=== PATIENT | male | born 1940 | race Caucasian/White ===

== ENCOUNTER → 2018-06-01 14:47 | Outpatient (CLI) | payer MEDICARE, SELFPAY ==
--- NOTE | 2018-06-01 14:52 | MR_ITS ---
MR lumbar spine wo con, MR 3-d myelogram/MRCP HISTORY: X3WKS LT sided LB. Worsening low back pain. . ITS.REASON: DORSALGIA ORDERING PHYSICIAN: Columba Quiñones MD PATIENT AGE: 77 years Comparison: None TECHNIQUE: Standard multiplanar multiecho sequences are performed without contrast. 3-D MIP and myelographic images are also rendered and reviewed FINDINGS: There is normal alignment. There is multilevel lumbar spondylosis which will be described below. The spinal cord ends at the L1 level. L1-L2: Mild facet and ligamentum flavum hypertrophy with mild bilateral foraminal narrowing. Schmorl's nodes are present at the endplate. L2-L3: Degenerative disc disease with bulging disc along with facet and ligamentum flavum hypertrophy. There is moderate to severe bilateral lateral recess narrowing and moderate to severe bilateral foraminal narrowing from the facet hypertrophic change. There is narrowing of the canal. There is mild impingement upon the exiting L2 nerve root on the right L3-L4: Degenerative disc disease with bulging disc along with severe facet and ligamentum hypertrophy with severe canal stenosis and severe bilateral lateral recess narrowing with severe bilateral foraminal narrowing. There is mild impingement on the exiting L3 nerve roots on both sides L4-5: Degenerative disc disease with bulging disc along with moderate to severe facet and ligamentum flavum hypertrophy. There is severe left-sided foraminal narrowing from facet and ligamentum flavum hypertrophy and the bulging disc. There is impingement upon the exiting left L4 nerve root L5-S1: Facet and ligamentum flavum hypertrophy with bulging disc with moderate to severe bilateral foraminal narrowing and mild impingement upon the exiting L V nerve roots on both sides slightly greater on the left. No extruded herniated disc evident. Incidental note made of multiple parapelvic renal cysts IMPRESSION: Abnormal MRI of the lumbar spine with multilevel lumbar spondylosis with degenerative disc disease, bulging disc, facet and ligamentum flavum hypertrophy with lateral recess and foraminal narrowing at multiple levels. Please see above for detailed description at each level. Severe canal stenosis with severe bilateral lateral recess and foraminal narrowing noted at L3-L4 No disc herniation evident
== END ==
PROVIDERS: PCP Family Medicine; Visit Provider Emergency Medicine
DX: M54.9 Dorsalgia, unspecified (principal)
CPT/HCPCS: 72148; 76376

== ENCOUNTER → 2019-05-28 09:43 | Outpatient (CLI) | payer MEDICARE, SELFPAY ==
--- NOTE | 2019-05-28 09:49 | XR_ITS ---
PROCEDURE: XR KNEE LT 3V CLINICAL INDICATION: ACUTE LT KNEE PAIN Acute left knee pain with limited range of motion COMPARISON: No exams were available for comparison FINDINGS: No fracture or dislocation. No lytic or blastic change. There is normal mineralization. Minimal osteoarthritic change medial compartment and patellofemoral joint Other findings:None. IMPRESSION: Minimal osteoarthritis Dictated by: Richar Cazares MD 05/28/2019 10:12 Electronically signed by Richar Cazares MD in [place] 05/28/2019 10:12
== END ==
PROVIDERS: PCP Family Medicine; Visit Provider Family Medicine
DX: M25.562 Pain in left knee (principal)
CPT/HCPCS: 73562

== ENCOUNTER → 2019-07-06 10:53 | Outpatient (CLI) | payer MEDICARE, SELFPAY ==
--- NOTE | 2019-07-06 11:01 | XR_ITS ---
PROCEDURE: XR CHEST 2V CLINICAL HISTORY: RESPIRATORY CRACKLES RT LUNG BASE COMPARISON: CXR CHEST(2 VIEWS-NOT PORTABLE) from 03/03/[address] CHEST W/ CONTRAST from 03/24/2017 CXR CHEST(2 VIEWS-NOT PORTABLE) from 05/19/2017 FINDINGS: The cardiomediastinal silhouette and pulmonary vascularity are within normal limits. The lungs are clear without infiltrates, suspicious nodules, or pleural effusions. There is elevation of the right hemidiaphragm. No acute bony abnormalities. IMPRESSION: No acute cardiopulmonary pathology. Dictated by: Pritesh Dupree 07/06/2019 11:57 Electronically signed by Pritesh Dupree in [place] 07/06/2019 11:57
== END ==
PROVIDERS: PCP Family Medicine; Visit Provider Physician Assistant
DX: R09.89 Other specified symptoms and signs involving the circulatory and respiratory systems (principal)
CPT/HCPCS: 71046

== ENCOUNTER → 2020-04-01 10:27 | Outpatient (CLI) | payer MEDICARE, SELFPAY | PROVIDERS: PCP Family Medicine; Visit Provider Family Medicine | DX: Z03.818 Encounter for observation for suspected exposure to other biological agents ruled out (principal) | CPT/HCPCS: U0003 ==

== ENCOUNTER → 2021-02-10 10:56 | Outpatient (POV) | payer MEDICARE, SELFPAY | PROVIDERS: Visit Provider Dermatology | DX: Z00.00 Encounter for general adult medical examination without abnormal findings (principal) ==

== ENCOUNTER → 2021-02-24 14:14 | Outpatient (POV) | payer MEDICARE, SELFPAY | PROVIDERS: Visit Provider Dermatology | DX: Z00.00 Encounter for general adult medical examination without abnormal findings (principal) ==

== ENCOUNTER → 2021-03-03 08:10 | Outpatient (POV) | payer MEDICARE, SELFPAY | PROVIDERS: Visit Provider Dermatology | DX: Z00.00 Encounter for general adult medical examination without abnormal findings (principal) ==

== ENCOUNTER → 2021-03-09 11:48 | Outpatient (CLI) | payer MEDICARE, SELFPAY ==
--- NOTE | 2021-03-09 11:52 | XR_ITS ---
PROCEDURE: XR KNEE RT 3V CLINICAL INDICATION: ACUTE PAIN OF RT KNEE COMPARISON: CR XR KNEE LT 3V from 05/28/2019 FINDINGS: No fracture or dislocation. No lytic or blastic change. There is normal mineralization. There are moderate to severe osteoarthritic changes of the medial compartment and patellofemoral joint with mild osteoarthritis of the lateral compartment. Calcification projects over the inter spinous region and lateral to the lateral tibial spine on the AP view and appear to represent osteophytes of the proximal tibia. Cannot exclude the possibility a loose body in this region. There is increased soft tissue density in the suprapatellar region consistent with knee joint effusion. Vascular calcifications are also noted. Other findings:None. IMPRESSION: Osteoarthritis with proximal tibial osteophytes versus underlying loose bodies with knee joint effusion Dictated by: Richar Cazares MD 03/09/2021 15:24 Richar Cazares MD in [place] 03/09/2021 15:24
== END ==
PROVIDERS: PCP Family Medicine; Visit Provider Family Medicine
DX: M25.561 Pain in right knee (principal)
CPT/HCPCS: 73562

== ENCOUNTER 2021-03-13 15:29 | Outpatient (RCR) | payer MEDICARE, SELFPAY | END 2021-03-13 16:24 | disposition home or self-care (01) | LOC: PT 15:29 | PROVIDERS: Visit Provider Orthopaedic Surgery | DX: M17.11 Unilateral primary osteoarthritis, right knee (principal) | CPT/HCPCS: 97760 ==

== ENCOUNTER 2021-04-02 09:00 | Outpatient (RCR) | payer MEDICARE, SELFPAY ==
--- NOTE | 2021-03-19 17:28 | HMH.PTOPEV ---
PT Outpatient Evaluation Rehab PT Outpatient Evaluation Start: 03/19/21 15:28 Freq: Status: Active Protocol: Document 03/19/21 16:15 ZEUS (Rec: 03/19/21 17:26 CHEVYPIA [id number]) Electronically Signed By Rufus Avalos, PT 03/19/21 16:15 Outpatient Therapy Subjective History Subjective History This is the intial evaluation for Nico Cohen. Pt is an 80 y/o male referred for R knee pain/OA. Pt states two weeks ago he was walking in his yard when he heard a pop and felt pain in his R knee - Pt states x-ray saw an unidentified lose body in the joint space. Pt reports he has had OA in his R knee for years but hasnt felt much pain till this event. Pt states he did not use any AD before this episode but has now used a SP cane to get around his house. Pt's spouse reports she gave him a walker for the first few days so he wouldnt fall. Pt reports no falls since injury. Pt states he has not been on his feet much since that is the only time he feels the pain. - note done by Marta Lafleur, SPT Chief Complaint Pain,Gives out/Unstable Symptom Type Sharp Symptoms Relieved By Rest/Positioning Symptoms Aggravated By Standing,Physical Activity, Walking Prior Functional Limitations None Current Functional Limitations Housework,Standing,Recreation Activity,Walking,Stairs Symptom Description Activity Dependent Level of pain today (0-10) 0 Pain scale - at its best (0-10) 0 Pain scale - at its worst (0-10) 8 Hip/Knee Eval Gait Observation General Gait Pattern Observation Wide Based Gait,Shuffling Step Assistive Device Assistive Devices Straight Cane Palpation Tenderness right Knee Palpation Finding Tenderness Knee Palpation Overall Comment Medial under patella MMT Knee Extension Strength Grade 5 Normal Knee Flexion Strength Grade 5 Normal ROM left Knee Extension Active Range of Motion ( -5 degrees) Knee Flexion Active Range of Motion ( WFL degrees) right Knee Extension Active
== END 2021-04-02 09:05 | disposition home or self-care (01) ==
LOC: PT 09:00
PROVIDERS: PCP Family Medicine; Visit Provider Orthopaedic Surgery
DX: M17.11 Unilateral primary osteoarthritis, right knee (principal)
CPT/HCPCS: 97014; 97110; 97140; 97163; G0283

== ENCOUNTER → 2021-06-02 08:29 | Outpatient (CLI) | payer MEDICARE, SELFPAY ==
--- NOTE | 2021-06-02 08:34 | XR_ITS ---
PROCEDURE: XR HIP RT 2-3V W/PELVIS CLINICAL INDICATION: right hip pain COMPARISON: No exams were available for comparison FINDINGS: Mild osteoarthritic changes involve the right hip. No acute fracture or dislocation. AP view of the pelvis shows mild osteoarthritic change of the left hip. Well-circumscribed calcific densities are present along the lateral aspect of the both acetabuli and in the left greater trochanter region IMPRESSION: Mild osteoarthritic changes of the hips. Dictated by: Richar Cazares MD 06/02/2021 17:36 Richar Cazares MD in [place] 06/02/2021 17:36
== END ==
PROVIDERS: PCP Family Medicine; Visit Provider Orthopaedic Surgery
DX: M25.551 Pain in right hip (principal)
CPT/HCPCS: 73502

== ENCOUNTER → 2021-06-11 11:12 | Outpatient (CLI) | payer MEDICARE, SELFPAY ==
--- NOTE | 2021-06-11 11:21 | XR_ITS ---
PROCEDURE: XR CHEST 2V CLINICAL HISTORY: HX OF OPEN HEART SURGERY, PRE-OPERATIVE COMPARISON: CR CXR CHEST(2 VIEWS-NOT PORTABLE) from 03/03/[address] CHEST W/ CONTRAST from 03/24/2017 DX CXR CHEST(2 VIEWS-NOT PORTABLE) from 05/19/2017 CR XR CHEST 2V from 07/06/2019 FINDINGS: Prior CABG. Normal heart size. Elevated right hemidiaphragm with right basilar atelectasis and minimal blunting of the right CP angle suggesting small right effusion. The remaining lungs are clear.. Degenerative changes thoracic spine IMPRESSION: Elevated right hemidiaphragm with right basilar atelectasis with trace right effusion unchanged. Dictated by: Richar Cazares MD 06/11/2021 14:25 Richar Cazares MD in [place] 06/11/2021 14:25
[2021-06-11 11:30] LABS: Basophils % 0.5 % (0.1-2.0); Eosinophils # 0.4 K/mm3 (0.0-0.4); Eosinophils % 4.5 % (0.1-12.0); Hematocrit 37.9 % (42.0-52.0); Hemoglobin 12.2 g/dL (14.1-18.0); Lymphocytes # 1.3 K/mm3 (0.7-4.5); Mean Corpuscular HGB Conc 32.2 g/dL (31.8-35.4); Mean Corpuscular Volume 96.4 fl (80-94); Mean Platelet Volume 7.8 fl (7.4-10.4); Monocytes # 0.6 K/mm3 (0.1-1.0); Monocytes % 7.3 % (1.7-9.3); Neutrophils # 5.7 K/mm3 (1.8-7.8); Neutrophils % 71.6 % (37.0-80.0); Platelet Count 351 K/mm3 (142-424); Red Blood Count 3.93 M/mm3 (4.60-6.20); Red Cell Distribution Width 12.9 % (11.5-17.5); White Blood Count 7.9 K/mm3 (4.8-10.8)
--- NOTE | 2021-06-11 11:43 | ECG_ITS ---
APPROVED REPORT Exam: Resting ECG HR:64 bpm ECG Measurements Heart Rate 64 AXES OK 166 P 60 QRSd 88 QRS 40 QT 422 T 38 QTc 435 Conclusion Normal sinus rhythm Normal ECG Electronically signed by : Ángel Carrera MD 06/12/2021 09:55:12
[2021-06-11 12:36] LABS: Alanine Aminotransferase 17 U/L (12-78); Albumin Level 3.6 g/dl (3.5-5.0); Albumin/Globulin Ratio 1.2 (1.1-1.8); Alkaline Phosphatase 201 U/L (38-126); Anion Gap 9.8 mEq/L (5-15); Aspartate Amino Transferase 76 U/L (17-59); Bilirubin,Total 0.3 mg/dl (0.2-1.3); Blood Urea Nitrogen 21 mg/dl (9-20); Carbon Dioxide 35 mmol/L (22.0-30.0); Chloride 100 mmol/L (98-107); Estimated Glomerular Filt Rate 81 ml/min (>60); GFR (African American) 98 ML/MIN (>60); Glucose 109 mg/dl (74-100); Potassium 4.8 mmoL/L (3.5-5.1); Sodium 140 mmol/L (136-145); Total Protein,Serum 6.6 g/dl (6.3-8.2)
== END ==
PROVIDERS: Visit Provider Family Medicine
DX: Z01.818 Encounter for other preprocedural examination (principal)
CPT/HCPCS: 36415; 71046; 80053; 85025; 93005

== ENCOUNTER → 2021-07-06 10:26 | Outpatient (CLI) | payer MEDICARE, SELFPAY ==
--- NOTE | 2021-07-06 10:41 | FL_ITS ---
FINAL REPORT CLINICAL HISTORY: . trouble swallowing 2.14 fluoro time FINDINGS: MODIFIED BARIUM SWALLOW HISTORY: Dysphagia. FINDINGS: Fluoroscopy was provided for the speech pathologist to evaluate the swallowing mechanism. The patient was given several different consistencies of barium while the swallow was visualized fluoroscopically. The report of the speech pathologist should be consulted prior to making dietary decisions. A total of 12 cine runs were performed. IMPRESSION: Modified barium swallow under fluoroscopic guidance. Please see speech pathologist's report for further details and dietary recommendations. Fluoroscopy time was 2.14 minutes Reviewed, Interpreted and Dictated by Valentín Carr MD Transcribed by Marian Bennett PA-C Authenticated by Valentín Carr MD on 07/08/2021 11:33:20 AM [facility]
--- NOTE | 2021-07-06 12:32 | HMH.SLMBS2 ---
Speech & Language Evaluation Speech/Language Mod Barium Swallow Start: 07/06/21 11:39 Freq: once Status: Complete Protocol: Document 07/06/21 11:39 LULIAYANNA (Rec: 07/06/21 12:32 CWPARKEIN [id number]) General Information General Current Food Consistancy Regular,Thin Liquids Dentition Edentulous Oxygen Status Room Air Facial Symmetry Symmetrical Ability to Follow Directions Excellent Communication Ability No Impairment MBS Recommendations Diet Dietary Recommendations Regular,Thin Liquids Treatment/Strategies Strategy/Precaution Recommend Sitting Upright (90 deg),Small Bites and Sips,Alternate Liquids/Solids Mod Barium Swallow Impressions Summary and Impressions Oral Phase Impression Mild Impairment Oral Phase Summary Prolonged mastication of solids 2' lack of dentition. Pharyngeal Phase Impression Mild Impairment Pharyngeal Phase Summary Reduced epiglottic inversion noted with liquid trials, reduced pharyngeal wall stripping, and mild pyriform sinus residue with solids. Transient penetration x1 with liquid wash via straw. No other aspiration or penetration noted on any other trials. Speech/Language MBS Assessment/Goals/Plan Assessment Date of Evaluation: 07/06/21 Evaluation Type Initial Certification Assessment/Problems Dysphagia Does Patient Qualify for Service No Qualify/Failure Comment Based on the results of the modified barium swallow study, patient does not qualify for skilled speech therapy services at this time. Recommendations PHYSICIAN CERTIFICATION: The specified therapy services are required, authorized, and reviewed every 30 days. Diet Recommendations Normal Liquid Type Recommendations Normal/Thin SL Swallow Guidelines Alt bite w/sip thru meal, Standard Aspiration Prec.,Eat at slow rate Dysphagia Swallow Precautions/Strategies Sitting Upright (90 deg),Small Bites and Sips,Alternate Liquids/Solids Place Food on Either side of Mouth Plan Pt/Guardian verbally ack understanding Yes of dx/prognosis/goals Pt/Guardian verbally ack understanding Yes of/consent to tx prog G -code Required No Education Ins
== END ==
PROVIDERS: PCP Family Medicine; Visit Provider Family Medicine
DX: R13.12 Dysphagia, oropharyngeal phase (principal)
CPT/HCPCS: 70371; 92611

== ENCOUNTER → 2021-07-09 09:56 | Outpatient (CLI) | payer MEDICARE, SELFPAY ==
--- NOTE | 2021-07-09 10:05 | CT_ITS ---
FINAL REPORT CLINICAL HISTORY: LEFT FLANK PAIN FINDINGS: Technique: The patient was injected with intravenous contrast. Axial images through the abdomen and pelvis were performed. Oral contrast was given. This study was performed with techniques to keep radiation doses as low as reasonably achievable (ALARA). Individualized dose reduction techniques using automated exposure control or adjustment of mA and/or kV according to the patient's size were employed. Abdomen: There is localized consolidation in the medial right lung base. There are a few air bronchograms. There is apparent elevation of the right hemidiaphragm. On the sagittal images, this appears to be in fact representing a large diaphragmatic hernia. There is significant indentation on the liver by the diaphragm. Findings are well seen on images 43-49. The liver parenchyma is homogeneous. The gallbladder is present. The spleen is unremarkable. The adrenals are normal. The pancreas is unremarkable. There appear to be multiple bilateral parapelvic renal cysts. The aorta is normal in caliber. There is no free fluid or adenopathy. Pelvis: The appendix is unremarkable. There is questionable thickening of the posterior wall of the urinary bladder. The prostate is enlarged measuring 5.7 cm in diameter. There is no free fluid or adenopathy. There are advanced hypertrophic changes of degenerative disc disease. No delayed phase imaging were obtained. IMPRESSION: Presumed parapelvic cysts bilaterally. This could be better evaluated on delayed phase imaging to confirm. Apparent abnormal thickening of the posterior urinary bladder. Again, this could be better evaluated on delayed phase imaging. The possibility of localized cystitis or neoplasm is not excluded. Large right diaphragmatic hernia. Reviewed, Interpreted and Dictated by Valentín Carr MD Transcribed by Zeinab Patton Authenticated by Valentín Carr MD on 07/09/2021 01:27:[address] [facility]
[2021-07-09 10:40] LABS: Chloride 102 mmol/L (98-107); Potassium 4.7 mmoL/L (3.5-5.1); Sodium 140 mmol/L (136-145)
[2021-07-09 10:42] LABS: Blood Urea Nitrogen 20 mg/dl (9-20); Estimated Glomerular Filt Rate 72 ml/min (>60); GFR (African American) 87 ML/MIN (>60)
[2021-07-09 10:43] LABS: Alanine Aminotransferase 7 U/L (12-78); Albumin Level 4.1 g/dl (3.5-5.0); Albumin/Globulin Ratio 1.2 (1.1-1.8); Alkaline Phosphatase 92 U/L (38-126); Anion Gap 8.7 mEq/L (5-15); Aspartate Amino Transferase 32 U/L (17-59); Bilirubin,Total 0.6 mg/dl (0.2-1.3); Calcium 9.1 mg/dl (8.4-10.2); Carbon Dioxide 34 mmol/L (22.0-30.0); Globulin 3.3 g/dL (1.3-3.2); Glucose 103 mg/dl (74-100); Total Protein,Serum 7.4 g/dl (6.3-8.2)
== END ==
PROVIDERS: PCP Family Medicine; Visit Provider Family Medicine
DX: R10.9 Unspecified abdominal pain (principal)
CPT/HCPCS: 36415; 74177; 80053; Q9967

== ENCOUNTER → 2021-07-31 14:44 | Outpatient (CLI) | payer MEDICARE, SELFPAY ==
[2021-07-31 17:05] LABS: Prostate Specific Ag Screen 5.1 ng/ml (0.0-4.0)
== END ==
PROVIDERS: PCP Family Medicine; Visit Provider Urology
DX: Z12.5 Encounter for screening for malignant neoplasm of prostate (principal)
CPT/HCPCS: 36415; G0103

== ENCOUNTER → 2021-08-14 13:34 | Outpatient (CLI) | payer MEDICARE, SELFPAY | PROVIDERS: PCP Family Medicine; Visit Provider Urology | DX: N40.1 Benign prostatic hyperplasia with lower urinary tract symptoms (principal); Z01.812 Encounter for preprocedural laboratory examination; Z11.52 Encounter for screening for COVID-19 | CPT/HCPCS: C9803; U0003; U0005 ==

== ENCOUNTER 2021-08-17 10:14 | Day surgery (SDC) | payer MEDICARE, SELFPAY ==
[2021-08-13 13:50] VITALS: BMI 29.5
[2021-08-17 10:31] VITALS: BP 174/68; PULSE 61; RESP 18; TEMP 36.9; O2SAT 93
[2021-08-17 11:10] VITALS: BP 140/85; PULSE 63; RESP 18; TEMP 36.8; O2SAT 93
--- NOTE | 2021-08-17 11:58 | P.OP_ITS ---
Date of procedure: 08/17/21 Pre-op Diagnosis:: BPH with obstruction, urinary incontinence Post-op Diagnosis:: Prostate hyperplasia with incomplete bladder emptying and signs of chronic bladder outlet obstruction Procedure performed:: Cystoscopy Surgeon:: Carloz Samaniego MD Anesthesia: local Estimated blood loss (mL): 0 Clinical Note:: 81-year-old white male with recent left-sided pain and lower urinary tract symptoms. CT scan has shown an enlarged prostate with some posterior bladder wall thickening, a dilated distal left ureter and mild bilateral hydronephrosis. Postvoid residual is 229 cc. Since he was last seen in the office a couple of weeks ago his significant other states he has had worsening urinary incontinence of an urgency type. Operative findings:: Trilobar hyperplasia of the prostate with severe bladder trabeculation. Due to sediment in the bladder it was difficult to completely assess the bladder. The ureteral orifices were obscured. Operative note:: Patient taken to the cystoscopy suite after informed consent was obtained. On the stretcher he was prepped draped in the standard surgical fashion and 2% lidocaine placed into the urethra and clamped for 5 minutes. After 5 minutes the clamp removed and the flexible cystoscope introduced into the urethral meatus in the past to the prostatic urethra which showed trilobar hyperplasia. The bladder was entered but there is a lot of urine and sediment in the bladder and the cystoscope was removed and a 14 [place] red rubber catheter passed into the bladder and the bladder emptied. At the end of drainage there was some thicker sediment. The cystoscope then replaced into the urethral meatus and passed into the bladder. There are still a lot of murky sediment making it difficult to evaluate but there was noted to be severe trabeculation noted. I did not appreciate any mucosal abnormalities but again the exam was suboptimal. The ureteral orifices were obscured. The scope was retroflexed but it was difficult to appreciate the median lobe. The scope then removed. The 14 [place] red rubber catheter was passed again to empty the bladder. Patient tolerated procedure well. We discussed the findings in recovery room with he and his significant other. We discussed treatment options including UroLift versus TURP. A TURP would probably be a better option for this gentleman given a median lobe noted on his CT scan. He was treated for possible urinary tract infection today which may be causing the increased urinary incontinence. We will culture the urine and 7-day course of cefdinir was given. Condition: stable Disposition: same day Specimens:: Culture Complications:: None
== END 2021-08-17 11:16 | disposition home or self-care (01) ==
LOC: OUTP 10:16
PROVIDERS: PCP Family Medicine; Visit Provider Urology
DX: N40.1 Benign prostatic hyperplasia with lower urinary tract symptoms (principal); R33.8 Other retention of urine; I25.10 Atherosclerotic heart disease of native coronary artery without angina pectoris; M19.90 Unspecified osteoarthritis, unspecified site
CPT/HCPCS: 52000; 87086

== ENCOUNTER → 2021-10-03 08:44 | Outpatient (CLI) | payer MEDICARE, SELFPAY ==
[2021-10-03 08:52] LABS: MANUAL DIFFERENTIAL MANUAL DIFFERENTIAL (MANUAL DIFF)
[2021-10-03 09:04] LABS: Basophils # 0.1 K/mm3 (0-0.2); Basophils % 0.7 % (0.1-2.0); Eosinophils # 0.6 K/mm3 (0.0-0.4); Eosinophils % 8.3 % (0.1-12.0); Hematocrit 38.7 % (42.0-52.0); Hemoglobin 12.9 g/dL (14.1-18.0); Lymphocytes # 1.1 K/mm3 (0.7-4.5); Mean Corpuscular HGB Conc 33.4 g/dL (31.8-35.4); Mean Corpuscular Volume 92.6 fl (80-94); Mean Platelet Volume 8.5 fl (7.4-10.4); Monocytes # 0.4 K/mm3 (0.1-1.0); Monocytes % 5.9 % (1.7-9.3); Neutrophils # 4.8 K/mm3 (1.8-7.8); Neutrophils % 69.1 % (37.0-80.0); Platelet Count 220 K/mm3 (142-424); Red Blood Count 4.18 M/mm3 (4.60-6.20); Red Cell Distribution Width 14.3 % (11.5-17.5); White Blood Count 6.9 K/mm3 (4.8-10.8)
[2021-10-03 09:26] LABS: Chloride 106 mmol/L (98-107); Potassium 4.2 mmoL/L (3.5-5.1); Sodium 140 mmol/L (136-145)
[2021-10-03 09:29] LABS: Anion Gap 7.2 mEq/L (5-15); Blood Urea Nitrogen 27 mg/dl (9-20); Calcium 8.5 mg/dl (8.4-10.2); Carbon Dioxide 31 mmol/L (22.0-30.0); Estimated Glomerular Filt Rate 58 ml/min (>60); GFR (African American) 70 ML/MIN (>60); Glucose 99 mg/dl (74-100)
[2021-10-03 10:57] LABS: Eosinophils % 3 % (0-3); Lymphocytes % 14 % (10-50); Monocytes % 4 % (2-9); Neutrophils % 79 % (42-76); Platelet Estimate Normal; RBC Morphology Normal; Total Cells Counted 100
== END ==
PROVIDERS: Visit Provider Urology
DX: N40.1 Benign prostatic hyperplasia with lower urinary tract symptoms (principal); Z01.812 Encounter for preprocedural laboratory examination; Z11.52 Encounter for screening for COVID-19; Z79.899 Other long term (current) drug therapy
CPT/HCPCS: 36415; 80048; 85007; 85014; 85018; 85048; 85049; C9803; U0003; U0005

== ENCOUNTER 2021-10-05 12:04 | Observation (INO) | payer MEDICARE, SELFPAY ==
[2021-10-01 08:30] VITALS: BMI 28.8
[2021-10-05] VITALS (25 sets, daily range): BP systolic 107–210; BP diastolic 50–99; PULSE 53–91; RESP 15–20; TEMP 36.2–43; O2SAT 92–96; BMI 27.9
--- NOTE | 2021-10-05 09:59 | P.PN_ITS ---
[facility] Anesthesia Checklist - Patient Identification Patient Identification: Arm Band, Verbal (Name & ) - Structural Data Admitted From: Home Planned Operative Procedure/s: TURP Consent for Planned Operative Procedure(s) Verified: Yes Verified Documents: Surgical Consent - NPO Status Verified Time NPO: 00:00 - Chart Verification Results Verified: CBC, BMP - Additional verifications Anesthesia Reactions: No Hx Blood Transfusions: No Blood Transfusion Reaction: No - Airway Assessment C-Spine Mobility Assessed: Yes TMJ Mobility Assessed: Yes Dentition: Dentures-good fit - Neurological Assessment Level of Consciousness: Awake, Alert, Appropriate - Anesthesia Plan Anesthesia Risk discussed: Yes ASA Class: III Anesthesia Type: General [facility] History I have reviewed the patient's past medical history: Yes Medical History: Reports:: Coronary Artery Disease Denies:: Cancer, Diabetes Mellitus Type 1, Diabetes Mellitus Type 2, Internal Pacemaker, MRSA, Seizures *Have you ever received a pneumonia vaccine?: Yes *Have you received a flu vaccine this season?: Yes Other Medical History: Reports: Arthritis, Cataracts, Other. Denies: Blood Transfusion Reaction Anesthesia experience/problems:: none Laterality Cases: Bilateral: Cataract, Tonsillectomy Other Surgeries: Yes: No Previous Surgery, Open Heart Surgery. No: Pacemaker Amputation: No Fractures: No - *Social History Last grade of school completed: 7th or 8th Smoking Status: Former smoker #Yrs smoked (if former smoker): 15 Smoking End Date: 1976 Alcohol Intake: never Alcohol Intake Frequency:: a few times a month Substance Use Type: denies use *Occupational Status:: retired Housing: house Household Members: spouse *Travel in the last 8 weeks: None Family Hx:: Diabetes
--- NOTE | 2021-10-05 11:25 | P.PN_ITS ---
[facility] Anesthesia Record Part I Intake, IV Amount: 1,000 Estimated blood loss (mL): 10 Urine output (mL): 0 Blood Pressure: 157/70 SaO2: 93 Pulse Rate: 53 Respiratory Rate: 15 Temperature: 97.2 F Patient is:: Drowsy Stable to PACU at:: 11:23
--- NOTE | 2021-10-05 11:41 | HMH.OPNOTE ---
Date of procedure: 10/05/21 Pre-op Diagnosis:: BPH with obstruction Post-op Diagnosis:: BPH with obstruction Procedure performed:: Transurethral resection of prostate Surgeon:: Carloz Samaniego MD NETWORK COMMUNICATIONS ENGINEER:: Other (sam s) Anesthesia: LMA Estimated blood loss (mL): 5 Clinical Note:: 82-year-old white male with lower urinary tract symptoms and postvoid residual of 230 cc presents for transurethral section of prostate. Operative findings:: Patient with trilobar hyperplasia and chronic bladder outlet obstruction findings of severe trabeculation and cellule formation. Operative note:: Patient taken to the operating room after informed consent was obtained. Was placed on the operating room table in the supine position and general anesthesia administered. Sequential compression devices and IV antibiotics administered. He was then placed into the dorsal lithotomy position and prepped and draped in the standard surgical fashion. A 22 Nigerian cystoscope passed into the urethra and to the prostatic urethra which showed trilobar hyperplasia. The bladder was entered and examined in a systematic fashion. There was severe trabeculation and cellule formation along the face and posterior portion of the bladder. No mucosal abnormalities were noted. The ureteral orifices were obscured by the large median lobe. Scope then removed and the urethra was dilated with Amy dilators to 30 Nigerian. A 28 Nigerian resectoscope sheath with obturator was then passed into the urethra and into the bladder without difficulty. The obturator removed and the resectoscope sheath passed into the scope and resection began at the bladder neck resecting the bladder neck in a circumferential fashion. The floor the prostatic urethra was then resected back to the verumontanum. The right side of the prostate was then resected in a clockwise fashion back to the room. Left side the prostate was resected as well in a counterclockwise fashion back to the [facility] room. There was a significant amount of anterior tissue that was resected back to the [facility] room. The apical tissue was then resected as stage III of the procedure. All the prostatic chips were evacuated and hemostasis achieved. 22 Nigerian three-way catheter then passed into the bladder with use of a catheter guide. Urine was clear. Continuous bladder irrigation hooked up to the catheter is 30 cc placed into the balloon. Patient tolerated the procedure well no complications. Condition: stable Disposition: PACU Specimens:: Prostatic chips Complications:: None
[2021-10-05 11:48] LABS: Coronavirus 19, PCR Not Detected (NotDetected); Influenza A, PCR Not Detected (NotDetected); Influenza B, PCR Not Detected (NotDetected)
--- NOTE | 2021-10-05 11:50 | HMH.HP ---
*Admission Date: 10/05/21 *Chief complaint: BPH with obstruction *History of present illness: Patient is 81-year-old white male with long history of lower urinary tract symptoms. His postvoid residual was 230 cc. Cystoscopy has shown trilobar hyperplasia of the prostate with severe trabeculation and cellule formation of the bladder. He presents today for transurethral section of prostate. [facility] History Medical History: Reports:: Coronary Artery Disease Denies:: Cancer, Diabetes Mellitus Type 1, Diabetes Mellitus Type 2, Internal Pacemaker, MRSA, Seizures *Have you ever received a pneumonia vaccine?: Yes *Have you received a flu vaccine this season?: Yes Other Medical History: Reports: Arthritis, Cataracts, Other. Denies: Blood Transfusion Reaction Anesthesia experience/problems:: none Laterality Cases: Bilateral: Cataract, Tonsillectomy Other Surgeries: Yes: No Previous Surgery, Open Heart Surgery. No: Pacemaker Amputation: No Fractures: No - *Social History Last grade of school completed: 7th or 8th Smoking Status: Former smoker #Yrs smoked (if former smoker): 15 Smoking End Date: 1976 Alcohol Intake: never Alcohol Intake Frequency:: a few times a month Substance Use Type: denies use *Occupational Status:: retired Housing: house Household Members: spouse *Travel in the last 8 weeks: None Family Hx:: Diabetes Review of Systems - Review of Systems Review of systems:: pertinent systems reviewed and negative unless documented below Meds Home Medications Medication Instructions Recorded Confirmed Type atenolol 25 mg tablet 25 mg PO DAILY tab 03/12/21 10/05/21 History lovastatin 20 mg tablet 20 mg PO DAILY tab 03/12/21 10/05/21 History meloxicam 7.5 mg tablet 2 tab PO DAILY tab 03/12/21 10/05/21 History multivitamin 1 tab PO DAILY 03/12/21 10/05/21 History terazosin 5 mg capsule 5 mg PO DAILY cap 03/12/21 10/05/21 History isosorbide mononitrate 60 mg 60 mg PO DAILY tab 06/18/21 10/05/21 History tablet,extended release 24 hr aspirin 81 mg tablet,delayed 81 mg PO DAILY 07/31/21 10/05/21 History release glucosamine sulfate 500 mg tablet 500 mg PO BID 07/31/21 10/05/21 History Carbidopa/Levodopa [Rytary ER 2 tab PO BID 10/01/21 10/05/21 History 23.75 mg-95 mg Cap] Allergies Allergy/AdvReac Type Severity Reaction Status Date / Time No Known Allergies Allergy Verified 10/01/21 08:11 Exam Vital signs and Labs for Last 24 Hours: Temp Pulse Resp BP Pulse Ox 97.2 F L 58 L 16 185/93 H 96 10/05/21 11:26 10/05/21 11:33 10/05/21 11:33 10/05/21 11:33 10/05/21 11:33 I & O for Last 24 hours: Intake & Output 10/02/21 10/03/21 10/04/21 10/05/21 23:59 23:59 23:59 23:59 Intake Total 1000 / 1000 Balance 1000 / 1000 - Constitutional no acute distress - *Routine HEENT Exam Head: Present: normocephalic Eye: Present: EOMI, PERRL ENT: Present: mucous membranes moist - *Routine Neck Exam Present: supple. Absent: lymphadenopathy - *Routine Respiratory Exam Present: CTA bilaterally - *Routine Cardiovascular Exam Present: RRR - *Routine Abdominal Exam Present: soft, normoactive bowel sounds. Absent: tenderness - *Routine Rectal Exam Rectal:: deferred - *Routine Genitalia Exam Genitalia:: normal male - *Routine Extremities Exam Absent: cyanosis, clubbing, edema - *Routine Skin Exam Present: warm. Absent: rash - *Routine Neurological Exam Present: alert, oriented X3 Assessment and Plan (1) BPH loc w urin obs/LUTS Status: Acute Category: Medical Code(s): N40.1 - Benign prostatic hyperplasia with lower urinary tract symptoms Patient with history of lower urinary tract symptoms. Cystoscopy has shown enlarged prostate with changes in his bladder consistent with pushing against a very large prostate. We have discussed treatment options and he presents today for transurethral resection of prostate. We have discussed The procedure complications at [facility]
--- NOTE | 2021-10-05 13:11 | HMH.PHAINT ---
Home medication list has been verified using [employer] claim history and med-rec from visit with one of our providers.
--- NOTE | 2021-10-05 16:58 | PC.NURSE ---
PT IS RESTING IN BED WITH FAMILY AT BEDSIDE. NO COMPLAINTS OF DISCOMFORT. PT IS ON CBI. [address] WAY LÓPEZ DRAINING LIGHT PINK URINE. NO CLOTS NOTED. LUNG SOUNDS CLEAR. ABDOMEN SOFT/NON TENDER WITH HYPOACTIVE BOWEL SOUNDS. EATING AND DRINKING WELL. POST OP VSS. NO SWELLING NOTED TO BLE. WILL CONTINUE TO MONITOR.
[2021-10-06] VITALS: BP 167/78; PULSE 73; RESP 16; TEMP 36.5; O2SAT 92
--- NOTE | 2021-10-06 01:55 | PC.NURSE ---
3000 mL NS bag changed at this time and new one hung
[2021-10-06 04:00] VITALS: BP 186/77; PULSE 68; RESP 18; TEMP 36.5; O2SAT 92
--- NOTE | 2021-10-06 05:39 | PC.NURSE ---
pt has rested intermittently t/o shift, has remained on room air with O2 sats 92-93, has not complained of pain this shift, CBI currently running, 700 mL of urine out so far this shift
--- NOTE | 2021-10-06 07:20 | P.CONPHA_ITS ---
[facility] Pharmacy VTE Monitoring - Patient Demographics Admission date: 10/05/21 Report Date: 10/06/21 Time: 07:20 Allergies/Adverse Reactions: Patient Allergies No Known Allergies Allergy (Verified 10/01/21 08:11) Height: 1.75 m Weight: 85.842 kg Patient Problems: Current Active Problems BPH loc w urin obs/LUTS (Acute) - VTE Risk VTE Score: 1 - Prophylaxis VTE Prophylaxis Ordered?: Yes Types of VTE Prophylaxis: IPCS Thigh High Location of Applied Device: Bilateral Lower Extremeties
[2021-10-06 07:27] LABS: Basophils % 0.3 % (0.1-2.0); Eosinophils # 0.1 K/mm3 (0.0-0.4); Eosinophils % 0.9 % (0.1-12.0); Hematocrit 40.9 % (42.0-52.0); Hemoglobin 13.4 g/dL (14.1-18.0); Lymphocytes # 1.2 K/mm3 (0.7-4.5); Lymphocytes % 11.7 % (10-50); Mean Corpuscular HGB Conc 32.8 g/dL (31.8-35.4); Mean Corpuscular Hemoglobin 30.5 pg (27.0-31.2); Monocytes # 0.7 K/mm3 (0.1-1.0); Monocytes % 6.6 % (1.7-9.3); Neutrophils # 8.2 K/mm3 (1.8-7.8); Neutrophils % 80.5 % (37.0-80.0); Platelet Count 204 K/mm3 (142-424); Red Cell Distribution Width 14.4 % (11.5-17.5); White Blood Count 10.1 K/mm3 (4.8-10.8)
[2021-10-06 07:28] LABS: Chloride 106 mmol/L (98-107); Potassium 3.9 mmoL/L (3.5-5.1); Sodium 140 mmol/L (136-145)
[2021-10-06 07:31] LABS: Anion Gap 6.9 mEq/L (5-15); Blood Urea Nitrogen 20 mg/dl (9-20); Calcium 8.8 mg/dl (8.4-10.2); Carbon Dioxide 31 mmol/L (22.0-30.0); Creatinine Clearance Estimated 69 mL/min (50-200); Estimated Glomerular Filt Rate 72 ml/min (>60); GFR (African American) 87 ML/MIN (>60); Glucose 119 mg/dl (74-100)
[2021-10-06 08:00] VITALS: BP 196/73; PULSE 70; RESP 16; TEMP 36.7; O2SAT 96
[2021-10-06 10:15] VITALS: BP 168/86
--- NOTE | 2021-10-06 11:32 | P.PN_ITS ---
Internal Medicine - PN: Subj *Date: 10/06/21 *Time: 11:32 Interval history: Patient is postop day 1 from a TURP. His urine is clear on minimal CBI. He denies any problems overnight. He is tolerating a regular diet. He is afebrile and vital signs are stable Exam Vital signs and Labs for Last 24 Hours: Temp Pulse Resp BP Pulse Ox 98.1 F 70 16 168/86 H 96 10/06/21 08:00 10/06/21 08:00 10/06/21 08:00 10/06/21 10:15 10/06/21 08:00 Laboratory Results - last 24 hr 10/05/21 10:04: SARS-CoV-2 (PCR) Not detected, Influenza A Untype (PCR) Not detected, Influenza Type B (PCR) Not detected 10/06/21 06:50: WBC 10.1 D, RBC 4.40 L, Hgb 13.4 L, Hct 40.9 L, MCV 93.0, MCH 30.5, MCHC 32.8, RDW 14.4, Plt Count 204, MPV 8.0, Neut % (Auto) 80.5 H, Lymph % (Auto) 11.7, [place] % (Auto) 6.6, Eos % (Auto) 0.9, Baso % (Auto) 0.3, Neut # (Auto) 8.2 H, Lymph # (Auto) 1.2, [place] # (Auto) 0.7, Eos # (Auto) 0.1, Baso # (Auto) 0.0 10/06/21 06:50: Sodium 140, Potassium 3.9, Chloride 106, Carbon Dioxide 31 H, Anion Gap 6.9, BUN 20 D, Creatinine 1.00, Estimated Creat Clear 69, Estimated GFR 72, Est GFR ( Amer) 87 D, Glucose 119 H, Calcium 8.8 I & O for Last 24 hours: Intake & Output 10/03/21 10/04/21 10/05/21 10/06/21 23:59 23:59 23:59 23:59 Intake Total 2260 / 2260 1191 / 1191 Output Total 750 / 750 700 / 700 Balance 1510 / 1510 491 / 491 Weight 85.842 kg - Constitutional no acute distress - *Routine HEENT Exam Head: Present: normocephalic Eye: Present: EOMI, PERRL ENT: Present: mucous membranes moist - *Routine Neck Exam Present: supple. Absent: lymphadenopathy - *Routine Respiratory Exam Absent: accessory muscle use - *Routine Cardiovascular Exam Absent: JVD - *Routine Abdominal Exam Present: soft. Absent: tenderness - *Routine Extremities Exam Absent: cyanosis, clubbing, edema - *Routine Skin Exam Present: warm. Absent: rash - *Routine Neurological Exam Present: alert, oriented X3 Assessment and Plan (1) BPH loc w urin obs/LUTS Status: Acute Category: Medical Code(s): N40.1 - Benign prostatic hyperplasia with lower urinary tract symptoms Postop day 1 status post TURP. Patient doing well and we will plan to Hep-Lock his IV and plug his continuous bladder irrigation and allow him to walk around. I will stop by later this morning and check his urine off of CBI. If it remains clear we will allow him to go home with his Borrego catheter for a few days.
--- NOTE | 2021-10-06 11:40 | HMH.DCSUM ---
General - General Admission date:: 10/05/21 Discharge date: 10/06/21 HPI HPI: Patient is 81-year-old white male with long history of lower urinary tract symptoms. His postvoid residual was 230 cc. Cystoscopy has shown trilobar hyperplasia of the prostate with severe trabeculation and cellule formation of the bladder. He presents today for transurethral section of prostate. Hospital Course Hospital Course: Patient admitted to [facility] on October 05 and taken to the operating room for transurethral resection of prostate was performed without complication. Three-way catheter was placed and patient transported to the recovery room and to the floor postoperatively. On postop day 1 patient had no complaints. He was afebrile and vital signs were stable. His urine was slightly blood-tinged on minimal CBI. He was tolerating a diet. His catheter was plugged and he was allowed to ambulate in the halls. His urine remained slightly blood-tinged with ambulation and he was found ready for discharge. He will be discharged home with his Lemon catheter and return to the office in 3 days for a voiding trial. Objective Vital signs: Temp Pulse Resp BP Pulse Ox 98.1 F 70 16 168/86 H 96 10/06/21 08:00 10/06/21 08:00 10/06/21 08:00 10/06/21 10:15 10/06/21 08:00 no acute distress - *Routine HEENT Exam Head: Present: normocephalic Eye: Present: EOMI, PERRL ENT: Present: mucous membranes moist - *Routine Neck Exam Present: supple - *Routine Respiratory Exam Absent: accessory muscle use - *Routine Cardiovascular Exam Absent: JVD - *Routine Abdominal Exam Present: soft. Absent: tenderness - *Routine Extremities Exam Absent: cyanosis, clubbing, edema - *Routine Skin Exam Present: warm. Absent: rash - Detailed Eye Exam Eyelids: Bilateral normal inspection Results Labs on day of discharge: Labs from last 24 hours 10/06/21 10/06/21 10/05/21 06:50 06:50 10:04 WBC 10.1 D RBC 4.40 L Hgb 13.4 L Hct 40.9 L MCV 93.0 MCH 30.5 MCHC 32.8 RDW 14.4 Plt Count 204 MPV 8.0 Neut % (Auto) 80.5 H Lymph % (Auto) 11.7 [place] % (Auto) 6.6 Eos % (Auto) 0.9 Baso % (Auto) 0.3 Neut # (Auto) 8.2 H Lymph # (Auto) 1.2 [place] # (Auto) 0.7 Eos # (Auto) 0.1 Baso # (Auto) 0.0 Sodium 140 Potassium 3.9 Chloride 106 Carbon Dioxide 31 H Anion Gap 6.9 BUN 20 D Creatinine 1.00 Estimated Creat Clear 69 Estimated GFR 72 Est GFR ( Amer) 87 D Glucose 119 H Calcium 8.8 SARS-CoV-2 (PCR) Not detected Influenza A Untype (PCR) Not detected Influenza Type B (PCR) Not detected DS: Diagnosis - Discharge Diagnosis (1) BPH loc w urin obs/LUTS Status: Acute Discharge Plan - Patient Discharge Instructions ACTIVITY: Ambulate as tolerated DIET: regular diet Additional Instructions: Pt to push fluids at home. No strenuous activity. Home with lemon to leg bag. - Follow up Plan Follow up with: Carloz Samaniego MD [Staff Physician] - 10/09/21 10:00 am Disposition: Home, Self-Care Condition at discharge:: Stable Home Medications: Home Medications Medication Instructions Recorded Confirmed Type atenolol 25 mg tablet 25 mg PO DAILY tab 03/12/21 10/05/21 History lovastatin 20 mg tablet 20 mg PO DAILY tab 03/12/21 10/05/21 History meloxicam 7.5 mg tablet 2 tab PO DAILY tab 03/12/21 10/05/21 History multivitamin 1 tab PO DAILY 03/12/21 10/05/21 History terazosin 5 mg capsule 5 mg PO DAILY cap 03/12/21 10/05/21 History isosorbide mononitrate 60 mg 60 mg PO DAILY tab 06/18/21 10/05/21 History tablet,extended release 24 hr aspirin 81 mg tablet,delayed 81 mg PO DAILY 07/31/21 10/05/21 History release glucosamine sulfate 500 mg tablet 500 mg PO BID 07/31/21 10/05/21 History Carbidopa/Levodopa [Rytary ER 2 cap PO BID 10/01/21 10/05/21 History 23.75 mg-95 mg Cap] Prescr
--- NOTE | 2021-10-06 13:21 | HMH.ANESII ---
[facility] Anesthesia Record Part II Discharge Time: 12:43 Destination: Medical Surgical Department PACU nurse assessment reviewed?: Yes Patient Condition:: Good Anesthesia Complications:: None Swallowing reflex intact?: Yes Cyanosis?: No Blood Pressure: 184/79 Pulse Rate: 63 Temperature: 97.6 F Mental Status: Alert & Oriented Pain level:: 5 Nausea and/or vomitting:: None Intake, IV Amount: 0
[2021-10-06 13:22] VITALS: BP 184/79; PULSE 63; TEMP 36.4
== END 2021-10-06 12:40 | disposition home or self-care (01) ==
LOC: 2ND 12:05
PROVIDERS: Admitting Provider Urology; PCP Family Medicine; Visit Provider Urology
PROC: 0VT08ZZ Resection of Prostate, Via Natural or Artificial Opening Endoscopic (ICD-10-PCS; CPT 52601; principal; 2021-10-05 08:45)
DX: N40.1 Benign prostatic hyperplasia with lower urinary tract symptoms (principal); I25.10 Atherosclerotic heart disease of native coronary artery without angina pectoris; Z79.899 Other long term (current) drug therapy
CPT/HCPCS: 52601; G0378; 80048; 85025; 88305; 96374; C9803; J2405; U0003; U0005

== ENCOUNTER → 2021-12-10 11:46 | Outpatient (CLI) | payer MEDICARE, SELFPAY ==
--- NOTE | 2021-12-10 11:55 | ECG_ITS ---
APPROVED REPORT Exam: Resting ECG HR:54 bpm ECG Measurements Heart Rate 54 AXES AK 172 P 58 QRSd 85 QRS 47 QT 438 T 70 QTc 425 Conclusion SINUS BRADYCARDIA NONSPECIFIC T-WAVE ABNORMALITY BORDERLINE ECG UNCONFIRMED REPORT Electronically signed by : Ángel Carrera MD 12/10/2021 16:56:10
--- NOTE | 2021-12-10 12:03 | XR_ITS ---
FINAL REPORT CLINICAL HISTORY: PRE-OP, COUGH COMPARISON: 06/11/2021 FINDINGS: TWO-VIEW CHEST The heart size is normal. The patient is status post median sternotomy. There is an elevated right hemidiaphragm. There is mild right base atelectasis with a small right effusion. Findings are stable since previous. There is no pneumothorax. IMPRESSION: Right base atelectasis and small right effusion. Reviewed, Interpreted and Dictated by Mart Travis III, MD Transcribed by Zeinab Patton Authenticated and [facility]
== END ==
PROVIDERS: PCP Family Medicine; Visit Provider Family Medicine
DX: Z01.818 Encounter for other preprocedural examination (principal)
CPT/HCPCS: 71046; 93005

== ENCOUNTER → 2021-12-23 11:23 | Outpatient (CLI) | payer MEDICARE, SELFPAY ==
--- NOTE | 2021-12-23 11:27 | XR_ITS ---
FINAL REPORT CLINICAL HISTORY: knee pain x6-8 months FINDINGS: RIGHT HIP Two views of the right hip were obtained. There is no acute fracture or dislocation. There is mild hypertrophic change of the acetabular margin. Soft tissues are unremarkable. IMPRESSION: Hypertrophic change with no acute bony abnormality. Reviewed, Interpreted and Dictated by Valentín Carr MD Transcribed by Savanah Carrillo Authenticated and [facility]
--- NOTE | 2021-12-23 11:27 | XR_ITS ---
FINAL REPORT CLINICAL HISTORY: hip pain FINDINGS: SINGLE VIEW PELVIS A single view of the pelvis was obtained. There is no acute fracture or dislocation. There is some mild hypertrophic change at the acetabular margins. The hip joint spaces are preserved. There is minimal hypertrophic changes at the symphysis pubis. Soft tissues are unremarkable. IMPRESSION: Hypertrophic change with no acute bony abnormality. Reviewed, Interpreted and Dictated by Valentín Carr MD Transcribed by Savanah Carrillo Authenticated and [facility]
--- NOTE | 2021-12-23 11:27 | XR_ITS ---
FINAL REPORT CLINICAL HISTORY: knee pain x6-8 months FINDINGS: RIGHT KNEE Four views of the right knee were obtained. There is no acute fracture or dislocation. There is advanced medial compartment joint space narrowing. There is subchondral sclerosis. On the lateral view, there are osteophytes along the undersurface of the patella. Soft tissues are unremarkable. 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 Reviewed, Interpreted and Dictated by Valentín Carr MD Transcribed by Savanah Carrillo Authenticated and [facility]
[2021-12-23 12:21] LABS: Microscopic, Urine URINE MICROSCOPIC (MICROSCOPIC)
[2021-12-23 12:34] LABS: Appearance,Urine CLEAR (Clear); Bilirubin,Urine Negative (Negative); Blood, Urine TRACE-I (Negative); Color,Urine YELLOW (Yellow); Glucose,Urine (UA) Negative (Negative); Ketones,Urine Negative (Negative); Leukocyte Esterase,Urine 1+ (Negative); Nitrate,Urine Negative (Negative); Protein,Urine TRACE (Negative); Specific Gravity, Urine >= 1.030 (1.005-1.030); Urobilinogen,Urine 0.2 EU/dl (0.2)
[2021-12-23 12:38] LABS: Basophils # 0.2 K/mm3 (0-0.2); Basophils % 1.9 % (0.1-2.0); Eosinophils # 0.5 K/mm3 (0.0-0.4); Eosinophils % 5.5 % (0.1-12.0); Hematocrit 44.9 % (42.0-52.0); Hemoglobin 14.6 g/dL (14.1-18.0); Lymphocytes # 1.5 K/mm3 (0.7-4.5); Lymphocytes % 15.3 % (10-50); Mean Corpuscular HGB Conc 32.5 g/dL (31.8-35.4); Mean Corpuscular Hemoglobin 31.1 pg (27.0-31.2); Mean Corpuscular Volume 95.5 fl (80-94); Monocytes # 0.6 K/mm3 (0.1-1.0); Neutrophils % 71.3 % (37.0-80.0); Platelet Count 261 K/mm3 (142-424); Red Cell Distribution Width 14.2 % (11.5-17.5); White Blood Count 9.8 K/mm3 (4.8-10.8)
[2021-12-23 12:51] LABS: Bacteria,Urine Trace /lpf; Mucus,Urine Trace /lpf; Squamous Epithelial Cell,Urine Occasional #/hpf (0-5)
[2021-12-23 13:08] LABS: Chloride 102 mmol/L (98-107); Potassium 4.6 mmoL/L (3.5-5.1); Sodium 141 mmol/L (136-145)
[2021-12-23 13:11] LABS: Alanine Aminotransferase 6 U/L (12-78); Albumin Level 4.2 g/dl (3.5-5.0); Albumin/Globulin Ratio 1.5 (1.1-1.8); Alkaline Phosphatase 103 U/L (38-126); Anion Gap 11.6 mEq/L (5-15); Aspartate Amino Transferase 31 U/L (17-59); Bilirubin,Total 0.5 mg/dl (0.2-1.3); Blood Urea Nitrogen 31 mg/dl (9-20); Carbon Dioxide 32 mmol/L (22.0-30.0); Estimated Glomerular Filt Rate 72 ml/min (>60); GFR (African American) 87 ML/MIN (>60); Globulin 2.8 g/dL (1.3-3.2)
[2021-12-23 13:12] LABS: Calcium 10.1 mg/dl (8.4-10.2); Glucose 109 mg/dl (74-100)
== END ==
PROVIDERS: PCP Family Medicine; Visit Provider Orthopaedic Surgery
DX: M17.11 Unilateral primary osteoarthritis, right knee (principal); G89.29 Other chronic pain; M25.561 Pain in right knee; R82.90 Unspecified abnormal findings in urine
CPT/HCPCS: 36415; 72190; 73502; 73564; 80053; 81001; 85025; 87086

== ENCOUNTER → 2021-12-26 08:37 | Outpatient (CLI) | payer MEDICARE, SELFPAY | PROVIDERS: PCP Family Medicine; Visit Provider Orthopaedic Surgery | DX: M17.11 Unilateral primary osteoarthritis, right knee (principal); Z01.812 Encounter for preprocedural laboratory examination; Z20.822 Contact with and (suspected) exposure to COVID-19 | CPT/HCPCS: C9803; U0003; U0005 ==

== ENCOUNTER 2021-12-28 15:00 | Observation (INO) | payer MEDICARE, SELFPAY ==
--- NOTE | 2021-12-24 11:34 | SW/DCPLANNER ---
Addendum entered by Lizette Avalos RN 12/29/21 14:30: [facility] called and stated they accept the patient and will admit him tomorrow. BRIDGER Rosen Addendum entered by Annalee Collazo 12/29/21 09:52: PT/OT evaluated this patient and stated that patient is safe to return home with home health services. Patient/ stated they preferred to use [facility]: patient information/order will be faxed today. Patient could potentially return home later today. Original Note: I spoke with this patient's this AM regarding plans for patient after TKA on Tuesday12/28/21. stated that her and patient have been discussing this situation: as of right now they think a couple days at a skilled facility could be the best option. expressed an interest in [facility] if SNF level of care is needed at time of discharge. I explained to that PT/OT will evaluate this patient after surgery and give their recommendation. I will follow up with patient/ after surgery. I will also fax patient demographics to Sophie at [facility].
[2021-12-25 13:03] VITALS: BMI 28.0
[2021-12-28] VITALS (21 sets, daily range): BP systolic 129–196; BP diastolic 57–90; PULSE 52–89; RESP 12–18; TEMP 36.1–43; O2SAT 93–100; BMI 28.0
[2021-12-28 09:43] LABS: Coronavirus 19, PCR Not Detected (NotDetected); Influenza A, PCR Not Detected (NotDetected); Influenza B, PCR Not Detected (NotDetected)
--- NOTE | 2021-12-28 10:06 | P.PN_ITS ---
[facility] Anesthesia Checklist - Structural Data Admitted From: Home Planned Operative Procedure/s: r tka Consent for Planned Operative Procedure(s) Verified: Yes - Additional verifications Anesthesia Reactions: No Hx Blood Transfusions: No Blood Transfusion Reaction: No - Airway Assessment C-Spine Mobility Assessed: Yes TMJ Mobility Assessed: Yes Dentition: Dentures-good fit - Neurological Assessment Level of Consciousness: Awake, Alert, Appropriate - Anesthesia Plan Anesthesia Risk discussed: Yes Anesthesia Plan: Verified ASA Class: III Anesthesia Type: MAC w/Spinal [facility] History I have reviewed the patient's past medical history: Yes Medical History: Reports:: BPH, Cancer, Coronary Artery Disease, Hyperlipidemia, Hypertension Denies:: Diabetes Mellitus Type 1, Diabetes Mellitus Type 2, Internal Pacemaker, MRSA, Seizures *Have you ever received a pneumonia vaccine?: Yes *Have you received a flu vaccine this season?: No Other Medical History: Reports: Arthritis, Cataracts, Other. Denies: Blood Transfusion Reaction Anesthesia experience/problems:: none Laterality Cases: Bilateral: Tonsillectomy Other Surgeries: Yes: No Previous Surgery, Cancer Surgery, Cardiac Catheterization, Colonoscopy, Coronary Stent, Open Heart Surgery. No: Pacemaker Amputation: No Fractures: No - *Social History Smoking Status: Former smoker #Yrs smoked (if former smoker): 15 Alcohol Intake: former Alcohol Intake Frequency:: a few times a month Substance Use Type: denies use *Occupational Status:: retired Housing: house Household Members: spouse *Travel in the last 8 weeks: None Family Hx:: Diabetes
--- NOTE | 2021-12-28 15:36 | HMH.ANESI ---
[facility] Anesthesia Record Part I Intake, IV Amount: 1,100 Estimated blood loss (mL): 100 Urine output (mL): 600 Blood Pressure: 139/70 SaO2: 98 Pulse Rate: 60 Respiratory Rate: 14 Temperature: 97.0 F Patient is:: Drowsy Stable to PACU at:: 15:30
--- NOTE | 2021-12-28 15:37 | XR_ITS ---
FINAL REPORT CLINICAL HISTORY: postop COMPARISON: December 23, 2021 FINDINGS: Two views of the right knee were obtained. There has been interval postoperative change from knee arthroplasty. There is associated soft tissue air. IMPRESSION: Changes from arthroplasty without evidence of complication. Reviewed, Interpreted and Dictated by Mart Travis III, MD Transcribed by Alin Plascencia Authenticated and . [facility]
--- NOTE | 2021-12-28 16:02 | HMH.OPNOTE ---
Date of procedure: 12/28/21 Pre-op Diagnosis:: Advanced degenerative arthritis, right knee Post-op Diagnosis:: Same Procedure performed:: Uncemented total knee arthroplasty, right knee Surgeon:: Irving Cloud MD [employer] Oil Pump Operator(s):: Lianne Caicedo PA-C TONAL REGULATOR:: Other (Renato Bar) Anesthesia: spinal, other (Adductor canal block) Estimated blood loss (mL): 50 Clinical Note:: Patient is an 81-year-old male with end-stage tricompartmental osteoarthritis and [id number] changes over the medial and patellofemoral compartments with a progressive varus deformity and flexion contracture of his right knee presented with unremitting severe pain not relieved by conservative management. The arthritic process and pain are advanced to the point that it is becoming a hazard for the patient with risk of falling and injuring himself. A total knee arthroplasty is indicated to relieve the pain, improve function, reduce the risk of falls and improve quality of life. Please refer to my office note for full details. Operative findings:: As noted on the preoperative evaluation, the knee joint has a fixed flexion of 15? and 5 degrees of fixed varus deformity. As seen on the x-rays, the medial and patellofemoral compartments are showing advanced degenerative changes with [id number] appearance. The menisci and cruciate ligaments are degenerate. There is osteophyte formation over all 3 compartments. Bone quality is good. Operative note:: On the day of the surgery the patient and his over seen in the preoperative area. I have again reviewed the clinical and x-ray findings and again discussed the diagnosis, natural history and management options in detail including both nonsurgical and surgical. Patient has end-stage degenerative arthritis of the right knee and has failed to respond satisfactorily to appropriate conservative management so far and has opted for a total knee arthroplasty. The right knee joint is stiff and painful, and is limiting mobility, ADLs and quality of life. Also the knee gives out and patient is at risk of falls resulting in fractures. I have again discussed the details of the procedure, risks and benefits and alternatives in detail. The complications discussed include but are not limited to infection, injury to nerves and blood vessels including injury to popliteal artery, injury to tendons and ligaments, DVT and PE, fat embolism, intraoperative fracture, limb length inequality, patella fracture, patellofemoral instability, patellar clunk syndrome, quadriceps and patellar tendon rupture, implant failure, component loosening, periprosthetic femur and tibia fractures, stiffness /arthrofibrosis, limp, incomplete relief of pain, incomplete functional recovery, likely need for further surgery in future including revision and anesthetic complications including heart attack, stroke and even . We also discussed about the likely need for blood transfusion and transfusion reactions. We discussed how any of these events can be devastating. We have discussed nonsurgical alternatives as well. Patient understands and wishes to proceed with a right total knee arthroplasty as planned and I believe that he is fully informed as to the risks, benefits, and alternatives including nonsurgical alternatives. We also discussed the postoperative course including the rehab and physical therapy required. A physical examination was performed and documented. Patient understood the risks, agreed to proceed with surgery, signed the consent form and no guarantees or assurances were given or implied. The limb was appropriately marked and initialed by me. The patient was then brought to the operating room and a spinal anesthesia was administered by the electrode cleaner. After completion of the procedure the patient also had adductor canal nerve block, performed by the electrode cleaner in the OR. The patient was then positioned supine on the operating table. All the bony prominences were appr
[2021-12-28 16:09] LABS: Microscopic,Cath URINE MICROSCOPIC (MICROSCOPIC)
--- NOTE | 2021-12-28 16:23 | HMH.PHAINT ---
MEDICATION RECONCILIATION COMPLETED ON PATIENT USING EXTERNAL FILL HISTORY FROM PHARMACY AND PATIENT'S OWN RX BOTTLE. -JOYCELYN NAILSD
--- NOTE | 2021-12-28 16:25 | P.CONPHA_ITS ---
[facility] Pharmacy VTE Monitoring - Patient Demographics Admission date: 12/28/21 Report Date: 12/28/21 Time: 16:25 Allergies/Adverse Reactions: Patient Allergies No Known Allergies Allergy (Verified 12/23/21 10:07) Height: 1.75 m Weight: 86.183 kg - Prophylaxis VTE Prophylaxis Ordered?: Yes Types of VTE Prophylaxis: TEDS Knee High Location of Applied Device: Left Leg
[2021-12-28 16:33] LABS: Appearance,Urine/Cath CLEAR (Clear); Bilirubin,Cath Negative (Negative); Blood, Urine/Cath TRACE-L (Negative); Color,Urine/Cath YELLOW (Yellow); Glucose,Urine/Cath (UA) Negative (Negative); Ketones,Urine/Cath Negative (Negative); Leukocyte Esterase,Cath 2+ (Negative); Nitrate,Cath Negative (Negative); Protein,Urine/Cath TRACE (Negative); Specific Gravity, Urine/Cath 1.015 (1.005-1.030)
--- NOTE | 2021-12-28 16:45 | HMH.ORTHHP ---
*Admission Date: 12/28/21 *Reason for consult:: S/p total knee arthroplasty, right *History of present illness: Patient is an 81-year-old male admitted to hospital after an uneventful right total knee arthroplasty earlier today. He has had chronic right knee pain which has failed to respond satisfactorily to nonsurgical management including ice, NSAIDs, physical therapy and intra-articular steroid injection. Following evaluation in the office, patient elected to proceed with a total knee arthroplasty. X-rays of the right knee joint showed advanced degenerative changes. He localizes the pain all around the knee with more severe pain over the anteromedial aspect. He reports his pain a 3 out of 10 at rest and a 10 out of 10 at its worse. He reports weightbearing, walking, twisting and turning aggravates his pain. He states rest is the only thing that helps alleviate his pain. He is taking Meloxicam but reports no significant pain relief. He reports that the knee feels like it is going to give out. He also reports decrease in his walking distance, difficulties with ADLs, night pain and sleep disturbance. He reports that the knee pain and stiffness is affecting his level of activity and quality of life. He had an intra-articular steroid injection by Dr. Luke on 03/13/21 and also had physical therapy without any relief. No history of any hip pain. He denies any distal numbness and tingling. He denies any prior surgeries to his right knee. Patient has a history of Parkinson's syndrome and has problems with his balance. He is a non smoker and retired. He reports he had open heart surgery 20 years ago. He has a history of coronary artery disease, Parkinson's syndrome and arthritis. Total knee arthroplasty is indicated to reduce the risk of falls, improve the pain and mobility and quality of life. The surgical and nonsurgical alternatives were discussed in detail with the patient as well as the risks and benefits of the surgery. Please refer to my office note for full details. [facility] History I have reviewed the patient's past medical history: Yes Medical History: Reports:: BPH, Coronary Artery Disease, Hyperlipidemia, Hypertension Denies:: Cancer, Diabetes Mellitus Type 1, Diabetes Mellitus Type 2, Internal Pacemaker, MRSA, Seizures *Have you ever received a pneumonia vaccine?: No *Have you received a flu vaccine this season?: Yes Other Medical History: Reports: Arthritis, Cataracts, Other. Denies: Blood Transfusion Reaction Anesthesia experience/problems:: none Laterality Cases: Bilateral: Cataract, Tonsillectomy Other Surgeries: Yes: No Previous Surgery, Cancer Surgery, Cardiac Catheterization, Colonoscopy, Coronary Stent, Open Heart Surgery. No: Pacemaker Amputation: No Fractures: No - *Social History Last grade of school completed: 7th or 8th Smoking Status: Former smoker #Yrs smoked (if former smoker): 15 Alcohol Intake: never Alcohol Intake Frequency:: a few times a month Substance Use Type: denies use *Occupational Status:: retired Housing: house Household Members: spouse *Travel in the last 8 weeks: None Family Hx:: Diabetes Review of Systems - Review of Systems Review of systems:: pertinent systems reviewed and negative unless documented below - Constitutional Denies anorexia, Denies chills, Denies fever(s), Denies malaise - Eyes Denies change in vision - ENT Denies difficulty swallowing, Denies nosebleed, Denies headache(s) - *Cardiovascular Denies chest pain, Denies shortness of breath - *Respiratory Denies chest congestion, Denies cough - *Gastrointestinal Denies abdominal pain, Denies change in bowel habits - *Genitourinary Denies difficulty urinating - *Musculoskeletal Reports abnormal walking, Reports joint pain, Reports deformity, Reports joint swelling, Reports limited joint movement, Denies numbness - Integumentary/Breasts Denies bleeding lesions, Denies wounds - *Neurologic Reports abnormal walking, Reports t
--- NOTE | 2021-12-28 17:05 | PC.NURSE ---
Dr. Cloud at the bedside to see pt
[2021-12-28 18:34] LABS: Bacteria,Urine/Cath 1+ /lpf; RBC,Urine/Cath Occasional # /hpf (0-3); Squamous Epithelial Ur./Cath Occasional #/hpf (0-5)
[2021-12-29 03:26] VITALS: BP 142/73; PULSE 92; RESP 17; TEMP 36.5; O2SAT 98
--- NOTE | 2021-12-29 05:21 | PC.NURSE ---
A&OX4. PT CAME OFF OXYGEN FOR A FEW HOURS, BUT NEEDED TO GO BACK ON 2LNC ONCE SLEEPING. O2 SAT 98% AND ABOVE ON 2LNC. TOLERATING WELL. PT HAS SLEPT INTERMITTENTLY T/O SHIFT. F/C PRESENT DRAINING ADEQUATE AMOUNT OF LIGHT YELLOW URINE. DRESSING IN PLACE TO R KNEE, CDI. POLAR PACK IN PLACE. LEG AND KNEE STRAIGHT WITH PILLOW UNDER ANKLE FOR SUPPORT-PT TOLERATES WELL. PT HAS REQUESTED PAIN MEDICATION X1 THIS SHIFT. TX WITH NORCO PER AUG. ON REASSESSMENT, PT STATES ADEQUATE PAIN RELIEF, AND THAT HE IS FEELING MUCH BETTER . NO OTHER NEEDS NOTED THUS FAR, DRINKING PLENTY OF WATER T/O SHIFT. VSS.
[2021-12-29 06:16] LABS: Basophils % 0.2 % (0.1-2.0); Eosinophils # 0.2 K/mm3 (0.0-0.4); Eosinophils % 1.9 % (0.1-12.0); Hematocrit 36.5 % (42.0-52.0); Hemoglobin 12.4 g/dL (14.1-18.0); Mean Corpuscular HGB Conc 34.1 g/dL (31.8-35.4); Mean Platelet Volume 7.7 fl (7.4-10.4); Monocytes # 0.9 K/mm3 (0.1-1.0); Monocytes % 7.4 % (1.7-9.3); Neutrophils # 10.4 K/mm3 (1.8-7.8); Neutrophils % 82.5 % (37.0-80.0); Platelet Count 191 K/mm3 (142-424); Red Blood Count 4.01 M/mm3 (4.60-6.20); Red Cell Distribution Width 13.1 % (11.5-17.5); White Blood Count 12.6 K/mm3 (4.8-10.8)
[2021-12-29 06:23] LABS: Anion Gap 4.9 mEq/L (5-15); Blood Urea Nitrogen 16 mg/dl (9-20); Calcium 8.3 mg/dl (8.4-10.2); Carbon Dioxide 31 mmol/L (22.0-30.0); Chloride 103 mmol/L (98-107); Creatinine Clearance Estimated 69 mL/min (50-200); Estimated Glomerular Filt Rate 93 ml/min (>60); GFR (African American) 112 ML/MIN (>60); Glucose 134 mg/dl (74-100); Potassium 3.9 mmoL/L (3.5-5.1); Sodium 135 mmol/L (136-145)
[2021-12-29 08:25] VITALS: O2SAT 98
[2021-12-29 08:35] VITALS: BP 152/67; PULSE 81; RESP 16; TEMP 36.8; O2SAT 95
--- NOTE | 2021-12-29 08:40 | PC.NURSE ---
Lianne (PA with ) here to see pt. Surgical dressing removed and new bandage applied. Pt's at bs also and home care/ discharge instructions for incision reviewed with per PA. Pt's verbalized understanding. Incision is remarkable, no s/s of infection, no redness,no bleeding or drainage noted.
--- NOTE | 2021-12-29 09:06 | PC.NURSE ---
PT at bs to see pt.
--- NOTE | 2021-12-29 09:50 | HMH.PTEV ---
Physical Therapy Evaluation Rehab PT IP Evaluation Start: 12/28/21 15:43 Freq: ONCE Status: Active Protocol: Document 12/29/21 09:39 PWPIA (Rec: 12/29/21 09:50 PWPIA [id number]) Subjective/History History History This is the initial IP PT evalaution for Nico Cohen. Pt is an 81 y/o male admitted to [facility] s/p R TKA - pt had uneventful sx on 12/28 for R TKA Subjective Subjective pt reports knee hurts less than it did Rehab PT IP Eval Objective Appearance Patient Behavior Appropriate,Cooperative Patient Orientation Place,Name,Birthday,Year Difficulty following instructions none Speech Pattern Clear,Appropriate Ambulation Patient Able to Ambulate Yes Ambulation Observation IP General Gait Pattern Observation Antalgic Gait Ambulation Distance (feet) 25 Ambulation Assistive Device Standard Walker Ambulation Ability Supervision/Stand by,Contact Guard/Hand Hold Balance Ability to Arise Able, uses arms to help Sitting Balance Steady, safe Standing Balance Steady, wide stance Dynamic Sitting Balance Ability Good Dynamic Standing Balance Ability Fair Transfers Bed Transfer Ability Independent Chair Transfer Ability Supervision/Stand by,Contact Guard/Hand Hold Sit to Stand Bed Transfer Ability Supervision/Stand by Sit to Stand Chair Transfer Ability Supervision/Stand by ROM RLE PT ROM Status ABN Abnormal ROM Comment R knee limited 2nd to sx MMT RLE PT MMT ABN Abnormal MMT Grade R knee 3-/5 Rehab PT IP prob,goals,plan Problems Date of Evaluation: 12/29/21 PT IP Problems Transfers,Gait,Self care Rehab Potential Rehab Potential Good Equipment Needs Assistive Devices Rolling / Wheeled Walker Plan PT Intervention Plan Transfers,Gait,Balance,Self care,Safety,Therapeutic Exercise PT Plan Frequency BID Duration LOS Discharge Goals Bed Transfer Ability Supervision/Stand by Sit to Stand Chair Transfer Ability Supervision/Stand by Ambulation Assistive Device Rolling Walker Ambulation Distance (feet) 25 Discharge Plan PT Discharge Plan Pt is safe to return home w/ spouse and HHPT once medically stable - pt will benefit from
--- NOTE | 2021-12-29 10:24 | PC.NURSE ---
Pt is currently sitting up in chair with right leg elevated and has pillow under ankle. Polar Pack in place. Pt denies any needs at this time.
--- NOTE | 2021-12-29 11:03 | HMH.OTEV ---
OT Inpatient Evaluation Rehab OT IP Evaluation Start: 12/28/21 15:43 Freq: ONCE Status: Complete Protocol: [facility]21 10[facility] (Rec: 12/29/21 11:02 [facility] [id number]) Rehab OT IP Assessment Subjective History Pt oriented x 3 on arrival. Pt agreeable to engage in therapy evaluation. present and supportive. Pt was admitted on 12/28/21 following an uneventful right total knee arthroplasty. Prior to surgery pt was living at home with his . Pt was independent with all ADLs and IADLs. Pt did use a cane during ambulation. He still drove at times, but not as often. His reports she usually always drives. 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 Subjective I can move it I think. Pt resting in bed on arrival. Pt agreeable to engage in therapy evaluation. Pt completed bed mobility and went from supine to sitting at eob with cga. Pt stood from eob with cga. Pt transferred from bed to chair with cga and rolling walker (15 feet). Pt sat down in chair with cga. Pt was left sitting in chair with call morgan and all other needs in reach. Objective Patient Orientation Person,Place,Birthday Upper Extremity Gross ROM WFL Bed Mobility bed mobility-scooting,bed mobility - supine/sit,bed mobility - rolling Assist Level Contact Guard/Hand Hold Transfer Training Sit/Stand Transfer Assist Level Contact Guard/Hand Hold Chair Transfer Ability Contact Guard/Hand Hold Chair Transfer Technique Sit to/from Ambulatory Chair Transfer Assistive Devices Rolling Walker Rehab OT IP prob,goals,plan Problems Date of Evaluation: 12/29/21 OT IP Problems Bed Mobility,Transfers,Gait, Balance,Self care,Safety Rehab Potential Rehab Potential Good
--- NOTE | 2021-12-29 11:04 | PC.NURSE ---
Borrego Catheter discontinued. Tolerated well. 350mls of livia colored urine noted in bag.
--- NOTE | 2021-12-29 12:45 | HMH.DCSUM ---
General - General Admission date:: 12/28/21 <Irving Cloud - 12/29/21 14:48> 12/28/21 <Lianne Caicedo - 12/29/21 12:49> Discharge date: 12/29/21 <Lianne Caicedo - 12/29/21 12:49> HPI HPI: Mr. Cohen is a pleasant 81-year-old male admitted to the patient service following an uneventful right primary total knee arthroplasty performed by Dr. Cloud yesterday 12/28/2021. Today the patient is postop day #1. This morning the patient is sitting comfortably in a chair at the bedside and his is present. He reports some right knee pain as to be expected at this stage but states it is well controlled with rest and as needed pain medication. He reports that he has been eating and drinking well and denies any episodes of nausea or vomiting. No history of any fevers, chills, rigors, or distal tingling/numbness. He reports he was able to ambulate this morning with the assistance of physical therapy and that this went well. They deny any other symptoms or concerns at this time. <Lianne Caicedo - 12/29/21 12:53> Objective Vital signs: Temp Pulse Resp BP Pulse Ox 98.3 F 81 16 152/67 H 95 12/29/21 08:35 12/29/21 08:35 12/29/21 08:35 12/29/21 08:35 12/29/21 08:35 <Irving Cloud - 12/29/21 14:48> Temp Pulse Resp BP Pulse Ox 98.3 F 81 16 152/67 H 95 12/29/21 08:35 12/29/21 08:35 12/29/21 08:35 12/29/21 08:35 12/29/21 08:35 <Lianne Caicedo - 12/29/21 12:49> no acute distress, cooperative <Lianne Caicedo - 12/29/21 12:49> - *Routine HEENT Exam Head: Present: normocephalic, atraumatic <Lianne Caicedo 12/29/21 12:49> Eye: Present: EOMI, PERRL <Lianne Caicedo 12/29/21 12:49> ENT: Present: mucous membranes moist <Lianne Caicedo 12/29/21 12:49> - *Routine Neck Exam Present: supple, full ROM, trachea midline. Absent: JVD, lymphadenopathy <Lianne Caicedo 12/29/21 12:49> - *Routine Respiratory Exam Absent: accessory muscle use, respiratory distress <Lianne Caicedo 12/29/21 12:49> Comments: Symmetric chest movement, able to speak in complete sentences <Lianne Caicedo 12/29/21 12:49> - *Routine Cardiovascular Exam Present: RRR <Lianne Caicedo 12/29/21 12:49> Comments: Normal peripheral pulses <Lianne Caicedo 12/29/21 12:49> - *Routine Abdominal Exam Present: soft. Absent: tenderness <Lianne Caicedo 12/29/21 12:49> - *Routine Rectal Exam Patient deferred: visual exam <Lianne Caicedo 12/29/21 12:49> - *Routine Exam Patient deferred: penile exam <Lianne Caicedo 12/29/21 12:49> - *Routine Extremities Exam Comments: Upon examination of the right knee: Dressings present are clean, dry, and intact. No evidence of drainage or bleeding noted. Out of the surgical dressing, the surgical incision is healthy and healing well. No erythema, induration, purulent drainage, bleeding, or other signs of infection noted. There is a Dermabond Prineo skin closure system in place. Attempted movements of the right knee are somewhat painful. Thigh and calf are soft nontender; Homans' sign is negative. No clinical evidence of DVT noted. Patient is able to actively straight leg raise. Posterior tibial pulse 2+; capillary refill is brisk. Sensation to light touch is grossly intact throughout. Patient is actively mobilizing the foot, ankle, and toes. <Lianne Caicedo 12/29/21 12:49> - *Routine Skin Exam Present: intact, warm, normal turgor. Absent: cyanosis, erythema, lesions, jaundice <Lianne Caicedo 12/29/21 12:49> - *Routine Neurological Exam Present: alert, oriented X3, CN II-XII intact, moving all extremities, normal tone, normal speech. Absent: sensory deficit, motor deficit, altered mental status <Lianne Caicedo - 12/29/21 12:49> - Routine Psychiatric Exam Present: normal affect, cooperative <Lianne Caicedo - 12/29/21 12:49> Results Labs on day of discharge: Labs from last 24 hours 12/29/21
--- NOTE | 2021-12-29 13:06 | PC.NURSE ---
PT at bs again to see pt.
--- NOTE | 2021-12-29 15:31 | HMH.PHAINT ---
DISCHARGE MEDICATION COUNSELING PROVIDED TO PATIENT AND PATIENT'S . DISCUSSED HOLDING THE ASPIRIN 81 MG FOR 2 WEEKS WHILE THE PATIENT TAKES 325 MG ASPIRIN (BLEED RISK. BRUISE RISK). DISCUSSED THE DOCUSATE (TWICE DAILY NEEDED, TAKE WITH FULL GLASS OF WATER, FOR CONSTIPATION) AND PERCOCET (TAKE ONE TO TWO TABLETS EVERY 6 HOURS NEEDED FOR PAIN, MAY TAKE WITH FOOD TO CUT DOWN ON GI UPSET, MAY CAUSE CONSTIPATION, DIZZINESS, SEDATION) PRESCRIPTIONS. PATIENT'S ASKED ABOUT PATIENT'S HOME RYTARY AND WAS ADVISED THE NURSE IS BRINGING THE MEDICATION BOTTLE IN PRIOR TO DISCHARGE. NO FURTHER QUESTIONS AT THIS TIME.
--- NOTE | 2021-12-29 16:29 | HMH.ANESII ---
[facility] Anesthesia Record Part II Discharge Time: 16:00 Destination: Medical Surgical Department PACU nurse assessment reviewed?: Yes Patient Condition:: Good Anesthesia Complications:: None Swallowing reflex intact?: Yes Cyanosis?: No Blood Pressure: 164/88 Pulse Rate: 55 Temperature: 97 F Mental Status: Alert & Oriented Pain level:: 0 Nausea and/or vomitting:: None Intake, IV Amount: 0
[2021-12-29 16:30] VITALS: BP 164/88; PULSE 55; TEMP 36.1
--- NOTE | 2021-12-30 13:30 | CARE MANAGER ---
Patient's states he only took one pain pill before bed last night, so woke up with some pain during the night and went to the chair. She states they are trying to take the medication with a better regimen. Deny any questions or concerns. BRIDGER Rosen
== END 2021-12-29 16:05 | disposition home health service (06) ==
LOC: OB 15:01
PROVIDERS: Admitting Provider Orthopaedic Surgery; PCP Family Medicine; Visit Provider Orthopaedic Surgery
PROC: (CPT 27447; principal; 2021-12-28 11:00)
DX: M17.11 Unilateral primary osteoarthritis, right knee (principal); Z20.822 Contact with and (suspected) exposure to COVID-19; Z79.899 Other long term (current) drug therapy; I10 Essential (primary) hypertension; E78.5 Hyperlipidemia, unspecified; I25.10 Atherosclerotic heart disease of native coronary artery without angina pectoris; Z95.5 Presence of coronary angioplasty implant and graft
CPT/HCPCS: 27447; G0378; 36415; 73560; 80048; 81001; 85025; 86850; 87086; 96374; 97116; 97161; 97166; 97530; C1776; C9803; J0131; J2405; J2704; U0003; U0005

== ENCOUNTER → 2022-01-14 09:30 | Outpatient (CLI) | payer MEDICARE, SELFPAY ==
--- NOTE | 2022-01-14 09:36 | XR_ITS ---
FINAL REPORT CLINICAL HISTORY: s/p Rt TKA COMPARISON: 12/28/2021 FINDINGS: Right knee Three views were obtained. There is no acute fracture or dislocation. The patient is status post knee arthroplasty. There is a moderate joint effusion. No soft tissue abnormality is identified. IMPRESSION: Moderate joint effusion. Reviewed, Interpreted and Dictated by Mart Travis III, MD Transcribed by Zeinab Patton Authenticated and [facility]
== END ==
PROVIDERS: PCP Family Medicine; Visit Provider Physician Assistant Surgical
DX: Z96.659 Presence of unspecified artificial knee joint (principal)
CPT/HCPCS: 73562

== ENCOUNTER → 2022-01-14 10:39 | Outpatient (CLI) | payer MEDICARE, SELFPAY ==
--- NOTE | 2022-01-14 10:44 | CA_ITS ---
FINAL REPORT TECHNIQUE: Color Doppler, duplex Doppler and compression sonography of the right lower extremity venous system was performed. CLINICAL HISTORY: .Recent right total knee replacement 3 weeks ago. FINDINGS: There is no evidence of deep venous thrombosis from the level of the groin to the calf. The veins are patent and compressible. IMPRESSION: No evidence of deep venous thrombosis right lower extremity. Reviewed, Interpreted and Dictated by Mart Travis III, MD Transcribed by Zeinab Patton Authenticated and [facility]
== END ==
PROVIDERS: PCP Family Medicine; Visit Provider Physician Assistant Surgical
DX: M79.604 Pain in right leg (principal); M79.89 Other specified soft tissue disorders
CPT/HCPCS: 73562; 93971

== ENCOUNTER → 2022-01-27 08:40 | Outpatient (CLI) | payer MEDICARE, SELFPAY ==
--- NOTE | 2022-01-27 08:43 | XR_ITS ---
FINAL REPORT CLINICAL HISTORY: s/p right TKA COMPARISON: January 14, 2022 FINDINGS: Three views of the right knee reveal no evidence of fracture or dislocation. The bony alignment is normal. There are postoperative changes from knee arthroplasty. There is a moderate joint effusion. No localized soft tissue abnormality is identified. IMPRESSION: No acute abnormality identified. Moderate joint effusion. Reviewed, Interpreted and Dictated by Mart Travis III, MD Transcribed by Marta Mak Authenticated and [facility]
== END ==
PROVIDERS: PCP Family Medicine; Visit Provider Physician Assistant Surgical
DX: M25.561 Pain in right knee; Z96.651 Presence of right artificial knee joint
CPT/HCPCS: 73562

== ENCOUNTER 2022-01-30 15:08 | Emergency (ER) | payer MEDICARE, SELFPAY ==
[2022-01-30 15:15] VITALS: BP 146/86; PULSE 70; RESP 21; TEMP 36.8; O2SAT 98; BMI 28.1
--- NOTE | 2022-01-30 15:32 | HMH.EDUTC ---
[facility] Disposition Clinical Impression: Laceration Disposition: Home, Self-Care Condition on Discharge: Good Instructions: DI for Minor Laceration Additional Instructions: change outer dressing bid if bleeding returns and unable to stop return to be seen watch for s/s of infection Prescriptions: cephALEXin [Cephalexin 500mg Tab] 500 mg PO BID 7 Days #14 tab Prescription Printed Referrals: Arie Jennings MD [Primary Care Provider] - Time of Disposition: 16:21 Medical Decision Making - Curt Inquiry Pt receiving controlled substance: No Vital Signs: 01/30/22 15:15 Temperature 98.2 F Temperature Source Oral Pulse Rate [Right Brachial] 70 Respiratory Rate 21 Blood Pressure [Right Arm] 146/86 H Blood Pressure Mean [Right Arm] 106 Blood Pressure Source [Right Arm] Automatic Cuff Blood Pressure Position [Right Arm] Sitting 02 Sat by Pulse Oximetry 98 Oxygen Delivery Method Room Air [facility] HPI - General Chief complaint: Urgent Treatment Center Stated complaint: AO08/20@1130 lac to finger, takes zarelto Time Seen by Provider: 01/30/22 15:33 Mode of Arrival: Ambulatory Source of Information: Patient Limitations: No Limitations Description of Symptoms (Recalled from Triage Doc. by RN): PATIENT C/O LACERATION TO LEFT RING FINGER AFTER CUTTING IT ON SUSTAINABLE DESIGN CONSULTANT TODAY. HE REPORTS HE IS ON ASPIRIN AND XERELTO AND IS HAVING DIFFICUTLY GETTING THE BLEEDING TO STOP HEENT Symptoms (Recalled from RN notes): No Resp Symptoms (Recalled from RN notes): No Skin Symptoms (Recalled from RN notes): Yes MS Symptoms (Recalled from RN notes): No Functional Status (Recalled from RN notes): WNL - History of Present Illness Provider Complaint: 81 yr old male presents for laceration to left ring finger. pt states he cut his finger on hedge trimmers today and on blood thinners and having problems getting it to stop bleeding. - Related Data Home Medications Medication Instructions Recorded Confirmed atenolol 25 mg tablet 25 mg PO DAILY tab 03/12/21 01/21/22 lovastatin 20 mg tablet 20 mg PO DAILY tab 03/12/21 01/21/22 meloxicam 7.5 mg tablet 15 mg PO DAILY tab 03/12/21 01/21/22 multivitamin 1 tab PO DAILY 03/12/21 01/21/22 isosorbide mononitrate 60 mg 60 mg PO DAILY tab 06/18/21 01/21/22 tablet,extended release 24 hr aspirin 81 mg tablet,delayed 81 mg PO DAILY 07/31/21 01/21/22 release Carbidopa/Levodopa [Rytary ER 2 cap PO BID 10/01/21 01/21/22 23.75 mg-95 mg Cap] Previous Rx's Medication Instructions Recorded Aspirin [Aspirin 325mg Tab] 325 mg PO DAILY #14 tab 12/29/21 Docusate Sodium [Docusate Sodium 100 mg PO BIDP PRN #20 cap 12/29/21 100mg Cap] hydrocodone 5 mg-acetaminophen 325 1 tab PO Q6HP PRN #40 tab 01/06/22 mg tablet cephALEXin [Cephalexin 500mg Tab] 500 mg PO BID 7 Days #14 tab 01/30/22 Allergies Allergy/AdvReac Type Severity Reaction Status Date / Time No Known Allergies Allergy Verified 01/27/22 09:15 - Worker's Comp Is this a Worker's Comp case?: No [facility] History - Hepatitis A Screen Attestation statement:: This patient has been screened for Hepatitis A risk factors. I have reviewed the patient's past medical history: Yes Medical History: Reports:: BPH, Coronary Artery Disease, Hyperlipidemia, Hypertension Denies:: Cancer, Diabetes Mellitus Type 1, Diabetes Mellitus Type 2, Internal Pacemaker, MRSA, Seizures Other Medical History: Reports: Arthritis, Cataracts, Other. Denies: Blood Transfusion Reaction Comment: bladder wall thickening Laterality Cases: Bilateral: Tonsillectomy Other Surgeries: Yes: No Previous Surgery, Cancer Surgery, Cardiac Catheterization, Colonoscopy, Coronary Stent, Open Heart Surgery. No: Pacemaker Amputation: No Fractures: No - Social History Smoking Status: Former smoker #Yrs smoked (if former smoker): 15 Alcohol Intake: never Alcohol Intake Frequency:: a few times a month Substance Use Type: denies use Occupational Status: reti
[2022-01-30 15:55] VITALS: BP 146/86; PULSE 70; RESP 21; TEMP 36.8; O2SAT 98
== END 2022-01-30 16:23 | disposition home or self-care (01) ==
PROVIDERS: Emergency Provider Nurse Practitioner Family; PCP Family Medicine
DX: S61.215A Laceration without foreign body of left ring finger without damage to nail, initial encounter (principal); W27.8XXA Contact with other nonpowered hand tool, initial encounter; I25.10 Atherosclerotic heart disease of native coronary artery without angina pectoris; Z79.01 Long term (current) use of anticoagulants
CPT/HCPCS: 12001; 99213; G0463

== ENCOUNTER 2022-01-30 20:02 | Emergency (ER) | payer MEDICARE, SELFPAY ==
[2022-01-30 20:03] VITALS: BP 207/90; PULSE 67; RESP 18; TEMP 37.4; O2SAT 96; BMI 27.3
--- NOTE | 2022-01-30 20:50 | HMH.EDWNDL ---
ED Disposition Clinical Impression: Finger laceration Qualifiers: Encounter type: subsequent encounter Finger: ring finger Damage to nail status: without damage Foreign body presence: without foreign body Laterality: left Qualified Code(s): S61.215D - Laceration without foreign body of left ring finger without damage to nail, subsequent encounter Disposition: Home, Self-Care Condition on Discharge: Good Instructions: DI for Laceration Repair Additional Instructions: sutures out 10 days Referrals: Arie Jennings MD [Primary Care Provider] - - Critical Care Critical Care Time: No Attestation: On 01/30/22, the high probability of a clinically significant, sudden or life threatening deterioration of the following system(s) required my full and direct attention, intervention and personal management. The time I documented below is in addition to time spent performing reported procedures but includes the following listed in this critical care notation. Medical Decision Making - Medical Records Medical records reviewed: Yes: I reviewed the patient's medical records. - Curt Inquiry Pt receiving controlled substance: No Vital Signs: 01/30/22 20:03 Temperature 99.3 F Temperature Source Oral Pulse Rate [Right] 67 Respiratory Rate 18 Blood Pressure [Right Arm] 207/90 H Blood Pressure Mean [Right Arm] 129 02 Sat by Pulse Oximetry 96 Wound/Laceration HPI - General Chief Complaint: Wound/Laceration Stated Complaint: AO08/22@1100 lac to finger Time Seen by Provider: 01/30/22 20:50 Mode of Arrival: Ambulatory Source of Information: Patient, Spouse, Medical Record Limitations: No Limitations Description of Symptoms (Recalled from ER Triage Doc. by RN): pt states was using tail trimmer today and nicked lt ringer finger. pt is currently on xarelto for blood clot. was seen [facility] [place] today for same problem. - History of Present Illness HPI narrative: small lac to distal lt ring finger today - seen in [facility] but continues to ooze - Onset (ago): hour(s) Extremity Location: Left: hand Place: home Patient tetanus UTD: Yes Context: accidental Associated symptoms: none - Related Data Home Medications Medication Instructions Recorded Confirmed atenolol 25 mg tablet 25 mg PO DAILY tab 03/12/21 01/21/22 lovastatin 20 mg tablet 20 mg PO DAILY tab 03/12/21 01/21/22 meloxicam 7.5 mg tablet 15 mg PO DAILY tab 03/12/21 01/21/22 multivitamin 1 tab PO DAILY 03/12/21 01/21/22 isosorbide mononitrate 60 mg 60 mg PO DAILY tab 06/18/21 01/21/22 tablet,extended release 24 hr aspirin 81 mg tablet,delayed 81 mg PO DAILY 07/31/21 01/21/22 release Carbidopa/Levodopa [Rytary ER 2 cap PO BID 10/01/21 01/21/22 23.75 mg-95 mg Cap] Previous Rx's Medication Instructions Recorded Aspirin [Aspirin 325mg Tab] 325 mg PO DAILY #14 tab 12/29/21 Docusate Sodium [Docusate Sodium 100 mg PO BIDP PRN #20 cap 12/29/21 100mg Cap] hydrocodone 5 mg-acetaminophen 325 1 tab PO Q6HP PRN #40 tab 01/06/22 mg tablet cephALEXin [Cephalexin 500mg Tab] 500 mg PO BID 7 Days #14 tab 01/30/22 Allergies Allergy/AdvReac Type Severity Reaction Status Date / Time No Known Allergies Allergy Verified 01/27/22 09:[address] [facility] History - Hepatitis A Screen Attestation statement:: This patient has been screened for Hepatitis A risk factors. I have reviewed the patient's past medical history: Yes Medical History: Reports:: BPH, Coronary Artery Disease, Hyperlipidemia, Hypertension Denies:: Cancer, Diabetes Mellitus Type 1, Diabetes Mellitus Type 2, Internal Pacemaker, MRSA, Seizures Other Medical History: Reports: Arthritis, Cataracts, Other. Denies: Blood Transfusion Reaction Comment: bladder wall thickening Laterality Cases: Bilateral: Tonsillectomy Other Surgeries: Yes: No Previous Surgery, Cancer Surgery, Cardiac Catheterization, Colonoscopy, Coronary Stent, Open Heart Surgery. No: Pacemaker Amputation: No Fractures: No -
[2022-01-30 21:14] VITALS: BP 167/78; PULSE 68; RESP 18; TEMP 37.4; O2SAT 96
== END 2022-01-30 21:15 | disposition home or self-care (01) ==
PROVIDERS: Emergency Provider Emergency Medicine; PCP Family Medicine
DX: Z79.01 Long term (current) use of anticoagulants (principal); S61.215A Laceration without foreign body of left ring finger without damage to nail, initial encounter
CPT/HCPCS: 12002; 99283

== ENCOUNTER 2022-02-08 13:31 | Emergency (ER) | payer MEDICARE, SELFPAY ==
[2022-02-08 15:15] VITALS: BP 131/86; PULSE 76; RESP 21; TEMP 36.6; O2SAT 100; BMI 23.3
[2022-02-08 15:22] VITALS: BP 131/86; PULSE 76; RESP 21; TEMP 36.6; O2SAT 100
== END 2022-02-08 15:25 | disposition home or self-care (01) ==
PROVIDERS: Emergency Provider Nurse Practitioner; PCP Family Medicine
DX: Z48.02 Encounter for removal of sutures (principal)

== ENCOUNTER → 2022-02-25 08:16 | Outpatient (CLI) | payer MEDICARE, SELFPAY ==
--- NOTE | 2022-02-25 08:30 | XR_ITS ---
FINAL REPORT CLINICAL HISTORY: s/p TKA RT KNEE COMPARISON: 01/27/2022 FINDINGS: Three views of the right knee reveal postoperative changes from total knee arthroplasty. There is no acute bony abnormality. The bony alignment is normal. There is no evidence of joint effusion. No localized soft tissue abnormality is identified. IMPRESSION: Postoperative change with no acute abnormality identified. Reviewed, Interpreted and Dictated by Mart Travis III, MD Transcribed by Monica Ty Authenticated and [facility]
== END ==
PROVIDERS: PCP Family Medicine; Visit Provider Orthopaedic Surgery
DX: M25.561 Pain in right knee; Z96.651 Presence of right artificial knee joint
CPT/HCPCS: 73562

== ENCOUNTER 2022-03-19 09:00 | Outpatient (RCR) | payer MEDICARE, SELFPAY | END 2022-03-19 09:05 | disposition home or self-care (01) | LOC: PT 09:00 | PROVIDERS: PCP Family Medicine; Visit Provider Orthopaedic Surgery | DX: M25.561 Pain in right knee (principal); Z96.651 Presence of right artificial knee joint | CPT/HCPCS: 97110; 97140; 97163 ==

== ENCOUNTER → 2022-04-08 13:09 | Outpatient (CLI) | payer MEDICARE, SELFPAY ==
--- NOTE | 2022-04-08 13:23 | XR_ITS ---
FINAL REPORT CLINICAL HISTORY: SUSPECTED COVID-19 EXPOSURE,COUGH COMPARISON: 12/10/2021 FINDINGS: Two views of the chest were obtained. There are postoperative changes from median sternotomy. The heart size and pulmonary vascularity are within normal limits. The mediastinum is normal. There is elevation of the right hemidiaphragm. There is persistent right lung base atelectasis or scarring. There is a small right pleural effusion. There is no pneumothorax. The bony thorax is intact. IMPRESSION: Persistent right lung base atelectasis or scarring. Small right pleural effusion. Reviewed, Interpreted and Dictated by Mart Travis III, MD Transcribed by Savanah Carrillo Authenticated and [facility]
[2022-04-08 14:00] LABS: Basophils % 0.3 % (0.1-2.0); Eosinophils # 0.5 K/mm3 (0.0-0.4); Eosinophils % 4.7 % (0.1-12.0); Hematocrit 38.8 % (42.0-52.0); Hemoglobin 11.5 g/dL (14.1-18.0); Lymphocytes # 1.4 K/mm3 (0.7-4.5); Lymphocytes % 13.4 % (10-50); Mean Corpuscular HGB Conc 29.7 g/dL (31.8-35.4); Mean Corpuscular Hemoglobin 27.8 pg (27.0-31.2); Mean Corpuscular Volume 93.5 fl (80-94); Mean Platelet Volume 7.5 fl (7.4-10.4); Monocytes # 0.7 K/mm3 (0.1-1.0); Monocytes % 7.3 % (1.7-9.3); Neutrophils # 7.5 K/mm3 (1.8-7.8); Neutrophils % 74.4 % (37.0-80.0); Platelet Count 303 K/mm3 (142-424); Red Blood Count 4.15 M/mm3 (4.60-6.20)
== END ==
PROVIDERS: PCP Family Medicine; Visit Provider Family Medicine
DX: Z20.822 Contact with and (suspected) exposure to COVID-19 (principal)
CPT/HCPCS: 36415; 71046; 85025

== ENCOUNTER → 2022-05-21 09:57 | Outpatient (CLI) | payer MEDICARE, SELFPAY ==
--- NOTE | 2022-05-21 10:05 | XR_ITS ---
FINAL REPORT CLINICAL HISTORY: S/p rt TKA f/u FINDINGS: Right knee Three views were obtained. There is no acute fracture or dislocation. There are postsurgical changes from knee arthroplasty. There is anterior soft tissue edema. IMPRESSION: Postsurgical changes as above. Reviewed, Interpreted and Dictated by Mart Travis III, MD Transcribed by Zeinab Patton Authenticated and [facility]
== END ==
PROVIDERS: PCP Family Medicine; Visit Provider Physician Assistant Surgical
DX: M25.561 Pain in right knee; Z96.651 Presence of right artificial knee joint
CPT/HCPCS: 73562

== ENCOUNTER → 2022-12-24 08:36 | Outpatient (CLI) | payer MEDICARE, SELFPAY ==
--- NOTE | 2022-12-24 08:40 | MR_ITS ---
FINAL REPORT CLINICAL HISTORY: LEFT SIDED LOW BACK PAIN WITHOUT SCIATICA. FINDINGS: Multiplanar MR imaging of the lumbar spine was performed without contrast. On the sagittal T2-weighted images, disc degeneration is seen throughout with mild endplate changes at multiple levels. There are multiple Schmorl's nodes present. There is mild retrolisthesis of L2 on 3. There is no evidence of fracture. The conus has an unremarkable appearance. T12-L1: An annular bulge is present. L1-2: An annular bulge is present. Facet arthropathy and osteophytes are present. There is mild right neural foraminal narrowing. L2-3: An annular bulge is present. Facet arthropathy and osteophytes are present. There is severe right and moderate left neural foraminal narrowing. L3-4: An annular bulge is present. Facet arthropathy and osteophytes are present. There is moderate right and severe left neural foraminal narrowing. There is bilateral lateral recess stenosis measuring 6 mm. Synovial cyst extends anteriorly from the left facet joint measures up to 7 mm contributes to the left lateral recess stenosis. L4-5: An annular bulge is present. Facet arthropathy and osteophytes are present. There is moderate bilateral neural foraminal narrowing. L5-S1: An annular bulge is present. Facet arthropathy and osteophytes are present. There is moderate bilateral neural foraminal narrowing. There is spurring of the sacroiliac joints. IMPRESSION: Multilevel degenerative disc disease and spondylosis with areas of central canal stenosis. Synovial cyst at L3-4 contributes to the left lateral recess stenosis. Reviewed, Interpreted and Dictated by Mart Travis III, MD Transcribed by Zeinab Patton Authenticated and . [facility]
== END ==
PROVIDERS: PCP Family Medicine; Visit Provider Family Medicine
DX: M54.50 Low back pain, unspecified (principal); M47.816 Spondylosis without myelopathy or radiculopathy, lumbar region; M48.061 Spinal stenosis, lumbar region without neurogenic claudication; M51.36 Other intervertebral disc degeneration, lumbar region
CPT/HCPCS: 72148; 76376

== ENCOUNTER → 2023-01-13 08:35 | Outpatient (POV) | payer MEDICARE, SELFPAY ==
--- NOTE | 2023-01-13 08:37 | EXP.PAIN.OV ---
HPI Data of Consult Patient: new to practice Consult date: 01/13/23 Requesting Physician: Annamarie Colindres APRN Consult Narrative Reason for consult: Low back pain History of present illness: Mr. Cohen is a 82 year old male who presents today as a new patient. He is a referral from Dr. Jennings's office. Today he rates his pain a 9 out of 10. Patient states his pain is all in his low back along the left side with no radiating symptoms to his legs. Patient states that this has been going on for approximately 1 month and denies any specific trauma or injury that initially started the symptoms. He does state that the pain would come on again off again for several months however over this last month its continued to cause significant pain. Patient does describe it as a aching, severe pain that is worse with increased activity. Patient has tried [id number] medications such as Tylenol along with heat and ice and topicals with no additional relief. He does state that Dr. Jennings prescribed him tramadol 50 mg 1 to 2 tablets every 6 hours and tizanidine 4 mg 3 times daily as needed and he states this has helped some of his symptoms. Patient denies any previous physical therapy or chiropractor or any surgical interventions. CC: Annamarie Colindres APRN [facility] Disclaimer: The information contained in this section may have been updated after the patient was seen, as this information can be updated by other users. Medical History BPH (benign prostatic hyperplasia) Surgical History S/P TURP (status post transurethral resection of prostate) Status post right knee replacement Social History Smoking Status: Former smoker pack-years: 15 second hand exposure: No alcohol intake: current substance use type: denies use current occupational status: retired Travel in the last 8 weeks: None household members: spouse housing: house caffeine: No Review of Systems Review of Systems Review of systems:: pertinent systems reviewed and negative unless documented below Review of systems (narrative): Review of Systems: General: No recent weight changes, no fever, no sleep disturbances Respiratory: No cough, no shortness of air, no recurring pulmonary infections Cardiovascular/peripheral vascular: No chest pain, no palpitations, no edema, no shortness of breath Gastrointestinal: No new onset incontinence, normal bowel movements reported Genitourinary: No new onset incontinence Musculoskeletal: Low back pain, left sided Psychiatric: [Normal mood/affect] Neurological: [Denies weakness in extremities], [denies balance issues] Meds Home Medications and Allergies Home Medications Medication Instructions Recorded Confirmed Type atenolol 25 mg tablet 25 mg PO DAILY Hypertension 03/12/21 06/24/22 History lovastatin 20 mg tablet 20 mg PO DAILY Cholesterol 03/12/21 06/24/22 History meloxicam 7.5 mg tablet 15 mg PO DAILY Pain 03/12/21 06/24/22 History multivitamin 1 tab PO DAILY Supplement 03/12/21 06/24/22 History isosorbide mononitrate 60 mg 60 mg PO DAILY Angina 06/18/21 06/24/22 History tablet,extended release 24 hr aspirin 81 mg tablet,delayed 81 mg PO DAILY [facility] 07/31/21 06/24/22 History release (Adult Low Dose Aspirin) carbidopa ER 23.75 mg-levodopa 95 2 cap PO BID [place] 10/01/21 06/24/22 History mg capsule,extended release docusate sodium 100 mg capsule 100 mg PO BIDP PRN Constipation 12/29/21 06/24/22 Rx #20 caps glucosamine sulfate 500 mg tablet 500 mg PO DAILY 06/24/22 06/24/22 History (Glucosamine) vit A 300 mcg-C 200 mg-E 27 1 tab PO DAILY 06/24/22 06/24/22 History mg-lutein 2 mg and minerals tablet (Vision Formula (with lutein)) New Prescriptions to Start Prescriptions: Allergies Allergy/AdvReac Type Severity
[2023-01-13 09:07] VITALS: BP 152/89; PULSE 61; RESP 18; O2SAT 94; BMI 27.3
== END ==
PROVIDERS: Visit Provider Nurse Practitioner Family
DX: M51.36 Other intervertebral disc degeneration, lumbar region (principal); M47.816 Spondylosis without myelopathy or radiculopathy, lumbar region; M54.50 Low back pain, unspecified; G89.29 Other chronic pain
CPT/HCPCS: 99202; G0463

== ENCOUNTER 2023-01-25 08:48 | Day surgery (SDC) | payer MEDICARE, SELFPAY ==
[2023-01-25 09:04] VITALS: BP 166/84; PULSE 64; RESP 16; TEMP 36.2; O2SAT 92; BMI 28.0
[2023-01-25 09:37] VITALS: PULSE 65; RESP 18; O2SAT 96
--- NOTE | 2023-01-25 09:40 | EXP.PAIN.PRO ---
Procedure Date: 01/25/23 Time: 09:30 Anesthesiologist:: Jamal Espinal CRNA Complications:: None Pre-procedure Diagnosis:: Degenerative disc disease lumbar spine multilevels. Lumbar radiculopathy. Lumbar spondylosis. Lumbar multilevel facet arthropathy. Post-procedure Diagnosis:: Same. Indications for Procedure:: Patient is a very pleasant 82-year-old male that comes our clinic today with chronic left lumbar back pain he describes as constant, dull, aching. Patient reports pain intensifies with standing and/or sitting for any length of time. He rates pain 7/10. Procedure Details:: Details of the procedure explained to the patient. The patient taken to procedure room placed in the prone position. The area over the lumbar spine was cleansed using chlorhexidine as a cleansing solution. Using fluoroscopy guidance markers were placed over the left L3-4 and left L4-5 facet joint. Using a 22-gauge 3 and half inch needle under fluoroscopy guidance the left L3-4 facet joint was accessed with ease. 1 cc of 1% lidocaine +10 mg of Depo-Medrol was injected. The same procedure was carried out over the left L4-5 facet joint. Patient tolerated procedure without difficulty. There are no complications. Plan and Disposition:: Patient was discharged without incident.
[2023-01-25 09:42] VITALS: BP 188/90; PULSE 58; RESP 16; O2SAT 92
== END 2023-01-25 09:42 | disposition home or self-care (01) ==
PROVIDERS: PCP Family Medicine; Visit Provider Nurse Anesthetist, Certified Registered
DX: M47.896 Other spondylosis, lumbar region (principal); M51.16 Intervertebral disc disorders with radiculopathy, lumbar region
CPT/HCPCS: 64493; 64494; J1040

== ENCOUNTER → 2023-02-07 10:20 | Outpatient (POV) | payer MEDICARE, SELFPAY ==
--- NOTE | 2023-02-07 10:35 | A.OFFVIS_ITS ---
[facility] Pain Management SOAP Note Subjective:: Patient is a pleasant 82-year-old male who presents today for follow-up of lumbar medial branch block left-sided L3-L4 and L4-L5 on 01/25/2023. We are currently treating the patient for degenerative disc disease of lumbar spine with lumbar facet arthropathy and lumbar spondylosis. Today he rates his pain a 2 out of 10. Patient denies any new trauma or injury. Patient denies any change location or type of pain he experiences. Patient does state he has had at least 80% improvement following this injection and feels like it is still continuing to provide additional relief. Patient states he has been able to increase his activity with decreased pain symptoms. He states the only pain he really notices when he gets up in the morning. Previously he even had pain when he was sitting down however he states this pain is gone away. Patient is currently managed with gabapentin 300 mg twice a day and tramadol 50 mg from his primary care provider. Patient had these prescriptions back in December and has not had any refills. His Curt is [id number]. Its been reviewed and appropriate. Review of Systems: General: No recent weight changes, no fever, no sleep disturbances Respiratory: No cough, no shortness of air, no recurring pulmonary infections Cardiovascular/peripheral vascular: No chest pain, no palpitations, no edema, no shortness of breath Gastrointestinal: No new onset incontinence, normal bowel movements reported Genitourinary: No new onset incontinence Musculoskeletal: Low back pain Psychiatric: [Normal mood/affect] Neurological: [Denies weakness in extremities], [denies balance issues] Objective:: Physical Exam: General: Alert and oriented x3, no acute distress, pleasant and cooperative Lungs: Respirations even and unlabored, symmetrical chest expansion Eyes: PERRL Musculoskeletal: Flexion and extension of lumbar [spine] somewhat guarded secondary to pain, [antalgic gait noted] Neurological: Speech clear, no gross sensory deficit Assessment:: Degenerative disc disease of lumbar spine with lumbar facet arthropathy, lumbar spondylosis Plan:: Patient has had significant improvement following his lumbar medial branch block and does not require any additional injective therapy at this time. Patient will return to clinic in 1 month for reevaluation of symptoms and plan of care. Patient has been instructed to contact the clinic with any concerns before the next appointment. Dr. Goode has reviewed this note and agrees with this plan of care. This note was dictated using voice recognition software and make contain errors or omissions. [facility] Disclaimer: The information contained in this section may have been updated after the patient was seen, as this information can be updated by other users. Medical History BPH (benign prostatic hyperplasia) Surgical History S/P TURP (status post transurethral resection of prostate) Status post right knee replacement Family History (Updated 01/25/23 @ 09:09 by Lizy Reynoso, BRIDGER) Other No significant family history Social History Smoking Status: Former smoker pack-years: 15 second hand exposure: No alcohol intake: current substance use type: denies use current occupational status: retired Travel in the last 8 weeks: None household members: spouse housing: house caffeine: No
[2023-02-07 11:14] VITALS: BP 147/99; PULSE 58; RESP 18; O2SAT 95; BMI 27.1
== END ==
PROVIDERS: Visit Provider Nurse Practitioner Family
DX: M51.36 Other intervertebral disc degeneration, lumbar region (principal); M47.816 Spondylosis without myelopathy or radiculopathy, lumbar region
CPT/HCPCS: 99212; G0463

== ENCOUNTER → 2023-03-07 09:23 | Outpatient (POV) | payer MEDICARE, SELFPAY ==
--- NOTE | 2023-03-07 09:44 | EXP.PAIN.SOA ---
[facility] Pain Management SOAP Note Subjective:: Patient is a pleasant 82-year-old male who presents today for follow-up. We are currently treating the patient for degenerative disc disease of lumbar spine with lumbar radiculopathy symptoms, lumbar facet arthropathy, lumbar spondylosis. Today he rates his pain a 10 out of 10. Patient denies any new trauma or injury. He states on of last week he was out in the garden and all of a sudden had sharp shooting pain that ran across his low back into his bilateral hips. Patient does describe this as an aching, throbbing sensation that is worse with increased activity. It does have some numbness and tingling. Patient does state the pain is worse with prolonged sitting or prolonged standing. Patient does state the pain interferes with his ability perform activities of daily living. Patient did previously have a lumbar medial branch block left-sided of the L3-L4 and L4-L5 back in January that did provide at least 80% improvement. Patient is interested in any help we may be able to provide with this new pain. His Curt has been reviewed and is appropriate. Review of Systems: General: No recent weight changes, no fever, no sleep disturbances Respiratory: No cough, no shortness of air, no recurring pulmonary infections Cardiovascular/peripheral vascular: No chest pain, no palpitations, no edema, no shortness of breath Gastrointestinal: No new onset incontinence, normal bowel movements reported Genitourinary: No new onset incontinence Musculoskeletal: Low back pain, bilateral hip pain Psychiatric: [Normal mood/affect] Neurological: [Denies weakness in extremities], [denies balance issues] Objective:: Physical Exam: General: Alert and oriented x3, no acute distress, pleasant and cooperative Lungs: Respirations even and unlabored, symmetrical chest expansion Eyes: PERRL Musculoskeletal: Flexion and extension of lumbar [spine] somewhat guarded secondary to pain, [antalgic gait noted] extreme point tenderness along left SI with point tenderness at right SI, positive bilateral Morenita's, Los's, Gaenslen's, compression and distraction exam Neurological: Speech clear, no gross sensory deficit Assessment:: Degenerative disc disease of lumbar spine with lumbar radiculopathy symptoms, lumbar facet arthropathy, lumbar spondylosis, sacroiliitis Plan:: Patient is experiencing significant pain in his low back with radiating symptoms into his bilateral hips. Patient did have limited range of motion of his lumbar spine along with extreme point tenderness at his left SI and point tenderness at his right and a positive bilateral Morenita's, Los's, Gaenslen's, compression and distraction exam. I have discussed with the patient that he may benefit from bilateral SI injections. Risk and benefits were explained to the patient and he would like to proceed forward with this plan of care. I will also send in a 5-day dose of prednisone 20 mg twice daily. Patient will be scheduled for bilateral SI injections. Patient has been instructed to contact the clinic with any concerns before the next appointment. Dr. Goode has reviewed this note and agrees with this plan of care. This note was dictated using voice recognition software and make contain errors or omissions. [facility] Disclaimer: The information contained in this section may have been updated after the patient was seen, as this information can be updated by other users. Medical History BPH (benign prostatic hyperplasia) Surgical History S/P TURP (status post transurethral resection of prostate) Status post right knee replacement Family History (Updated 01/25/23 @ 09:09 by Lizy Reynoso RN) Other No significant family history Social History Smoking Status: Former smoker pack-years: 15 secon
[2023-03-07 12:59] VITALS: BP 161/74; PULSE 55; RESP 18; O2SAT 97; BMI 27.1
== END | disposition home or self-care (01) ==
PROVIDERS: PCP Family Medicine; Visit Provider Nurse Practitioner Family
DX: M51.16 Intervertebral disc disorders with radiculopathy, lumbar region (principal); M47.26 Other spondylosis with radiculopathy, lumbar region; M46.1 Sacroiliitis, not elsewhere classified
CPT/HCPCS: 99212; G0463

== ENCOUNTER 2023-03-08 09:21 | Day surgery (SDC) | payer MEDICARE, SELFPAY ==
[2023-03-08 09:45] VITALS: BP 186/87; PULSE 62; RESP 18; O2SAT 96; BMI 28.0
[2023-03-08 09:57] VITALS: BP 198/99; PULSE 62; RESP 18; O2SAT 97
--- NOTE | 2023-03-08 09:57 | P.PCN_ITS ---
Procedure Date: 03/08/23 Time: 09:40 Anesthesiologist:: Jamal Espinal CRNA Complications:: None Pre-procedure Diagnosis:: Bilateral sacroiliitis. Post-procedure Diagnosis:: Same. Indications for Procedure:: Very pleasant 82-year-old male that comes our clinic today for bilateral sacral iliac joint injections of cortisone. Patient describes his low back as constant, dull, aching. Patient has extreme point tenderness upon examination over the bilateral sacroiliac joints. Patient complains of posterior hip pain as well as left groin pain. He rates his pain 8/10. Procedure Details:: Procedure: Bilateral sacroiliac joint injections under fluoroscopy Informed consent was obtained and the risks and benefits of the procedure were explained to the patient.~ The patient was taken to the procedure room and noninvasive monitors were placed including a noninvasive blood pressure cuff and pulse oximeter.~ The patient was placed prone on the procedure table. Both hips were cleansed using Betadine as a cleansing solution. C-arm fluoroscopy was used to view the right sacroiliac joint.~ The skin and subcutaneous tissues were anesthetized using lidocaine 1.5% and a 25-gauge needle.~ After this, a 22-gauge spinal needle was inserted under fluoroscopic guidance into the inferior aspect of the right sacroiliac joint.~ Omnipaque dye was injected and good spread was seen throughout the joint.~ After this, approximately 5 mL of bupivacaine, 0.25% and Depo-Medrol, 40 mg was incrementally injected into the right sacroiliac joint. We then moved to the left sacroiliac joint.~ The skin and subcutaneous tissues were anesthetized using lidocaine 1.5% and a 25-gauge needle.~ After this, a 22- gauge spinal needle was inserted under fluoroscopic guidance into the inferior aspect of the left sacroiliac joint.~ Omnipaque dye was injected and good spread was seen throughout the joint. After this, approximately 5 mL of bupivacaine, 0.25% and Depo-Medrol, 40 mg was incrementally injected into the left sacroiliac joint.~ The patient tolerated the procedure well with no complications. The patient was observed in the Pain Clinic and then was discharged home neurologically intact. Plan and Disposition:: Patient was discharged without incident.
[2023-03-08 11:10] VITALS: BP 178/89; PULSE 66; RESP 18; O2SAT 94
[2023-03-08 11:28] VITALS: BP 178/89; PULSE 66; RESP 18; O2SAT 94
== END 2023-03-08 09:57 | disposition home or self-care (01) ==
PROVIDERS: PCP Family Medicine; Visit Provider Nurse Anesthetist, Certified Registered
DX: M46.1 Sacroiliitis, not elsewhere classified (principal)
CPT/HCPCS: 27096; G0260; J1040

== ENCOUNTER → 2023-03-25 12:27 | Outpatient (POV) | payer MEDICARE, SELFPAY ==
[2023-03-25 13:05] VITALS: BP 188/93; PULSE 55; RESP 20; BMI 28.0
--- NOTE | 2023-03-25 13:29 | EXP.PAIN.SOA ---
[facility] Pain Management SOAP Note Subjective:: This patient is a very pleasant 82-year-old male that comes our clinic today for follow-up visit after receiving bilateral sacroiliac joint injections. Patient reports 60 to 70% improvement terms of his overall low lumbar back pain as well as bilateral posterior hip pain. However, patient continues complaining of right hip and leg radicular symptoms. Left hip and leg radicular symptoms. High lumbar left pain he describes as constant, dull, aching. Patient has difficulty sitting and/or standing for any length of time. Patient is a very active arnold. Has difficulty weed eating due to the low lumbar back pain. I reviewed the patient's lumbar MRI with him and his . Patient's MRI reveals Multilevel degenerative disc disease and spondylosis with areas of central canal stenosis. Synovial cyst at L3-4 contributes to the left lateral recess stenosis.. We discussed in detail lumbar epidural steroid injection at the L4-5 level. Risk versus benefits. Answered their questions. They wish to proceed. I think this is reasonable choice of treatment given his lumbar MRI pathology and symptoms. I will give the patient tramadol 50 mg 1 p.o. twice daily. Patient currently not taking anything other than Tylenol at times. However, he expresses being in some severe pain at times especially in the evening. Patient's Curt #[id number] been reviewed and appropriate. Objective:: Patient is awake alert Joiner x3. In no acute distress. Flexion-extension lumbar spine somewhat guarded secondary to pain. Deep tendon reflexes upper and lower extremities normal. Motor strength upper and lower extremities normal. There is no gross sensory deficit. Gait is antalgic requiring a walking stick for stability. Assessment:: Degenerative disc lumbar spine multilevels. Lumbar radiculopathy. Lumbar spinal stenosis. Bilateral sacroiliitis. Lumbar facet arthropathy. Lumbar spondylosis. Plan:: We will plan lumbar epidural steroid injection at the L4-5 level. We will prescribe tramadol 50 mg 1 p.o. twice daily. [facility] Disclaimer: The information contained in this section may have been updated after the patient was seen, as this information can be updated by other users. Medical History BPH (benign prostatic hyperplasia) Surgical History S/P TURP (status post transurethral resection of prostate) Status post right knee replacement Family History Other No significant family history Social History Smoking Status: Former smoker second hand exposure: No alcohol intake: current substance use type: denies use current occupational status: retired Travel in the last 8 weeks: None household members: spouse housing: house caffeine: No
== END | disposition home or self-care (01) ==
PROVIDERS: PCP Family Medicine; Visit Provider Nurse Anesthetist, Certified Registered
DX: M51.16 Intervertebral disc disorders with radiculopathy, lumbar region (principal); M48.061 Spinal stenosis, lumbar region without neurogenic claudication; M46.1 Sacroiliitis, not elsewhere classified; M47.26 Other spondylosis with radiculopathy, lumbar region
CPT/HCPCS: 99212; G0463

== ENCOUNTER 2023-04-05 08:35 | Day surgery (SDC) | payer MEDICARE, SELFPAY ==
[2023-04-05 08:57] VITALS: BP 187/94; PULSE 67; RESP 16; TEMP 36.3; O2SAT 97; BMI 28.0
[2023-04-05 09:10] VITALS: BP 199/91; PULSE 65; RESP 18; O2SAT 97
--- NOTE | 2023-04-05 09:37 | EXP.PAIN.PRO ---
Procedure Date: 04/05/23 Time: 08:57 Anesthesiologist:: Jamal Espinal CRNA Complications:: None Pre-procedure Diagnosis:: Degenerative disc lumbar spine multilevels. Lumbar radiculopathy. Lumbar postlaminectomy syndrome. Post-procedure Diagnosis:: Same. Indications for Procedure:: Very pleasant 82-year-old male comes our clinic today for lumbar epidural steroid injection. Patient complains of low back pain as well as bilateral hip and leg radicular symptoms. Patient rates his pain 7/10. Patient has difficulty ambulating due to low back pain as well as bilateral hip and leg radicular symptoms. Patient has difficulty standing for any length of time secondary to low back pain. Procedure Details:: Procedure: Lumbar epidural steroid injection under fluoroscopy Informed consent was obtained and the risks and benefits of the procedure were explained to the patient. The patient was taken to the procedure room and noninvasive monitors placed, including noninvasive blood pressure cuff and pulse oximeter. The back was viewed using C-arm Fluoroscopy and prepped using Chloraprep as a cleansing solution and the L4-L5 interspace was palpated. Skin and subcutaneous tissues were anesthetized using lidocaine 1.5% and a 25-gauge needle. After this, an 18-gauge Touhy epidural needle was placed into the L4-L5 interspace and advanced using fluoroscopic guidance and loss of resistance to air until the epidural space was encountered. After confirmation of needle placement in the epidural space, with dye, a solution containing normal saline, 3 mL and Depo-Medrol 80 mg were incrementally injected into the lumbar epidural space. The patient tolerated the procedure well with no complications. The patient was observed in the Pain Clinic and then discharged home neurologically intact. Plan and Disposition:: Patient was discharged without incident.
== END 2023-04-05 09:10 | disposition home or self-care (01) ==
PROVIDERS: PCP Family Medicine; Visit Provider Nurse Anesthetist, Certified Registered
DX: M51.16 Intervertebral disc disorders with radiculopathy, lumbar region (principal); M96.1 Postlaminectomy syndrome, not elsewhere classified
CPT/HCPCS: 62323; J1040

== ENCOUNTER → 2023-04-20 09:02 | Outpatient (POV) | payer MEDICARE, SELFPAY ==
--- NOTE | 2023-04-20 09:14 | A.OFFVIS_ITS ---
[facility] Pain Management SOAP Note Subjective:: Patient is a pleasant 82-year-old male who presents today for follow-up of lumbar epidural steroid injection L4-L5 on 03/25/2023. We are currently treating the patient for degenerative disc disease of lumbar spine with lumbar radiculopathy symptoms, lumbar facet arthropathy, lumbar spondylosis, sacroiliitis. Today he rates his pain a 2 out of 10. Patient denies any new trauma or injury. He states following this injection he has had at least 70% improvement and that it is still currently helping. He states he has been able to increase his activity with decreased pain symptoms and overall feels more functional. He does state that he still wakes up feeling a little bit stiff however as soon as he starts getting up to move it is much better and subsides. At his last visit he was also prescribed tramadol 50 mg twice a day. He denies any side effects from this medication. He is also managed with gabapentin 300 mg twice a day from an outside provider. His Curt has been reviewed and is appropriate. Review of Systems: General: No recent weight changes, no fever, no sleep disturbances Respiratory: No cough, no shortness of air, no recurring pulmonary infections Cardiovascular/peripheral vascular: No chest pain, no palpitations, no edema, no shortness of breath Gastrointestinal: No new onset incontinence, normal bowel movements reported Genitourinary: No new onset incontinence Musculoskeletal: Low back pain Psychiatric: [Normal mood/affect] Neurological: [Denies weakness in extremities], [denies balance issues] Objective:: Physical Exam: General: Alert and oriented x3, no acute distress, pleasant and cooperative Lungs: Respirations even and unlabored, symmetrical chest expansion Eyes: PERRL Musculoskeletal: Flexion and extension of lumbar [spine] somewhat guarded secondary to pain, [antalgic gait noted] Neurological: Speech clear, no gross sensory deficit Assessment:: Degenerative disc disease of lumbar spine with lumbar radiculopathy symptoms, lumbar facet arthropathy, lumbar spondylosis, sacroiliitis Plan:: Patient has had significant improvement following his lumbar epidural and does not require any additional injective therapy at this time. Patient will return to clinic in 1 month for reevaluation of symptoms and plan of care. Patient has been instructed to contact the clinic with any concerns before the next appointment. Dr. Goode has reviewed this note and agrees with this plan of care. This note was dictated using voice recognition software and make contain errors or omissions. [facility] Disclaimer: The information contained in this section may have been updated after the patient was seen, as this information can be updated by other users. Medical History BPH (benign prostatic hyperplasia) Surgical History S/P TURP (status post transurethral resection of prostate) Status post right knee replacement Family History Other No significant family history Social History Smoking Status: Former smoker second hand exposure: No alcohol intake: current substance use type: denies use current occupational status: other Travel in the last 8 weeks: None household members: spouse housing: house caffeine: No
[2023-04-20 09:15] VITALS: BP 135/81; PULSE 59; RESP 18; O2SAT 98; BMI 28.0
== END ==
PROVIDERS: PCP Family Medicine; Visit Provider Nurse Practitioner Family
DX: M51.16 Intervertebral disc disorders with radiculopathy, lumbar region (principal); M47.26 Other spondylosis with radiculopathy, lumbar region; M46.1 Sacroiliitis, not elsewhere classified
CPT/HCPCS: 99212; G0463

== ENCOUNTER → 2023-05-18 08:49 | Outpatient (POV) | payer MEDICARE, SELFPAY ==
[2023-05-18 09:15] VITALS: BP 175/83; PULSE 63; RESP 18; O2SAT 93; BMI 28.0
--- NOTE | 2023-05-18 09:38 | EXP.PAIN.SOA ---
[facility] Pain Management SOAP Note Subjective:: Patient is a pleasant 82-year-old male who presents today for 1 month follow-up. We are currently treating the patient for degenerative disc disease of lumbar spine with lumbar radiculopathy symptoms, lumbar facet arthropathy, lumbar spondylosis, sacroiliitis. Today he rates his pain a 4 out of 10. Patient denies any new trauma or injury. He states that he continues to feel like he did have significant relief following the lumbar epidural that he had in the middle of March. Patient states he will have some stiffness but overall is doing much better and is able to move around easier. Patient is currently managed with gabapentin 300 mg twice a day from an outside provider and tramadol 50 mg twice a day from our office. Patient states he is not even needed to take the tramadol with the decreased pain symptoms. His Curt has been reviewed and is appropriate. Review of Systems: General: No recent weight changes, no fever, no sleep disturbances Respiratory: No cough, no shortness of air, no recurring pulmonary infections Cardiovascular/peripheral vascular: No chest pain, no palpitations, no edema, no shortness of breath Gastrointestinal: No new onset incontinence, normal bowel movements reported Genitourinary: No new onset incontinence Musculoskeletal: Low back pain Psychiatric: [Normal mood/affect] Neurological: [Denies weakness in extremities], [denies balance issues] Objective:: Physical Exam: General: Alert and oriented x3, no acute distress, pleasant and cooperative Lungs: Respirations even and unlabored, symmetrical chest expansion Eyes: PERRL Musculoskeletal: Flexion and extension of lumbar [spine] somewhat guarded secondary to pain, [antalgic gait noted] Neurological: Speech clear, no gross sensory deficit Assessment:: Degenerative disc disease of lumbar spine with lumbar radiculopathy symptoms, lumbar facet arthropathy, lumbar spondylosis, sacroiliitis Plan:: Patient continues to do well from his epidural that he had in March and does not require any injection therapy at this time. Patient will return to clinic in 3 months for reevaluation of symptoms and plan of care. Patient has been instructed to contact the clinic with any concerns before the next appointment. Dr. Goode has reviewed this note and agrees with this plan of care. This note was dictated using voice recognition software and make contain errors or omissions. [facility] Disclaimer: The information contained in this section may have been updated after the patient was seen, as this information can be updated by other users. Medical History BPH (benign prostatic hyperplasia) Surgical History S/P TURP (status post transurethral resection of prostate) Status post right knee replacement Family History Other No significant family history Social History Smoking Status: Former smoker second hand exposure: No alcohol intake: current substance use type: denies use current occupational status: retired Travel in the last 8 weeks: None household members: spouse housing: house caffeine: No
== END ==
PROVIDERS: PCP Family Medicine; Visit Provider Nurse Practitioner Family
DX: M51.16 Intervertebral disc disorders with radiculopathy, lumbar region (principal); M47.26 Other spondylosis with radiculopathy, lumbar region; M46.1 Sacroiliitis, not elsewhere classified
CPT/HCPCS: 99212; G0463

== ENCOUNTER 2023-06-14 14:24 | Outpatient (POV) | payer MEDICARE, SELFPAY | END 2023-06-14 23:59 | disposition home or self-care (01) | LOC: SC 14:27 | PROVIDERS: PCP Family Medicine; Visit Provider Dermatology | DX: Z00.00 Encounter for general adult medical examination without abnormal findings (principal) ==

== ENCOUNTER 2023-08-15 08:23 | Outpatient (POV) | payer MEDICARE, SELFPAY ==
[2023-08-15 08:44] VITALS: BP 141/78; PULSE 63; RESP 18; BMI 35.6
--- NOTE | 2023-08-15 08:57 | A.OFFVIS_ITS ---
[facility] Pain Management SOAP Note Subjective:: Patient is a pleasant 83-year-old male who presents today for follow-up. We are currently treating the patient for degenerative disc disease of lumbar spine with lumbar radiculopathy symptoms, lumbar facet arthropathy, lumbar spondylosis, sacroiliitis. Today he rates his pain a 2 out of 10. Patient states he is still gotten significant improvement from the last lumbar epidural he had in middle of March. He states he will still occasionally have more stiffness in the first 15 to 20 minutes when he gets up however this eases off and he is able to continue to do more around the house. Patient has been prescribed tramadol from our office in the past however states he has not even needed this medication. Patient is also prescribed gabapentin from an outside provider. His Curt has been reviewed and is appropriate. Review of Systems: General: No recent weight changes, no fever, no sleep disturbances Respiratory: No cough, no shortness of air, no recurring pulmonary infections Cardiovascular/peripheral vascular: No chest pain, no palpitations, no edema, no shortness of breath Gastrointestinal: No new onset incontinence, normal bowel movements reported Genitourinary: No new onset incontinence Musculoskeletal: Low back pain Psychiatric: [Normal mood/affect] Neurological: [Denies weakness in extremities], [denies balance issues] Objective:: Physical Exam: General: Alert and oriented x3, no acute distress, pleasant and cooperative Lungs: Respirations even and unlabored, symmetrical chest expansion Eyes: PERRL Musculoskeletal: Flexion and extension of lumbar [spine] somewhat guarded secondary to pain, [antalgic gait noted] Neurological: Speech clear, no gross sensory deficit Assessment:: Degenerative disc disease of lumbar spine with lumbar radiculopathy symptoms, l umbar facet arthropathy, lumbar spondylosis, sacroiliitis Plan:: Patient continues to do well from his lumbar epidural from March and does not require any additional injection therapy. Patient will follow-up in 2 months for reevaluation of symptoms and plan of care. Patient has been instructed to contact the clinic with any concerns before the n ext appointment. Dr. Goode has reviewed this note and agrees with this plan of care. This note was dictated using voice recognition software and make contain errors or omissions. [facility] Disclaimer: The information contained in this section may have been updated after the patient was seen, as this information can be updated by other users. Medical History BPH (benign prostatic hyperplasia) Surgical History S/P TURP (status post transurethral resection of prostate) Status post right knee replacement Family History Other No significant family history Social History Smoking Status: Former smoker second hand exposure: No alcohol intake: current substance use type: denies use current occupational status: retired Travel in the last 8 weeks: None household members: spouse housing: house caffeine: No
== END 2023-08-15 23:59 ==
PROVIDERS: PCP Family Medicine; Visit Provider Nurse Practitioner Family
DX: M51.16 Intervertebral disc disorders with radiculopathy, lumbar region (principal); M47.26 Other spondylosis with radiculopathy, lumbar region; M46.1 Sacroiliitis, not elsewhere classified
CPT/HCPCS: 99212; G0463

== ENCOUNTER 2023-09-07 10:33 | Outpatient (CLI) | payer MEDICARE, SELFPAY ==
--- NOTE | 2023-09-07 10:39 | FL_ITS ---
FINAL REPORT CLINICAL HISTORY: 346.30 dap 4.16 fluoro time FINDINGS: FLUOROSCOPY LESS THAN 1 HOUR HISTORY: Fluoroscopy guidance. Fluoroscopic guidance was provided for modified barium swallow. No gross aspiration identified. A total of 4.16 minutes of fluoroscopy time were used. Total DAP: 346.30 mGy IMPRESSION: No gross aspiration. Please refer to speech pathology full report for further details Reviewed, Interpreted and Dictated by Mart Travis III, MD Transcribed by Monika Edwards Authenticated and [facility]
--- NOTE | 2023-09-07 12:55 | HMH.SLMBS2 ---
Speech & Language Evaluation Speech/Language Mod Barium Swallow Start: 09/07/23 11:22 Freq: once Status: Complete Protocol: Document 09/07/23 11:22 KANUMARYA (Rec: 09/07/23 12:55 [facility] [id number]) General Information General Current Food Consistancy Mechanical Soft,Thin Liquids Dentition Upper & Lower Dentures Oxygen Status Room Air Patient Orientation Person,Place,Time,Situation Ability to Follow Directions Good Communication Ability No Impairment MBS Recommendations Diet Dietary Recommendations Mechanical Soft,Chopped Meats, Thin Liquids Treatment/Strategies Strategy/Precaution Recommend Sitting Upright (90 deg),Chin Tuck,Double Swallow,No Straw, Small Bites and Sips,Alternate Liquids/Solids Mod Barium Swallow Impressions Summary and Impressions Oral Phase Impression Mild Impairment Oral Phase Summary Mild impairment of the oral preparatory and oral transit of the swallow. Impairment is noted 2' prolonged mastication of solid bolus, poor bolus control of thin liquids when presented with a straw, oral withholding, and difficulty clearing oral residuals. Pharyngeal Phase Impression Moderate Impairment Pharyngeal Phase Summary Moderate impairment of the pharyngeal phase of the swallow. Across all consistencies, Mr. Cohen presents with with A/P spills, premature spillage 2' delayed swallow, poor epiglottic coverage 2' limited hyolaryngeal excursion, zac residuals across all consistencies found in the vallecular, residuals observed along the PPW, poor BOT retraction, and trace residuals observed at the pyriform sinus. Mr. Cohen requires multiple swallows through implementation of a chin tuck and effort swallow, as well as a puree/pudding wash to clear residuals found within the pharynx. Penetration observed with liquids that was cleared with a prompted throat clear prior to implemenation of the chin tuck. Based on obserrvations made today iit is recommended pt be placed on a mechanical soft diet with thin liquids using no straws whilst implementing reviewed compensatory strategies such as the chin tuck and double swallow throughout the meal and adhering to aspiration precautions. Speech/Language MBS Assessment/Goals/Plan Assessment Date of Evaluation: 09/07/23 Evaluation Type Initial Certification Assessment/Problems dysphagia per MD order. Does Patient Qualify for Service No Qualify/Failure Comment Based on clinical observations made during MBSS, through implementation of compensatory strategies and following recommended diet, no further skilled speech therapy services are warranted at this time. Recommendations PHYSICIAN CERTIFICATION: The specified therapy services are required, authorized, and reviewed every 30 days. Diet Recommendations Mechanical Soft Liquid Type Recommendations Normal/Thin SL Swallow Guidelines Standard Aspiration Prec., Crush meds as allowed* Crush Meds Crush lge pills w/applesa Dysphagia Swallow Precautions/Strategies Sitting Upright (90 deg),Chin Tuck,Double Swallow,No Straw, Small Bites and Sips,Alternate Liquids/Solids Plan Pt/Guardian verbally ack understanding Yes of dx/prognosis/goals G -code Required No Vulcanizer Goals Diet mechanical soft with Liquids Thin Liquids Education Instructions provided Provided dynamic discussion of MBSS results, diet recommendations, aspiration precautions, and compensatory strategies with pt and daughter who expressed understanding. Pt/Caregiver able to recall information Able to recall/restate Reinforcement needed No Mod Barium Swallow Setup Exam Setup Radiologist Mart Travis Level of Consciousness Awake,Alert,Appropriate, Follows Commands Mod Barium Swallow-Lat View Textures Lateral View Food Presentation Thin Liquid via Cup,Thin Liquid via Straw,Pureed Food- Thin,Mech. Soft Food- Regular, Barium Tablet,Regular Food, Pudding Oral Phase Labial Closure No Impairment (WFL) Bolus Formation Pooling L/R No Impairment (WFL) Bolus Formation under Tongue No Impairment (WFL) Bolus Formation Scattered Loss Minimal Impairment Mastication Rotary Chew Mild Impairment Mastication Munching Moderate Impairment Mastication Lateralization Mild Impairment Lingual Movement Mild Impairment Residue Clearing Moderate Impairment Pharyngeal Phase A/P Lingual Propulsion Spills Moderate Impairment Swallow Response Delay Moderate Impairment Base of Tongue Moderate Impairment Epiglottic Coverage Moderate Impairment Laryngeal Elevation Moderate Impairment Vallecular Retention Clearing Moderate Impairment Pharyn. Wall Residue Clearing Mild Impairment Piriform Sinus Retention Moderate Impairment Aspiration? No Silent aspiration? No Mod Barium Swallow-AP View Performed Mod Barium Swallow A/P View Test Not Applicable/Performed PHYSICIAN CERTIFICATION: I certify the specified therapy services for Nico Cohen are required, authorized, and reviewed every 30 days.
== END 2023-09-07 23:59 ==
LOC: RAD 10:33
PROVIDERS: PCP Family Medicine; Visit Provider Family Medicine
DX: R13.13 Dysphagia, pharyngeal phase (principal)
CPT/HCPCS: 70371; 92611

== ENCOUNTER 2023-10-17 08:14 | Outpatient (POV) | payer MEDICARE, SELFPAY ==
[2023-10-17 08:37] VITALS: BP 166/72; PULSE 59; RESP 18; TEMP 36.7; O2SAT 98; BMI 28.0
--- NOTE | 2023-10-17 08:49 | A.OFFVIS_ITS ---
[facility] Pain Management SOAP Note Subjective:: Patient is a pleasant 83-year-old male who presents today for follow-up. Today he rates his pain a 2 out of 10 however he states the pain will increase as he increases his activity. He denies any new trauma or injury. Patient states the pain is an aching, throbbing sensation with numbness and tingling into his legs. He does state the pain interferes with his ability to perform activities of daily living such as cooking and cleaning. Patient did have his last lumbar epidural in the middle of March that did provide more than 50% relief and has done well up until the last month or so. He states while that injection was helping he felt more functional and had decreased pain symptoms. Patient is interested in repeating this injection. Patient does have gabapentin from an outside provider. His Curt has been reviewed and is appropriate. Review of Systems: General: No recent weight changes, no fever, no sleep disturbances Respiratory: No cough, no shortness of air, no recurring pulmonary infections Cardiovascular/peripheral vascular: No chest pain, no palpitations, no edema, no shortness of breath Gastrointestinal: No new onset incontinence, normal bowel movements reported Genitourinary: No new onset incontinence Musculoskeletal: Low back pain, bilateral leg pain Psychiatric: [Normal mood/affect] Neurological: [Denies weakness in extremities], [denies balance issues] Objective:: Physical Exam: General: Alert and oriented x3, no acute distress, pleasant and cooperative Lungs: Respirations even and unlabored, symmetrical chest expansion Eyes: PERRL Musculoskeletal: Flexion and extension of lumbar [spine] somewhat guarded secondary to pain, [antalgic gait noted] Neurological: Speech clear, no gross sensory deficit Assessment:: Degenerative disc disease of lumbar spine with lumbar radiculopathy symptoms, lumbar spondylosis, lumbar facet arthropathy, sacroiliitis Plan:: Patient is experiencing worsening pain in his low back and legs with limited range of motion. Patient did previously have at least 50% improvement with his last lumbar epidural that was done in March 2023. Patient did get more than 6 months of relief with this injection. I have discussed with the patient that he may benefit from a repeat lumbar epidural. Risk and benefits were discussed with the patient and he would like to proceed forward with this plan of care. Patient will be scheduled for a LESI L4-L5 under fluoroscopy. Patient had previously been on blood thinner however he states that they stopped this he just takes the baby aspirin. Patient has tried and failed conservative therapy. Patient has been instructed to contact the clinic with any concerns before the next appointment. Dr. Goode has reviewed this note and agrees with this plan of care. This note was dictated using voice recognition software and make contain errors or omissions. [facility] Disclaimer: The information contained in this section may have been updated after the patient was seen, as this information can be updated by other users. Medical History BPH (benign prostatic hyperplasia) Surgical History S/P TURP (status post transurethral resection of prostate) Status post right knee replacement Family History Other No significant family history Social History Smoking Status: Former smoker second hand exposure: No alcohol intake: current alcohol intake frequency: a few times a month substance use type: denies use current occupational status: other Travel in the last 8 weeks: None household members: spouse housing: house caffeine: No
== END 2023-10-17 23:59 | disposition home or self-care (01) ==
LOC: SC.PAIN 08:15
PROVIDERS: PCP Family Medicine; Visit Provider Nurse Practitioner Family
DX: M51.16 Intervertebral disc disorders with radiculopathy, lumbar region (principal); M47.26 Other spondylosis with radiculopathy, lumbar region; M46.1 Sacroiliitis, not elsewhere classified
CPT/HCPCS: 99212; G0463

== ENCOUNTER 2023-10-18 08:30 | Day surgery (SDC) | payer MEDICARE, SELFPAY ==
[2023-10-18 08:48] VITALS: BP 184/84; PULSE 65; RESP 18; O2SAT 96; BMI 28.0
[2023-10-18] MEDS: methylPREDNISolone ACETATE 80MG/ML VIAL 80 MG (08:59)
--- NOTE | 2023-10-18 09:00 | P.PCN_ITS ---
Procedure Date: 10/18/23 Time: 08:50 Anesthesiologist:: Jamal Espinal CRNA Complications:: None Pre-procedure Diagnosis:: Degenerative disc lumbar spine multilevels. Lumbar radiculopathy Post-procedure Diagnosis:: Same. Indications for Procedure:: Patient is a very pleasant 83-year-old male comes our clinic today for lumbar epidural steroid injection at the L4-5 level. Patient reports significant improvement in his low back pain as well as bilateral leg radicular symptoms with previous injections at the same level. He rates his pain today 7/10. He describes low back pain as constant, dull, aching. Also radicular symptoms bilateral legs. Procedure Details:: Procedure: Lumbar epidural steroid injection under fluoroscopy Informed consent was obtained and the risks and benefits of the procedure were explained to the patient. The patient was taken to the procedure room and noninvasive monitors placed, including noninvasive blood pressure cuff and pulse oximeter. The back was viewed using C-arm Fluoroscopy and prepped using Ch loraprep as a cleansing solution and the L4-L5 interspace was palpated. Skin and subcutaneous tissues were anesthetized using lidocaine 1.5% and a 25-gauge needle. After this, an 18-gauge Touhy epidural needle was placed into the L4-L5 interspace and advanced using fluoroscopic guidance and loss of resistance to air until the epidural space was encountered. After confirmation of needle placement in the epidural space, with dye, a solution containing normal saline, 3 mL and Depo-Medrol 80 mg were incrementally injected into the lumbar epidural space. The patient tolerated the procedure well with no complications. The patient was observed in the Pain Clinic and then discharged home neurologically intact. Plan and Disposition:: Patient was discharged without incident.
[2023-10-18 09:01] VITALS: BP 177/77; PULSE 62; RESP 18; O2SAT 98
[2023-10-18 09:02] VITALS: BP 177/77; PULSE 62; RESP 18; O2SAT 98
[2023-10-18 09:03] VITALS: BP 191/76; PULSE 59; RESP 18; O2SAT 96
== END 2023-10-18 09:03 | disposition home or self-care (01) ==
PROVIDERS: PCP Family Medicine; Visit Provider Nurse Anesthetist, Certified Registered
DX: M51.16 Intervertebral disc disorders with radiculopathy, lumbar region (principal)
CPT/HCPCS: 62323; J1010

== ENCOUNTER 2023-12-27 15:57 | Outpatient (POV) | payer MEDICARE, SELFPAY | END 2023-12-27 23:59 | disposition home or self-care (01) | LOC: SC 15:57 | PROVIDERS: PCP Family Medicine; Visit Provider Dermatology | DX: Z00.00 Encounter for general adult medical examination without abnormal findings (principal) ==

== ENCOUNTER 2023-12-28 19:38 | Emergency (ER) | payer MEDICARE, SELFPAY ==
[2023-12-28 19:40] VITALS: BP 161/80; PULSE 78; RESP 18; TEMP 36.8; O2SAT 98; BMI 26.6
--- NOTE | 2023-12-28 19:54 | CT_ITS ---
PROCEDURE INFORMATION: Exam: CT Chest Without Contrast; Diagnostic Exam date and time: 12/28/2023 8:25 PM Age: 83 years old Clinical indication: Abdominal pain; Flank; Right; Additional info: Right flank pain TECHNIQUE: Imaging protocol: Diagnostic computed tomography of the chest from the top of the aortic arch through the lung bases without contrast. COMPARISON: CT ABDOMEN PELVIS W CON 07/09/2021 11:07 AM FINDINGS: Lungs: Chronic compressive atelectasis in the medial basal segment of the right lower lobe secondary to elevated right hemidiaphragm, unchanged from prior exam. No evidence of focal airspace disease, noting that the lung apices are incompletely imaged. No pulmonary edema. Central airways are clear. Pleural spaces: No pleural effusion. No pneumothorax. Heart: Left atrial enlargement suggestive of diastolic heart dysfunction and/or mitral valve insufficiency. Aortic valve annular calcifications. No pericardial effusion. Lymph nodes: Unremarkable as visualized. Vasculature: Three-vessel calcific coronary artery disease with post-operative changes of prior CABG. 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 Diaphragm: Elevated right hemidiaphragm concerning for right phrenic nerve dysfunction. There is severe thinning of the right hemidiaphragm without evidence of a focal defects, favoring chronic paralysis. Left hemidiaphragm eventration also noted. Bones/joints: Multi-level bridging or beaked disc osteophytes in the lower thoracic spine compatible with diffuse idiopathic skeletal hyperostosis (DISH). Stable appearance of prior median sternotomy. No evidence of acute osseous abnormality. Soft tissues: Unremarkable. IMPRESSION: 1. No acute findings in the chest. 2. Elevated right hemidiaphragm concerning for right phrenic nerve dysfunction. Fluoroscopic 'sniff test' could provide a more definitive diagnosis. 3. Left atrial enlargement suggestive of diastolic heart dysfunction and/or mitral valve insufficiency. 4. 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 5. Diffuse idiopathic skeletal hyperostosis (DISH). 6. Additional non-acute ancillary findings are detailed above. PROCEDURE INFORMATION: Exam: CT Abdomen And Pelvis Without Contrast Exam date and time: 12/28/2023 8:25 PM Age: 83 years old Clinical indication: Abdominal pain; Flank; Right; Additional info: Right flank pain TECHNIQUE: Imaging protocol: Computed tomography of the abdomen and pelvis without contrast. Radiation optimization: All CT scans at this facility use at least one of these dose optimization techniques: automated exposure control; mA and/or kV adjustment per patient size (includes targeted exams where dose is matched to clinical indication); or iterative reconstruction. COMPARISON: CT ABDOMEN PELVIS W CON 07/09/2021 11:07 AM FINDINGS: Diaphragm: Elevated right hemidiaphragm and left hemidiaphragm eventration, both exhibiting mass effect on the right and left lobes of the liver and resulting in significant architectural distortion of the liver dome, not significantly changed from 07/09/2021 CT. Liver: No focal liver lesions. Gallbladder and biliary ducts: Unremarkable. Pancreas: Unremarkable. Spleen: Splenomegaly, measuring 14.5 cm in craniocaudal axis. Adrenal glands: Unremarkable. Kidneys and ureters: Punctate (2 mm) stone in the mid right ureter associated with mild right hydronephrosis. Bilateral parapelvic cysts also noted. No left hydronephrosis. Single punctate (2-3mm) non-obstructing stone in the left kidney. No other renal or ureteral stones. Intermediate soft tissue density 2.0 cm lesion in the upper pole of the right kidney is slightly increased in size from 1.8 cm on 07/09/2021 CT with Hounsfield units measuring 35 HU on the current noncontrast imaging compared with 110 HU on the prior contrast-enhanced study. Stomach and bowel: Interposition of the hepatic flexure of the colon between the liver and right hemidiaphragm. No evidence of small bowel obstruction. Colonic diverticulosis without evidence of acute diverticulitis. Appendix: No evidence of appendicitis. Intraperitoneal space: No free fluid. No pneumoperitoneum. Vasculature: Moderate amount of calcific arterial atherosclerosis throughout the aorta. No abdominal aortic aneurysm. Lymph nodes: Unremarkable. Urinary bladder: Diffuse urinary bladder wall thickening suggestive of acute cystitis. Reproductive: Prostate is enlarged, measuring approximately 5.5 cm in transverse axis. Bones/joints: Multi-level degenerative changes in the lumbar spine resulting in variable degrees of canal stenosis and neural foraminal narrowing, not significantly changed from prior exam. No evidence of acute osseous abnormality. Soft tissues: Unremarkable. IMPRESSION: 1. Punctate (2 mm) stone in the mid right ureter associated with mild right hydronephrosis. 2. Elevated right hemidiaphragm and left hemidiaphragm eventration, both exhibiting mass effect on the right and left lobes of the liver and resulting in significant architectural distortion of the liver dome, not significantly changed from 07/09/2021 CT. Findings can be associated with chronic right-sided abdominal and/or chest pain due to stretching of Juarez's capsule. 3. Incompletely characterized 2.0 cm right renal lesion with findings suspicious for malignant neoplasm. Please see comments below for current guidelines. 4. Single punctate (2-3mm) non-obstructing stone in the left kidney. 5. Diffuse urinary bladder wall thickening suggestive of acute cystitis. Please correlate with urinalysis. 6. Interposition of the hepatic flexure of the colon between the liver and right hemidiaphragm. 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 Please correlate with patient history and symptoms. 7. Splenomegaly, not significantly changed from prior exam. 8. Additional non-acute ancillary findings are detailed above. COMMENTS: 1. Current ACR guidelines recommend non-emergent MRI or CT tailored to renal mass protocol without and with contrast. MRI is preferred for masses under 1.5 cm. (Reference: Bryanna) 2. Consistent with the [employer]'s Incidental Findings Committee white paper (J Am Berkley Radiol 2018): Any incidental renal lesion less than 1 cm or classified as too small to characterize, or any incidental cystic renal lesion characterized as simple-appearing, is likely benign. No follow-up imaging is recommended for these lesions per consensus recommendations based on imaging criteria. REFERENCES: Bryanan BARAJAS, Management of the Incidental Renal Mass on CT: A White Paper of the ACR Incidental Findings Committee, JACR 2018.
--- NOTE | 2023-12-28 19:57 | HMH.EDGENADL ---
Discharge Plan Disposition Patient Disposition: Home, Self-Care Prescriptions Prescriptions: New ibuprofen 800 mg tablet 800 mg PO TID PRN (Reason: pain) 7 Days Qty: 20 0RF hydrocodone-acetaminophen 5-325 mg tablet 1 tab PO Q6H PRN (Reason: pain) 3 Days Qty: 12 0RF tamsulosin [Flomax] 0.4 mg capsule 0.4 mg PO DAILY 7 Days Qty: 7 0RF ondansetron 4 mg tablet,disintegrating 4 mg PO Q6H PRN (Reason: nausea and vomiting) 5 Days Qty: 20 0RF No Action meloxicam 7.5 mg tablet 15 mg PO DAILY lovastatin 20 mg tablet 20 mg PO DAILY atenolol 25 mg tablet 25 mg PO DAILY multivitamin Tablet 1 tab PO DAILY isosorbide mononitrate 60 mg tablet extended release 24 hr 60 mg PO DAILY aspirin [Adult Low Dose Aspirin] 81 mg tablet,delayed release (DR/EC) 81 mg PO DAILY Hold Instructions: Resume on 01/12/22. Hold for 2 weeks while patient is on aspirin 325 mg daily for DVT prophylaxis. glucosamine sulfate [Glucosamine] 500 mg tablet 500 mg PO DAILY Rx Instructions: administer with a meal Vision Formula (with lutein) 300 mcg-200 mg-27 mg-2 mg tablet 1 tab PO DAILY Rx Instructions: administer after a meal carbidopa-levodopa 1 EACH capsule, extended release 2 cap PO BID docusate sodium 100 MG capsule 100 mg PO BIDP PRN (Reason: Constipation) Qty: 20 0RF tramadol 50 mg tablet 50 mg PO BID PRN (Reason: pain) Qty: 60 0RF Referrals Follow up/Referrals: Arie Jennings MD [Primary Care Provider] - See instructions Boogie Caba MD [Staff Physician] - See instructions Activity Restrictions/Add. Instructions Additional Instructions/Restrictions: You have a very small 2 mm mid ureteral obstructing kidney stone which is the cause of your acute symptoms today. This is likely to pass and very possibly will pass and no longer be symptomatic. However I recommend you follow-up with her urologist to ensure resolution. Additionally there is an incidental 2 cm renal lesion on the right that was found which is possibly cancer. You may discuss further with urologist whether or not this should be pursued further. Return with any significant fevers chills or any other concerns. Clinical Impressions Clinical Impression: Hydronephrosis concurrent with and due to calculi of kidney and ureter, Acute right flank pain, Mass of right kidney Discharge ED Provider: Falguni Barrios General Adult HPI General Chief complaint: PAIN Stated complaint: RT side abd pain Time Seen by Provider: 12/28/23 19:43 History of Present Illness HPI narrative: Patient is an 83-year-old male presents today with intermittent right flank pain. He is currently without any symptoms. States he was at [facility] and had all of a sudden right flank pain that was very severe symptoms resolved and then came back about 30 minutes later again resolved. Denies any history of kidney stones any hematuria states he has 0 out of 10 pain at the moment. Related Data Home Medications Medication Instructions Recorded Confirmed atenolol 25 mg tablet 25 mg PO DAILY Hypertension 03/12/21 10/18/23 lovastatin 20 mg tablet 20 mg PO DAILY Cholesterol 03/12/21 10/18/23 meloxicam 7.5 mg tablet 15 mg PO DAILY Pain 03/12/21 10/18/23 multivitamin 1 tab PO DAILY Supplement 03/12/21 10/18/23 isosorbide mononitrate 60 mg 60 mg PO DAILY Angina 06/18/21 10/18/23 tablet,extended release 24 hr aspirin 81 mg tablet,delayed 81 mg PO DAILY HEART HEALTH 07/31/21 10/18/23 release (Adult Low Dose Aspirin) carbidopa ER 23.75 mg-levodopa 95 2 cap PO BID [place] 10/01/21 10/18/23 mg capsule,extended release glucosamine sulfate 500 mg tablet 500 mg PO DAILY SUPPLIMENT 06/24/22 10/18/23 (Glucosamine) vit A 300 mcg-C 200 mg-E 27 1 tab PO DAILY SUPPLIMENT 06/24/22 10/18/23 mg-lutein 2 mg and minerals tablet (Vision Formula (with lutein)) Previous Rx's Medication Instructions Recorded docusate sodium 100 mg capsule 100 mg PO BIDP PRN Constipation 12/29/21 #20 caps tramadol 50 mg tablet 50 mg PO BID PRN pain #60 tabs 03/25/23 hydrocodone 5 mg-acetaminophen 325 1 tab PO Q6H PRN pain 3 days #12 12/28/23 mg tablet tabs ibuprofen 800 mg tablet 800 mg PO TID PRN pain 7 days #20 12/28/23 tabs ondansetron 4 mg disintegrating 4 mg PO Q6H PRN nausea and 12/28/23 tablet vomiting 5 days #20 tabs tamsulosin 0.4 mg capsule (Flomax) 0.4 mg PO DAILY 7 days #7 caps 12/28/23 Allergies Allergy/AdvReac Type Severity Reaction Status Date / Time No Known Allergies Allergy Verified [facility]18[facility]23 08:[facility] Disclaimer: The information contained in this section may have been updated after the patient was seen, as this information can be updated by other users. Medical History BPH (benign prostatic hyperplasia) Surgical History S/P TURP (status post transurethral resection of prostate) Status post right knee replacement Family History Other No significant family history Social History Smoking Status: Never smoker second hand exposure: No alcohol intake: current alcohol intake frequency: a few times a month substance use type: denies use current occupational status: other Travel in the last 8 weeks: None household members: spouse housing: house caffeine: No ROS Obtained: Yes All systems reviewed & no additional complaints except as documented Physical Exam General General appearance: alert and in no apparent distress Respiratory Respiratory exam: Present normal lung sounds bilaterally Cardiovascular Cardiovascular exam: Present regular rate and normal rhythm Abdominal Exam Abdominal exam: Present soft and distention Back Exam Back exam: Absent CVA tenderness (R) or CVA tenderness (L) Neurological Exam Neurological exam: Present alert and oriented X3 Medical Decision Making Curt Inquiry Pt receiving controlled substance: No Vital Signs: 12/28/23 19:40 12/28/23 20:01 Temperature 98.2 F Temperature Source Oral Pulse Rate 69 Pulse Rate [Right] 78 Respiratory Rate 18 Blood Pressure 170/90 H Blood Pressure [Left Arm] 161/80 H Blood Pressure Mean 104 Blood Pressure Mean [Left Arm] 107 02 Sat by Pulse Oximetry 98 99 Oxygen Delivery Method Room Air Lab Data Lab results reviewed: Yes I reviewed the patient's lab results. Lab Results 12/28/23 19:50: Urine Color Brown, Urine Appearance Cloudy, Urine pH 6.0, Ur Specific [place] >= 1.030, Urine Protein 2+, Urine Glucose (UA) Negative, Urine Ketones Negative, Urine Blood 3+, Urine Nitrate Negative, Urine Bilirubin Negative, Urine Urobilinogen 0.2, Ur Leukocyte Esterase Trace, Urine RBC 50-100, Urine WBC Occasional, Ur Squamous Epith Cells None, Urine Bacteria None 12/28/23 20:16: WBC 8.3, RBC 4.45 L, Hgb 14.5, Hct 43.2, MCV 97.1 H, MCH 32.5 H, MCHC 33.5, RDW 13.9, Plt Count 240, MPV 7.9, Neut % (Auto) 73.1, Lymph % (Auto) 14.9, [place] % (Auto) 6.8, Eos % (Auto) 4.9, Baso % (Auto) 0.3, Neut # (Auto) 6.1, Lymph # (Auto) 1.2, [place] # (Auto) 0.6, Eos # (Auto) 0.4, Baso # (Auto) 0.0, Sodium 144, Potassium 4.3, Chloride 107, Carbon Dioxide 31 H, Anion Gap 10.3, BUN 29 H, Creatinine 1.30 H, Estimated Creat Clear 46, Estimated GFR 53 L, Est GFR ( Amer) 64, Glucose 131 H, Calcium 10.0, Total Bilirubin 0.4, AST 30, ALT 20, Alkaline Phosphatase 110, Total Protein 7.6, Albumin 4.3, Globulin 3.3 H, Albumin/Globulin Ratio 1.3 12/28/23 20:16 12/28/23 20:16 Orders (Tests/Meds): ED MEDICATIONS Discontinued Medications Generic Name Dose Route Start Last Admin Trade Name Freq PRN Reason Stop Dose Admin Ketorolac Tromethamine 15 mg 12/28/23 21:36 12/28/23 21:39 Ketorolac 30mg/Ml Vial IV 12/28/23 21:37 15 mg ONCE ONE Administration ORDERS Category Date Time Status CT abdomen pelvis wo con Stat Cat Scan 12/28/23 19:54 Completed CBC w/Auto Diff [Complete Blood Count Auto Diff] Stat Lab 12/28/23 20:16 Completed CMP [Comprehensive Metabolic Panel] Stat Lab 12/28/23 20:16 Completed UA [Urinalysis and Microscopic] Stat Lab 12/28/23 19:50 Completed Medical Decision Narrative: Patient is an 83-year-old currently asymptomatic presents today with intermittent severe right flank pain. I am very concerned about a kidney stone this particular patient is urine today. Dark. Things in the differential would be vascular pathology or bowel gas etc. Will get a noncontrasted CT scan to further evaluate for possible kidney stone he is very well-appearing without any symptoms at the moment and I think that a kidney stone is most likely the only emergent condition that needs to be identified at the moment. Will reassess at this initial workup complete. CT scan performed to person interpreted shows a 2 mm mid ureteral stone with associated hydroureter and hydronephrosis. Labs otherwise unremarkable there is blood in the urine but no significant evidence of infection patient had no symptoms prior to this will not treat for UTI. CT scan on radiology read also demonstrated a 2 cm renal mass that needs to be followed up I discussed this with the patient he is aware. They also stated that his bladder was chronically thickened which correlating with urinalysis did not demonstrate any evidence of infection also patient had no symptoms of infection prior to this today will not treat with antibiotics. He has been given referral to Dr. Caba he has been very stable in the ED has had a few episodes of very mild pain symptomatic medications and Flomax sent return precautions emphasized referral to total was given he was discharged in stable condition. Critical Care Critical Care Time Critical Care Time: No
[2023-12-28 20:00] LABS: Microscopic, Urine URINE MICROSCOPIC (MICROSCOPIC)
[2023-12-28 20:01] VITALS: BP 170/90; PULSE 69; O2SAT 99
[2023-12-28 20:06] LABS: Appearance,Urine CLOUDY (Clear); Bilirubin,Urine Negative (Negative); Blood, Urine 3+ (Negative); Color,Urine BROWN (Yellow); Glucose,Urine (UA) Negative (Negative); Ketones,Urine Negative (Negative); Leukocyte Esterase,Urine TRACE (Negative); Nitrate,Urine Negative (Negative); Protein,Urine 2+ (Negative); Specific Gravity, Urine >= 1.030 (1.005-1.030); Urobilinogen,Urine 0.2 EU/dl (0.2)
[2023-12-28 20:22] LABS: RBC,Urine 50-100 #/hpf (0-3); WBC,Urine Occasional #/hpf (0-3)
[2023-12-28 20:32] LABS: Basophils % 0.3 % (0.1-2.0); Eosinophils # 0.4 K/mm3 (0.0-0.4); Eosinophils % 4.9 % (0.1-12.0); Hematocrit 43.2 % (42.0-52.0); Hemoglobin 14.5 g/dL (14.1-18.0); Lymphocytes # 1.2 K/mm3 (0.7-4.5); Lymphocytes % 14.9 % (10-50); Mean Corpuscular HGB Conc 33.5 g/dL (31.8-35.4); Mean Corpuscular Hemoglobin 32.5 pg (27.0-31.2); Mean Corpuscular Volume 97.1 fl (80-94); Mean Platelet Volume 7.9 fl (7.4-10.4); Monocytes # 0.6 K/mm3 (0.1-1.0); Monocytes % 6.8 % (1.7-9.3); Neutrophils # 6.1 K/mm3 (1.8-7.8); Neutrophils % 73.1 % (37.0-80.0); Platelet Count 240 K/mm3 (142-424); Red Blood Count 4.45 M/mm3 (4.60-6.20); Red Cell Distribution Width 13.9 % (11.5-17.5); White Blood Count 8.3 K/mm3 (4.8-10.8)
[2023-12-28 20:36] LABS: Chloride 107 mmol/L (98-107); Sodium 144 mmol/L (136-145)
[2023-12-28 20:37] LABS: Potassium 4.3 mmoL/L (3.5-5.1)
[2023-12-28 20:39] LABS: Alanine Aminotransferase 20 U/L (12-78); Anion Gap 10.3 mEq/L (5-15); Aspartate Amino Transferase 30 U/L (17-59); Bilirubin,Total 0.4 mg/dl (0.2-1.3); Blood Urea Nitrogen 29 mg/dl (9-20); Carbon Dioxide 31 mmol/L (22.0-30.0); Creatinine Clearance Estimated 46 mL/min (50-200); Estimated Glomerular Filt Rate 53 ml/min (>60); GFR (African American) 64 ML/MIN (>60)
[2023-12-28 20:40] LABS: Albumin Level 4.3 g/dl (3.5-5.0); Albumin/Globulin Ratio 1.3 (1.1-1.8); Alkaline Phosphatase 110 U/L (38-126); Globulin 3.3 g/dL (1.3-3.2); Glucose 131 mg/dl (74-100); Total Protein,Serum 7.6 g/dl (6.3-8.2)
[2023-12-28] MEDS: KETOROLAC 30MG/ML VIAL 15 MG IV (21:39)
--- NOTE | 2023-12-28 21:53 | PC.NURSE ---
Dr. Barrios s/w pt & his in regards to results and POC
[2023-12-28 22:00] VITALS: BP 164/88; PULSE 65; RESP 17; TEMP 36.8; O2SAT 98
[2023-12-28 22:12] VITALS: BP 196/91; PULSE 68; RESP 20; TEMP 36.6; O2SAT 95
== END 2023-12-28 22:15 | disposition home or self-care (01) ==
PROVIDERS: Emergency Provider Student in an Organized Health Care Education/Training Program; PCP Family Medicine
DX: N13.2 Hydronephrosis with renal and ureteral calculous obstruction (principal); R10.31 Right lower quadrant pain; M54.59 Other low back pain; N28.89 Other specified disorders of kidney and ureter
CPT/HCPCS: 74176; 80053; 81001; 85025; 96374; 99284; J1885

== ENCOUNTER 2024-01-05 08:38 | Outpatient (POV) | payer MEDICARE, SELFPAY ==
[2024-01-05 08:57] VITALS: BP 159/76; PULSE 61; RESP 18; O2SAT 98; BMI 28.8
--- NOTE | 2024-01-05 09:08 | A.OFFVIS_ITS ---
[facility] Disclaimer: The information contained in this section may have been updated after the patient was seen, as this information can be updated by other users. Medical History BPH (benign prostatic hyperplasia) Surgical History S/P TURP (status post transurethral resection of prostate) Status post right knee replacement Family History Other No significant family history Social History Smoking Status: Never smoker second hand exposure: No alcohol intake: current alcohol intake frequency: a few times a month substance use type: denies use current occupational status: retired Travel in the last 8 weeks: None household members: spouse housing: house caffeine: No PM Subjective & Objective Subjective Subjective:: Patient is a pleasant 89-year-old male who presents [facility] for follow-up of lumbar epidural steroid injection on 10/18/2023. Today he rates his pain a 9 out of 10. He denies any new trauma or injury. He does state that the last injection provided at least 70% improvement and that he was able to increase his activity with overall decreased pain. Patient does state that he is starting to feel more pain over the last week and that he was even weed eating last night and his pain was at least a 7 out of 10 and he had to stop and sit back down. Patient does state that he still has numbness and tingling down into his legs. Patient does state that the pain is worse in the mornings and can ease up a little bit during the day but gets worse at the end of the day as well. He does state that that pain is interfering with his ability to perform activities of daily living such as cooking and cleaning and patient would like to see about getting a repeat injection. His Curt has been reviewed and is appropriate. Review of Systems: General: No recent weight changes, no fever, no sleep disturbances Respiratory: No cough, no shortness of air, no recurring pulmonary infections Cardiovascular/peripheral vascular: No chest pain, no palpitations, no edema, no shortness of breath Gastrointestinal: No new onset incontinence, normal bowel movements reported Genitourinary: No new onset incontinence Musculoskeletal: Low back pain, bilateral leg pain Psychiatric: [Normal mood/affect] Neurological: [Denies weakness in extremities], [denies balance issues] Pain at rest (0-10 scale): 9 Objective Objective:: Physical Exam: General: Alert and oriented x3, no acute distress, pleasant and cooperative Lungs: Respirations even and unlabored, symmetrical chest expansion Eyes: PERRL Musculoskeletal: Flexion and extension of lumbar [spine] somewhat guarded secondary to pain, [antalgic gait noted] Neurological: Speech clear, no gross sensory deficit Has patient had previous pain injection?: Yes Percent improvement in pain since last injection: 70% Conservative treatment options previously tried: NSAIDS Length of treatment: Longer than 6 weeks, Home exercise plan Length of treatment: Longer than 6 weeks and Prescription medications Length of treatment: Longer than 6 weeks Meds Home Medications and Allergies Home Medications ?Medication ?Instructions ?Recorded ?Confirmed ?Type atenolol 25 mg tablet 25 mg PO DAILY Hypertension 03/12/21 10/18/23 History lovastatin 20 mg tablet 20 mg PO DAILY Cholesterol 03/12/21 10/18/23 History meloxicam 7.5 mg tablet 15 mg PO DAILY Pain 03/12/21 10/18/23 History multivitamin 1 tab PO DAILY Supplement 03/12/21 10/18/23 History isosorbide mononitrate 60 mg 60 mg PO DAILY Angina 06/18/21 10/18/23 History tablet,extended release 24 hr aspirin 81 mg tablet,delayed 81 mg PO DAILY HEART HEALTH 07/31/21 10/18/23 History release (Adult Low Dose Aspirin) carbidopa ER 23.75 mg-levodopa 95 2 cap PO BID [place] 10/01/21 10/18/23 History mg capsule,extended release docusate sodium 100 mg capsule 100 mg PO BIDP PRN Constipation 12/29/21 10/18/23 Rx #20 caps glucosamine sulfate 500 mg tablet 500 mg PO DAILY SUPPLIMENT 06/24/22 10/18/23 History (Glucosamine) vit A 300 mcg-C 200 mg-E 27 1 tab PO DAILY SUPPLIMENT 06/24/22 10/18/23 History mg-lutein 2 mg and minerals tablet (Vision Formula (with lutein)) tramadol 50 mg tablet 50 mg PO BID PRN pain #60 tabs 03/25/23 10/18/23 Rx hydrocodone 5 mg-acetaminophen 325 1 tab PO Q6H PRN pain 3 days #12 12/28/23 Rx mg tablet tabs ibuprofen 800 mg tablet 800 mg PO TID PRN pain 7 days #20 12/28/23 Rx tabs ondansetron 4 mg disintegrating 4 mg PO Q6H PRN nausea and 12/28/23 Rx tablet vomiting 5 days #20 tabs tamsulosin 0.4 mg capsule (Flomax) 0.4 mg PO DAILY 7 days #7 caps 12/28/23 Rx New Prescriptions to Start Prescriptions: Allergies Allergy/AdvReac Type Severity Reaction Status Date / Time No Known Allergies Allergy Verified 10/18/23 08:49 Assessment and Plan *Assessment and plan (1) Degenerative disc disease, lumbar: Status: Acute Category: Medical Code(s): M51.36 - Other intervertebral disc degeneration, lumbar region (2) Lumbar radiculopathy: Status: Acute Category: Medical Code(s): M54.16 - Radiculopathy, lumbar region Plan Patient is starting to experience worsening pain in his low back and legs with numbness and tingling. Patient did have limited range of motion of his lumbar spine during today's visit. Patient did previously have a lumbar epidural at the beginning of October that provided 70% relief and lasted up until about the last week. I have reviewed over the risk and benefits of repeat injection and he would like to proceed forward with this plan of care. Patient is not on any blood thinners. Patient has tried and failed conservative therapy including continued at home stretching and exercise between injections for longer than 6 weeks with no additional improvement. Patient does have improved function with these injections and states that they do work really well for his pain. We will submit to insurance for the lumbar epidural steroid injection L4-L5 under fluoroscopy. Patient has been instructed to contact the clinic with any concerns before the next appointment. Dr. Goode has reviewed this note and agrees with this plan of care. This note was dictated using voice recognition software and make contain errors or omissions. All injections are used with Lidocaine or Bupivacaine and Depo Medrol.
== END 2024-01-05 23:59 | disposition home or self-care (01) ==
LOC: SC.PAIN 08:38
PROVIDERS: PCP Family Medicine; Visit Provider Nurse Practitioner Family
DX: M51.36 Other intervertebral disc degeneration, lumbar region (principal); M54.16 Radiculopathy, lumbar region; M54.59 Other low back pain
CPT/HCPCS: 99212; G0463

== ENCOUNTER 2024-01-09 11:35 | Outpatient (CLI) | payer MEDICARE, SELFPAY ==
[2024-01-09 12:36] LABS: Blood Urea Nitrogen 22 mg/dl (9-20); Estimated Glomerular Filt Rate 80 ml/min (>60); GFR (African American) 97 ML/MIN (>60)
[2024-01-10 12:55] LABS: PSA, Free 0.25 ng/mL; Prostate Specific Ag 0.7 ng/mL (0.0-4.0)
== END 2024-01-09 23:59 | disposition home or self-care (01) ==
LOC: LAB 11:36
PROVIDERS: PCP Family Medicine; Visit Provider Urology
DX: N28.89 Other specified disorders of kidney and ureter (principal); N40.1 Benign prostatic hyperplasia with lower urinary tract symptoms
CPT/HCPCS: 36415; 82565; 84153; 84154; 84520

== ENCOUNTER 2024-01-17 11:11 | Day surgery (SDC) | payer MEDICARE, SELFPAY ==
[2024-01-17 11:32] VITALS: BP 180/81; PULSE 61; RESP 16; O2SAT 96; BMI 28.2
[2024-01-17 11:45] VITALS: BP 149/80; PULSE 63; RESP 18
[2024-01-17 11:50] VITALS: BP 145/76; PULSE 60; RESP 16; O2SAT 96
--- NOTE | 2024-01-17 11:50 | EXP.PAIN.PRO ---
Procedure Date: 01/17/24 Time: 11:40 Anesthesiologist:: Jamal Espinal CRNA Complications:: None Pre-procedure Diagnosis:: Degenerative disc lumbar spine multilevels. Lumbar radiculopathy. Multilevel lumbar disc bulge. Lumbar spine spondylosis. Multilevel lumbar facet arthropathy. Post-procedure Diagnosis:: Same. Indications for Procedure:: Patient is a pleasant 83-year-old male that comes to clinic today for lumbar epidural steroid injection at the L4-5 level. Patient describes low back pain is constant, dull, aching. Patient also reports bilateral hip and leg radicular symptoms at times. He rates his pain today 7/10. Procedure Details:: Procedure: Lumbar epidural steroid injection under fluoroscopy Informed consent was obtained and the risks and benefits of the procedure were explained to the patient. The patient was taken to the procedure room and noninvasive monitors placed, including noninvasive blood pressure cuff and pulse oximeter. The back was viewed using C-arm Fluoroscopy and prepped using Chloraprep as a cleansing solution and the L4-L5 interspace was palpated. Skin and subcutaneous tissues were anesthetized using lidocaine 1.5% and a 25-gauge needle. After this, an 18-gauge Touhy epidural needle was placed into the L4-L5 interspace and advanced using fluoroscopic guidance and loss of resistance to air until the epidural space was encountered. After confirmation of needle placement in the epidural space, with dye, a solution containing normal saline, 3 mL and Depo-Medrol 80 mg were incrementally injected into the lumbar epidural space. The patient tolerated the procedure well with no complications. The patient was observed in the Pain Clinic and then discharged home neurologically intact. Plan and Disposition:: Patient was discharged without incident.
[2024-01-17 11:51] VITALS: BP 149/80; PULSE 63; RESP 18; O2SAT 95
== END 2024-01-17 11:50 | disposition home or self-care (01) ==
PROVIDERS: PCP Family Medicine; Visit Provider Nurse Anesthetist, Certified Registered
DX: M51.16 Intervertebral disc disorders with radiculopathy, lumbar region (principal); M47.26 Other spondylosis with radiculopathy, lumbar region
CPT/HCPCS: 62323; J1010

== ENCOUNTER 2024-01-24 07:29 | Outpatient (CLI) | payer MEDICARE, SELFPAY ==
--- NOTE | 2024-01-24 07:29 | CT_ITS ---
FINAL REPORT TECHNIQUE: Axial CT images of the abdomen and pelvis were obtained before and after the administration of IV contrast. This study was performed with techniques to keep radiation doses as low as reasonably achievable (ALARA). Individualized dose reduction techniques using automated exposure control or adjustment of mA and/or kV according to the patient's size were employed. CLINICAL HISTORY: Mass protocol right kidney COMPARISON: 12/28/2023 FINDINGS: Abdomen: Moderate vascular calcifications are noted as well as severe coronary artery calcifications. Presume scarring is present in the left lung base. The heart is normal in size. The right hepatic lobe is either congenitally small or partially surgically absent. There is elevation of the right hemidiaphragm. . The spleen is unremarkable. No adrenal masses present. The pancreas has an unremarkable appearance. There is a 20 mm mass in the upper pole of the right kidney, also seen on the prior CT examination. Precontrast images reveal a density of 35 Hounsfield units, while postcontrast enhanced images reveal a density of 143 Hounsfield units, consistent with neoplasm, likely renal cell carcinoma. A 3 mm nonobstructing left renal stone remains present. Bilateral renal cortical thinning is present. No hydronephrosis is present on today's examination, however there are bilateral parapelvic cysts. The aorta is normal in caliber. There is no free fluid or adenopathy. No mass or abnormal fluid collection is seen. Pelvis: The appendix is normal in appearance. There is mild bladder wall thickening with small diverticula present. No inflammatory process is seen. There is a left inguinal hernia present which contains fat. There is no evidence of mass or adenopathy. There is no evidence of bowel obstruction. IMPRESSION: 20 mm mass in the upper pole of the right kidney, with pre and postcontrast findings consistent with neoplasm, likely a renal cell carcinoma. No evidence of metastatic disease is seen on this examination. This renal mass abuts the posterior liver contour without definite evidence of invasion. Bilateral renal parapelvic cysts are present without hydronephrosis. Reviewed, Interpreted and Dictated by Mart Travis III, MD Transcribed by Arielle Yarbrough Authenticated and [facility]
--- NOTE | 2024-01-24 07:29 | XR_ITS ---
FINAL REPORT CLINICAL HISTORY: rt kidney keeley COMPARISON: None FINDINGS: SINGLE VIEW ABDOMEN A single view of the abdomen was obtained. There is a nonobstructive bowel gas pattern. There is a moderate stool burden. No abnormal calcifications are identified. There is severe degenerative change in the spine. IMPRESSION: Nonobstructive bowel gas pattern. Reviewed, Interpreted and Dictated by Mart Travis III, MD Transcribed by Monika Edwards Authenticated and [facility]
[2024-01-24] MEDS: SODIUM CHLORIDE 0.9% 10ML SYR (RAD ONLY) 10 ML IV (08:04)
[2024-01-24] MEDS: IOPAMIDOL-370 (76%);100ML BOTTLE 75 ML IV (08:04)
== END 2024-01-24 23:59 | disposition home or self-care (01) ==
LOC: RAD 07:29
PROVIDERS: PCP Family Medicine; Visit Provider Urology
DX: N28.89 Other specified disorders of kidney and ureter (principal)
CPT/HCPCS: 74018; 74178; Q9967

== ENCOUNTER 2024-02-06 10:25 | Outpatient (POV) | payer MEDICARE, SELFPAY ==
[2024-02-06 10:45] VITALS: BP 171/73; PULSE 59; RESP 16; O2SAT 95; BMI 28.8
--- NOTE | 2024-02-06 11:15 | EXP.PAIN.SOA ---
[facility] Disclaimer: The information contained in this section may have been updated after the patient was seen, as this information can be updated by other users. Medical History BPH (benign prostatic hyperplasia) Surgical History Status post right knee replacement S/P TURP (status post transurethral resection of prostate) Family History Other No significant family history Social History Smoking Status: Never smoker second hand exposure: No alcohol intake: current alcohol intake frequency: a few times a month substance use type: denies use current occupational status: retired Travel in the last 8 weeks: None household members: spouse housing: house caffeine: No PM Subjective & Objective Subjective Subjective:: Patient is a pleasant 83-year-old male who presents today for follow-up of lumbar epidural steroid injection L4-L5 on 01/17/2024. Today he rates his pain a 3 out of 10. Patient states he has had at least 85% improvement following this injection and feels like it is still helping. He states the pain is not as severe and he is able to get up much easier with overall decreased pain. His Curt has been reviewed and is appropriate. Review of Systems: General: No recent weight changes, no fever, no sleep disturbances Respiratory: No cough, no shortness of air, no recurring pulmonary infections Cardiovascular/peripheral vascular: No chest pain, no palpitations, no edema, no shortness of breath Gastrointestinal: No new onset incontinence, normal bowel movements reported Genitourinary: No new onset incontinence Musculoskeletal: Low back pain Psychiatric: [Normal mood/affect] Neurological: [Denies weakness in extremities], [denies balance issues] Pain at rest (0-10 scale): 3 Objective Objective:: Physical Exam: General: Alert and oriented x3, no acute distress, pleasant and cooperative Lungs: Respirations even and unlabored, symmetrical chest expansion Eyes: PERRL Musculoskeletal: Flexion and extension of lumbar [spine] somewhat guarded secondary to pain, [antalgic gait noted] Neurological: Speech clear, no gross sensory deficit Has patient had previous pain injection?: Yes Percent improvement in pain since last injection: 75% Conservative treatment options previously tried: Home exercise plan Length of treatment: Longer than 6 weeks Meds Home Medications and Allergies Home Medications ?Medication ?Instructions ?Recorded ?Confirmed ?Type atenolol 25 mg tablet 25 mg PO DAILY Hypertension 03/12/21 02/06/24 History lovastatin 20 mg tablet 20 mg PO DAILY Cholesterol 03/12/21 02/06/24 History meloxicam 7.5 mg tablet 15 mg PO DAILY Pain 03/12/21 02/06/24 History multivitamin 1 tab PO DAILY Supplement 03/12/21 02/06/24 History isosorbide mononitrate 60 mg 60 mg PO DAILY Angina 06/18/21 02/06/24 History tablet,extended release 24 hr aspirin 81 mg tablet,delayed 81 mg PO DAILY HEART HEALTH 07/31/21 02/06/24 History release (Adult Low Dose Aspirin) carbidopa ER 23.75 mg-levodopa 95 2 cap PO BID [place] 10/01/21 02/06/24 History mg capsule,extended release docusate sodium 100 mg capsule 100 mg PO BIDP PRN Constipation 12/29/21 02/06/24 Rx #20 caps glucosamine sulfate 500 mg tablet 500 mg PO DAILY SUPPLIMENT 06/24/22 02/06/24 History (Glucosamine) vit A 300 mcg-C 200 mg-E 27 1 tab PO DAILY SUPPLIMENT 06/24/22 02/06/24 History mg-lutein 2 mg and minerals tablet (Vision Formula (with lutein)) tramadol 50 mg tablet 50 mg PO BID PRN pain #60 tabs 03/25/23 02/06/24 Rx hydrocodone 5 mg-acetaminophen 325 1 tab PO Q6H PRN pain 3 days #12 12/28/23 02/06/24 Rx mg tablet tabs ibuprofen 800 mg tablet 800 mg PO TID PRN pain 7 days #20 12/28/23 02/06/24 Rx tabs ondansetron 4 mg disintegrating 4 mg PO Q6H PRN nausea and 12/28/23 02/06/24 Rx tablet vomiting 5 days #20 tabs doxycycline hyclate 20 mg tablet 20 mg PO DAILY 01/09/24 02/06/24 History New Prescriptions to Start Prescriptions: Allergies Allergy/AdvReac Type Severity Reaction Status Date / Time No Known Allergies Allergy Verified 01/30/24 08:54 Assessment and Plan *Assessment and plan (1) Lumbar radiculopathy: Status: Acute Category: Medical Code(s): M54.16 - Radiculopathy, lumbar region Plan Patient has had significant improvement and does not require any additional injection therapy at this time. Patient will return to clinic in 2 months for reevaluation of symptoms and plan of care. Patient has been instructed to contact the clinic with any concerns before the next appointment. Dr. Goode has reviewed this note and agrees with this plan of care. This note was dictated using voice recognition software and make contain errors or omissions. All injections are used with Lidocaine or Bupivacaine and Depo Medrol.
== END 2024-02-06 23:59 | disposition home or self-care (01) ==
LOC: SC.PAIN 10:27
PROVIDERS: PCP Family Medicine; Visit Provider Nurse Practitioner Family
DX: M54.16 Radiculopathy, lumbar region (principal); Z96.651 Presence of right artificial knee joint; Z79.899 Other long term (current) drug therapy
CPT/HCPCS: 99212; G0463

== ENCOUNTER 2024-04-05 09:00 | Outpatient (POV) | payer MEDICARE, SELFPAY ==
--- NOTE | 2024-04-05 09:42 | EXP.PAIN.SOA ---
[facility] Disclaimer: The information contained in this section may have been updated after the patient was seen, as this information can be updated by other users. Medical History BPH (benign prostatic hyperplasia) Surgical History Status post right knee replacement S/P TURP (status post transurethral resection of prostate) Family History Other No significant family history Social History Smoking Status: Never smoker second hand exposure: No alcohol intake: current alcohol intake frequency: a few times a month substance use type: denies use current occupational status: retired Travel in the last 8 weeks: None household members: spouse housing: house caffeine: No PM Subjective & Objective Subjective Subjective:: Patient is a pleasant 83-year-old male who presents today for worsening pain. Today he rates his pain a 9 out of 10. Patient denies any new injuries or falls. He does state that he is starting to experience more pain onto regular basis. He does state the pain is all in his low back and does radiate down with numbness and tingling into his extremities. He does state that frequently it is more on the right leg than the left. Patient does state the pain is interfering with his ability to perform activities of daily living such as cooking and cleaning. Patient does generally get epidurals roughly every 3 months with significant relief. Patient did just had his last one at the beginning of January that did provide 85% improvement and lasted up until the last week or so. Patient would like to see about repeating this injection. He has tried and failed conservative therapy including continued at home stretching exercise for longer than 12 weeks. His Curt has been reviewed and is appropriate. Review of Systems: General: No recent weight changes, no fever, no sleep disturbances Respiratory: No cough, no shortness of air, no recurring pulmonary infections Cardiovascular/peripheral vascular: No chest pain, no palpitations, no edema, no shortness of breath Gastrointestinal: No new onset incontinence, normal bowel movements reported Genitourinary: No new onset incontinence Musculoskeletal: Low back pain, leg pain Psychiatric: [Normal mood/affect] Neurological: [Denies weakness in extremities], [denies balance issues] Pain at rest (0-10 scale): 9 Objective Objective:: Physical Exam: General: Alert and oriented x3, no acute distress, pleasant and cooperative Lungs: Respirations even and unlabored, symmetrical chest expansion Eyes: PERRL Musculoskeletal: Flexion and extension of lumbar [spine] somewhat guarded secondary to pain, [antalgic gait noted] positive leg raise Neurological: Speech clear, no gross sensory deficit Has patient had previous pain injection?: No Conservative treatment options previously tried: Home exercise plan Length of treatment: Longer than 12 weeks Meds Home Medications and Allergies Home Medications ?Medication ?Instructions ?Recorded ?Confirmed ?Type atenolol 25 mg tablet 25 mg PO DAILY Hypertension 03/12/21 02/06/24 History lovastatin 20 mg tablet 20 mg PO DAILY Cholesterol 03/12/21 02/06/24 History meloxicam 7.5 mg tablet 15 mg PO DAILY Pain 03/12/21 02/06/24 History multivitamin 1 tab PO DAILY Supplement 03/12/21 02/06/24 History isosorbide mononitrate 60 mg 60 mg PO DAILY Angina 06/18/21 02/06/24 History tablet,extended release 24 hr aspirin 81 mg tablet,delayed 81 mg PO DAILY HEART HEALTH 07/31/21 02/06/24 History release (Adult Low Dose Aspirin) carbidopa ER 23.75 mg-levodopa 95 2 cap PO BID [place] 10/01/21 02/06/24 History mg capsule,extended release docusate sodium 100 mg capsule 100 mg PO BIDP PRN Constipation 12/29/21 02/06/24 Rx #20 caps glucosamine sulfate 500 mg tablet 500 mg PO DAILY SUPPLIMENT 06/24/22 02/06/24 History (Glucosamine) vit A 300 mcg-C 200 mg-E 27 1 tab PO DAILY SUPPLIMENT 06/24/22 02/06/24 History mg-lutein 2 mg and minerals tablet (Vision Formula (with lutein)) tramadol 50 mg tablet 50 mg PO BID PRN pain #60 tabs 03/25/23 02/06/24 Rx hydrocodone 5 mg-acetaminophen 325 1 tab PO Q6H PRN pain 3 days #12 12/28/23 02/06/24 Rx mg tablet tabs ibuprofen 800 mg tablet 800 mg PO TID PRN pain 7 days #20 12/28/23 02/06/24 Rx tabs ondansetron 4 mg disintegrating 4 mg PO Q6H PRN nausea and 12/28/23 02/06/24 Rx tablet vomiting 5 days #20 tabs doxycycline hyclate 20 mg tablet 20 mg PO DAILY 01/09/24 02/06/24 History New Prescriptions to Start Prescriptions: Allergies Allergy/AdvReac Type Severity Reaction Status Date / Time No Known Allergies Allergy Verified 01/30/24 08:54 Assessment and Plan *Assessment and plan (1) Lumbar radiculopathy: Status: Acute Category: Medical Code(s): M54.16 - Radiculopathy, lumbar region (2) Degenerative disc disease, lumbar: Status: Acute Category: Medical Code(s): M51.36 - Other intervertebral disc degeneration, lumbar region Plan Patient is experiencing worsening pain in his low back with numbness and tingling into his lower extremities. Patient was counseled that he may benefit from repeat lumbar epidural steroid injection. Risk and benefits were discussed with the patient and he would like to proceed forward with this plan of care. Patient has had his last epidural on January 16 that did provide 85% relief and lasted up until the last week or so. Patient did have improved function with overall decreased pain with the injection and does state he would like to proceed forward with the next injection. Patient has continued at home stretching exercise for longer than 12 weeks with no additional changes. Patient will be scheduled for LESI L4-L5 under fluoroscopy. Patient denies any blood thinners. Patient has been instructed to contact the clinic with any concerns before the next appointment. Dr. Goode has reviewed this note and agrees with this plan of care. This note was dictated using voice recognition software and make contain errors or omissions. All injections are used with Lidocaine or Bupivacaine and Depo Medrol.
[2024-04-05 10:06] VITALS: BP 138/85; PULSE 58; RESP 18; O2SAT 98; BMI 28.0
== END 2024-04-05 23:59 | disposition home or self-care (01) ==
LOC: SC.PAIN 09:01
PROVIDERS: PCP Family Medicine; Visit Provider Nurse Practitioner Family
DX: M51.16 Intervertebral disc disorders with radiculopathy, lumbar region (principal); Z96.651 Presence of right artificial knee joint; Z73.89 Other problems related to life management difficulty
CPT/HCPCS: 99212; G0463

== ENCOUNTER 2024-04-17 07:22 | Day surgery (SDC) | payer MEDICARE, SELFPAY ==
[2024-04-17 08:24] VITALS: BP 151/68; PULSE 60; RESP 16; TEMP 36.6; O2SAT 100
[2024-04-17 08:40] VITALS: BP 148/75; PULSE 58; RESP 18; O2SAT 97
[2024-04-17] MEDS: methylPREDNISolone ACETATE 80MG/ML VIAL 80 MG (08:40)
[2024-04-17 08:41] VITALS: BP 148/75; PULSE 58; RESP 18; O2SAT 97
[2024-04-17 08:49] VITALS: BP 166/74; PULSE 56; RESP 16; O2SAT 98
--- NOTE | 2024-04-17 08:55 | P.PCN_ITS ---
Procedure Date: 04/17/24 Time: 08:30 Anesthesiologist:: Jamal Espinal CRNA Complications:: None Pre-procedure Diagnosis:: Degenerative disc lumbar spine multilevels. Lumbar radiculopathy. Lumbar spondylosis. Multilevel lumbar facet arthropathy. Lumbar disc bulge L4-5, L5- S1. Post-procedure Diagnosis:: Same. Indications for Procedure:: Patient is a very pleasant 83-year-old male who comes our clinic today for repeat lumbar epidural steroid injection at the L4-5 level. Patient has had significant improvement terms of his overall low back pain as well as bilateral hip and leg radicular symptoms with previous injection same level. He rates his pain today 8/10. He describes low back pain as constant, dull, aching. Also reports bilateral hip and leg radicular symptoms to the knee. Procedure Details:: Procedure: Lumbar epidural steroid injection under fluoroscopy Informed consent was obtained and the risks and benefits of the procedure were explained to the patient. The patient was taken to the procedure room and noninvasive monitors placed, including noninvasive blood pressure cuff and pulse oximeter. The back was viewed using C-arm Fluoroscopy and prepped using Chloraprep as a cleansing solution and the L4-L5 interspace was palpated. Skin and subcutaneous tissues were anesthetized using lidocaine 1.5% and a 25-gauge needle. After this, an 18-gauge Touhy epidural needle was placed into the L4-L5 interspace and advanced using fluoroscopic guidance and loss of resistance to air until the epidural space was encountered. After confirmation of needle placement in the epidural space, with dye, a solution containing normal saline, 3 mL and Depo-Medrol 80 mg were incrementally injected into the lumbar epidural space. The patient tolerated the procedure well with no complications. The patient was observed in the Pain Clinic and then discharged home neurologically intact. Plan and Disposition:: Patient was discharged without incident.
== END 2024-04-17 08:49 | disposition home or self-care (01) ==
LOC: SC.PAINP 07:23
PROVIDERS: PCP Family Medicine; Visit Provider Nurse Anesthetist, Certified Registered
DX: M51.16 Intervertebral disc disorders with radiculopathy, lumbar region (principal); M47.26 Other spondylosis with radiculopathy, lumbar region
CPT/HCPCS: 62323; J1010

== ENCOUNTER 2024-05-02 08:55 | Outpatient (POV) | payer MEDICARE, SELFPAY ==
--- OUTSIDE RECORDS SUMMARY | 2024-05-02 08:58 | XMS_ITS | Encounter Summary ---
Author Organization [facility] Address [address] [id number] Care Team Providers Care Ventilation Equipment Tender Name Role Phone Arie Jennings MD Primary Care Provider [phone] Encounter Details Date Type Department Care Team (Late st Contact Info) Description 03/27/2024 Telephone OR Clinic Urology [address] [place] [address] Mario Bolden MD [address] [place] [address] Social History Tobacco Use Types Packs/Day Years Used Date Smoking Tobacco: Never Passive Smoke Exposure: Never Smokeless Tobacco: Never PHQ-2 Answer Date Recorded Patient Health Questionnaire-2 Score 0 03/08/2024 Sex and Gender Information Value Date Recorded Sex Assigned at Not on file Legal Sex Male 8:31 AM EDT Gender Identity Not on file Sexual Orientation Not on file documented as of this encounter Miscellaneous Notes * Telephone Encounter - Yara Mejia - 03/27/2024 8:23 AM EDT Left voice mail regarding appointment changes with Dr. Bolden, asking patient to call back if the new date and time doesn't work. documented in this encounter Plan of Treatment Upcoming Encounters Date Type Department Care Team (Late st Contact Info) Description 09/13/2024 9:30 AM EDT Appointment [facility] Radiology [address] [place] [address] 09/13/2024 11:00 AM EDT Office Visit Medical Office Building Urology [address] [facility], [address] [place] [address] Mario Bolden MD [address] [facility] [address] [place] [address] documented as of this encounter Visit Diagnoses Not on filedocumented in this encounter Additional Health Concerns Assessment Noted Time A fall risk assessment has been complete d for the patient 03/08/2024 8:05 AM EDT A Body Mass Index follow-up plan has been documented for the patient 03/08/2024 8:47 AM EDT documented as of this encounter Care Teams Ventilation Equipment Tender Relationship Specialty Start Date End Date Arie Jennings MD [address] [address] PCP - General 01/02/24 documented as of this encounter
--- OUTSIDE RECORDS SUMMARY | 2024-05-02 08:58 | XMS_ITS | Encounter Summary ---
Author Organization [facility] Address [address] [place] [address] Care Team Providers Care Organ Teacher Name Role Phone Arie Jennings MD Primary Care Provider [phone] Reason for Referral * Imaging (Routine) - Pending Review Specialty Diagnoses / Procedures Referred By Александр harris Referred To Contact Radiology Diagnoses Mass of right kidney Procedures CT Abdomen w IV Contrast Mario Bolden MD [address] [place] [address] Phone: tel: fax: Referral ID Status Reason Start Date Expiration Date V isits Requested Visits Authorized [id number] Pending Review 03/08/2024 09/07/2025 1 1 Reason for Visit * Reason Comments Renal Mass uretal stone * Consultation (Routine) - Closed Specialty Diagnoses / Procedures Referred By Александр harris Referred To Contact Urology Diagnoses Mass of right kidney Ureteral stone Nephrolithiasis Boogie Caba MD [address] [place] [address] Phone: tel: fax: Referral ID Status Reason Start Date Expiration Date V isits Requested Visits Authorized [id number] Closed Specialty Services Required 02/01/2024 08/02/2025 1 1 Encounter Details Date Type Department Care Team (Late st Contact Info) Description 03/08/2024 8:30 AM EDT [facility] [address] [place] [address] Mario Bolden MD [address] [facility] [address] [place] [address] Mass of right kidney; Ureteral stone; Nephrolithiasis Social History Tobacco Use Types Packs/Day Years Used Date Smoking Tobacco: Never Passive Smoke Exposure: Never Smokeless Tobacco: Never Tobacco Cessation:Counseling Given: Not Answered PHQ-2 Answer Date Recorded Patient Health Questionnaire-2 Score 0 03/08/2024 Sex and Gender Information Value Date Recorded Sex Assigned at Not on file Legal Sex Male 8:31 AM EDT Gender Identity Not on file Sexual Orientation Not on file documented as of this encounter Last Filed Vital Signs Vital Sign Reading Time Taken Comments Blood Pressure 154/75 03/08/2024 7:56 AM EDT Pulse 58 03/08/2024 7:56 AM EDT Temperature 36.5 ??C (97.7 ??F) 03/08/2024 7:56 AM ED T Respiratory Rate 16 03/08/2024 7:56 AM EDT Oxygen Saturation 98% 03/08/2024 7:56 AM EDT Inhaled Oxygen Concentration - - Weight 84.4 kg (186 lb 1.1 oz) 03/08/2024 7:56 A M EDT Height 175.3 cm (5' 9 ) 03/08/2024 7:56 AM EDT Body Mass Index 27.48 03/08/2024 7:56 AM EDT documented in this encounter Miscellaneous Notes * Progress Notes - Mario Bolden MD - 03/08/2024 8:30 AM EDT HPI: Nico Cohen is a 83 y.o. male with no previous history of stones who presented to an emergency department this summer with acute right-sided flank pain. CT scan revealed a very small right ureteral stone as well as a possible right renal mass. He was referred to a urologist and had a multi phaseCT which confirmed passage of the stone and confirmed the presence of a 2 cm renal mass. He says hedoes not remember passing his stone but has not had any further symptoms. He has no personal history of stones but his son has had many stones. Current Outpatient Medications Medication Instructions amLODIPine (Norvasc) 5 MG tablet atenolol (Tenormin) 25 MG tablet Carbidopa-Levodopa (RYTARY PO) Oral, 3 times daily cephalexin (Keflex) 500 MG capsule doxycycline (Vibramycin) 100 MG capsule irbesartan (Avapro) 300 MG tablet isosorbide mononitrate ER (Imdur) 60 MG 24 hr tablet lovastatin (Mevacor) 20 MG tablet meloxicam (Mobic) 7.5 MG tablet No past medical history on file. Past Surgical History: Procedure Laterality Date CARDIAC SURGERY CATARACT EXTRACTION TOTAL KNEE ARTHROPLASTY Right Social History Tobacco Use Smoking status: Never Passive exposure: Never Smokeless tobacco: Never Vaping Use Vaping status: Never Used History reviewed. No pertinent family history. PE: GEN: No acute distress Ears/Nose/Mouth/Throat: No obvious drainage per ears or nose CV: Well perfused PULM: No audible wheezing or stridor, non-labored respirations on room air MS: normal ROM of UEs Skin: No obvious rashes or open sores Neuro: CN 2-12 grossly intact Psych: Answered questions appropriately with normal affect Heme/Lymph/Immunologic: No obvious bruises or sites of spontaneous bleeding LABS: IMAGING: I was able to review his outside CT scans from December and January of this year. He has a 2 cm right anterior upper pole renal lesion which appears to be solid. He also has bilateral parapelvic cysts michael small nonobstructing stone on the left. His initial scan showed a small ureteral stone on the right which is not present on the follow up scan. IMPRESSION: 83 y.o. male who had his 1st stone episode this summer and was also found to have a small incidental right renal mass. PLAN: I had a detailed discussion with the patient and his about options for his small renal mass, including active surveillance, surgery, and percutaneous ablation. I answered their questions. After reviewing the relative risks and benefits, they would like to proceed with active surveillance. I think that is very reasonable. I will plan to see them back in [address] to gauge any interval growth. Mario Bolden MD, MPH documented in this encounter Plan of Treatment Upcoming Encounters Date Type Department Care Team (Late st Contact Info) Description 09/13/2024 9:30 AM EDT Appointment [facility] Radiology [address] [place] [address] 09/13/2024 11:00 AM EDT Office Visit Medical Office Building Urology [address] [facility], [address] [place] [address] Mario Bolden MD [address] [place] [address] Scheduled Orders Name Type Priority Associated Diagnoses Orde r Schedule CT Abdomen w IV Contrast Imaging Routine Mass of right kidney Expected: 09/05/2024 (Approximate), Expires: 09/08/2025 Creatinine, Plasma Lab STAT Mass of right kidney Expected: 03/08/2024 (Approximate), Expires: 09/05/2025 documented as of this encounter Visit Diagnoses Diagnosis Mass of right kidney Ureteral stone Calculus of ureter Nephrolithiasis Calculus of kidney documented in this encounter Additional Health Concerns Assessment Noted Time A fall risk assessment has been complete d for the patient 03/08/2024 8:05 AM EDT A Body Mass Index follow-up plan has been documented for the patient 03/08/2024 8:47 AM EDT documented as of this encounter Care Teams Organ Teacher Relationship Specialty Start Date End Date Arie Jennings MD [address] [place] [address] PCP - General 01/02/24 documented as of this encounter
--- OUTSIDE RECORDS SUMMARY | 2024-05-02 08:58 | XMS_ITS | Encounter Summary ---
Author Organization Healthcare Address [address] [place] [address] Care Team Providers Care Human Resources Project Manager Name Role Phone Arie Jennings MD Primary Care Provider [phone] Encounter Details Date Type Department Care Team (Latest Contact Info) Description 01/02/2024 Travel Social History Tobacco Use Types Packs/Day Years Used Date Smoking Tobacco: Never Passive Smoke Exposure: Never Smokeless Tobacco: Never Sex and Gender Information Value Date Recorded Sex Assigned at Not on file Legal Sex Male 8:31 AM EDT Gender Identity Not on file Sexual Orientation Not on file documented as of this encounter Plan of Treatment Upcoming Encounters Date Type Department Care Team (Late st Contact Info) Description 09/13/2024 9:30 AM EDT Appointment [facility] Radiology [address] [place] [address] 09/13/2024 11:00 AM EDT Office Visit Medical Office Building Urology [address] [facility], [address] [place] [address] Mario Bolden MD [address] [facility] [address] [place] [address] documented as of this encounter Visit Diagnoses Not on filedocumented in this encounter Additional Health Concerns Assessment Noted Time A Body Mass Index follow-up plan has been documented for the patient 01/02/2024 11:52 AM EDT documented as of this encounter Care Teams Human Resources Project Manager Relationship Specialty Start Date End Date Arie Jennings MD [address] [facility] [address] [place] [address] PCP - General 7/22/24 documented as of this encounter
--- OUTSIDE RECORDS SUMMARY | 2024-05-02 08:58 | XMS_ITS | Encounter Summary ---
Author Organization Healthcare Address [address] [place] [address] Care Team Providers Care Lead Javascript Developer Name Role Phone Arie Jennings MD Primary Care Provider [phone] Encounter Details Date Type Department Care Team (Late Contact Info) Description 01/24/2024 Orders Only External Location [address] [place] [address] Boogie Caba MD [address] [place] [address] Social History Tobacco Use Types Packs/Day Years [...] Encounters Date Type Department Care Team (Late Contact Info) Description 09/13/2024 9:30 AM EDT Appointment [facility] Radiology [address] [place] [address] 09/13/2024 11:00 AM EDT Office Visit Medical Office Building Urology [address] [facility], [address] [place] [address] Mario Bolden MD [address] [facility] [address] [place] [address] documented as of this encounter Procedures Procedure Name Priority Date/Time Associated Diagnosis Comments CT OUTSIDE IMAGES 01/24/2024 7:52 AM EDT documented in this encounter Results * CT OUTSIDE IMAGES (01/24/2024 7:52 AM EDT) Anatomical Region Laterality Modality Computed Tomogra phy 01/24/2024 7:52 AM EDT us Boogie Caba MD IMG CT PROCEDURES Final Result documented in this encounter Visit Diagnoses Not on filedocumented in this encounter Additional Health Concerns Assessment Noted Time A Body Mass Index follow-up plan has been documented for the patient 01/02/2024 11:52 AM EDT documented as of this encounter Care Teams Lead Javascript Developer Relationship Specialty Start Date End Date Arie Jennings MD [address] [place] [address] PCP - General 01/02/24 documented as of this encounter
--- OUTSIDE RECORDS SUMMARY | 2024-05-02 08:58 | XMS_ITS | Encounter Summary ---
Author Organization [facility] Address [address] [place] [address] Care Team Providers Care Chart Picker Name Role Phone Arie Jennings MD Primary Care Provider [phone] Reason for Visit * Reason Comments low vision * Consultation (Routine) - Closed Specialty Diagnoses / Procedures Referred By Александр harris Referred To Contact Ophthalmology Diagnoses Low vision Doris Edge [address] [place] [address] Phone: tel: fax: [facility] [address] [place] [address] Phone: tel: fax: Referral ID Status Reason Start Date Expiration Date V isits Requested Visits Authorized [id number] Closed Specialty Services Required 08/30/2023 02/28/2025 1 1 Encounter Details Date Type Department Care Team (Late st Contact Info) Description 01/02/2024 10:15 AM EDT Office Visit [facility] [address] [place] [address] Randi Clark S, OD [address] [facility] [address] [place] [address] Intermediate stage nonexudative age-related macular degeneration of both eyes (Primary Dx); Pseudophakia of both eyes; Category 1 low vision of both eyes; Myopia of left eye; Regular astigmatism of both eyes; Presbyopia Social History Tobacco Use Types Packs/Day Years Used Date Smoking Tobacco: Never Passive Smoke Exposure: Never Smokeless Tobacco: Never Tobacco Cessation:Counseling Given: Not Answered Sex and Gender Information Value Date Recorded Sex Assigned at Not on file Legal Sex Male 8:31 AM EDT Gender Identity Not on file Sexual Orientation Not on file documented as of this encounter Miscellaneous Notes * Patient Instructions - Randi Clark, OD - 01/02/2024 10:15 AM EDT Low Vision Device List Based on the results of your low vision exam, the following device(s) may be helpful to you: Mobilux 3x handheld magnifier w/ LED - $165.00 Smartlux 5-12x electronic magnifier - $593.00 If you have questions about the devices or if you are interested in purchasing them, please reach out to the [employer] [facility] at [facility] at [phone]. You may order over the phone and the device will be shipped directly to you from the gastrointestinal technician. All devices we demonstrate are produced by [employer] unless otherwise noted. www.[facility] - for additional low vision devices [facility] The [facility] ([facility]) is the only nonprofit exclusively serving the needs of adults who are blind or visually impaired in [facility]. [facility] services are free of charge to clients and available to any clients affected by vision loss, including family, friends and professionals working with people with low to no vision. Our primary service area includes [place] and surrounding [facility], including [facility] and [place], however, due to a lack of available services in other [facility], we do provide information and services to persons in other [facility], upon request and as we have resources available. Our mission: To increase independence, security and quality of life for [facility] affected by vision loss through peer support, technology, training and additional resources. We do this through our two main programs: Peer Support and Assistive Technology and Training. Some of the services provided through these two programs include: support group meetings peer group mentoring demonstrations and hands-on trials of technology items and devices group and individual training on assistive technology such as accessibility features on smart phones and tablets educational seminars community outings a technology lending / distribution program Our programs are available to any person residing in [place], regardless of socio-economic status, race, ethnicity, gender, sexual orientation, age, muslim, physical abilityor language. [facility] also publishes the [facility] Bulletin, a bi-monthly newsletter offered in email, large print, and audio versions. Our mailing list is a great way to stay informed of the various activities of [facility], pending legislation and/or public policy affecting the blind and visually impaired as well as other items of interest and activities within the community. CONTACT US Mailing Address: [facility] [address] [place] [address] General Email: [email or web address] The mission of the [place] [facility] / Blind Services Division is to provide opportunities for employment and independence to individuals with visual disabilities. We serveUofl Health [facility] Hospitalians who are visually impaired or blind and assist individuals in obtaining and maintaining e mployment, economic self-sufficiency and independence. Our goal is to provide myriad resources and high quality services that are geared to enhance the lives of [facility] with visual disabilities. Our programs and services provide individuals with visual disabilities the tools they need to become more independent in their homes, schools, workplaces and communities. These programs include: [facility] (training in low vision and blindness skills), Independent Living and Older Blind Program, Orientation and Mobility Services, Deaf Blind Program, and Bioptic Driving Program. Services are consistent with an individual's strengths, abilities and interests. We are committed to helping business partners find highly qualified job seekers, and provide a variety of resources and support to both the employers and the employees. The Blind Services Division provides statewide services to all [address] [place] [address]. Our administrative operations are located in our central office in [place]. There are 10 field offices located throughout [place] in [facility], [place], [place], [place], [place], [place], [place], [place] and [place]. Need more help? Contact [facility] Office of Vocational Rehabilitation Central Office [address] [place] [address] (V/TTY) * Progress Notes - Randi Clark, OD - 01/02/2024 10:15 AM EDT Subjective Patient ID: Nico Cohen is a 83 y.o. male. Chief Complaint low vision HPI 83 yr old male presents to clinic for a low vision consult referred by Dr. Dawn Edge MD. Pt reports e has age-related macular degeneration (AMD).He states his glasses do not help. He has trieda magnifier with not much help and lighting has not helped. HE states he can read for a couple of minutes and then blurry vision and floaters take over. He watches TV about 6 ft away and states he can see some then. He lives with his who helps assist him. [place] and [place]. He states driving at night is to difficult. Last edited by Pau Coyne on 01/02/2024 10:08 AM. No current outpatient medications on file. (Ophthalmic Drugs) No current facility-administered medications for this visit. (Ophthalmic Drugs) Current Outpatient Medications (Other) Medication Sig amLODIPine (Norvasc) 5 MG tablet atenolol (Tenormin) 25 MG tablet cephalexin (Keflex) 500 MG capsule doxycycline (Vibramycin) 100 MG capsule irbesartan (Avapro) 300 MG tablet isosorbide mononitrate ER (Imdur) 60 MG 24 hr tablet lovastatin (Mevacor) 20 MG tablet meloxicam (Mobic) 7.5 MG tablet No current facility-administered medications for this visit. (Other) Objective Base Eye Exam Visual Acuity (Snellen - Linear) Right Left Dist cc 20/200 20/400 Dist ph cc 20/70 20/200 Near cc J7 J10 Correction: Glasses Pupils Pupils Right PERRL Left PERRL Visual Schumacher (Counting fingers) Right Left Full Full Extraocular Movement Right Left Full Full Neuro/Psych Oriented x3: Yes Mood/Affect: Normal Refraction Wearing Rx Sphere Cylinder [place] Add Right -1.00 +1.25 150 +2.50 Left -0.50 +0.50 125 +2.50 Age: 1yr Manifest Refraction Sphere Cylinder [place] Dist [place] Add Right [place] +1.50 155 20/40- +3.50 Left -1.00 +1.00 125 20/70- +3.50 Final Rx Sphere Cylinder [place] Dist VA Add Right [place] +1.50 155 20/40- +3.50 Left -1.00 +1.00 125 20/70- +3.50 Type: Bifocal Expiration Date: 01/01/2025 Comments: Anti-reflective, Anti-scratch Assessment/Plan Diagnoses and all orders for this visit: 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 Category 1 low vision of both eyes - Ambulatory referral to Ophthalmology Myopia of left eye Regular astigmatism of both eyes Presbyopia Device Evaluation Mobilux 3x handheld magnifier w/ LED - appreciates portability and ease of use but not unlike what he already has at home Smartlux 5-12x electronic magnifier - appreciates high mag and color/contrast settings MaxDetail Glasses - too much trouble for what little benefit they give MaxTV Glasses - see maxdetail glasses MaxDetail Clip - sits too high on current frame, above bifocal, not useful MaxTV Clip - no better than without Filter Evaluation Not performed. Plan Based on findings in today's low vision examination, Nico Cohen will most likely benefit from Mobilux 3x handheld magnifier w/ LED and Smartlux 5-12x electronic magnifier. In addition, gave information about [facility] for other devices and items, such as large-print playing cards. Released spectacle prescription today in the form of flat-top bifocals. Definite improvement OD>OS compared to baseline VA from Dr. Edge's visit, definite improvement OU from today's entering VA. Gave information on [facility] for additional assistive technology resources as well as peer support groups for patients and families living with vision impairment. Discussed resources provided by [facility], including home evaluations, independent living skills training, orientation and mobility training, and vocational rehabilitation services. Referral was not placed for home evaluation and independent living skills training per patient request. Return to low vision clinic as needed. Continue all follow-up care as recommended by primary eye care provider. Total provider time on the date of this encounter totaled 45 minutes and included patient history review, performing examination, counseling and educating patient and family, ordering medications andtests, communicating with other health hearing healthcare practitioner, coordinating follow up care, and documenting clinical information in the electronic health record. The time allotted for refraction, if performed, was excluded from the time indicated above. Tobacco Use: Low Risk (01/02/2024) Patient History Smoking Tobacco Use: Never Smokeless Tobacco Use: Never Passive Exposure: Never The patient has been counseled on tobacco cessation: Not Applicable Follow up if symptoms worsen or fail to improve, for Low Vision Exam. documented in this encounter Plan of Treatment Upcoming Encounters Date Type Department Care Team (Late st Contact Info) Description 09/13/2024 9:30 AM EDT Appointment [facility] Radiology [address] [place] [address] 09/13/2024 11:00 AM EDT Office Visit Medical Office Building Urology [address] [facility] [place] [address] Mario Bolden MD [address] [facility] [address] [place] [address] documented as of this encounter Visit Diagnoses Diagnosis Intermediate stage nonexudative age-related macular degeneration of both eyes- Primary Pseudophakia of both eyes Lens replaced by other means Category 1 low vision of both eyes Myopia of left eye Regular astigmatism of both eyes Presbyopia documented in this encounter Additional Health Concerns Assessment Noted Time A Body Mass Index follow-up plan has been documented for the patient 01/02/2024 11:52 AM EDT documented as of this encounter Care Teams Chart Picker Relationship Specialty Start Date End Date Arie Jennings MD [address] [facility] [address] [place] [address] PCP - General 01/02/24 documented as of this encounter
--- OUTSIDE RECORDS SUMMARY | 2024-05-02 08:58 | XMS_ITS | Encounter Summary ---
Author Organization Healthcare Address [address] [place] [place] [id number] Care Team Providers Care Upholstery Restorer Name Role Phone Arie Jennings MD Primary Care Provider [phone] Encounter Details Date Type Department Care Team (Late Contact Info) Description 12/28/2023 Orders Only External Location [address] [place] [address] Sheldon Barrios MD [address] [facility] [address] [place] [address] Social History Tobacco Use Types Packs/Day Years Used Date Smoking Tobacco: Never Assessed Sex and Gender Information Value Date Recorded Sex Assigned at Not on file Legal Sex Male 8:31 AM EDT Gender Identity Not on file Sexual Orientation Not on file documented as of this encounter Plan of Treatment Upcoming Encounters Date Type Department Care Team (Late Contact Info) Description 09/13/2024 9:30 AM EDT Appointment [facility] Radiology [address] [place] [address] 09/13/2024 11:00 AM EDT Office Visit Medical Office Building Urology [address] [facility] [place] [address] Mario Bolden MD [address] [facility] [address] [place] [address] documented as of this encounter Procedures Procedure Name Priority Date/Time Associated Diagnosis Comments CT OUTSIDE IMAGES 12/28/2023 8:25 PM EDT documented in this encounter Results * CT OUTSIDE IMAGES (12/28/2023 8:25 PM EDT) Anatomical Region Laterality Modality Computed Tomogra phy 12/28/2023 8:25 PM EDT Shledon Barrios MD IMG CT PROCEDURES Final Result documented in this encounter Visit Diagnoses Not on filedocumented in this encounter Care Teams Upholstery Restorer Relationship Specialty Start Date End Date Arie Jennings MD [facility] [place] [address] PCP - General 01/02/24 documented as of this encounter
--- OUTSIDE RECORDS SUMMARY | 2024-05-02 08:58 | XMS_ITS | Encounter Summary ---
Author Organization Healthcare Address [address] [id number] Care Team Providers Care Code Official Name Role Phone Arie Jennings MD Primary Care Provider [phone] Encounter Details Date Type Department Care Team (Latest Contact Info) Description 03/08/2024 Travel Social History Tobacco Use Types Packs/Day [...] EDT Appointment [facility] [address] [place] [address] 09/13/2024 11:00 AM EDT Office Visit Medical Office Building Urology [address] [facility], [address] [place] [address] Mario Bolden MD [address] [facility] [address] [place] [id number] documented as of this encounter Visit Diagnoses Not on filedocumented in this encounter Additional Health Concerns Assessment Noted Time A fall risk assessment has been complete d for the patient 03/08/2024 8:05 AM EDT A Body Mass Index follow-up plan has been documented for the patient 03/08/2024 8:47 AM EDT documented as of this encounter Care Teams Code Official Relationship Specialty Start Date End Date Arie Jennings MD [address] [place] [id number] PCP - General 01/02/24 documented as of this encounter
--- OUTSIDE RECORDS SUMMARY | 2024-05-02 08:58 | XMS_ITS | Encounter Summary ---
Author Organization Healthcare Address [address] [place] [address] Care Team Providers Care Wrecker Driver Name Role Phone Arie Jennings MD Primary Care Provider [phone] Encounter Details Date Type Department Care Team (Late Contact Info) Description 01/24/2024 Orders Only External Location [address] [place] [address] Boogie Caba MD [address] [place] [address] Social History Tobacco Use Types Packs/Day Years [...] EDT Appointment [facility] [address] [place] [address] 09/13/2024 11:00 AM EDT Office Visit Medical Office Building Urology [address] [facility], [address] [place] [address] Mario Bolden MD [address] [facility] [address] [place] [address] documented as of this encounter Procedures Procedure Name Priority Date/Time Associated Diagnosis Comments XR OUTSIDE IMAGES 01/24/2024 7:48 AM EDT documented in this encounter Results * XR OUTSIDE IMAGES (01/24/2024 7:48 AM EDT) Anatomical Region Laterality Modality Radiographic Dilcia ging 01/24/2024 7:48 AM EDT us Boogie Caba MD IMG XR PROCEDURES Final Result documented in this encounter Visit Diagnoses Not on filedocumented in this encounter Additional Health Concerns Assessment Noted Time A Body Mass Index follow-up plan has been documented for the patient 01/02/2024 11:52 AM EDT documented as of this encounter Care Teams Wrecker Driver Relationship Specialty Start Date End Date Arie Jennings MD [address] [place] [address] PCP - General 01/02/24 documented as of this encounter
--- OUTSIDE RECORDS SUMMARY | 2024-05-02 08:58 | XMS_ITS | Encounter Summary ---
Author Organization [facility] Address [address] [id number] Care Team Providers Care Administration Professional Name Role Phone Arie Jennings MD Primary Care Provider [phone] Encounter Details Date Type Department Care Team (Late st Contact Info) Description 03/07/2024 Telephone [facility] [address] [place] [address] Mario Bolden MD [address] [place] [address] Social History Tobacco Use Types [...] encounter Miscellaneous Notes * Telephone Encounter - Lisseth Vega - 03/07/2024 3:50 PM EDT Left a detailed voice message aobut the patient's appointment gave time, date and location [facility] Urology with Falguni bolden. Lisseth Vega documented in this encounter Plan of Treatment Upcoming Encounters Date Type Department Care Team (Late st Contact Info) Description 09/13/2024 9:30 AM EDT Appointment [facility] [address] [place] [address] 09/13/2024 11:00 AM EDT Office Visit Medical Office Building Urology [address] [facility], [address] [place] [address] Mario Bolden MD [address] [place] [address] documented as of this encounter Visit Diagnoses Not on filedocumented in this encounter Additional Health Concerns Assessment Noted Time A Body Mass Index follow-up plan has been documented for the patient 01/02/2024 11:52 AM EDT documented as of this encounter Care Teams Administration Professional Relationship Specialty Start Date End Date Arie Jennings MD [address] [facility] [address] [place] [address] PCP - General 01/02/24 documented as of this encounter
--- OUTSIDE RECORDS SUMMARY | 2024-05-02 08:58 | XMS_ITS | Clinical Summary ---
Author Organization [facility] Address [address] [place] [address] Care Team Providers Care Sand Shoveler Name Role Phone Arie Jennings MD Primary Care Provider [phone] Allergies No known active allergies Medications atenolol (Tenormin) 25 MG tablet 12/13/2023 Active cephalexin (Keflex) 500 MG capsule 03/28/2023 Active doxycycline (Vibramycin) 100 MG capsule 12/18/2023 Active amLODIPine (Norvasc) 5 MG tablet 07/29/2023 Active irbesartan (Avapro) 300 MG tablet 11/29/2023 Active isosorbide mononitrate ER (Imdur) 60 MG 24 hr tablet 12/13/2023 Active lovastatin (Mevacor) 20 MG tablet 12/23/2023 Active meloxicam (Mobic) 7.5 MG tablet 12/23/2023 Activ e Carbidopa-Levodop a (RYTARY PO) Take by mouth 3 (three) times a day. Active Active Problems Problem Noted Date Diagnosed Date Benign localized prostatic h yperplasia with lower urinary tract symptoms (LUTS) 01/02/2024 Coronary artery disease 01/02/2024 Finger laceration 01/02/2024 Hyperlipidemia 01/02/2024 Hypertension 01/02/2024 Primary osteoarthritis of right knee 01/02/2024 S/P total knee arthroplasty 01/02/2024 Encounters Date Type Department Care Team Description 03/27/2024 Telephone [facility] Urology [address] [place] [address] Mario Bolden MD 03/08/2024 8:30 AM EDT Consult [facility] Urology [address] [place] [address] Mario Bolden MD Mass of right kidney; Ureteral stone; Nephrolithiasis 03/08/2024 Travel 03/07/2024 Telephone [facility] Urology [address] [place] [address] Mario Bolden MD from Last 3 Months Immunizations Name Administration Dates Next Due Hep B, adult 01/09/2002,07/11/2001,05/09/2001 Influenza, high-dose, quadrivalent 02/25,03/09/2021,04/01/2020,05/23/20,05/11/2018,06/07/2017 Pneumococcal 20-wendy Conj Vaccine 03/28/2023 Tdap 10/10/2017 Social History Tobacco Use Types Packs/Day Years Used Date Smoking Tobacco: Never Passive Smoke Exposure: Never Smokeless Tobacco: Never Tobacco Cessation:Counseling Given: Not Answered PHQ-2 Answer Date Recorded Patient Health Questionnaire-2 Score 0 03/08/2024 Sex and Gender Information Value Date Recorded Sex Assigned at Not on file Legal Sex Male 8:31 AM EDT Gender Identity Not on file Sexual Orientation Not on file Last Filed Vital Signs Vital Sign Reading [...] Mass Index 27.48 03/08/2024 7:56 AM EDT Plan of Treatment Upcoming Encounters Date Type Department Care Team (Late st Contact Info) Description 09/13/2024 9:30 AM EDT Appointment [facility] [address] [place] [address] 09/13/2024 11:00 AM EDT Office Visit Medical Office Building Urology [address] [facility], [address] [place] [address] Mario Bolden MD [address] [place] [address] Health Maintenance Due Date Last Done Comments [facility]-Medicare Annual Wellness (AWV) 1940 [facility]-/Child/Adol SDOH Screenings 1940 [facility]- SDOH Screenings 1957 [facility]-Adult SDOH Screenings 1957 [facility]-Zoster Vaccines (1 of 2) 1989 [facility]-RSV Vaccine: 60+ Years or (1 - 1-dose 75+ series) 2014 [id number] Vaccine (3 - 2023- season) 2024 08/20/2020, 07/23/2020 [facility]-Influenza Vaccine (#1) 02/12/202402/25, 03/09/2021, 04/01/2020, Additional history exists [facility]-Depression Screening 03/08/2025 03/08/2024 [facility]-DTaP,Tdap,and Td Vaccines (2 - Td or Tdap) 10/11/2027 10/10/2017 [facility]-Pneumococcal Vaccine: 65+ Years Completed 03/28/2023 [facility]-Obesity Intervention Completed 03/08/2024, 12/12 [facility]-HIB Vaccines Aged Out No longer e ligible based on patient's age to complete this topic [facility]-HPV Vaccines Aged Out No longer e ligible based on patient's age to complete this topic [facility]-Hepatitis A Vaccines Aged Out No longer eligible based on patient's age to complete this topic [facility]-IPV Vaccines Aged Out No longer e ligible based on patient's age to complete this topic [facility]-Rotavirus Vaccines Aged Out No lo nger eligible based on patient's age to complete this topic Insurance MEDICARE [facility] Care Teams Sand Shoveler Relationship Specialty Start Date End Date Arie Jennings MD [facility] [place] [address] PCP - General 01/02/24
--- NOTE | 2024-05-02 09:29 | EXP.PAIN.SOA ---
[facility] Disclaimer: The information contained in this section may have been updated after the patient was seen, as this information can be updated by other users. Medical History BPH (benign prostatic hyperplasia) Surgical History Status post right knee replacement S/P TURP (status post transurethral resection of prostate) Family History Other No significant family history Social History Smoking Status: Never smoker second hand exposure: No alcohol intake: current alcohol intake frequency: a few times a month substance use type: denies use current occupational status: retired Travel in the last 8 weeks: None household members: spouse housing: house caffeine: No PM Subjective & Objective Subjective Subjective:: Patient is a pleasant 83-year-old male who presents today for follow-up of lumbar epidural steroid injection L4-L5 on 04/17/2024. Today he rates his pain a 4 out of 10. He states that he has had at least 50% improvement if not more following this injection and feels like it is still significantly helping. Patient states he is able to move around easier with decreased pain and overall improved function. Patient denies any other changes. His Curt has been reviewed and is appropriate. Review of Systems: General: No recent weight changes, no fever, no sleep disturbances Respiratory: No cough, no shortness of air, no recurring pulmonary infections Cardiovascular/peripheral vascular: No chest pain, no palpitations, no edema, no shortness of breath Gastrointestinal: No new onset incontinence, normal bowel movements reported Genitourinary: No new onset incontinence Musculoskeletal: Low back pain Psychiatric: [Normal mood/affect] Neurological: [Denies weakness in extremities], [denies balance issues] Pain at rest (0-10 scale): 4 Objective Objective:: Physical Exam: General: Alert and oriented x3, no acute distress, pleasant and cooperative Lungs: Respirations even and unlabored, symmetrical chest expansion Eyes: PERRL Musculoskeletal: Flexion and extension of lumbar [spine] somewhat guarded secondary to pain, [antalgic gait noted] Neurological: Speech clear, no gross sensory deficit Has patient had previous pain injection?: Yes Percent improvement in pain since last injection: 50% Conservative treatment options previously tried: Home exercise plan Length of treatment: Longer than 12 weeks Meds Home Medications and Allergies Home Medications ?Medication ?Instructions ?Recorded ?Confirmed ?Type atenolol 25 mg tablet 25 mg PO DAILY Hypertension 03/12/21 04/17/24 History lovastatin 20 mg tablet 20 mg PO DAILY Cholesterol 03/12/21 04/17/24 History meloxicam 7.5 mg tablet 15 mg PO DAILY Pain 03/12/21 04/17/24 History multivitamin 1 tab PO DAILY Supplement 03/12/21 04/17/24 History isosorbide mononitrate 60 mg 60 mg PO DAILY Angina 06/18/21 04/17/24 History tablet,extended release 24 hr aspirin 81 mg tablet,delayed 81 mg PO DAILY HEART HEALTH 07/31/21 04/17/24 History release (Adult Low Dose Aspirin) carbidopa ER 23.75 mg-levodopa 95 2 cap PO BID [facility] 10/01/21 04/17/24 History mg capsule,extended release docusate sodium 100 mg capsule 100 mg PO BIDP PRN Constipation 12/29/21 04/17/24 Rx #20 caps glucosamine sulfate 500 mg tablet 500 mg PO DAILY SUPPLIMENT 06/24/22 04/17/24 History (Glucosamine) vit A 300 mcg-C 200 mg-E 27 1 tab PO DAILY SUPPLIMENT 06/24/22 04/17/24 History mg-lutein 2 mg and minerals tablet (Vision Formula (with lutein)) tramadol 50 mg tablet 50 mg PO BID PRN pain #60 tabs 03/25/23 04/17/24 Rx hydrocodone 5 mg-acetaminophen 325 1 tab PO Q6H PRN pain 3 days #12 12/28/23 04/17/24 Rx mg tablet tabs ibuprofen 800 mg tablet 800 mg PO TID PRN pain 7 days #20 12/28/23 04/17/24 Rx tabs ondansetron 4 mg disintegrating 4 mg PO Q6H PRN nausea and 12/28/23 04/17/24 Rx tablet vomiting 5 days #20 tabs doxycycline hyclate 20 mg tablet 20 mg PO DAILY 01/09/24 04/17/24 History New Prescriptions to Start Prescriptions: Allergies Allergy/AdvReac Type Severity Reaction Status Date / Time No Known Allergies Allergy Verified 01/30/24 08:54 Assessment and Plan *Assessment and plan (1) Lumbar radiculopathy: Status: Acute Category: Medical Code(s): M54.16 - Radiculopathy, lumbar region Plan Patient has had significant improvement following his lumbar epidural and does not require any additional injection therapy. Patient will be ordered a compounded cream and return to clinic in 2 months for reevaluation of symptoms and plan of care. Patient has been instructed to contact the clinic with any concerns before the next appointment. Dr. Goode has reviewed this note and agrees with this plan of care. This note was dictated using voice recognition software and make contain errors or omissions. All injections are used with Lidocaine or Bupivacaine and Depo Medrol.
[2024-05-02 09:31] VITALS: BP 125/70; PULSE 59; RESP 16; O2SAT 96; BMI 28.0
== END 2024-05-02 23:59 | disposition home or self-care (01) ==
LOC: SC.PAIN 08:57
PROVIDERS: PCP Family Medicine; Visit Provider Nurse Practitioner Family
DX: M54.16 Radiculopathy, lumbar region (principal); Z96.651 Presence of right artificial knee joint
CPT/HCPCS: 99212; G0463

== ENCOUNTER 2024-07-02 08:23 | Outpatient (POV) | payer MEDICARE, SELFPAY ==
--- NOTE | 2024-07-02 09:08 | A.OFFVIS_ITS ---
[facility] Disclaimer: The information contained in this section may have been updated after the patient was seen, as this information can be updated by other users. Medical History BPH (benign prostatic hyperplasia) Surgical History Status post right knee replacement S/P TURP (status post transurethral resection of prostate) Family History Other No significant family history Social History Smoking Status: Never smoker second hand exposure: No alcohol intake: current alcohol intake frequency: a few times a month substance use type: denies use current occupational status: other Travel in the last 8 weeks: None household members: spouse housing: house caffeine: No PM Subjective & Objective Subjective Subjective:: Patient is a pleasant 83-year-old male who presents today for 2-month follow-up. Today he rates his pain a 3 out of 10 however does state that his low back pain will get worse to about a 5 out of 10 with increased activity. He states when he sits for prolonged periods that does seem to aggravate his overall symptoms. Patient does state that he had a fall last Tuesday related to the weather but denies any significant injury or trauma. He states that he just got an abrasion to his nose but denies any significant injury such as a fracture. Patient does state that he feels like the previous lumbar epidural is wearing off and that he would like to see about getting scheduled for repeat injection. He states he is having more numbness and tingling into his lower extremities. Patient states the pain when it is worse causes difficulty performing activities of daily living such as cooking and cleaning. Patient has continued conservative treatment with no additional changes. Patient does also make mention today that he has been experiencing more ear popping over the last month. He states that it is very random and that yesterday he had it a few different times however today he does not recall that he has had any episodes. Patient denies any pressure or fullness sensations or pain with the popping. He also states that he has not seen an ENT doctor however has seen a throat doctor due to history of trouble swallowing. His Curt has been reviewed and is appropriate. Review of Systems: General: No recent weight changes, no fever, no sleep disturbances Respiratory: No cough, no shortness of air, no recurring pulmonary infections Cardiovascular/peripheral vascular: No chest pain, no palpitations, no edema, no shortness of breath Gastrointestinal: No new onset incontinence, normal bowel movements reported Genitourinary: No new onset incontinence Musculoskeletal: Low back pain, bilateral leg pain Psychiatric: [Normal mood/affect] Neurological: [Denies weakness in extremities], [denies balance issues] Pain at rest (0-10 scale): 5 Objective Objective:: Physical Exam: General: Alert and oriented x3, no acute distress, pleasant and cooperative Lungs: Respirations even and unlabored, symmetrical chest expansion Eyes: PERRL Musculoskeletal: Flexion and extension of lumbar [spine] somewhat guarded secondary to pain, [antalgic gait noted] positive leg raise Neurological: Speech clear, no gross sensory deficit Has patient had previous pain injection?: No Conservative treatment options previously tried: Home exercise plan Length of treatment: Longer than 12 weeks Meds Home Medications and Allergies Home Medications ?Medication ?Instructions ?Recorded ?Confirmed ?Type atenolol 25 mg tablet 25 mg PO DAILY Hypertension 03/12/21 05/02/24 History lovastatin 20 mg tablet 20 mg PO DAILY Cholesterol 03/12/21 05/02/24 History meloxicam 7.5 mg tablet 15 mg PO DAILY Pain 03/12/21 05/02/24 History multivitamin 1 tab PO DAILY Supplement 03/12/21 05/02/24 History isosorbide mononitrate 60 mg 60 mg PO DAILY Angina 06/18/21 05/02/24 History tablet,extended release 24 hr aspirin 81 mg tablet,delayed 81 mg PO DAILY HEART HEALTH 07/31/21 05/02/24 History release (Adult Low Dose Aspirin) carbidopa ER 23.75 mg-levodopa 95 2 cap PO BID [facility] 10/01/21 05/02/24 History mg capsule,extended release docusate sodium 100 mg capsule 100 mg PO BIDP PRN Constipation 12/29/21 05/02/24 Rx #20 caps glucosamine sulfate 500 mg tablet 500 mg PO DAILY SUPPLIMENT 06/24/22 05/02/24 History (Glucosamine) vit A 300 mcg-C 200 mg-E 27 1 tab PO DAILY SUPPLIMENT 06/24/22 05/02/24 History mg-lutein 2 mg and minerals tablet (Vision Formula (with lutein)) tramadol 50 mg tablet 50 mg PO BID PRN pain #60 tabs 03/25/23 05/02/24 Rx hydrocodone 5 mg-acetaminophen 325 1 tab PO Q6H PRN pain 3 days #12 12/28/23 05/02/24 Rx mg tablet tabs ibuprofen 800 mg tablet 800 mg PO TID PRN pain 7 days #20 12/28/23 05/02/24 Rx tabs ondansetron 4 mg disintegrating 4 mg PO Q6H PRN nausea and 12/28/23 05/02/24 Rx tablet vomiting 5 days #20 tabs doxycycline hyclate 20 mg tablet 20 mg PO DAILY 01/09/24 05/02/24 History New Prescriptions to Start Prescriptions: Allergies Allergy/AdvReac Type Severity Reaction Status Date / Time No Known Allergies Allergy Verified 01/30/24 08:54 Assessment and Plan *Assessment and plan (1) Lumbar radiculopathy: Status: Acute Category: Medical Code(s): M54.16 - Radiculopathy, lumbar region (2) Degenerative disc disease, lumbar: Status: Acute Category: Medical Code(s): M51.369 - Other intervertebral disc degeneration, lumbar region without mention of lumbar back pain or lower extremity pain Plan Patient is experiencing worsening pain in his low back with numbness and tingling into his lower extremities. Patient had his last lumbar epidural at the beginning of April that did provide 50% improvement and lasted up until the last week or so. Patient does have a longstanding history of degenerative disc with lumbar radiculopathy symptoms. I did review with the patient that is good believe he would benefit from a repeat lumbar epidural steroid injection. Risk and benefits were discussed with the patient and he would like to proceed forward with this plan of care. Patient has continued conservative treatment including oral medication, heat and ice, topicals, at home stretching exercise for longer than 12 weeks and between injections. I did also discuss with the patient due to the symptoms of ear popping without pain I will send him for referral for ENT here at [facility] for evaluation. Patient agrees with this plan of care. Patient will be scheduled for repeat lumbar epidural steroid injection L4-L5 under fluoroscopy. Patient has been instructed to contact the clinic with any concerns before the next appointment. Dr. Goode has reviewed this note and agrees with this plan of care. This note was dictated using voice recognition software and make contain errors or omissions. All injections are used with Lidocaine, Bupivacaine and Depo Medrol. Occasionally urine drug screen is needed to verify patient's compliance with our office pain contract. This is ordered based off specific treatments related to chronic pain with the potential to abuse certain medications.
[2024-07-02 09:22] VITALS: BP 125/74; PULSE 61; RESP 18; O2SAT 97; BMI 28.0
== END 2024-07-02 23:59 | disposition home or self-care (01) ==
LOC: SC.PAIN 08:24
PROVIDERS: PCP Family Medicine; Visit Provider Nurse Practitioner Family
DX: M51.16 Intervertebral disc disorders with radiculopathy, lumbar region (principal); Z96.651 Presence of right artificial knee joint; Z73.89 Other problems related to life management difficulty
CPT/HCPCS: 99212; G0463

== ENCOUNTER 2024-07-17 08:12 | Day surgery (SDC) | payer MEDICARE, SELFPAY ==
[2024-07-17 08:42] VITALS: BP 139/65; PULSE 56; RESP 16; TEMP 36.8; O2SAT 97; BMI 28.8
[2024-07-17 09:28] VITALS: BP 154/70; PULSE 54; RESP 16; O2SAT 91
[2024-07-17] MEDS: methylPREDNISolone ACETATE 80MG/ML VIAL 80 MG (09:35)
--- NOTE | 2024-07-17 09:42 | EXP.PAIN.PRO ---
Procedure Date: 07/17/24 Time: 09:00 Anesthesiologist:: Jamal Espinal CRNA Complications:: None Pre-procedure Diagnosis:: Degenerative disc lumbar spine multilevels. Lumbar radiculopathy. Lumbar spinal stenosis. Multilevel lumbar facet arthropathy. Lumbar spondylosis Post-procedure Diagnosis:: Same. Indications for Procedure:: Patient is a very pleasant 83-year-old male who comes our clinic today for repeat lumbar epidural steroid injection L4-5 level. Patient reports significant proved in terms of his overall low back pain as well as bilateral hip and leg radicular symptoms with previous injections at the L4-5 level. He describes his low back pain as constant, dull, aching. Also, patient reports bilateral leg radicular symptoms right greater than left. Procedure Details:: Procedure: Lumbar epidural steroid injection under fluoroscopy Informed consent was obtained and the risks and benefits of the procedure were explained to the patient. The patient was taken to the procedure room and noninvasive monitors placed, including noninvasive blood pressure cuff and pulse oximeter. The back was viewed using C-arm Fluoroscopy and prepped using Chloraprep as a cleansing solution and the L4-L5 interspace was palpated. Skin and subcutaneous tissues were anesthetized using lidocaine 1.5% and a 25-gauge needle. After this, an 18-gauge Touhy epidural needle was placed into the L4-L5 interspace and advanced using fluoroscopic guidance and loss of resistance to air until the epidural space was encountered. After confirmation of needle placement in the epidural space, with dye, a solution containing normal saline, 3 mL and Depo-Medrol 80 mg were incrementally injected into the lumbar epidural space. The patient tolerated the procedure well with no complications. The patient was observed in the Pain Clinic and then discharged home neurologically intact. Plan and Disposition:: Patient was discharged without incident.
== END 2024-07-17 09:28 | disposition home or self-care (01) ==
LOC: SC.PAINP 08:13
PROVIDERS: PCP Family Medicine; Visit Provider Nurse Anesthetist, Certified Registered
DX: M51.16 Intervertebral disc disorders with radiculopathy, lumbar region (principal); M47.26 Other spondylosis with radiculopathy, lumbar region; M48.061 Spinal stenosis, lumbar region without neurogenic claudication
CPT/HCPCS: 62323; J1010

== ENCOUNTER 2024-07-30 10:55 | Outpatient (POV) | payer MEDICARE, SELFPAY ==
--- NOTE | 2024-07-30 11:01 | A.OFFVIS_ITS ---
[facility] Disclaimer: The information contained in this section may have been updated after the patient was seen, as this information can be updated by other users. Medical History Neck discomfort Hearing loss BPH (benign prostatic hyperplasia) Surgical History History of tonsillectomy Status post right knee replacement S/P TURP (status post transurethral resection of prostate) Family History Other No significant family history Social History Smoking Status: Never smoker second hand exposure: No alcohol intake: current alcohol intake frequency: a few times a month substance use type: denies use current occupational status: other Travel in the last 8 weeks: None household members: spouse housing: house caffeine: No PM Subjective & Objective Subjective Subjective:: Patient is a pleasant 83-year-old male Who presents today for follow-up of lumbar epidural steroid injection L4-L5 on 07/17/2024. Today he rates his pain a 1 out of 10. He does state that he did take about a date for it to kick in however it is has been providing about 90% relief. He states that the pain is definitely not as severe and not as constant. Patient does state that he just notices more pain when he first gets up in the morning for about 30 minutes and then it eases off. Patient denies any other changes or new falls. His Curt has been reviewed and is appropriate. Review of Systems: General: No recent weight changes, no fever, no sleep disturbances Respiratory: No cough, no shortness of air, no recurring pulmonary infections Cardiovascular/peripheral vascular: No chest pain, no palpitations, no edema, no shortness of breath Gastrointestinal: No new onset incontinence, normal bowel movements reported Genitourinary: No new onset incontinence Musculoskeletal: Low back pain Psychiatric: [Normal mood/affect] Neurological: [Denies weakness in extremities], [denies balance issues] Pain at rest (0-10 scale): 1 Objective Objective:: Physical Exam: General: Alert and oriented x3, no acute distress, pleasant and cooperative Lungs: Respirations even and unlabored, symmetrical chest expansion Eyes: PERRL Musculoskeletal: Flexion and extension of lumbar [spine] somewhat guarded secondary to pain, [antalgic gait noted] Neurological: Speech clear, no gross sensory deficit Has patient had previous pain injection?: Yes Percent improvement in pain since last injection: 90% Conservative treatment options previously tried: Home exercise plan Length of treatment: Longer than 12 weeks Meds Home Medications and Allergies Home Medications ?Medication ?Instructions ?Recorded ?Confirmed ?Type atenolol 25 mg tablet 25 mg PO DAILY Hypertension 03/12/21 07/17/24 History lovastatin 20 mg tablet 20 mg PO DAILY Cholesterol 03/12/21 07/17/24 History meloxicam 7.5 mg tablet 15 mg PO DAILY Pain 03/12/21 07/17/24 History multivitamin 1 tab PO DAILY Supplement 03/12/21 07/17/24 History isosorbide mononitrate 60 mg 60 mg PO DAILY Angina 06/18/21 07/17/24 History tablet,extended release 24 hr carbidopa ER 23.75 mg-levodopa 95 2 cap PO BID PARKINSON 10/01/21 07/17/24 History mg capsule,extended release docusate sodium 100 mg capsule 100 mg PO BIDP PRN Constipation 12/29/21 07/17/24 Rx #20 caps glucosamine sulfate 500 mg tablet 500 mg PO DAILY SUPPLIMENT 06/24/22 07/17/24 History (Glucosamine) vit A 300 mcg-C 200 mg-E 27 1 tab PO DAILY SUPPLIMENT 06/24/22 07/17/24 History mg-lutein 2 mg and minerals tablet (Vision Formula (with lutein)) tramadol 50 mg tablet 50 mg PO BID PRN pain #60 tabs 03/25/23 07/17/24 Rx hydrocodone 5 mg-acetaminophen 325 1 tab PO Q6H PRN pain 3 days #12 12/28/23 07/17/24 Rx mg tablet tabs ibuprofen 800 mg tablet 800 mg PO TID PRN pain 7 days #20 12/28/23 07/17/24 Rx tabs ondansetron 4 mg disintegrating 4 mg PO Q6H PRN nausea and 12/28/23 07/17/24 Rx tablet vomiting 5 days #20 tabs amlodipine 10 mg tablet 10 mg PO DAILY 07/12/24 07/17/24 History irbesartan 300 mg tablet 300 mg PO DAILY 07/12/24 07/17/24 History New Prescriptions to Start Prescriptions: Allergies Allergy/AdvReac Type Severity Reaction Status Date / Time No Known Allergies Allergy Verified 07/12/24 09:26 Assessment and Plan *Assessment and plan (1) Lumbar radiculopathy: Status: Acute Category: Medical Code(s): M54.16 - Radiculopathy, lumbar region (2) Lumbar facet arthropathy: Status: Acute Category: Medical Code(s): M47.816 - Spondylosis without myelopathy or radiculopathy, lumbar region (3) Degenerative disc disease, lumbar: Status: Acute Category: Medical Code(s): M51.369 - Other intervertebral disc degeneration, lumbar region without mention of lumbar back pain or lower extremity pain Plan Patient has had significant improvement following this procedure and does not require any additional injection therapy at this time. Patient will return to clinic in 6 weeks. Patient has been instructed to contact the clinic with any concerns before the next appointment. Dr. Goode has reviewed this note and agrees with this plan of care. This note was dictated using voice recognition software and make contain errors or omissions. All injections are used with Lidocaine, Bupivacaine and Depo Medrol. Occasionally urine drug screen is needed to verify patient's compliance with our office pain contract. This is ordered based off specific treatments related to chronic pain with the potential to abuse certain medications.
[2024-07-30 11:07] VITALS: BP 136/66; PULSE 58; RESP 16; O2SAT 98; BMI 28.8
== END 2024-07-30 23:59 | disposition home or self-care (01) ==
LOC: SC.PAIN 10:59
PROVIDERS: PCP Family Medicine; Visit Provider Nurse Practitioner Family
DX: M47.26 Other spondylosis with radiculopathy, lumbar region (principal); M51.16 Intervertebral disc disorders with radiculopathy, lumbar region; Z96.651 Presence of right artificial knee joint
CPT/HCPCS: 99212; G0463

== ENCOUNTER 2024-09-10 10:19 | Outpatient (POV) | payer MEDICARE, SELFPAY ==
[2024-09-10 10:30] VITALS: BP 136/67; PULSE 56; RESP 14; O2SAT 97; BMI 28.0
--- NOTE | 2024-09-10 11:07 | A.OFFVIS_ITS ---
[facility] Disclaimer: The information contained in this section may have been updated after the patient was seen, as this information can be updated by other users. Medical History (Updated 09/10/24 @ 11:08 by Annamarie Colindres APRN) Nephrolithiasis Neck discomfort Hearing loss BPH (benign prostatic hyperplasia) Surgical History Hx of cholecystectomy History of tonsillectomy Status post right knee replacement S/P TURP (status post transurethral resection of prostate) Family History Other No significant family history Social History Smoking Status: Never smoker second hand exposure: No alcohol intake: current alcohol intake frequency: a few times a month substance use type: denies use current occupational status: other Travel in the last 8 weeks: None household members: spouse housing: house caffeine: No PM Subjective & Objective Subjective Subjective:: Patient is a pleasant 84-year-old male who presents today for worsening pain in his right hip and groin area. He rates it a 4 out of 10 with rest and a 9 out of 10 with increased activity or movement. Patient does state that it does seem worse at nights and that he frequently has increased pain when he lays on the right side. He describes it just being very painful and does interfere with his ability to perform activities of daily living such as cooking and cleaning. Patient is interested in additional injection therapy for this pain. Patient has had multiple injections with our office in the past that has provided significant relief. He has continued conservative treatment including oral medication, heat and ice, topicals, at home stretching exercise for longer than 12 weeks. His Curt has been reviewed and is appropriate. Review of Systems: General: No recent weight changes, no fever, no sleep disturbances Respiratory: No cough, no shortness of air, no recurring pulmonary infections Cardiovascular/peripheral vascular: No chest pain, no palpitations, no edema, no shortness of breath Gastrointestinal: No new onset incontinence, normal bowel movements reported Genitourinary: No new onset incontinence Musculoskeletal: Right hip pain, right groin pain Psychiatric: [Normal mood/affect] Neurological: [Denies weakness in extremities], [denies balance issues] Pain at rest (0-10 scale): 9 Objective Objective:: Physical Exam: General: Alert and oriented x3, no acute distress, pleasant and cooperative Lungs: Respirations even and unlabored, symmetrical chest expansion Eyes: PERRL Musculoskeletal: Flexion and extension of lumbar [spine] somewhat guarded secondary to pain, [antalgic gait noted] point tenderness along right SI with positive right Morenita's, Los's, Gaenslen's, compression and distraction exam Neurological: Speech clear, no gross sensory deficit Has patient had previous pain injection?: No Conservative treatment options previously tried: Home exercise plan Length of treatment: Longer than 12 weeks Meds Home Medications and Allergies Home Medications ?Medication ?Instructions ?Recorded ?Confirmed ?Type atenolol 25 mg tablet 25 mg PO DAILY Hypertension 03/12/21 09/10/24 History lovastatin 20 mg tablet 20 mg PO DAILY Cholesterol 03/12/21 09/10/24 History meloxicam 7.5 mg tablet 15 mg PO DAILY Pain 03/12/21 09/10/24 History multivitamin 1 tab PO DAILY Supplement 03/12/21 09/10/24 History isosorbide mononitrate 60 mg 60 mg PO DAILY Angina 06/18/21 09/10/24 History tablet,extended release 24 hr glucosamine sulfate 500 mg tablet 500 mg PO DAILY SUPPLIMENT 06/24/22 09/10/24 History (Glucosamine) vit A 300 mcg-C 200 mg-E 27 1 tab PO DAILY SUPPLIMENT 06/24/22 09/10/24 History mg-lutein 2 mg and minerals tablet (Vision Formula (with lutein)) amlodipine 10 mg tablet 10 mg PO DAILY 07/12/24 09/10/24 History irbesartan 300 mg tablet 300 mg PO DAILY 07/12/24 09/10/24 History carbidopa ER 23.75 mg-levodopa 95 3 cap PO BID PARKINSON #180 caps 09/05/24 09/10/24 Rx mg capsule,extended release spironolactone 50 mg tablet 50 mg PO DAILY 09/05/24 09/10/24 History New Prescriptions to Start Prescriptions: Allergies Allergy/AdvReac Type Severity Reaction Status Date / Time No Known Allergies Allergy Verified 09/05/24 10:00 Assessment and Plan *Assessment and plan (1) Sacroiliitis: Status: Acute Category: Medical Code(s): M46.1 - Sacroiliitis, not elsewhere classified Plan Patient is experiencing worsening pain along the low back and right hip/groin. They did have limited range of motion of the lumbar spine along with point tenderness along right SI joint and a positive right Morenita's, Los's, Gaenslen's, compression and distraction exam. I did discuss with the patient that I do believe they would benefit from right SI injections. Risk and benefits were discussed with the patient and they would like to proceed forward with this option. Patient has tried and failed conservative therapy including continued at home stretching exercise for longer than 12 weeks in between injection. Patient has had SI injections in the past with his last 1 was in February 2023 that did provide 80% relief with longer than 3 months improvement. Patient has not required any additional of these type of injections since then. Patient will be scheduled for right SI injection under fluoroscopy. Patient has been instructed to contact the clinic with any concerns before the next appointment. Dr. Goode has reviewed this note and agrees with this plan of care. This note was dictated using voice recognition software and make contain errors or omissions. All injections are used with Lidocaine or Bupivacaine and Depo Medrol.
== END 2024-09-10 23:59 | disposition home or self-care (01) ==
LOC: SC.PAIN 10:21
PROVIDERS: PCP Family Medicine; Visit Provider Nurse Practitioner Family
DX: M46.1 Sacroiliitis, not elsewhere classified (principal); Z96.651 Presence of right artificial knee joint; Z73.89 Other problems related to life management difficulty
CPT/HCPCS: 99212; G0463

== ENCOUNTER 2024-10-09 08:28 | Day surgery (SDC) | payer MEDICARE, SELFPAY ==
[2024-10-09 08:38] VITALS: BP 132/59; PULSE 55; RESP 16; TEMP 36.5; O2SAT 98; BMI 28.0
[2024-10-09] MEDS: DEXAMETHASONE 10MG/ML 1ML VIAL 10 MG (08:46)
[2024-10-09] MEDS: LIDOCAINE 1% 5ML PF VIAL 5 ML (08:47)
[2024-10-09 08:48] VITALS: BP 111/63; PULSE 58; RESP 18; O2SAT 95
[2024-10-09] MEDS: BUPIVACAINE 0.25% 10ML INJ 25 MG IJ (08:48)
[2024-10-09 08:50] VITALS: BP 111/63; PULSE 58; RESP 18; O2SAT 95
[2024-10-09 08:56] VITALS: BP 143/66; PULSE 56; RESP 16; O2SAT 96
--- NOTE | 2024-10-09 08:56 | EXP.PAIN.PRO ---
Procedure Date: 10/09/24 Time: 08:45 Anesthesiologist:: Jamal Espinal CRNA Complications:: None Pre-procedure Diagnosis:: Right sacroiliitis Post-procedure Diagnosis:: Same Indications for Procedure:: Patient is a pleasant 84-year-old male who comes our clinic today for right sacroiliac joint injection of cortisone and local anesthetic. Patient describes low lumbar back pain off the midline to the right. He reports difficulty with sitting and/or ambulation. He reports difficulty transitioning from sitting to standing. He rates his pain 8/10. Procedure Details:: Procedure: Right sacroliliac joint injection under fluoroscopy Informed consent was obtained and the risk and benefits of the procedure were explained to the patient.~ The patient was taken to the procedure room and noninvasive monitors were placed including noninvasive blood pressure cuff and pulse oximeter.~ The patient was placed prone on the procedure table.~ The~ right hip was cleansed using Betadine as a cleansing solution.~ C-arm fluorosocpy was used to view the right SI joint.~ The skin and subcutaneous tissues were anesthetized using Lidocaine 1.5% and a 25-gauge needle.~ After this, a 22-gauge spinal needle was inserted under fluoroscopic guidance into the inferior aspect of the right SI joint.~ Omnipaque dye was injected and a good spread was seen throughout the joint.~ After this, approximately 5 mL of bupivacaine 0.25% and Depo-Medrol 40 mg was incrementally injected into the sacroiliac joint.~ The patient tolerated the procedure well with no complications.~ The patient was observed in the Pain Clinic, then discharged home neurologically intact.~ Plan and Disposition:: Patient was reevaluated 10 minutes post procedure. He reports no pain. He was discharged without incident.
== END 2024-10-09 08:56 | disposition home or self-care (01) ==
PROVIDERS: PCP Family Medicine; Visit Provider Nurse Anesthetist, Certified Registered
DX: M46.1 Sacroiliitis, not elsewhere classified (principal)
CPT/HCPCS: 27096; G0260; J1100

== ENCOUNTER 2024-10-22 13:44 | Outpatient (POV) | payer MEDICARE, SELFPAY ==
--- OUTSIDE RECORDS SUMMARY | 2024-10-22 13:47 | XMS_ITS ---
Author Organization Unknown Problems Date Problem Result OnSetDate Icd10 SnomedCode Severity 07/08/2022 00:00:00 Primary hypertension I10 [id number] 12/21/2022 00:00:00 Lumbar facet arthropathy M47.816 [id number] 12/21/2022 00:00:00 Lumbar degenerative disc disease M51.36 [id number] 07/29/2023 00:00:00 Pharyngeal dysphagia R13.13 [id number] 07/29/2023 00:00:00 Essential hypertension I10 [id number] 10/28/2023 00:00:00 Other chronic pain G89.29 [id number] 04/27/2024 00:00:00 Parkinson disease, symptomatic G20.A1 [id number] 08/02/2024 00:00:00 Disorder of neck M53.82 [id number]
--- NOTE | 2024-10-22 14:09 | EXP.PAIN.SOA ---
[facility] Disclaimer: The information contained in this section may have been updated after the patient was seen, as this information can be updated by other users. Medical History Nephrolithiasis Neck discomfort Hearing loss BPH (benign prostatic hyperplasia) Surgical History Hx of cholecystectomy History of tonsillectomy Status post right knee replacement S/P TURP (status post transurethral resection of prostate) Family History Other No significant family history Social History Smoking Status: Never smoker second hand exposure: No alcohol intake: current alcohol intake frequency: a few times a month substance use type: denies use current occupational status: other Travel in the last 8 weeks?: None household members: spouse housing: house caffeine: No PM Subjective & Objective Subjective Subjective:: Patient is a pleasant 84-year-old male who presents today for follow-up of his right SI injection on 10/09/2024. Today he rates his pain a 2 out of 10. He states he has had significant improvement following this injection and feels like it is still working well. He states when he is sitting for prolonged periods or laying down that he has hardly no pain whereas before it was very painful. Patient also states that he is continued to have decreased leg symptoms since his last epidural. He states that they are not bothering him at all. His Curt has been reviewed and is appropriate. Review of Systems: General: No recent weight changes, no fever, no sleep disturbances Respiratory: No cough, no shortness of air, no recurring pulmonary infections Cardiovascular/peripheral vascular: No chest pain, no palpitations, no edema, no shortness of breath Gastrointestinal: No new onset incontinence, normal bowel movements reported Genitourinary: No new onset incontinence Musculoskeletal: Low back pain Psychiatric: [Normal mood/affect] Neurological: [Denies weakness in extremities], [denies balance issues] Pain at rest (0-10 scale): 2 Objective Objective:: Physical Exam: General: Alert and oriented x3, no acute distress, pleasant and cooperative Lungs: Respirations even and unlabored, symmetrical chest expansion Eyes: PERRL Musculoskeletal: Flexion and extension of lumbar [spine] within normal limits, antalgic gait noted Neurological: Speech clear, no gross sensory deficit Has patient had previous pain injection?: Yes Percent improvement in pain since last injection: 80-60% Conservative treatment options previously tried: Home exercise plan Length of treatment: Longer than 12 weeks Meds Home Medications and Allergies Home Medications ?Medication ?Instructions ?Recorded ?Confirmed ?Type atenolol 25 mg tablet 25 mg PO DAILY Hypertension 03/12/21 10/09/24 History lovastatin 20 mg tablet 20 mg PO DAILY Cholesterol 03/12/21 10/09/24 History meloxicam 7.5 mg tablet 15 mg PO DAILY Pain 03/12/21 10/09/24 History multivitamin 1 tab PO DAILY Supplement 03/12/21 10/09/24 History isosorbide mononitrate 60 mg 60 mg PO DAILY Angina 06/18/21 10/09/24 History tablet,extended release 24 hr glucosamine sulfate 500 mg tablet 500 mg PO DAILY SUPPLIMENT 06/24/22 10/09/24 History (Glucosamine) vit A 300 mcg-C 200 mg-E 27 1 tab PO DAILY SUPPLIMENT 06/24/22 10/09/24 History mg-lutein 2 mg and minerals tablet (Vision Formula (with lutein)) amlodipine 10 mg tablet 10 mg PO DAILY 07/12/24 10/09/24 History irbesartan 300 mg tablet 300 mg PO DAILY 07/12/24 10/09/24 History carbidopa ER 23.75 mg-levodopa 95 3 cap PO BID PARKINSON #180 caps 09/05/24 10/09/24 Rx mg capsule,extended release spironolactone 50 mg tablet 50 mg PO DAILY 09/05/24 10/09/24 History New Prescriptions to Start Prescriptions: Allergies Allergy/AdvReac Type Severity Reaction Status Date / Time No Known Allergies Allergy Verified 09/05/24 10:00 Assessment and Plan *Assessment and plan (1) Sacroiliitis: Status: Acute Category: Medical Code(s): M46.1 - Sacroiliitis, not elsewhere classified Plan Patient has had significant improvement following his SI injection and does not require any additional injection therapy at this time. Patient will return to clinic in 6 weeks for reevaluation of symptoms and plan of care. Patient has been instructed to contact the clinic with any concerns before the next appointment. Dr. Goode has reviewed this note and agrees with this plan of care. This note was dictated using voice recognition software and make contain errors or omissions. All injections are used with Lidocaine, Bupivacaine and dexamethasone. Occasionally urine drug screen is needed to verify patient's compliance with our office pain contract. This is ordered based off specific treatments related to chronic pain with the potential to abuse certain medications.
[2024-10-22 15:49] VITALS: BP 129/69; PULSE 59; RESP 14; O2SAT 96; BMI 28.0
== END 2024-10-22 23:59 | disposition home or self-care (01) ==
LOC: SC.PAIN 13:46
PROVIDERS: PCP Family Medicine; Visit Provider Nurse Practitioner Family
DX: M46.1 Sacroiliitis, not elsewhere classified (principal); Z96.651 Presence of right artificial knee joint
CPT/HCPCS: 99212; G0463

== ENCOUNTER 2025-04-01 13:15 | Outpatient (CLI) | payer MEDICARE, SELFPAY ==
--- OUTSIDE RECORDS SUMMARY | 2023-10-28 05:30 | XMS_ITS ---
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 Role Phone Arie Jennings Primary Care [...] W/U Status Risk Notes Problem Chronic pain (50555857) Other chronic pain (G89.29) Active confirmed Vital Signs Blood pressure systolic 150 mm Hg 10/28/19 24 Blood pressure diastolic 84 mm Hg 024 Heart Rate 59 /min 10/28/2023 Height 68 in 10/28/2023 Weight 190.8 lbs 10/28/2023 BMI 29.01 kg/m2 10/28/2023 Encounters Encounter Location Date Provider Diagnosis [facility] [address] [place], [place] [phone] 10/28/2023 Arie Jennings Essential hypertensi on I10 [...] to follow up with pain management at [facility] Plan Of Treatment Medication Medication Name Sig [...] fo llow up with pain management at [facility] Next Appt Details Follow Up: 6 Months, Reason: Progress Notes * Nico COHEN DDOB: [birth year] (84 yo M)Acc No.[id number]:10/28/2023 Progress Notes Patient: Shantell Nico CASTRO Provider: Gracy Jennings M.D. :1940 A ge:83 Y S ex:Male Date:10/28/2023 Address:[address], [place], [id number] Subjective: * Chief Complaints: * 1 . [...] History: T onsillectomy , 2 vessel CABG- [place] 1999, Cataract Removal 2015, Cataract Removal 05/2019, [...] to follow up with pain management at [facility] * Procedure Codes: G 2211 Complex e/m visit add on * Follow Up: 6 Months * Images: Billing Information: * Visit Code: 44395 Office Visit, Est Pt., Level 4. * Procedure Codes: G2211 Complex e/m visit add on. * Electronic signature of Dana Jennings MD on 04/01/2025 at 01:29 PM EDT Sign off status: Pending * Provider: Gracy Jennings M.D. Date: 0 10/28/2023 Generated for Evans wilder/Joey/Talonitting on: 1 01:29 PM EDT History and Physical Notes * HPI [...]
--- OUTSIDE RECORDS SUMMARY | 2024-04-27 06:45 | XMS_ITS ---
[facility] Address [address] [place] [id number] Care Team Providers Care Link Trainer Maintenance Man Name Role Phone Arie Jennings Primary Care Provider [phone] EMILIA AQUINO Unavailable Unavailable Allergies No Known [...] Status Risk Notes Problem Parkinson's disease (disorder) (59522271) Parkinson disease, symptomatic (G20.A1) Active confirmed Vital Signs Blood pressure systolic 148 mm Hg 11/15/20 24 Blood pressure diastolic 80 mm Hg 024 Heart Rate 56 /min 04/27/2024 Height 68 in 04/27/2024 Weight 189.4 lbs 04/27/2024 BMI 28.80 kg/m2 04/27/2024 Encounters Encounter Location Date Provider Diagnosis [facility] [address] [place] [id number] 04/27/2024 Arie Jennings Essential hypertensi on I10 [...] Nico COHEN DDOB: [birth year] (84 yo M)Acc No.[id number]:04/27/2024 Progress Notes Patient: Nico MCDONOUGH Provider: Gracy Jennings M.D. :1940 A ge:83 Y S ex:Male Date:04/27/2024 Address:[address], [place], [id number] Subjective: * Chief Complaints: * 1 . 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 * Procedure Codes: G2211 Complex e/m visit add on. * Electronic signature of Dana Jennings MD on 04/01/2025 at 01:29 PM EDT Sign off status: Pending * Provider: Gracy Jennings M.D. Date: 06/27/2023 Generated for Evans wilder/Joey/Talonitting on: 01:29 PM EDT History and Physical Notes [...]
--- OUTSIDE RECORDS SUMMARY | 2024-08-02 06:00 | XMS_ITS ---
Author Organization [facility] Address [address] [place] [id number] Care Team Providers Care Elderly Companion Name Role Phone Arie Jennings Primary Care Provider AQUINO, DON Unavailable Unavailable Allergies No Known Allergies Results Component Value Reference Range Notes P-Basic Metabolic Panel (BMP ) Reviewed date:08/03/2024 09:00:31 AM Interpretation:gluc 108, bun 27, gfr 58 Performing Lab: Notes/Report: Test performed by [facility], [employer] [address] [place] [address] , [address], [place] [address] Mina Seals MD, Orthotist/Prosthetist CLIA: [id number] Sodium 143 135-145 mmol/L Potassium 5.0 3.5-5.3 mmol/L Chloride 103 97-108 mmol/L CO2 29 22-32 mmol/L Glucose 108 65-99 mg/dL BUN 27 8-23 mg/dL Creatinine 1.23 0.70-1.30 mg/dL Calcium 9.6 8.6-10.4 mg/dL eGFR by Creatinine 58 >59 mL/min/1.73m2 REASON FOR VISIT 3 week f/u Medications Medication SIG (Take, Route, Frequency, Duration) Notes Start Date End Date Status Rytary 23.75-95 MG 1 cap(s) orally 3 ti mes a day Active Isosorbide Mononitrate ER 60 MG 1 tab(s) orally once a day; Duration: 90 days Active Lovastatin 20 MG 1 tab(s) orally once a day; Duration: 90 days 08/09/2020 Active Aldactone 50 MG 1 tablet Orally Once a day 07/10/2024 Active Irbesartan 300 MG 1 tablet Orally Once a day 06/24/2023 Active Meloxicam 7.5 MG 2 tab(s) orally once a day; Duration: 90 days 05/28/2019 Active Triamcinolone Acetonide 0.1 % 1 sima applied topically 2 times a day 06/10/2022 Active Atenolol 25 MG 1 tab(s) orally once a day Active amLODIPine Besylate 10 MG 1 tablet Orall y Once a day 09/22/2023 Active Problems Problem Type SNOMED Code ICD Code Onset Dates Problem Status W/U Status Risk Notes Problem Disorder of neck (898562734) Disorder of neck (M53.82) Active confirmed Vital Signs Blood pressure systolic 130 mm Hg 08/02/19 25 Blood pressure diastolic 74 mm Hg 025 Heart Rate 65 /min 08/02/2024 Height 68 in 08/02/2024 Weight 188 lbs 08/02/2024 BMI 28.58 kg/m2 08/02/2024 Encounters Encounter Location Date Provider Diagnosis [facility] [address] [place], [place] [id number] 08/02/2024 Arie Jennings Essential hypertensi on I10 Assessments Encounter Date Diagnosis (ICD Code) Assessment Notes Treatment Notes Treatment Clinical Notes Section Notes 08/02/2024 Essential hypertension (ICD-10 - I10) Plan Of Treatment Medication Medication Name Sig Start Date Stop Date Notes Aldactone 50 MG 1 tablet Orally Once a day 07/10/2024 Irbesartan 300 MG 1 tablet Orally Once a day 06/24/2023 Atenolol 25 MG 1 tab(s) orally once a day amLODIPine Besylate 10 MG 1 tablet Orally Once a day 09/21 Next Appt Details Follow Up: as scheduled,and prn, Reason: Progress Notes * Nico OCHEN DDOB: [birth year] (84 yo M)Acc No.[id number]:08/02/2024 Patient: Shantell JENNINico CRAWFORD Carole Provider: Gracy Jennings M.D. :1940 A ge:83 Y S ex:Male Date:08/02/2024 Address:[address] [place] [address] [address], [place], [id number] Subjective: * Chief Complaints: * 1 . 3 week f/u. * HPI: C ardiology: 83 year old male presents with c/o Blood Pressure Elevated P t here for 3 week f/u. Pt started on Aldactone 50 mg 07/10/2024. * ROS: D ERMATOLOGY: no R cindi. 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 Alcohol: no. * Medications: T aking Triamcinolone Acetonide 0.1 % Cream 1 sima applied topically 2 times a day , Taking Meloxicam 7.5 MG Tablet 2 tab(s) orally once a day , Taking Lovastatin 20 MG Tablet 1 tab(s) orally once a day , Taking Isosorbide Mononitrate ER 60 MG Tablet Extended Release 24 Hour 1 tab(s) orally once a day , Taking Rytary 23.75-95 MG Capsule Extended Release 1 cap(s) orally 3 times a day , Taking Atenolol 25 MG Tablet 1 tab(s) orally once a day , Taking amLODIPine Besylate 10 MG Tablet 1 tablet Orally Once a day , Taking Irbesartan 300 MG Tablet 1 tablet Orally Once a day , Taking Aldactone 50 MG Tablet 1 tablet Orally Once a day , Medication List reviewed and reconciled with the patient * Allergies: N .K.D.A. Objective: * Vitals: W t:188, Temp:97.9, BP:130/74, HR:65, Nurse:italia, Ht: 68, BMI:28.58. * Examination: C ardiology: General Appearance: p leasant, NAD. H eart sounds: R RR, normal S1, S2. L ungs: c lear, no rales or wheezes. E xtremities: n o leg edema. Assessment: * Assessment: 1. E ssential hypertension - I10 (Primary) Plan: * Treatment: Value Reference Range B UN 27 H 8-23 - mg/dL * C alcium 9.6 8.6-10.4 - mg/dL * C hloride 103 97-108 - mmol/L * C O2 29 22-32 - mmol/L * C reatinine 1.23 0.70-1.30 - mg/dL * G lucose 108 H 65-99 - mg/dL * P otassium 5.0 3.5-5.3 - mmol/L * S odium 143 135-145 - mmol/L * e GFR by Creatinine 58 L >59 - mL/min/1.73m2 * Jeannie Mai 08/03/2024 9:00: 23 AM >See phone encounter * Procedure Codes: G 2211 Complex e/m visit add on, 3075F SYST BP GE 130 - 139MM HG, 3078F DIAST BP < 80 MM HG * Follow Up: a s scheduled,and prn * Images: Billing Information: * Visit Code: 28238 Office Visit, Est Pt., Level 3. * Procedure Codes: G2211 Complex e/m visit add on. 3075F SYST BP GE 130 - 139MM HG. 3078F DIAST BP < 80 MM HG. * Electronic signature of Dana Jennings MD on 04/01/2025 at 01:28 PM EDT Sign off status: Pending * Provider: Gracy Jennings M.D. Date: 0 08/02/2024 Generated for Evans wilder/Joey/Talonitting on: 1 01:28 PM EDT History and Physical Notes * HPI (History of Present Illness) Category Sub-Category Detail Notes Category Not es Cardiology Blood Pressure Elevated Pt here for 3 week f/u. Pt started on Aldactone 50 mg 07/10/2024 Examination Category Sub-Category Detail Notes Category Not es Cardiology Lungs: clear, no rales or wheezes Heart sounds: RRR, normal S1, S2 Extremities: no leg edema General Appearance: pleasant, NAD
--- OUTSIDE RECORDS SUMMARY | 2024-11-02 05:00 | XMS_ITS ---
Author Organization [facility] Address [address] [place] [id number] Care Team Providers Care Veterinary Nurse Name Role Phone Arie Jennings Primary Care Provider [phone] AQUINO, DON Unavailable Unavailable Allergies No Known [...] 59 Performing Lab: Notes/Report: Test performed by [email or web address] [address] [facility] , [address], [place] [address] Mina Seals MD, Early Intervention Specialist CLIA: [id number] Sodium 141 135-145 mmol/L Potassium 5.3 3.5-5.3 [...] 35 Performing Lab: Notes/Report: Test performed by [facility] [address] [place] [address] , [address], [place] [address] Mina Seals MD, Early Intervention Specialist CLIA: [id number] Cholesterol 142 <200 mg/dL Triglycerides 116 <150 [...] Interpretation:Normal Performing Lab: Notes/Report: Test performed by [facility] [address] [place], [place] [address] [place] , [place] [address] Mina Seals MD, Early Intervention Specialist CLIA: [id number] TSH reflex to FT4 1.54 0.43-5.25 mU/L P-Microalbumin/Creatinine, R andom Urine Sample Reviewed date:11/06/2024 11:56:24 AM Interpretation:Normal Performing Lab: Notes/Report: Test performed by [facility] [address] [place], [place] [address] , [place] [address] Mina Seals MD, Early Intervention Specialist CLIA: [id number] Albumin/Creatinine Ratio, Urine 11 0-30 ug/m g [...] 11/02/2024 Encounters Encounter Location Date Provider Diagnosis [facility] [address] [facility] [address] [place] [phone] 11/02/2024 Arie Jennings Essential hypertensi on I10 [...] Nico COHEN DDOB: [birth year] (84 yo M)Acc No.[id number]:11/02/2024 Progress Notes Patient: Nico MCDONOUGH Provider: Gracy Jennings M.D. :1940 A ge:84 Y S ex:Male Date:11/02/2024 Address:[address] [place] [address] [address], [facility], [id number] Subjective: * Chief Complaints: * 1 . [...] History: T onsillectomy , 2 vessel CABG- [place] 1999, Cataract Removal 2015, Cataract Removal [...] disease, symptomatic - G20.A1 6 . B [place] 28.0-28.9,adult - Z68.28 Plan: * Treatment: Value [...] G 2211 Complex e/[place], [address] GLUCOSE TEST, 65308 GLYCATED HEMOGLOBIN TEST, Modifiers: QW , [address] CBC WITH AUTO DIFF, 3044F HG A1C LEVEL LT 7.0%, 3075F SYST BP GE 130 - 139MM HG, 3078F DIAST BP < 80 MM HG, G8420 BMI<30 AND >=22 CALC & DOCU * Follow Up: 6 Months * Images: Billing Information: * Visit Code: 65542 Office Visit, Est Pt., Level 4. * Procedure Codes: G2211 Complex e/[place]. [address] GLUCOSE TEST. 32785 GLYCATED HEMOGLOBIN TEST. Modifiers: QW 56145 CBC WITH AUTO DIFF. 3044F HG A1C LEVEL LT 7.0%. 3075F SYST BP GE 130 - 139MM HG. 3078F DIAST BP < 80 MM HG. G8420 BMI<30 AND >=22 CALC & DOCU. * Electronic signature of Dana Jennings MD on 04/01/2025 at 01:28 PM EDT Sign off status: Pending * Provider: Gracy Jennings M.D. Date: 0 11/02/2024 Generated for Evans wilder/Joey/Talonitting on: 1 01:28 [...]
--- OUTSIDE RECORDS SUMMARY | 2025-02-21 07:30 | XMS_ITS ---
Author Organization [facility] Address [address] [place] [id number] Care Team Providers Care Security Systems Sales Representative Name Role Phone Arie Jennings Primary Care Provider [phone] AQUINO, DON Unavailable Unavailable Allergies No [...] Interpretation:Normal Performing Lab: Notes/Report: Test performed by [employer] [employer] [facility] , [address], [place] [address] Mina Seals MD, Oven Loader CLIA: [id number] Vitamin B12 6764 117-7448 pg/mL P-Comprehensive Metabolic Pa shari (CMP) Reviewed date:02/22/2025 10:30:36 AM Interpretation:Glu 138, BUN 49, Creat 1.52, eGFR 44 Performing Lab: Notes/Report: Test performed by [facility] [address] [place] [address] , [place] [address] Mina Seals MD, Oven Loader CLIA: [id number] Sodium 141 135-145 mmol/L Potassium 5.3 3.5-5.3 [...] Interpretation:Normal Performing Lab: Notes/Report: Test performed by [employer] [address] [place] [address] , [place] [address] Mina Seals MD, Oven Loader CLIA: [id number] TSH reflex to FT4 1.01 0.43-5.25 mU/L P-Vitamin D 25-Hydroxy Reviewed date:02/22/2025 10:30:36 AM Interpretation:Normal Performing Lab: Notes/Report: Test performed by [facility] [address] [place] [address] , [place] [address] Mina Seals MD, Oven Loader CLIA: [id number] Vitamin D 25-Hydroxy 51.0 30.0-100.0 ng/mL Interpretation [...] 02/21/2025 Encounters Encounter Location Date Provider Diagnosis [facility] [address] [facility] [address], [place] [phone] 02/21/2025 Arie Jennings Acute delirium R41.0 Assessments [...] Nico COHEN DDOB: [birth year] (84 yo M)Acc No.[id number]:02/21/2025 Progress Notes Patient: Nico MCDONOUGH Provider: Gracy Jennings M.D. :1940 A ge:84 Y S ex:Male Date:02/21/2025 Address:[address] [place] [address] [address], [place], [id number] Subjective: * Chief Complaints: * 1 . [...] History: T onsillectomy , 2 vessel CABG- [place] 1999, Cataract Removal 2015, Cataract Removal 05/2019, [...] Treatment: Value Reference Range V itamin B12 6059 203-3012 - pg/mL * Criselda Wayne 02/22/2025 10: [...] G 2211 Complex e/[place], [address] CBC WITH AUTO DIFF, 51077 Urinalysis, no micro, 1036F TOBACCO NON-USER, 3075F SYST BP GE 130 - 139MM HG, 3078F DIAST BP < 80 MM HG * Follow Up: v ia phone to report progress * Images: Billing Information: * Visit Code: 09696 Office Visit, Est Pt., Level 4. * Procedure Codes: G2211 Complex e/[place]. [address] CBC WITH AUTO DIFF. 86200 Urinalysis, no micro. 1036F TOBACCO NON-USER. 3075F SYST BP GE 130 - 139MM HG. 3078F DIAST BP < 80 MM HG. * Electronic signature of Dana Jennings MD on 04/01/2025 at 01:28 PM EDT Sign off status: Pending * Provider: Gracy Jennings M.D. Date: 0 02/21/2025 Generated for Gladysi ng/Ladyg/eTransmitting on: 1 01:28 PM EDT History and [...]
--- OUTSIDE RECORDS SUMMARY | 2025-03-07 06:50 | XMS_ITS ---
Author Organization [facility] Address [address] [facility] [address] [place] [phone] Care Team Providers Care Photovoltaic Subcontractor Name Role Phone Arie Jennings Primary Care Provider [phone] AQUINO, DON Unavailable Unavailable REASON FOR VISIT flu shot Immunizations Vaccine Route Administration Date Status Comme nts Fluzone High Dose (65yr and older) IM Intramuscular 03/07/2025 Administered Encounters Encounter Location Date Provider Diagnosis [place] [address] [facility] [address] [place] [id number] 03/07/2025 Arie Jennings Encounter for immunization Z23 Assessments Encounter Date Diagnosis (ICD Code) Assessment Notes Treatment Notes Treatment Clinical Notes Section Notes 03/07/2025 Encounter for immunization (ICD-10 - Z23) Plan Of Treatment No Information Progress Notes * Nico COHEN DDOB: [birth year] (84 yo M)Acc No.[id number]:03/07/2025 Patient: Shantell Nico CASTRO Provider: Gracy Jennings [...] 0 03/07/2025 Generated for Evans wilder/Joey/Talonitting on: 01:28 PM EDT
--- OUTSIDE RECORDS SUMMARY | 2025-03-11 07:45 | XMS_ITS ---
[facility] [address] [facility] 36 [facility] [address] [place] [id number] Care Team Providers Care Basting Puller Name Role Phone Arie Jennings Primary Care [...] Provider Diagnosis [facility] [address] [facility] [address] [place] [phone] 03/11/2025 Arie Jennings Symptomatic hypotens ion I95.9 [...] 3 Weeks, Reason: Progress Notes * Nico COHEN DDOB: [birth year] (84 yo M)Acc No.[id number]:03/11/2025 Progress Notes Patient: Nico MCDONOUGH Provider: Gracy Jennings M.D. :1940 A ge:84 Y S ex:Male Date:03/11/2025 Address:[address] [place] [address] [address], [facility], [id number] Subjective: * Chief Complaints: * 1 . [...] History: T onsillectomy , 2 vessel CABG- [place] 1999, Cataract Removal 2015, Cataract Removal 05/2019, [...] hypotension - I95.9 (Primary) 2 . B MN 25.0-25.9,adult - Z68.25 Plan: * Treatment: * Procedure Codes: G 2211 Complex e/m visit add on, 1036F TOBACCO NON-USER, G8420 BMI<30 AND >=22 CALC & DOCU, G7691 MOST RECENT SYSTOLIC BP < 140MM HG, G8754 MOST RECENT DIASTOLIC BP < 90MM HG, 3074F SYST BP LT 130 MM HG, 3078F DIAST BP < 80 MM HG * Follow Up: 3 Weeks * Images: Billing Information: * Visit Code: 91415 Office Visit, Est Pt., Level 3. * [...] of Dana Jennings MD on 04/01/2025 at 01:30 PM EDT Sign off status: Pending * Provider: Gracy Jennings M.D. Date: 0 03/11/2025 Generated for Evans wilder/Joey/Talonitting on: 01:30 PM EDT History and Physical Notes * [...]
--- OUTSIDE RECORDS SUMMARY | 2025-03-28 08:56 | XMS_ITS | Encounter Summary ---
Author Organization [facility] Address [address] [place] [address] Care Team Providers Care Wearing Apparel Assembler Name Role Phone Arie Jennings MD Primary Care Provider [phone] Reason for Referral * Imaging (Routine) - Closed Specialty Diagnoses / Procedures Referred By Александр harris Referred To Contact Radiology Diagnoses Mass of right kidney Procedures CT Renal Mass w and wo IV Contrast CT Renal Mass w and wo IV Contrast Mario Bolden MD [address] [address] Phone: tel: fax: Referral ID Status Reason Start Date Expiration Date Visits Re quested Visits Authorized [id number] Closed 09/13/2024 03/15/2026 1 1 Reason for Visit * Imaging (Routine) - Closed Specialty Diagnoses / Procedures Referred By Александр harris Referred To Contact Radiology Diagnoses Mass of right kidney Procedures CT Renal Mass w and wo IV Contrast CT Renal Mass w and wo IV Contrast Mario Bolden MD [address] [address] Phone: tel: fax: Referral ID Status Reason Start Date Expiration Date Visits Re quested Visits Authorized [id number] Closed 09/13/2024 03/15/2026 1 1 Encounter Details Date Type Department Care Team (Latest Contact Info) Description 03/28/2025 8:56 AM EDT - 03/28/2025 11:59 PM EDT Hospital Encounter [facility] CT [address] [place] [address] Mass of right kidney Discharge Disposition: Home or Self Care Social History Tobacco Use Types Packs/Day Years Used Date Smoking Tobacco: Former Cigarettes Passive Smoke Exposure: Never Smokeless Tobacco: Never Alcohol Use Standard Drinks/Week Comments Never 0 (1 standard drink = 0.6 oz pur e alcohol) PHQ-2 Answer Date Recorded Patient Health Questionnaire-2 Score 0 03/28/2025 PHQ-9 Answer Date Recorded Patient Health Questionnaire-9 Score 0 09/13/2024 Sex and Gender Information Value Date Recorded Sex Assigned at Not on file Legal Sex Male 8:31 AM EDT Gender Identity Not on file Sexual Orientation Not on file documented as of this encounter Functional Status * Over the past 2 weeks, how often have you been bothered by any of the following problems? Question Answer Date of Assessment Author Little interest or pleasure in doing things Not at all 03/28/2025 10:09 AM EDT Diana Courtney Feeling down, depressed, or hopeless Not at all 03/28/2025 10:09 AM EDT Diana Courtney Patient Health Questionnaire -2 Score 0 03/28/2025 10:09 AM EDT Diana Courtney documented as of this encounter Medications at Time of Discharge amLODIPine (Norvasc) 5 MG tablet 07/29/2023 atenolol (Tenormin) 25 MG tablet 12/13/2023 Carbidopa-Levodopa (RYTARY PO) Take by mouth 3 (three) times a day. cephalexin (Keflex) 500 MG capsule 03/28/2023 clobetasol (Temovate) 0.05 % cream 03/27/2025 doxycycline (Periostat) 20 MG tablet 03/08/2025 doxycycline (Vibramycin) 100 MG capsule 12/18/2023 irbesartan (Avapro) 300 MG tablet 11/29/2023 isosorbide mononitrate ER (Imdur) 60 MG 24 hr tablet 12/13/2023 lovastatin (Mevacor) 20 MG tablet 12/23/2023 meloxicam (Mobic) 7.5 MG tablet 12/23/2023 multivitamin-forest examiner als-folic acid-coenzyme q10 (Preservision AREDS 2) capsule Take 1 capsule by mouth daily. spironolactone (Aldactone) 50 MG tablet 02/17/2025 traMADol (Ultram) 50 MG tablet documented as of this encounter Miscellaneous Notes * Darshan Blount L - 03/28/2025 8:57 AM EDT Images from the original note were not included. 1634 Caring for Yourself after Contrast Imaging If you had ORAL contrast: ? You can go back to your normal diet and activities as tolerated. ? Drink plenty of fluids, unless told otherwise. If you had IV contrast: ? You can go back to your normal diet and activities as tolerated. ? Drink plenty of fluids, unless told otherwise. ? Leave a bandage on the site for 30 minutes (where the IV was inserted or blood was drawn). If you had Intravesical (bladder) contrast: ? Return to normal diet and activity. What you need to know about delayed reaction to IV contrast What is IV Contrast? ? Contrast is a dye that is put into your body through an IV. ? It is used for imaging scans such as CT scans and MRIs. ? The contrast makes blood vessels, organs and other parts of your body show up better on the scan. What do I need to do after IV contrast? ? Drink lots of fluids. This will help flush the contrast out of your system. ? Drink 2-3 extra glasses or bottles of water within 4 hours of your scan. What is a contrast reaction? ? A contrast reaction is a bad side effect from the contrast dye. ? It is rare but it does happen. ? They can be mild - such as sneezing, itching, or hives. ? They can be severe - such as trouble breathing, throat swelling, and irregular heart beat. When do these reactions happen? ? They often happen right after the contrast is injected. ? Some happen hours after going home. Go to the nearest Emergency Department right away if you have any of these symptoms after you leavethe clinic or hospital. ? Sneezing ? Itching in your mouth, throat, eyes, ears, or skin ? Rash or hives ? Throwing up or stomach sickness ? High heart rate or ?racing? of your heart ? Feeling dizzy or woozy ? Feeling short of breath or like you can?t take a deep breath ? Feeling very anxious for no other reason It is very important that these reactions be treated. Tell the doctor or nurse that you are having a reaction to IV contrast dye. Do not ignore any sign of a reaction! All reactions must be assessed by a doctor. Call 911 if you are alone and your reaction is more than mild sneezing or itching. If you have a mild reaction, call to speak with a Radiologist, explain that you havehad a contrast reaction, as this needs to be added to your medical record. documented in this encounter Plan of Treatment Upcoming Encounters Date Type Department Care Team (Late st Contact Info) Description 03/27/2026 9:45 AM EDT Appointment [facility] Ultrasound [address], [address] [place] [address] 03/27/2026 11:00 AM EDT Office Visit Medical Office Building Urology [address] [facility], [address] [place] [address] Mario Bolden MD [address] [place] [address] documented as of this encounter Procedures Procedure Name Priority Date/Time Associated Diagnosis Comments CT RENAL MASS W AND WO IV CONTRAST Routine 03/28/2025 9:29 AM EDT Mass of right kidney documented in this encounter Results * CT Renal Mass w and wo IV Contrast (03/28/2025 9:29 AM EDT) Anatomical Region Laterality Modality Kidney Computed Tomogra phy Impressions 03/28/2025 10:34 AM EDT Stable 2 cm partially exophytic enhancing mass in the superior pole of the right kidney representing a primary renal neoplasm such as RCC. No evidence of metastatic disease . Patent renal vasculature in the IVC. No metastatic retroperitoneal adenopathy. CRITICAL RESULT: No. COMMUNICATION: Per this written report. Drafted by Ermelinda Ling MD on 03/28/2025 10:32 AM Final report signed by Ermelinda Ling MD on 03/28/2025 10:34 AM Narrative 03/28/2025 10:34 AM EDT CLINICAL INDICATION: Right renal mass TECHNIQUE: Multiple pre-contrast axial CT images were obtained from lower chest through upper pelvis, followed by multiple axial CT images of the abdomen following the administration of IV contrast, Omnipaque 300, 100 mL. Images were obtained in the corticomedullary and excretory phases. Reformatted images in the coronal and sagittal planes were generated from the axial data set to facilitate diagnostic accuracy. Total DLP (Dose-Length Product): 1718.13 mGy.cm. Please note: The reported value represents the total of one or more individual components during the CT acquisition on this date and at this time, and as such, the same value may appear in more than one CT report depending on the interpreting/reporting physicians. COMPARISON: CT scan of the abdomen 09/13/2024, 01/24/[address] abdomen and pelvis, 12/28/[address] abdomen and pelvis FINDINGS: Kidneys: Redemonstration of approximately 2 cm enhancing mass in the superior pole of the right kidney abutting the posterior liver which is unchanged in size and appearance compared to the prior study (series 10 image 37). Unchanged bilateral parapelvic cysts. No hydronephrosis. Similar bilateral cortical atrophy. 2 mm punctate nonobstructing calculus in the inferior pole of the left kidney (series 4, image 111). Remaining Solid Abdominal Organs: Homogenous liver enhancement. Unremarkable gallbladder. The right hemiliver extends through the diaphragmatic hernia into the thoracic cavity. Unremarkable gallbladder. No bile duct dilatation. Unremarkable pancreas. Unremarkable spleen. Unremarkable adrenal glands. GI Tract/Mesentery/Peritoneum: Visualized large and small bowel are normal in caliber. Right hemicolon and cecum located within diaphragmatic hernia. Unremarkable appendix. No obstruction. No suspicious peritoneal or mesenteric findings. Free Fluid: None Lymph Nodes and Vasculature: No lymphadenopathy by CT size criteria. Visualized abdominal aorta is normal in caliber with moderate atherosclerotic plaque. Patent portal and hepatic vasculature. Patent renal vasculature in the IVC. Musculoskeletal and Body Wall: No aggressive osseous or body wall lesion. Median sternotomy wires are noted. Multilevel degenerative changes in the spine. Lower Chest: No suspicious pulmonary nodules. Redemonstrated elevated right hemidiaphragm and diaphragmatic hernia, with portions of the right hemiliver, colon, right adrenal gland and right kidney located within the thoracic cavity. Coronary artery calcifications. Right lower lobe atelectasis. Procedure Note Ermelinda Ling MD - 03/28/2025 CLINICAL INDICATION: Right renal mass TECHNIQUE: Multiple pre-contrast axial CT images were obtained from lower chestthrough upper pelvis, followed by multiple axial CT images of the abdomenfollowing the administration of IV contrast, Omnipaque 300, 100 mL. Imageswere obtained in the corticomedullary and excretory phases. Reformattedimages in the coronal and sagittal planes were generated from the axialdata set to facilitate diagnostic accuracy. Total DLP (Dose-Length Product): 1718.13 mGy.cm. Please note: The reportedvalue represents the total of one or more individual components during theCT acquisition on this date and at this time, and as such, the same valuemay appear in more than one CT report depending on theinterpreting/reporting physicians. COMPARISON: CT scan of the abdomen 09/13/2024, 01/24/[address] abdomen and pelvis,12/28/[address] abdomen and pelvis FINDINGS: Kidneys: Redemonstration of approximately 2 cm enhancing mass in thesuperior pole of the right kidney abutting the posterior liver which isunchanged in size and appearance compared to the prior study (series 10image 37). Unchanged bilateral parapelvic cysts. No hydronephrosis.Similar bilateral cortical atrophy. 2 mm punctate nonobstructing calculusin the inferior pole of the left kidney (series 4, image 111). Remaining Solid Abdominal Organs: Homogenous liver enhancement.Unremarkable gallbladder. The right hemiliver extends through thediaphragmatic hernia into the thoracic cavity. Unremarkable gallbladder.No bile duct dilatation. Unremarkable pancreas. Unremarkable spleen.Unremarkable adrenal glands. GI Tract/Mesentery/Peritoneum: Visualized large and small bowel are normalin caliber. Right hemicolon and cecum located within diaphragmatic hernia.Unremarkable appendix. No obstruction. No suspicious peritoneal ormesenteric findings. Free Fluid: None Lymph Nodes and Vasculature: No lymphadenopathy by CT size criteria.Visualized abdominal aorta is normal in caliber with moderateatherosclerotic plaque. Patent portal and hepatic vasculature. Patentrenal vasculature in the IVC. Musculoskeletal and Body Wall: No aggressive osseous or body wall lesion.Median sternotomy wires are noted. Multilevel degenerative changes in thespine. Lower Chest: No suspicious pulmonary nodules. Redemonstrated elevatedright hemidiaphragm and diaphragmatic hernia, with portions of the righthemiliver, colon, right adrenal gland and right kidney located within thethoracic cavity. Coronary artery calcifications. Right lower lobeatelectasis. IMPRESSION: Stable 2 cm partially exophytic enhancing mass in the superior pole of theright kidney representing a primary renal neoplasm such as RCC. Noevidence of metastatic disease . Patent renal vasculature in the IVC. No metastatic retroperitonealadenopathy. CRITICAL RESULT: No. COMMUNICATION: Per this written report. Drafted by Ermelinda Ling MD on 03/28/2025 10:32 AM Final report signed by Ermelinda Ling MD on 03/28/2025 10:34 AM Mario Bolden MD IMG CT PROCEDURES Final Result documented in this encounter Visit Diagnoses Diagnosis Mass of right kidney documented in this encounter Administered Medications Inactive Administered Medications - up to 3 most recent administrations Medication Order MAR Action Action Date Dose Rate Site iohexol (OMNIPaque) 300 MG/ML injection 100 mL 100 mL, Intravenous, Once in imaging, 1 dose, Starting on Sara 03/28/25 at 0857, Until Sara 03/28/25 at 0918, Routine, Imaging Protocol Orders Given 03/28/2025 9:18 AM EDT 100 mL documented in this encounter Additional Health Concerns Assessment Noted Time PHQ-9 Depression Total Score: 0 09/14/19 25 9:53 AM EDT A fall risk assessment has been complete d for the patient 03/28/2025 10:08 AM EDT A Body Mass Index follow-up plan has been documented for the patient 03/28/2025 11:08 AM EDT documented as of this encounter Care Teams Wearing Apparel Assembler Relationship Specialty Start Date End Date Arie Jennings MD [address] [place] [address] PCP - General 01/02/24 documented as of this encounter
--- OUTSIDE RECORDS SUMMARY | 2025-03-28 11:00 | XMS_ITS | Encounter Summary ---
Author Organization [facility] Address [address] [place] [address] Care Team Providers Care Director Corporate Communications Name Role Phone Arie Jennings MD Primary Care Provider [phone] Reason for Referral * Imaging (Routine) - Authorized Specialty Diagnoses / Procedures Referred By Александр harris Referred To Contact Radiology Diagnoses Mass of right kidney Procedures US Renal Complete Mario Bolden MD [address] [address] Phone: tel: fax: Referral ID Status Reason Start Date Expiration Date V isits Requested Visits Authorized [id number] Authorized 03/28/2025 09/27/2026 1 1 Reason for Visit * Reason Comments Follow-up Encounter Details Date Type Department Care Team ([facility] Contact Info) Description 03/28/2025 11:00 AM EDT Office Visit Medical Office Building Urology [address] [facility], [address] [place] [address] Mario Bolden MD [address] [address] Mass of right kidney (Primary [...] Rivers MD - 03/28/2025 11:00 AM EDT [facility]rology Clinic Note 03/28/25 CC: Nephrolithiasis, small [...] Info) Description 03/27/2026 9:45 AM EDT Appointment [facility] Ultrasound [address] [place] [address] 03/27/2026 11:00 AM EDT Office Visit Medical Office Building Urology [address] [facility], [address] [place] [address] Mario Bolden MD [address] [place] [address] Scheduled Orders Name Type Priority Associated Diagnoses [...] documented as of this encounter Care Teams Director Corporate Communications Relationship Specialty Start Date End Date Arie Jennings MD [address] [place] [address] PCP - General 01/02/24 documented as of this encounter
--- NOTE | 2025-04-01 13:19 | XR_ITS ---
FINAL REPORT CLINICAL HISTORY: lbp FINDINGS: LUMBAR SPINE AP and lateral views were obtained. There is no acute fracture. There is severe spondylosis and diffuse degenerative disc disease. There is advanced facet arthropathy with probable canal stenosis and neuroforaminal narrowing of the lower lumbar spine. Vertebrae are normal height. Prevertebral soft tissues are unremarkable. IMPRESSION: Advanced degenerative changes without acute bony abnormality. Reviewed, Interpreted and Dictated by Alcon Gale MD Transcribed by Teena Daly Authenticated and [facility]
--- OUTSIDE RECORDS SUMMARY | 2025-04-01 13:28 | XMS_ITS | Encounter Summary ---
Author Organization Healthcare Address [address] [place] [address] Care Team Providers Care Correctional Cook Name Role Phone Arie Jennings MD Primary Care Provider [phone] Encounter Details Date Type Department Care Team (Latest Contact Info) Description 03/28/2025 Travel Social History Tobacco Use Types Packs/Day [...] Diana Courtney documented as of this encounter Plan of Treatment Upcoming Encounters Date Type Department Care Team (Late st Contact Info) Description 03/27/2026 9:45 AM EDT Appointment [facility] Ultrasound [address] [place] [address] 03/27/2026 11:00 AM EDT Office Visit Medical Office Building Urology [address] [facility], [address] [place] [address] Mario Bolden MD [address] [place] [address] documented as of this encounter [...] documented as of this encounter Care Teams Correctional Cook Relationship Specialty Start Date End Date Arie Jennings MD [address] [facility] [address] [place] [address] PCP - General 01/02/24 documented as of this encounter
--- OUTSIDE RECORDS SUMMARY | 2025-04-01 13:28 | XMS_ITS | Clinical Summary ---
Author Organization [facility] Address [address] [place] [address] Care Team Providers Care Pharmaceutical Process Engineer Name Role Phone Arie Jennings MD Primary Care Provider + [phone] Allergies Active Allergy Reactions Criticality Noted Date Comments Amlodipine Hallucinations Medium 03/28/2025 Medications atenolol (Tenormin) 25 MG tablet 12/13/2023 Active cephalexin (Keflex) 500 MG capsule 03/28/2023 Active doxycycline (Vibramycin) 100 MG capsule 12/18/2023 Active amLODIPine (Norvasc) 5 MG tablet 07/29/2023 Active irbesartan (Avapro) 300 MG tablet 11/29/2023 Active isosorbide mononitrate ER (Imdur) 60 MG 24 hr tablet 12/13/2023 Active lovastatin (Mevacor) 20 MG tablet 12/23/2023 Active meloxicam (Mobic) 7.5 MG tablet 12/23/2023 Active Carbidopa-Levodo pa (RYTARY PO) Take by mouth 3 (three) times a day. Active clobetasol (Temovate) 0.05 % cream 03/27/2025 Active spironolactone (Aldactone) 50 MG tablet 02/17/2025 Active traMADol (Ultram) 50 MG tablet Active doxycycline (Periostat) 20 MG tablet 03/08/2025 Active multivitamin-min erals-folic acid-coenzyme q10 (Preservision AREDS 2) capsule Take 1 capsule by mouth daily. Active Active Problems Problem Noted Date Diagnosed Date Benign localized prostatic h yperplasia with lower urinary tract symptoms (LUTS) 01/02/2024 Coronary artery disease 01/02/2024 Finger laceration 01/02/2024 Hyperlipidemia 01/02/2024 Hypertension 01/02/2024 Primary osteoarthritis of right knee 01/02/2024 S/P total knee arthroplasty 01/02/2024 Encounters Date Type Department Care Team Description 03/28/2025 11:00 AM EDT Office Visit Medical Office Building Urology [address] [facility], [address] [place] [address] Mario Bolden MD Mass of right kidney (Primary Dx) 03/28/2025 8:56 AM EDT - 03/28/2025 11:59 PM EDT Hospital Encounter [facility] [place] [address] [place] [address] Mass of right kidney Discharge Disposition: Home or Self Care 03/28/2025 Travel from Last 3 Months Immunizations Immunization Administration Dates Next Due Hep B, adult 01/09/2002,07/11/2001,05/09/2001 Influenza, high-dose, quadrivalent 02/25,03/09/2021,04/01/2020,05/23/20 19,05/11/2018,06/07/2017 Pneumococcal 20-wendy Conj Vaccine 03/28/2023 Tdap 10/10/2017 Family History Medical History Relation Name Comments Diabetes Brother Diabetes Father Relation Name Status Comments Brother Father Social History Tobacco Use Types Packs/Day Years Used Date Smoking Tobacco: Former Cigarettes Passive Smoke Exposure: Never Smokeless Tobacco: Never Tobacco Cessation:Counseling Given: Not Answered Alcohol Use Standard Drinks/Week Comments Never 0 [...] Pulse 58 03/28/2025 9:54 AM EDT Temperature 36.7 C (98.1 F) 09/13/2024 9:51 AM EDT Respiratory Rate 16 03/08/2024 7:56 AM EDT Oxygen Saturation 96% 03/28/2025 9:54 AM EDT Inhaled Oxygen Concentration - - Weight 86.2 kg (190 lb) 03/28/2025 9:54 AM EDT Height 175.3 cm (5' 9 ) 03/28/2025 9:54 AM EDT Body Mass Index 28.06 03/28/2025 9:54 AM EDT Plan of Treatment Upcoming Encounters Date Type Department Care Team (Late st Contact Info) Description 03/27/2026 9:45 AM EDT Appointment [facility] Ultrasound [address] [place] [address] 03/27/2026 11:00 AM EDT Office Visit Medical Office Building Urology [address] [facility], [address] [place] [address] Mario Bolden MD [address] [place] [address] Health Maintenance Due Date Last Done Comments [facility]-Medicare Annual Wellness (AWV) 1940 [facility]-/Child/Adol SDOH Screenings 1940 [facility]- SDOH Screenings 1957 [facility]-Adult SDOH Screenings 1958 [facility]-Zoster Vaccines (1 of 2) 1989 [facility]-RSV Vaccine: 60+ Years or (1 - 1-dose 75+ series) 2014 [facility]-[id number]-80 Vaccine ( - season) 2025 08/20/2020, 07/23/2020 [facility]-Depression Screening 03/28/2026 03/28/2025, 04/0 08/2024 [facility]-DTaP,Tdap,and Td Vaccines (2 - Td or Tdap) 10/11/2027 10/10/2017 [facility]-Pneumococcal Vaccine: 50+ Years Completed 03/28/2023, 03/18/2016, 07/23/2013 [facility]-Influenza Vaccine Completed 03/07/2025 , 02/25/2022, 03/09/2021, Additional history exists [facility]-Obesity Intervention Completed 025, 09/13/2024, 03/08/2024, Additional history exists HPV Vaccines Aged Out No longer eligi ble based on patient's age to complete this topic [facility]-HIB Vaccines Aged Out No longer e [...] on patient's age to complete this topic Procedures Procedure Name Priority Date/Time Associated Diagnosis Comments CT RENAL MASS W AND WO IV CONTRAST Routine 03/28/2025 9:29 AM EDT Mass of right kidney from Last 3 Months Results * CT Renal Mass w and [...] Bolden MD IMG CT PROCEDURES Final Result from Last 3 Months Insurance MEDICARE [facility] Care Teams Pharmaceutical Process Engineer Relationship Specialty Start Date End Date Arie Jennings MD [address] [facility] [address], [place] [address] PCP - General 01/02/24
--- OUTSIDE RECORDS SUMMARY | 2025-04-01 13:29 | XMS_ITS | Encounter Summary ---
Author Organization Healthcare Address [address] [place] [address] Care Team Providers Care Nursery School Teacher Name Role Phone Arie Jennings MD Primary Care Provider [phone] Encounter Details Date Type Department Care Team (Late Contact Info) Description 12/28/2023 Orders Only External Location [address] [place] [address] Sheldon Barrios MD [address] [facility] [address] [place] [address] Social History Tobacco Use Types [...] Info) Description 03/27/2026 9:45 AM EDT Appointment [facility] Ultrasound [address] [place] [address] 03/27/2026 11:00 AM EDT Office Visit Medical Office Building Urology [address] [facility], [address] [place] [address] Mario Bolden MD [address] [place] [address] documented as of this encounter Procedures Procedure Name Priority Date/Time Associated Diagnosis Comments CT OUTSIDE IMAGES 12/28/2023 8:25 PM EDT documented in this encounter Results * CT OUTSIDE IMAGES (12/28/2023 8:25 PM EDT) Anatomical Region Laterality Modality Computed Tomogra phy 12/28/2023 8:25 PM EDT Sheldon Barrios MD IMG CT PROCEDURES Final Result documented in this encounter Visit Diagnoses Not on filedocumented in this encounter Care Teams Nursery School Teacher Relationship Specialty Start Date End Date Arie Jennings MD [facility] [place] [address] PCP - General 01/02/24 documented as of this encounter
--- OUTSIDE RECORDS SUMMARY | 2025-04-01 13:30 | XMS_ITS | Patient Health Record ---
Author Organization [facility] Address [address] [place] [id number] Care Team Providers Care Planning Management It Specialist Name Role Phone Dick Arie Primary Care Provider [phone] EMILIA AQUINO Unavailable Unavailable Allergies No Known Allergies Results Component Value Reference Range Notes P-Basic Metabolic Panel (BMP ) Reviewed date:08/03/2024 09:00:31 AM Interpretation:gluc 108, bun 27, gfr 58 Performing Lab: Notes/Report: Test performed by [facility], [employer] [address] [place] [address] , [address], [place] [address] Mina Seals MD, Cap And Stud Machine Operator CLIA: [id number] Sodium 143 135-145 mmol/L Potassium 5.0 3.5-5.3 mmol/L Chloride 103 97-108 mmol/L CO2 29 22-32 mmol/L Glucose 108 65-99 mg/dL BUN 27 8-23 mg/dL Creatinine 1.23 0.70-1.30 mg/dL Calcium 9.6 8.6-10.4 mg/dL eGFR by Creatinine 58 >59 mL/min/1.73m2 Glucose (In-House) Reviewed date:11/06/2024 11:56:24 AM Interpretation:136 [...] 59 Performing Lab: Notes/Report: Test performed by [facility] [address] [place], [place] [address] [place] , [address], [place] [address] Mina Seals MD, [employer] And Stud Machine Operator CLIA: [id number] Sodium 141 135-145 mmol/L Potassium 5.3 3.5-5.3 [...] 35 Performing Lab: Notes/Report: Test performed by [facility] [address] [place], [place] [address] [address] , [address], [place] [address] Mina Seals MD, Cap And Stud Machine Operator CLIA: [id number] Cholesterol 142 <200 mg/dL Triglycerides 116 <150 [...] Interpretation:Normal Performing Lab: Notes/Report: Test performed by [facility], [address] , [address], [place] [address] Mina Seals MD, Cap And Stud Machine Operator CLIA: [id number] TSH reflex to FT4 1.54 0.43-5.25 mU/L P-Microalbumin/Creatinine, R andom Urine Sample Reviewed date:11/06/2024 11:56:24 AM Interpretation:Normal Performing Lab: Notes/Report: Test performed by [facility] [address] [place] [address] , [address], [place] [address] Mina Seals MD, Cap And Stud Machine Operator CLIA: [id number] Albumin/Creatinine Ratio, Urine 11 0-30 ug/mg Microalbumin, Urine, Random 0.9 Creatinine, Urine 82.9 Urinalysis - Inhouse Reviewed date:02/22/2025 10:30:36 AM [...] Interpretation:Normal Performing Lab: Notes/Report: Test performed by [facility] [address] [place] [address] , [address], [place] [address] Mina Seals MD, [employer] And [employer] Machine Operator CLIA: [id number] Vitamin B12 4960 006-9865 pg/mL P-Comprehensive Metabolic Pa shari (CMP) Reviewed date:02/22/2025 10:30:36 AM Interpretation:Glu 138, BUN 49, Creat 1.52, eGFR 44 Performing Lab: Notes/Report: Test performed by [facility] [address] [place] [address] , [place] [address] Mina Seals MD, [employer] And [employer] Machine Operator CLIA: [id number] Sodium 141 135-145 mmol/L Potassium 5.3 3.5-5.3 [...] Interpretation:Normal Performing Lab: Notes/Report: Test performed by [facility] [address] [place] [address] [place] [address] Mina Seals MD, [employer] And [employer] Machine Operator CLIA: [id number] TSH reflex to FT4 1.01 0.43-5.25 mU/L P-Vitamin D 25-Hydroxy Reviewed date:02/22/2025 10:30:36 AM Interpretation:Normal Performing Lab: Notes/Report: Test performed by [facility] [address] [place] [address] , [place] [address] Mina Seals MD, [employer] And [employer] Machine Operator CLIA: [id number] Vitamin D 25-Hydroxy 51.0 30.0-100.0 ng/mL Interpretation of Vitamin D 25 OH: < 20 ng/mL - Deficiency 20 - 29 ng/mL - Insufficiency 30 - 100 ng/mL - Sufficiency > 100 ng/mL - Super-therapeutic- toxicity may occur above this level. Clinical correlation required. Reason For Referral No Information Medications Medication SIG (Take, Route, Frequency, Duration) Notes Start Date End Date Status Rytary 23.75-95 MG 1 cap(s) orally 3 ti mes a day Active Aldactone 50 MG 1 tablet Orally Once a day; Duration: 90 days Active Triamcinolone Acetonide 0.1 % 1 sima applied topically 2 times a day 06/10/2022 Active traMADol HCl 50 MG 1 tablet Orally every 8 hrs As needed 04/01/2025 Active Isosorbide Mononitrate ER 60 MG 1 tablet in the morning Orally Once a day; Duration: 90 days Active Irbesartan 300 MG 1 tablet Orally Once a day; Duration: 90 days Active Meloxicam 7.5 MG 2 tablets Orally Onc e a day; Duration: 90 days Active Lovastatin 20 MG 1 tab(s) orally once a day; Duration: 90 days Active Atenolol 25 MG 1 tab(s) orally once a day; Duration: 90 days Active Immunizations Vaccine Route Administration Date Status Comme nts COVID 19 Moderna Unknown 07/23/2020 Administered COVID 19 Moderna Unknown 08/20/2020 Administered Fluzone High Dose (65yr and older) IM Intramuscular 03/18/2014 Administered Fluzone High Dose (65yr and older) IM Intramuscular 04/15/2015 Administered Fluzone High Dose (65yr and older) IM Intramuscular 03/18/2016 Administered Fluzone High Dose (65yr and older) IM Intramuscular 06/07/2017 Administered Fluzone High Dose (65yr and older) IM Intramuscular 05/11/2018 Administered Fluzone High Dose (65yr and older) IM Intramuscular 05/23/2019 Administered Fluzone High Dose (65yr and older) IM Intramuscular 04/01/2020 Administered Fluzone High Dose (65yr and older) IM Intramuscular 03/09/2021 Administered Given by Dia Schumacher Fluzone High Dose (65yr and older) IM Intramuscular 02/25/2022 Administered Fluzone High Dose (65yr and older) IM Intramuscular 03/28/2023 Administered Fluzone High Dose (65yr and older) IM Intramuscular 04/27/2024 Administered Fluzone High Dose (65yr and older) IM Intramuscular 03/07/2025 Administered Hepatitis B (20 and more) Unknown 05/09/2001 Administered Hepatitis B (20 and more) Unknown 07/11/2001 Administered Hepatitis B (20 and more) Unknown 01/09/2002 Administered PNEUMOVAX 23 VACCINE IM Intramuscular 03/18/2016 Administered Prevnar (PCV13) IM Intramuscular 07/23/2013 Administered Prevnar (PCV20) IM Intramuscular 03/28/2023 Administered Tetanus Tdap-Adacel (over 7yrs) IM Intramuscular 10/10/2017 Administered xFluzone-trivalent -medicare pts. IM Intramuscular 07/23/2013 Administered Problems Problem Type SNOMED Code ICD Code Onset Dates Problem Status W/U Status Risk Notes Problem Essential hypertension (97960687) Essential hypertension (I10) Active confirmed Problem Arthropathy of lumba r facet joint (043986539) Lumbar facet arthropathy (M47.816) Active confirmed Problem Parkinson's disease (46672370) Parkinson's disease (G20) Active confirmed Problem Degeneration of lumbar intervertebral disc (63083477) Lumbar degenerative disc disease (M51.36) Active confirmed Problem Chronic pain (70994059) Other chronic pain (G89.29) Active confirmed Problem Atherosclerotic hear t disease of [place] coronary artery without angina pectoris (497950169187798) Coronary artery disease involving [place] coronary artery of [place] heart without angina pectoris (I25.10) Active confirmed Problem Derangement of knee (28664595) Internal derangement of knee, right (M23.91) Active confirmed Problem Disorder of neck (802306284) Disorder of neck (M53.82) Active confirmed Problem Benign prostatic hypertrophy without outflow obstruction (767053345) Benign prostatic hyperplasia, presence of lower urinary tract symptoms unspecified, unspecified morphology (N40.0) Active confirmed Problem Impaired fasting glycaemia (959579054) IFG (impaired fasting glucose) (R73.01) Active confirmed Problem Pharyngeal dysphagia (33467245988029) Pharyngeal dysphagia (R13.13) Active confirmed Problem Pure hypercholesterolemia (815722337) Pure hypercholesterolemia (E78.00) Active confirmed Problem Oropharyngeal dysphagia (23773008) Oropharyngeal dysphagia (R13.12) Active confirmed Problem Arthritis of right knee (4817750363231356) Arthritis of right knee (M17.11) Active confirmed Problem Mild cognitive disorder (867181263) MCI (mild cognitive impairment) (G31.84) Active confirmed Problem Primary hypertension (72693170) Primary hypertension (I10) Active confirmed Problem Disorder of urinary bladder (23416944) Bladder wall thickening (N32.89) Active confirmed Problem Parkinson's disease (disorder) (41170083) Parkinson disease, symptomatic (G20.A1) Active confirmed Vital Signs Heart Rate 65 /min 04/01/2025 Blood pressure diastolic 78 mm Hg 04/01/2025 Height 68 in 04/01/2025 Blood pressure systolic 132 mm Hg 04/01/2025 Weight 191.0 lbs 04/01/2025 BMI 29.04 kg/m2 04/01/2025 Encounters Encounter Location Date Provider Diagnosis [facility] [address] [place] [id number] 04/27/2024 Arie Leeds Essential hypertensi on I10 ; Parkinson disease, symptomatic G20.A1 and Encounter for immunization Z23 [facility] [address] [place], [place] [id number] 08/02/2024 Arie Leeds Essential hypertensi on I10 [facility] [address] [place] [id number] 11/02/2024 Arie Leeds Essential hypertensi on I10 ; Pure hypercholesterolemia E78.00 ; IFG (impaired fasting glucose) R73.01 ; Folliculitis L73.9 ; Parkinson disease, symptomatic G20.A1 and BMI 28.0-28.9,adult Z68.28 [facility] [address] [place] [id number] 02/21/2025 Arie Leeds Acute delirium R41.0 [facility] [address] [place] [id number] 03/07/2025 Arie Leeds Encounter for immuni zation Z23 [facility] [address] [facility] [address] [place] [id number] 03/11/2025 Arie Leeds Symptomatic hypotens ion I95.9 and BMI 25.0-25.9,adult Z68.25 [facility] [address] [facility] [address] [place] [id number] 04/01/2025 Arie Leeds Essential hypertensi on I10 ; Low back pain, unspecified M54.50 and Other chronic pain G89.29 [facility] [address] [facility] [address] [place] [id number] 06/28/2024 Arie Leeds Essential hypertensi on I10 [facility] [address] [place] [id number] 07/09/2024 Arie Leeds Essential hypertensi on I10 [facility] [address] [place] [id number] 07/10/2024 Arie Leeds [facility] [address] [place] [id number] 07/19/2024 Arie Leeds [facility] [address] [place] [id number] 08/03/2024 Arie Leeds [facility] [address] [place] [id number] 08/25/2024 Arie Leeds Essential hypertensi on I10 [facility] [address] [place] [id number] 11/06/2024 Arie Leeds [facility] [address] [place] [id number] 11/23/2024 Arie Leeds [facility] [address] [place] [id number] 02/22/2025 Arie Leeds Assessments Encounter Date Diagnosis (ICD Code) Assessment Notes Treatment Notes Treatment Clinical Notes Section Notes 04/27/2024 Parkinson disease, symptomatic (ICD-10 - G20.A1) 06/28/2024 Essential hypertensi on (ICD-10 - I10) 07/09/2024 Essential hypertensi on (ICD-10 - I10) 08/02/2024 Essential hypertensi on (ICD-10 - I10) 08/25/2024 Essential hypertensi on (ICD-10 - I10) 11/02/2024 Essential hypertensi on (ICD-10 - I10) 04/27/2024 Essential hypertensi on (ICD-10 - I10) 02/21/2025 Acute delirium (ICD- 10 - R41.0) Seems to be due to a side effect of Baclofen. Will stop it now. 03/07/2025 Encounter for immunization (ICD-10 - Z23) 03/11/2025 BMI 25.0-25.9,adult (ICD-10 - Z68.25) 03/11/2025 Symptomatic hypotens ion (ICD-10 - I95.9) Blood pressure journal 04/01/2025 Essential hypertensi on (ICD-10 - I10) 11/02/2024 Pure hypercholesterolemia (ICD-10 - E78.00) 04/01/2025 Low back pain, unspecified (ICD-10 - M54.50) 04/01/2025 Other chronic pain (ICD-10 - G89.29) 04/27/2024 Encounter for immunization (ICD-10 - Z23) 11/02/2024 IFG (impaired fastin g glucose) (ICD-10 - R73.01) 11/02/2024 Folliculitis (ICD-10 - L73.9) 11/02/2024 Parkinson disease, symptomatic (ICD-10 - G20.A1) 11/02/2024 BMI 28.0-28.9,adult (ICD-10 - Z68.28) Plan Of Treatment No Information Insurance Providers Payer Name Payer Address Payer Phone Subscriber Number Group Number Insured Name Patient Relationship to Insured Coverage Start Date Coverage End Date MEDICARE PART B [address] [address] [place] [id number] Nico Cohen Self - patient is the insured [address] [address] [id number] Nico Cohen Self - patient is the insured Medications Administered Medication Instructions Date of Administration Dosage Notes Dexamethasone 10/12/2013 1 mL TORADOL INJECTION 05/31/2018 40 mg Medical (General) History Medical History History ICD Code Coronary Artery Disease Hypercholestrolemia Benign Prostatic Hyperplasia Impaired Fasting Glucose Osteoarthritis Parkinson's Disease RT Leg DVT, post op December 2021 Lumbar Disc Disease Lumbar facet arthropathy Spinal Stenosis, L-spine MRI 2017 Surgical History Surgery Date(Month/Year) Tonsillectomy 2 vessel CABG- [facility] 1999 Cataract Removal 2016 Cataract Removal 05/2019 TURP 09/2021 RT Knee Total Ostoplasty 12/2021 Hospitalization History Reason Date(Month/Year)
== END 2025-04-01 23:59 | disposition home or self-care (01) ==
LOC: RAD 13:17
PROVIDERS: PCP Family Medicine; Visit Provider Nurse Practitioner Family
DX: M47.816 Spondylosis without myelopathy or radiculopathy, lumbar region (principal); M51.369 Other intervertebral disc degeneration, lumbar region without mention of lumbar back pain or lower extremity pain
CPT/HCPCS: 72100

== ENCOUNTER 2025-04-10 06:53 | Outpatient (CLI) | payer MEDICARE, SELFPAY ==
--- OUTSIDE RECORDS SUMMARY | 2023-10-28 05:30 | XMS_ITS ---
[facility] Address [address] [place] [id number] Care Team Providers Care Superintendent Mechanical Name Role Phone Arie Jennings Primary Care Provider EMILIA AQUINO Unavailable Unavailable Allergies No Known Allergies REASON FOR VISIT 2 Month Follow Up Medications Medication SIG (Take, Route, Frequency, Duration) Notes Start Date End Date Status Irbesartan 300 MG 1 tablet Orally Once a day; Duration: 90 days 06/24/2023 Active tiZANidine HCl 4 MG 1 tablet as needed Orally Three times a day 12/16/2022 Not-Taking amLODIPine Besylate 10 MG 1 tablet Orall y Once a day 09/22/2023 Active Meloxicam 7.5 MG 2 tab(s) orally once a day 05/28/2019 Active Atenolol 25 MG 1 tab(s) orally once a day Active Isosorbide Mononitrate ER 60 MG 1 tab(s) orally once a day; Duration: 90 days Active Lovastatin 20 MG 1 tab(s) orally once a day; Duration: 90 days 08/09/2020 Active Rytary 23.75-95 MG 1 cap(s) orally 3 times a day Active Triamcinolone Acetonide 0.1 % 1 sima applied topically 2 times a day 06/10/2022 Active Aspirin 81 MG 1 tab(s) orally once a day Active Problems Problem Type SNOMED Code ICD Code Onset Dates Problem Status W/U Status Risk Notes Problem Chronic pain (37746477) Other chronic pain (G89.29) Active confirmed Vital Signs Blood pressure systolic 150 mm Hg 10/28/19 24 Blood pressure diastolic 84 mm Hg 024 Heart Rate 59 /min 10/28/2023 Height 68 in 10/28/2023 Weight 190.8 lbs 10/28/2023 BMI 29.01 kg/m2 10/28/2023 Encounters Encounter Location Date Provider Diagnosis [facility] [address] [place], [place] [phone] 10/28/2023 Arie Jennings Essential hypertensi on I10 ; Parkinson disease, symptomatic G20.A1 ; Rash R21 ; Other chronic pain G89.29 and Low back pain, unspecified M54.50 Assessments Encounter Date Diagnosis (ICD Code) Assessment Notes Treatment Notes Treatment Clinical Notes Section Notes 10/28/2023 Essential hypertension (ICD-10 - I10) 10/28/2023 Parkinson disease, symptomatic (ICD-10 - G20.A1) 10/28/2023 Rash (ICD-10 - R21) Patient to follow up with dermatology 10/28/2023 Other chronic pain (ICD-10 - G89.29) 10/28/2023 Low back pain, unspecified (ICD-10 - M54.50) Patient to follow up with pain management at [facility] Plan Of Treatment Medication Medication Name Sig Start Date Stop Date Notes Irbesartan 300 MG 1 tablet Orally Once a day; Duration: 90 days 06/24/2023 amLODIPine Besylate 10 MG 1 tablet Orally Once a day 09/21 Meloxicam 7.5 MG 2 tab(s) orally once a day 05/28/2019 Atenolol 25 MG 1 tab(s) orally once a day Treatment Notes Assessment Notes Rash Patient to follow up with dermatology Low back pain, unspecified Patient to fo llow up with pain management at [facility] Next Appt Details Follow Up: 6 Months, Reason: Progress Notes * Nico COHEN DDOB: [birth year] (84 yo M)Acc No.[id number]:10/28/2023 Progress Notes Patient: Shantell Nico CASTRO Provider: Gracy Jennings M.D. :1940 A ge:83 Y S ex:Male Date:10/28/2023 Address:[address], [place], [id number] Subjective: * Chief Complaints: * 1 . 2 Month Follow Up. * HPI: C ardiology: 83 year old male presents with c/o Blood Pressure Elevated P t here for 2 mo f/u on hypertension, states he does need rf on Irbesartan 300mg if he is to keep taking that dose. D ermatology: c/o Dry Skin P t complains of dry, itchy spots on both arms and top of his head. Pt has Clobetasol cream rx'd by derm but pt does not feel like it is helping.? * ROS: D ERMATOLOGY: no R cindi. n o H marshal. G ASTROENTEROLOGY: no N ausea. n o V omiting. U ROLOGY: no D ifficulty urinating. n o B lood in urine. * Medical History: C oronary Artery Disease, Hypercholestrolemia, Benign Prostatic Hyperplasia, Impaired Fasting Glucose, Osteoarthritis, Parkinson's Disease, RT Leg DVT, post op December 2021, Lumbar Disc Disease, Lumbar facet arthropathy, Spinal Stenosis, L-spine MRI 2017. * Surgical History: T onsillectomy , 2 vessel CABG- [place] 1999, Cataract Removal 2015, Cataract Removal 05/2019, TURP 09/2021, RT Knee Total Ostoplasty 12/2021. * Hospitalization/Major Diagno stic Procedure: D enies Past Hospitalization. * Family History: F ather: , diabetes. M other: , arthritis. S iblings: Sister- DeceasedBrother- Deceades, Diabetes. 2 brother(s) , 2 sister(s) . . * Social History: C URRENT TOBACCO USE S moking Status: Patient does NOT smoke. C affeine: yes, frequency: 1-2 a day. Exercise: yes, walk. Marital Status: . Past smoking status: no. Alcohol: no. * Medications: T aking Rytary 23.75-95 MG Capsule Extended Release 1 cap(s) orally 3 times a day , Taking Aspirin 81 MG Tablet Chewable 1 tab(s) orally once a day , Taking Triamcinolone Acetonide 0.1 % Cream 1 sima applied topically 2 times a day , Taking Irbesartan 300 MG Tablet 1 tablet Orally Once a day , Taking amLODIPine Besylate 10 MG Tablet 1 tablet Orally Once a day , Taking Atenolol 25 MG Tablet 1 tab(s) orally once a day , Taking Isosorbide Mononitrate ER 60 MG Tablet Extended Release 24 Hour 1 tab(s) orally once a day , Taking Lovastatin 20 MG Tablet 1 tab(s) orally once a day , Taking Meloxicam 7.5 MG Tablet 2 tab(s) orally once a day , Not-Taking tiZANidine HCl 4 MG Tablet 1 tablet as needed Orally Three times a day , Medication List reviewed and reconciled with the patient * Allergies: N .K.D.A. Objective: * Vitals: W t:190.8, Temp:97.8, BP:150/84, HR:59, Nurse:italia, Ht: 68, BMI:29.01. * Examination: C ardiology: General Appearance: p leasant, NAD. H eart sounds: R RR, normal S1, S2. L ungs: c lear, no rales or wheezes. E xtremities: no leg edema. P eripheral pulses: 2 plus bilateral. Assessment: * Assessment: 1. E ssential hypertension - I10 (Primary) 2 . P arkinson disease, symptomatic - G20.A1 3 . R cindi - R21 4 . O ther chronic pain - G89.29 5 . L ow back pain, unspecified - M54.50 Plan: * Treatment: 2. R cindi Continue amLODIPine Besylate Tablet, 10 MG, 1 tablet, Orally, Once a day; C ontinue Atenolol Tablet, 25 MG, 1 tab(s), orally, once a day. Notes: Patient to follow up with dermatology 3. L ow back pain, unspecified Continue Meloxicam Tablet, 7.5 MG, 2 tab(s), orally, once a day. Notes: Patient to follow up with pain management at [facility] * Procedure Codes: G 2211 Complex e/m visit add on * Follow Up: 6 Months * Images: Billing Information: * Visit Code: 84852 Office Visit, Est Pt., Level 4. * Procedure Codes: G2211 Complex e/m visit add on. * Electronic signature of Dana Jennings MD on 04/10/2025 at 06:57 AM EDT Sign off status: Pending * Provider: Gracy Jennings M.D. Date: 0 10/28/2023 Generated for Evans wilder/Joey/Talonitting on: 1 06:57 AM EDT History and Physical Notes * HPI (History of Present Illness) Category Sub-Category Detail Notes Category Not es Dermatology Dry Skin Pt complains of dry, itchy spots on both arms and top of his head. Pt has Clobetasol cream rx'd by derm but pt does not feel like it is helping Cardiology Blood Pressure Elevated Pt here for 2 mo f/u on hypertension, states he does need rf on Irbesartan 300mg if he is to keep taking that dose Examination Category Sub-Category Detail Notes Category Not es Cardiology Lungs: clear, no rales or wheezes Heart sounds: RRR, normal S1, S2 Extremities: no leg edema Peripheral pulses: 2 plus bilateral General Appearance: pleasant, NAD
--- OUTSIDE RECORDS SUMMARY | 2024-04-27 06:45 | XMS_ITS ---
[facility] [address] [place] [id number] Care Team Providers Care Crm Developer Name Role Phone Arie Jennings Primary Care Provider EMILIA AQUINO Unavailable Unavailable Allergies No Known Allergies REASON FOR VISIT 6 months Medications Medication SIG (Take, Route, Frequency, Duration) Notes Start Date End Date Status amLODIPine Besylate 10 MG 1 tablet Orall y Once a day 09/22/2023 Active Irbesartan 300 MG 1 tablet Orally Once a day 06/24/2023 Active Rytary 23.75-95 MG 1 cap(s) orally 3 ti mes a day Active Atenolol 25 MG 1 tab(s) orally once a day Active Isosorbide Mononitrate ER 60 MG 1 tab(s) orally once a day; Duration: 90 days Active Lovastatin 20 MG 1 tab(s) orally once a day; Duration: 90 days 08/09/2020 Active Meloxicam 7.5 MG 2 tab(s) orally once a day; Duration: 90 days 05/28/2019 Active Triamcinolone Acetonide 0.1 % 1 sima applied topically 2 times a day 06/10/2022 Active Immunizations Vaccine Route Administration Date Status Comme nts Fluzone High Dose (65yr and older) IM Intramuscular 04/27/2024 Administered Problems Problem Type SNOMED Code ICD Code Onset Dates Problem Status W/U Status Risk Notes Problem Parkinson's disease (disorder) (49188442) Parkinson disease, symptomatic (G20.A1) Active confirmed Vital Signs Blood pressure systolic 148 mm Hg 11/15/20 24 Blood pressure diastolic 80 mm Hg 024 Heart Rate 56 /min 04/27/2024 Height 68 in 04/27/2024 Weight 189.4 lbs 04/27/2024 BMI 28.80 kg/m2 04/27/2024 Encounters Encounter Location Date Provider Diagnosis [facility] [address] [place] [id number] 04/27/2024 Arie Jennings Essential hypertensi on I10 ; Parkinson disease, symptomatic G20.A1 and Encounter for immunization Z23 Assessments Encounter Date Diagnosis (ICD Code) Assessment Notes Treatment Notes Treatment Clinical Notes Section Notes 04/27/2024 Essential hypertension (ICD-10 - I10) 04/27/2024 Parkinson disease, symptomatic (ICD-10 - G20.A1) 04/27/2024 Encounter for immunization (ICD-10 - Z23) Plan Of Treatment Medication Medication Name Sig Start Date Stop Date Notes amLODIPine Besylate 10 MG 1 tablet Orally Once a day 09/21 Irbesartan 300 MG 1 tablet Orally Once a day 06/24/2023 Rytary 23.75-95 MG 1 cap(s) orally 3 times a day Atenolol 25 MG 1 tab(s) orally once a day Next Appt Details Follow Up: 6 Months fasting, Reason: Progress Notes * Nico COHEN DDOB: [birth year] (84 yo M)Acc No.[id number]:04/27/2024 Progress Notes Patient: Nico MCDONOUGH Provider: Gracy Jennings M.D. :1940 A ge:83 Y S ex:Male Date:04/27/2024 [address] [place], [id number] Subjective: * Chief Complaints: * 1 . 6 months. * HPI: C ardiology: 83 year old male presents with c/o Blood Pressure Elevated P t here to f/u on hypertension, states he is doing well and does not have any concerns. c/o Hyperlipidemia P t is not fasting today. * ROS: D ERMATOLOGY: no R cindi. 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, Cataract Removal 2015, Cataract Removal 05/2019, [...] orally 3 times a day , Taking Triamcinolone Acetonide 0.1 % Cream 1 sima applied topically 2 times a day , Taking Meloxicam 7.5 MG Tablet 2 tab(s) orally once a day , Taking Lovastatin 20 MG Tablet 1 tab(s) orally once a day , Taking Irbesartan 300 MG Tablet 1 tablet Orally Once a day , Taking amLODIPine Besylate 10 MG Tablet 1 tablet Orally Once a day , Taking Atenolol 25 MG Tablet 1 tab(s) orally once a day , Taking Isosorbide Mononitrate ER 60 MG Tablet Extended Release 24 Hour 1 tab(s) orally once a day , Discontinued Aspirin 81 MG Tablet Chewable 1 tab(s) orally once a day , Discontinued Doxycycline Hyclate 100 MG Tablet 1 tablet BID x 2 weeks then 1 tab qd Orally , Discontinued tiZANidine HCl 4 MG Tablet 1 tablet as needed Orally Three times a day , Medication List reviewed and reconciled with the patient * Allergies: N .K.D.A. Objective: * Vitals: W t:189.4, Temp:98.0, BP:148/80, HR:56, Nurse:kk, Ht: 68, BMI:28.80. * Examination: C ardiology: General Appearance: p leasant, NAD. H eart sounds: R RR, normal S1, S2. L ungs: c lear, no rales or wheezes. E xtremities: no leg edema. P eripheral pulses: 2 plus bilateral. Assessment: * Assessment: 1. E ssential hypertension - I10 (Primary) 2 . P arkinson disease, symptomatic - G20.A1 3 . E ncounter for immunization - Z23 Plan: * Treatment: 2. P arkinson disease, symptomatic Continue Rytary Capsule Extended Release, 23.75-95 MG, 1 cap(s), orally, 3 times a day. * Immunizations: Fluzone High Dose (65yr and older) : 0.5 mL (Route: Intramuscular) given by Lisa Ross on Right Arm (Encounter for immunization) * Procedure Codes: G 2211 Complex e/m visit add on * Follow Up: 6 Months fasting * Images: Billing Information: * Visit Code: 18645 Office Visit, Est Pt., Level 3. * Procedure Codes: G2211 Complex e/m visit add on. * Electronic signature of Dana Jennings MD on 04/10/2025 at 06:57 AM EDT Sign off status: Pending * Provider: Gracy Jennings M.D. Date: 06/27/2023 Generated for Evans wilder/Joey/Talonitting on: 06:57 AM EDT History and Physical Notes * HPI (History of Present Illness) Category Sub-Category Detail Notes Category Not es Cardiology Blood Pressure Elevated Pt here to f/u on hypertension, states he is doing well and does not have any concerns Hyperlipidemia Pt is not fasting to day Examination Category Sub-Category Detail Notes Category Not es Cardiology Lungs: clear, no rales or wheezes Heart sounds: RRR, normal S1, S2 Extremities: no leg edema Peripheral pulses: 2 plus bilateral General Appearance: pleasant, NAD
--- OUTSIDE RECORDS SUMMARY | 2024-08-02 06:00 | XMS_ITS ---
Author Organization [facility] Address [address] [place] [phone] Care Team Providers Care Crate Tier Name Role Phone Arie Jennings Primary Care Provider AQUINO, DON Unavailable Unavailable Allergies No Known Allergies Results Component Value Reference Range Notes P-Basic Metabolic Panel (BMP ) Reviewed date:08/03/2024 09:00:31 AM Interpretation:gluc 108, bun 27, gfr 58 Performing Lab: Notes/Report: Test performed by [facility], [facility] [address] [place] [address] , [address], [place] [address] Mina Seals MD, Hydroelectric Powerplant Supervisor CLIA: [id number] Sodium 143 135-145 mmol/L Potassium 5.0 3.5-5.3 [...] Status Risk Notes Problem Disorder of neck (760405365) Disorder of neck (M53.82) Active confirmed Vital Signs Blood pressure systolic 130 mm Hg 08/02/19 25 Blood pressure diastolic 74 mm Hg 025 Heart Rate 65 /min 08/02/2024 Height 68 in 08/02/2024 Weight 188 lbs 08/02/2024 BMI 28.58 kg/m2 08/02/2024 Encounters Encounter Location Date Provider Diagnosis [facility] [address] [place], [place] [phone] 08/02/2024 Arie Jennings Essential hypertensi on I10 [...] scheduled,and prn, Reason: Progress Notes * Nico COHEN DDOB: [birth year] (84 yo M)Acc No.[id number]:08/02/2024 Patient: Shantell JENNINico CRAWFORD Carole Provider: Gracy Jennings M.D. :1940 A ge:83 Y S ex:Male Date:08/02/2024 Address:[address] [place] [address] [address], [place], [id number] Subjective: * Chief Complaints: * 1 . 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 * Procedure Codes: G2211 Complex e/m visit add on. 3075F SYST BP GE 130 - 139MM HG. 3078F DIAST BP < 80 MM HG. * Electronic signature of Dana Jennings MD on 04/10/2025 at 06:56 AM EDT Sign off status: Pending * Provider: Gracy Jennings M.D. Date: 0 08/02/2024 Generated for Evans wilder/Joey/Talonitting on: 1 06:56 AM EDT History and Physical Notes * [...]
--- OUTSIDE RECORDS SUMMARY | 2024-11-02 05:00 | XMS_ITS ---
Author Organization [facility] Address [address] [place] [id number] Care Team Providers Care Robotics Mechanic Name Role Phone Arie Jennings Primary Care Provider AQUINO, DON Unavailable Unavailable Allergies No Known Allergies Results Component Value Reference Range Notes Glucose (In-House) Reviewed date:11/06/2024 11:56:24 AM Interpretation:136 Performing Lab: Notes/Report: 136 blood glucose 136 74 - 106 mg/dL CBC Venipuncture (in house) Reviewed date:11/06/2024 11:56:24 AM Interpretation:Normal Performing Lab: Notes/Report: Normal wbc 8.1 3.5 - 10 lymph 12.1 15 - 50 mid 4.2 2 - 15 gran 83.7 35 - 80 rbc 4.52 3.5 - 5.5 hgb 13.8 11.5 - 16.5 hct 41.5 35 - 55 mcv 91.6 75 - 100 mch 30.6 25 - 35 mchc 33.4 31 - 38 platlet 222 100 - 400 Glycohemoglobin A1c (in hous e) Reviewed date:11/06/2024 11:56:24 AM Interpretation:5.6% Performing Lab: Notes/Report: 5.6% glycohemoglobin 5.6% 5 - 6.5 % P-Comprehensive Metabolic Pa shari (CMP) Reviewed date:11/06/2024 11:56:24 AM Interpretation:gluc 101, gfr 59 Performing Lab: Notes/Report: Test performed by [facility] [address] [facility] , [address], [place] [address] Mina Seals MD, Credit Specialist CLIA: [id number] Sodium 141 135-145 mmol/L Potassium 5.3 3.5-5.3 mmol/L Chloride 105 97-108 mmol/L CO2 27 22-32 mmol/L Glucose 101 65-99 mg/dL BUN 22 8-23 mg/dL Creatinine 1.20 0.70-1.30 mg/dL Calcium 9.5 8.6-10.4 mg/dL eGFR by Creatinine 59 >59 mL/min/1.73m2 Protein 6.8 6.0-8.3 g/dL Albumin 4.5 3.5-5.3 g/dL Alkaline Phosphatase 120 40-129 IU/L ALT (SGPT) <5 <5-55 IU/L AST (SGOT) 18 <5-46 IU/L Bilirubin, Total 0.3 <0.2-1.2 mg/dL A/G Ratio 2.0 1.1-2.5 P-Lipid Panel Reviewed date:11/06/2024 11:56:24 AM Interpretation:hdl 35 Performing Lab: Notes/Report: Test performed by [facility] [address] [place] [address] , [address], [place] [address] Mina Seals MD, Credit Specialist CLIA: [id number] Cholesterol 142 <200 mg/dL Triglycerides 116 <150 mg/dL HDL Cholesterol 35 >39 mg/dL Cholesterol / HDL Ratio 4.06 0.00-4.99 Ratio Non-HDL Cholesterol 107 <130 mg/dL LDL Cholesterol (Calculation) 84 <130 mg/dL LDL Cholesterol Levels* Less than 100 mg/dL Optimal 100 to 129 mg/dL Near Optimal/ Above Optimal 130 to 159 mg/dL Borderline High 160 to 189 mg/dL High 190 mg/dL and above Very High * Categories as recommended by the 2004 ATPIII guidelines LDL/HDL Ratio 2.4 <3.3 Ratio LDL Cholesterol Patient History Test Date: 08/26/2023 LDL Results: 94 Units: mg/dL % Change: - Test Date: 11/02/2024 LDL Results: 84 Units: mg/dL % Change: -10% P-TSH reflex to FT4 Reviewed date:11/06/2024 11:56:24 AM Interpretation:Normal Performing Lab: Notes/Report: Test performed by [facility] [address] [place], [place] [address] [facility] , [place] [address] Mina Seals MD, Credit Specialist CLIA: [id number] TSH reflex to FT4 1.54 0.43-5.25 mU/L P-Microalbumin/Creatinine, R andom Urine Sample Reviewed date:11/06/2024 11:56:24 AM Interpretation:Normal Performing Lab: Notes/Report: Test performed by [facility] [address] [place], [place] [address] [place] , [place] [address] Mina Seals MD, Credit Specialist CLIA: [id number] Albumin/Creatinine Ratio, Urine 11 0-30 ug/m g Microalbumin, Urine, Random 0.9 Creatinine, Urine 82.9 REASON FOR VISIT 6 months with fasting labs Medications Medication SIG (Take, Route, Frequency, Duration) Notes Start Date End Date Status Aldactone 50 MG 1 tablet Orally Once a day Active Lovastatin 20 MG 1 tab(s) orally once a day 08/09/2020 Active Atenolol 25 MG 1 tab(s) orally once a day Active Triamcinolone Acetonide 0.1 % 1 sima applied topically 2 times a day 06/10/2022 Active Meloxicam 7.5 MG 2 tab(s) orally once a day; Duration: 90 days 05/28/2019 Active Irbesartan 300 MG 1 tablet Orally Once a day 06/24/2023 Active Cephalexin 500 MG 1 capsule Orally Two times a day; Duration: 7 days 11/02/2024 Active Isosorbide Mononitrate ER 60 MG 1 tab(s) orally once a day; Duration: 90 days Active Rytary 23.75-95 MG 1 cap(s) orally 3 ti mes a day Active amLODIPine Besylate 10 MG 1 tablet Orall y Once a day 09/22/2023 Active Vital Signs Blood pressure systolic 130 mm Hg 11/03/19 25 Blood pressure diastolic 78 mm Hg 025 Heart Rate 57 /min 11/02/2024 Height 68 in 11/02/2024 Weight 189.6 lbs 11/02/2024 BMI 28.83 kg/m2 11/02/2024 Encounters Encounter Location Date Provider Diagnosis [facility] [address] [facility] [address] [place] [phone] 11/02/2024 Arie Jennings Essential hypertensi on I10 ; Pure hypercholesterolemia E78.00 ; IFG (impaired fasting glucose) R73.01 ; Folliculitis L73.9 ; Parkinson disease, symptomatic G20.A1 and BMI 28.0-28.9,adult Z68.28 Assessments Encounter Date Diagnosis (ICD Code) Assessment Notes Treatment Notes Treatment Clinical Notes Section Notes 11/02/2024 Essential hypertensi on (ICD-10 - I10) 11/02/2024 Pure hypercholesterolemia (ICD-10 - E78.00) 11/02/2024 IFG (impaired fastin g glucose) (ICD-10 - R73.01) 11/02/2024 Folliculitis (ICD-10 - L73.9) 11/02/2024 Parkinson disease, symptomatic (ICD-10 - G20.A1) 11/02/2024 BMI 28.0-28.9,adult (ICD-10 - Z68.28) Plan Of Treatment Medication Medication Name Sig Start Date Stop Date Notes Aldactone 50 MG 1 tablet Orally Once a day Lovastatin 20 MG 1 tab(s) orally once a day 08/09/2020 Atenolol 25 MG 1 tab(s) orally once a day Irbesartan 300 MG 1 tablet Orally Once a day 06/24/2023 Cephalexin 500 MG 1 capsule Orally Two times a day; Duration: 7 days 11/02/2024 amLODIPine Besylate 10 MG 1 tablet Orally Once a day 09/21 Next Appt Details Follow Up: 6 Months, Reason: Progress Notes * Nico COHEN DDOB: [birth year] (84 yo M)Acc No.[id number]:11/02/2024 Progress Notes Patient: Nico MCDONOUGH Provider: Gracy Jennings M.D. :1940 A ge:84 Y S ex:Male Date:11/02/2024 Address:[address] [place] [address] [address], [facility], [id number] Subjective: * Chief Complaints: * 1 . 6 months with fasting labs. * HPI: H PI: 84 year old male presents with c/o Patient is here today for?Pt is here today for a 6 month check up with fasting labs. * ROS: D ERMATOLOGY: no R cindi. [...] History: T onsillectomy , 2 vessel CABG- [place] 1999, Cataract Removal 2015, Cataract Removal 05/2019, TURP 09/2021, RT Knee Total Ostoplasty 12/2021. * Family History: F ather: , diabetes. [...] orally 3 times a day , Taking amLODIPine Besylate 10 MG Tablet 1 tablet Orally Once a day , Taking Irbesartan 300 MG Tablet 1 tablet Orally Once a day , Taking Atenolol 25 MG Tablet 1 tab(s) orally once a day , Taking Aldactone 50 MG Tablet 1 tablet Orally Once a day , Medication List reviewed and reconciled with the patient * Allergies: N .K.D.A. Objective: * Vitals: W t: 189.6, Temp: 97.8, BP: 130/78, HR: 57, Nurse: wang, Ht: 68, BMI:28.83. * Examination: C ardiology: General Appearance: p leasant, NAD. H eart sounds: R RR, normal S1, S2. L ungs: c lear, no rales or wheezes. E xtremities: no leg edema. P eripheral pulses: 2 plus bilateral. Assessment: * Assessment: 1. E ssential hypertension - I10 (Primary) 2 . P ure hypercholesterolemia - E78.00 3 . I FG (impaired fasting glucose) - R73.01 4 . F olliculitis - L73.9 5 . P arkinson disease, symptomatic - G20.A1 6 . B W[place] 28.0-28.9,adult - Z68.28 Plan: * Treatment: Value Reference Range A /G Ratio 2.0 1.1-2.5 - * A lbumin 4.5 3.5-5.3 - g/dL * A lkaline Phosphatase 120 40-129 - IU/L * A LT (SGPT) <5 <5-55 - IU/L * A ST (SGOT) 18 <5-46 - IU/L * B ilirubin, Total 0.3 <0.2-1.2 - mg/dL * B UN 22 8-23 - mg/dL * C alcium 9.5 8.6-10.4 - mg/dL * C hloride 105 97-108 - mmol/L * C O2 27 22-32 - mmol/L * C reatinine 1.20 0.70-1.30 - mg/dL * G lucose 101 H 65-99 - mg/dL * P otassium 5.3 3.5-5.3 - mmol/L * S odium 141 135-145 - mmol/L * P rotein 6.8 6.0-8.3 - g/dL * e GFR by Creatinine 59 L >59 - mL/min/1.73m2 * Jeannie Mai 11/06/2024 11:5 6:17 AM > See phone encounter ?LAB: P-Microalbumin/Creatinine, Random Urine Sample (Collection Date & Time - 11/02/2024 08:22 AM)?Normal* Value Reference Range A lbumin/Creatinine Ratio, Urine 11 0-30 - ug /mg * C reatinine, Urine 82.9 - mg/dL * M icroalbumin, Urine, Random 0.9 - mg/dL * Jeannie Mai 11/06/2024 11:5 6:17 AM > See phone encounter 2.?Pure hypercholesterolemia? Continue Lovastatin Tablet, 20 MG, 1 tab(s), orally, once a day.?LAB: P-Comprehensive Metabolic Panel (CMP) (Collection Date & Time - 11/02/2024 08:22 AM)?gluc 101, gfr 59* Value Reference Range A /G Ratio 2.0 1.1-2.5 - * A lbumin 4.5 3.5-5.3 - g/dL * A lkaline Phosphatase 120 40-129 - IU/L * A LT (SGPT) <5 <5-55 - IU/L * A ST (SGOT) 18 <5-46 - IU/L * B ilirubin, Total 0.3 <0.2-1.2 - mg/dL * B UN 22 8-23 - mg/dL * C alcium 9.5 8.6-10.4 - mg/dL * C hloride 105 97-108 - mmol/L * C O2 27 22-32 - mmol/L * C reatinine 1.20 0.70-1.30 - mg/dL * G lucose 101 H 65-99 - mg/dL * P otassium 5.3 3.5-5.3 - mmol/L * S odium 141 135-145 - mmol/L * P rotein 6.8 6.0-8.3 - g/dL * e GFR by Creatinine 59 L >59 - mL/min/1.73m2 * Jeannie Mai 11/06/2024 11:5 6:17 AM > See phone encounter ?LAB: P-Lipid Panel (Collection Date & Time - 11/02/2024 08:22 AM)?hdl 35* Value Reference Range C holesterol / HDL Ratio 4.06 0.00-4.99 - Ratio * C holesterol 142 <200 - mg/dL * H DL Cholesterol 35 L >39 - mg/dL * L DL Cholesterol (Calculation) 84 <130 - mg/d L * L DL/HDL Ratio 2.4 <3.3 - Ratio * N on-HDL Cholesterol 107 <130 - mg/dL * T riglycerides 116 <150 - mg/dL * Jeannie Mai 11/06/2024 11:5 6:17 AM > See phone encounter ?LAB: P-TSH reflex to FT4 (Collection Date & Time - 11/02/2024 08:22 AM)? Normal* Value Reference Range T SH reflex to FT4 1.54 0.43-5.25 - mU/L * Jeannie Mai 11/06/2024 11:5 6:17 AM > See phone encounter 3.?IFG (impaired fasting glucose)?LAB: Glucose (In-House) (Collection Date & Time - 11/02/2024)?136* Value Reference Range b lood glucose 136 74 - 106 mg/dL * Ayaka Basurto 11/02/2024 09:5 5:15 AM > Jeannie Mai 11/06/2024 11:56:17 AM > See phone encounter ?LAB: Glycohemoglobin A1c (in house) (Collection Date & Time - 11/02/2024)? 5.6%* Value Reference Range g lycohemoglobin 5.6% 5 - 6.5 % * Ayaka Basurto 11/02/2024 09:5 5:38 AM > Jeannie Mai 11/06/2024 11:56:17 AM > See phone encounter 4.?Folliculitis? Start Cephalexin Capsule, 500 MG, 1 capsule, Orally, Two times a day, 7 days, 14 Capsule, Refills 0.?LAB: CBC Venipuncture (in house) (Collection Date & Time - 11/02/2024)? Normal* Value Reference Range w bc 8.1 3.5 - 10 * l ymph 12.1 15 - 50 * m id 4.2 2 - 15 * g ran 83.7 35 - 80 * r bc 4.52 3.5 - 5.5 * h gb 13.8 11.5 - 16.5 * h ct 41.5 35 - 55 * m cv 91.6 75 - 100 * m ch 30.6 25 - 35 * m chc 33.4 31 - 38 * p latlet 222 100 - 400 * Ayaka Basurto 11/02/2024 09:5 6:29 AM > Jeannie Mai 11/06/2024 11:56:17 AM > See phone encounter * Procedure Codes: G 2211 Complex e/[place], [address] GLUCOSE TEST, 14781 GLYCATED HEMOGLOBIN TEST, Modifiers: QW , [address] CBC WITH AUTO DIFF, 3044F HG A1C LEVEL LT 7.0%, 3075F SYST BP GE 130 - 139MM HG, 3078F DIAST BP < 80 MM HG, G8420 BMI<30 AND >=22 CALC & DOCU * Follow Up: 6 Months * Images: Billing Information: * Visit Code: 64078 Office Visit, Est Pt., Level 4. * Procedure Codes: G2211 Complex e/[place]. [address] GLUCOSE TEST. 51059 GLYCATED HEMOGLOBIN TEST. Modifiers: QW 22931 CBC WITH AUTO DIFF. 3044F HG A1C LEVEL LT 7.0%. 3075F SYST BP GE 130 - 139MM HG. 3078F DIAST BP < 80 MM HG. G8420 BMI<30 AND >=22 CALC & DOCU. * Electronic signature of Dana Jennings MD on 04/10/2025 at 06:56 AM EDT Sign off status: Pending * Provider: Gracy Jennings M.D. Date: 0 11/02/2024 Generated for Evans wilder/Joey/Talonitting on: 1 06:56 AM EDT History and Physical Notes * HPI (History of Present Illness) Category Sub-Category Detail Notes Category Not es HPI Patient is here today for Pt is here today for a 6 month check up with fasting labs Examination Category Sub-Category Detail Notes Category Not es Cardiology Lungs: clear, no rales or wheezes Heart sounds: RRR, normal S1, S2 Extremities: no leg edema Peripheral pulses: 2 plus bilateral General Appearance: pleasant, NAD
--- OUTSIDE RECORDS SUMMARY | 2025-02-21 07:30 | XMS_ITS ---
Author Organization [facility] Address [address] [place] [phone] Care Team Providers Care Chemical Checker Name Role Phone Arie Jennings Primary Care Provider AQUINO, DON Unavailable Unavailable Allergies No Known Allergies Results Component Value Reference Range Notes Urinalysis - Inhouse Reviewed date:02/22/2025 10:30:36 AM Interpretation:Trace Ketones Performing Lab: Notes/Report: Trace Ketones Color/Clarity yellow/clear Leuk Neg Nitrite Neg Urobili 3.2 Protein Neg pH 5.5 Blood Neg Sp. Gr. 1.025 Ketone Trace Bili Neg Gluc Neg CBC Venipuncture (in house) Reviewed date:02/22/2025 10:30:36 AM Interpretation:WBC 15.7, Gran 89.7%, Performing Lab: Notes/Report: WBC 15.7, Gran 89.7%, wbc 15.7 3.5 - 10 lymph 4.2% 15 - 50 mid 6.1% 2 - 15 gran 89.7% 35 - 80 rbc 4.34 3.5 - 5.5 hgb 13.6 11.5 - 16.5 hct 40.1 35 - 55 mcv 92.4 75 - 100 mch 31.4 25 - 35 mchc 34.0 31 - 38 platlet 310 100 - 400 P-Vitamin B12 Reviewed date:02/22/2025 10:30:36 AM Interpretation:Normal Performing Lab: Notes/Report: Test performed by [facility] , [address], [place] [address] Mina Seals MD, Mix Technician CLIA: [id number] Vitamin B12 7247 054-1904 pg/mL P-Comprehensive Metabolic Pa shari (CMP) Reviewed date:02/22/2025 10:30:36 AM Interpretation:Glu 138, BUN 49, Creat 1.52, eGFR 44 Performing Lab: Notes/Report: Test performed by [facility] [address] [place] [address] , [place] [address] Mina Seals MD, Mix Technician CLIA: [id number] Sodium 141 135-145 mmol/L Potassium 5.3 3.5-5.3 mmol/L Chloride 103 97-108 mmol/L CO2 26 20-32 mmol/L Glucose 138 65-99 mg/dL BUN 49 8-23 mg/dL Creatinine 1.52 0.70-1.30 mg/dL Calcium 9.9 8.6-10.4 mg/dL eGFR by Creatinine 44 >59 mL/min/1.73m2 Protein 6.5 6.0-8.3 g/dL Albumin 4.2 3.5-5.3 g/dL Alkaline Phosphatase 95 40-129 IU/L ALT (SGPT) 8 <5-55 IU/L AST (SGOT) 16 <5-46 IU/L Bilirubin, Total 0.4 <0.2-1.2 mg/dL A/G Ratio 1.8 1.1-2.5 P-TSH reflex to FT4 Reviewed date:02/22/2025 10:30:36 AM Interpretation:Normal Performing Lab: Notes/Report: Test performed by [facility] [address] [place] [address] , [place] [address] Mina Seals MD, Mix Technician CLIA: [id number] TSH reflex to FT4 1.01 0.43-5.25 mU/L P-Vitamin D 25-Hydroxy Reviewed date:02/22/2025 10:30:36 AM Interpretation:Normal Performing Lab: Notes/Report: Test performed by [facility] [address] [place] [address] , [place] [address] Mina Seals MD, Mix Technician CLIA: [id number] Vitamin D 25-Hydroxy 51.0 30.0-100.0 ng/mL Interpretation of Vitamin D 25 OH: < 20 ng/mL - Deficiency 20 - 29 ng/mL - Insufficiency 30 - 100 ng/mL - Sufficiency > 100 ng/mL - Super-therapeutic- toxicity may occur above this level. Clinical correlation required. REASON FOR VISIT hallucinating Medications Medication SIG (Take, Route, Frequency, Duration) Notes Start Date End Date Status Irbesartan 300 MG 1 tablet Orally Once a day; Duration: 90 days Active Isosorbide Mononitrate ER 60 MG 1 tablet in the morning Orally Once a day; Duration: 90 days Active Rytary 23.75-95 MG 1 cap(s) orally 3 ti mes a day Active Triamcinolone Acetonide 0.1 % 1 sima applied topically 2 times a day 06/10/2022 Active Baclofen 10 MG 2 tablets with food or milk Orally 3 times a day Active Lovastatin 20 MG 1 tab(s) orally once a day; Duration: 90 days Active amLODIPine Besylate 10 MG 1 tablet Orall y Once a day; Duration: 90 days Active Meloxicam 7.5 MG 2 tablets Orally Onc e a day; Duration: 90 days Active Atenolol 25 MG 1 tab(s) orally once a day; Duration: 90 days Active Aldactone 50 MG 1 tablet Orally Once a day; Duration: 90 days Active Cephalexin 500 MG 1 capsule Orally Two times a day; Duration: 7 days 11/02/2024 Active Vital Signs Blood pressure systolic 132 mm Hg 02/22/20 25 Blood pressure diastolic 78 mm Hg 025 Heart Rate 69 /min 02/21/2025 Height 68 in 02/21/2025 Weight 188.4 lbs 02/21/2025 BMI 28.64 kg/m2 02/21/2025 Encounters Encounter Location Date Provider Diagnosis [facility] [address] [place] [address], [place] [phone] 02/21/2025 Arie Jennings Acute delirium R41.0 Assessments Encounter Date Diagnosis (ICD Code) Assessment Notes Treatment Notes Treatment Clinical Notes Section Notes 02/21/2025 Acute delirium (ICD-10 - R41.0) Seems to be due to a side effect of Baclofen. Will stop it now. Plan Of Treatment Treatment Notes Assessment Notes Acute delirium Seems to be due to a side effect of Baclofen. Will stop it now. Next Appt Details Follow Up: via phone to repo rt progress, Reason: Progress Notes * Nico COHEN DDOB: [birth year] (84 yo M)Acc No.[id number]:02/21/2025 Progress Notes Patient: Nico MCDONOUGH Provider: Gracy Jennings M.D. :1940 A ge:84 Y S ex:Male Date:02/21/2025 Address:[address] [place] [address] [address], [place], [id number] Subjective: * Chief Complaints: * 1 . Hallucinating. * HPI: P sychology: 84 year old male presents with c/o hallucinations P ts states this has been ongoing for a week and a half. Pt states he has been seeing things and talking to people who are not there. Pt's states he get confused/ lost when walking around. Pts states he told his grandaughter his hat what was too tight when he was not wearing a hat. Pt's states he has been sleeping more than normal. * ROS: D ERMATOLOGY: no R cindi. [...] History: T onsillectomy , 2 vessel CABG- [place] 1999, Cataract Removal 2015, Cataract Removal 05/2019, TURP 09/2021, RT Knee Total Ostoplasty 12/2021. * Hospitalization/Major Diagno stic Procedure: D enies Past Hospitalization. * Family History: F ather: , diabetes. M other: , arthritis. S iblings: Sister- DeceasedBrother- Deceades, Diabetes. 2 brother(s) , 2 sister(s) . . * Social History: C URRENT TOBACCO USE: No S moking Status: Patient does NOT smoke. C affeine: yes, frequency: 1-2 a day. Exercise: yes, walk. Marital Status: . Past smoking status: no. Alcohol: no. * Medications: T aking Baclofen 10 MG Tablet 2 tablets with food or milk Orally 3 times a day , Taking Triamcinolone Acetonide 0.1 % Cream 1 sima applied topically 2 times a day , Taking Rytary 23.75-95 MG Capsule Extended Release 1 cap(s) orally 3 times a day , Taking Cephalexin 500 MG Capsule 1 capsule Orally Two times a day , Taking Aldactone 50 MG Tablet 1 tablet Orally Once a day , Taking Atenolol 25 MG Tablet 1 tab(s) orally once a day , Taking Meloxicam 7.5 MG Tablet 2 tablets Orally Once a day , Taking amLODIPine Besylate 10 MG Tablet 1 tablet Orally Once a day , Taking Lovastatin 20 MG Tablet 1 tab(s) orally once a day , Taking Isosorbide Mononitrate ER 60 MG Tablet Extended Release 24 Hour 1 tablet in the morning Orally Once a day , Taking Irbesartan 300 MG Tablet 1 tablet Orally Once a day * Allergies: N .K.D.A. Objective: * Vitals: W t: 188.4, Temp: 98.2, BP: 132/78, HR: 69, Nurse: SF, Ht: 68, BMI:28.64. * Examination: G eneral Examination: General Appearance: N AD, using a cane to assist with ambulation. H eart: R SR. L ungs: c lear to auscultation. N eurologic Exam: a nswers most questions, remembers details of hallucinations, smiles. Assessment: * Assessment: 1. A cute delirium - R41.0 (Primary) Plan: * Treatment: Value Reference Range V itamin B12 5797 540-9852 - pg/mL * Criselda Wayne 02/22/2025 10: 29:36 AM EDT > See phone encounter ?LAB: P-Comprehensive Metabolic Panel (CMP) (Collection Date & Time - 02/21/2025 10:31 AM)?Glu 138, BUN 49, Creat 1.52, eGFR 44* Value Reference Range A /G Ratio 1.8 1.1-2.5 - * A lbumin 4.2 3.5-5.3 - g/dL * A lkaline Phosphatase 95 40-129 - IU/L * A LT (SGPT) 8 <5-55 - IU/L * A ST (SGOT) 16 <5-46 - IU/L * B ilirubin, Total 0.4 <0.2-1.2 - mg/dL * B UN 49 H 8-23 - mg/dL * C alcium 9.9 8.6-10.4 - mg/dL * C hloride 103 97-108 - mmol/L * C O2 26 20-32 - mmol/L * C reatinine 1.52 H 0.70-1.30 - mg/dL * G lucose 138 H 65-99 - mg/dL * P otassium 5.3 3.5-5.3 - mmol/L * S odium 141 135-145 - mmol/L * P rotein 6.5 6.0-8.3 - g/dL * e GFR by Creatinine 44 L >59 - mL/min/1.73m2 * Criselda Wayne 02/22/2025 10: 29:36 AM EDT > See phone encounter ?LAB: P-TSH reflex to FT4 (Collection Date & Time - 02/21/2025 10:31 AM)? Normal* Value Reference Range T SH reflex to FT4 1.01 0.43-5.25 - mU/L * Criselda Wayne 02/22/2025 10: 29:36 AM EDT > See phone encounter ?LAB: P-Vitamin D 25-Hydroxy (Collection Date & Time - 02/21/2025 10:31 AM)? Normal* Value Reference Range V itamin D 25-Hydroxy 51.0 30.0-100.0 - ng/mL * Criselda Wayne 02/22/2025 10: 29:36 AM EDT > See phone encounter ?LAB: Urinalysis - Inhouse (Collection Date & Time - 02/21/2025)?Trace Ketones* Value Reference Range C olor/Clarity yellow/clear * L euk Neg * N itrite Neg * U robili 3.2 * P rotein Neg * p H 5.5 * B lood Neg * S p. Gr. 1.025 * K etone Trace * B maribell Neg * G pau Neg * Lisa Ross 02/21/2025 12:02: 55 PM EDT > Criselda Wayne 02/22/2025 10:29:36 AM EDT > See phone encounter ?LAB: CBC Venipuncture (in house) (Collection Date & Time - 02/21/2025)?WBC 15.7, Gran 89.7%,* Value Reference Range w bc 15.7 3.5 - 10 * l ymph 4.2% 15 - 50 * m id 6.1% 2 - 15 * g ran 89.7% 35 - 80 * r bc 4.34 3.5 - 5.5 * h gb 13.6 11.5 - 16.5 * h ct 40.1 35 - 55 * m cv 92.4 75 - 100 * m ch 31.4 25 - 35 * m chc 34.0 31 - 38 * p latlet 310 100 - 400 * Lisa Ross 02/21/2025 12:13: 15 PM EDT > Criselda Wayne 02/22/2025 10:29:36 AM EDT > See phone encounter Notes: Seems to be due to a side effect of Baclofen. Will stop it now.?? * Procedure Codes: G 2211 Complex e/[place] [address] CBC WITH AUTO DIFF, 29003 Urinalysis, no micro, 1036F TOBACCO NON-USER, 3075F SYST BP GE 130 - 139MM HG, 3078F DIAST BP < 80 MM HG * Follow Up: v ia phone to report progress * Images: Billing Information: * Visit Code: 02975 Office Visit, Est Pt., Level 4. * Procedure Codes: G2211 Complex e/[place]. [address] CBC WITH AUTO DIFF. 82674 Urinalysis, no micro. 1036F TOBACCO NON-USER. 3075F SYST BP GE 130 - 139MM HG. 3078F DIAST BP < 80 MM HG. * Electronic signature of Dana Jennings MD on 04/10/2025 at 06:56 AM EDT Sign off status: Pending * Provider: Gracy Jennings M.D. Date: 0 02/21/2025 Generated for Gladysi ng/Joey/eTransmitting on: 1 06:56 AM EDT History and Physical Notes * HPI (History of Present Illness) Category Sub-Category Detail Notes Category Not es Psychology hallucinations Pts states this has been ongoing for a week and a half. Pt states he has been seeing things and talking to people who are not there. Pt's states he get confused/ lost when walking around. Pts states he told his grandaughter his hat what was too tight when he was not wearing a hat. Pt's states he has been sleeping more than normal Examination Category Sub-Category Detail Notes Category Not es General Examination Heart: RSR Lungs: clear to auscultatio n General Appearance: NAD, using a cane to assist with ambulation Neurologic Exam: answers most questio ns, remembers details of hallucinations, smiles
--- OUTSIDE RECORDS SUMMARY | 2025-03-07 06:50 | XMS_ITS ---
Author Organization [facility] Address [address] [facility] [address] [place] [id number] Care Team Providers Care Sample Driller Name Role Phone Arie Jennings Primary Care Provider [phone] AQUINO, DON Unavailable Unavailable REASON FOR VISIT flu shot Immunizations Vaccine Route Administration Date Status Comme nts Fluzone High Dose (65yr and older) IM Intramuscular 03/07/2025 Administered Encounters Encounter Location Date Provider Diagnosis [facility] [address] [facility] [address] [place] [id number] 03/07/2025 Arie Jennings Encounter for immunization Z23 Assessments Encounter Date Diagnosis (ICD Code) Assessment Notes Treatment Notes Treatment Clinical Notes Section Notes 03/07/2025 Encounter for immunization (ICD-10 - Z23) Plan Of Treatment No Information Progress Notes * Nico COHEN DDOB: [birth year] (84 yo M)Acc No.[id number]:03/07/2025 Patient: Shantell Nico CASTRO Provider: Gracy Jennings M.D. :1940 A ge:84 Y S ex:Male Date:03/07/2025 Address:[address] [id number] Subjective: * Chief Complaints: * 1 . Flu shot. * Medical History: Objective: * Vitals: Assessment: * Assessment: 1. E ncounter for immunization - Z23 (Primary) Plan: * Treatment: * Immunizations: Fluzone High Dose (65yr and older) : 0.5 mL (Route: Intramuscular) given by TONIO Farias on Left Arm (Encounter for immunization) * Images: Billing Information: * Visit Code: * Procedure Codes: * Electronic signature of Dana Jennings MD on 04/10/2025 at 06:56 AM EDT Sign off status: Pending * Provider: Gracy Jennings M.D. Date: 0 03/07/2025 Generated for Evans wilder/Joey/Talonitting on: 06:56 AM EDT
--- OUTSIDE RECORDS SUMMARY | 2025-03-11 07:45 | XMS_ITS ---
[facility] [address] [facility] [address] [facility] [address] [place] [id number] Care Team Providers Care Fiscal Agent Name Role Phone Arie Jennings Primary Care Provider AQUINO, DON Unavailable Unavailable Allergies No Known Allergies REASON FOR VISIT BP Issues Medications Medication SIG (Take, Route, Frequency, Duration) Notes Start Date End Date Status Irbesartan 300 MG 1 tablet Orally Once a day; Duration: 90 days Active Isosorbide Mononitrate ER 60 MG 1 tablet in the morning Orally Once a day; Duration: 90 days Active Lovastatin 20 MG 1 tab(s) orally once a day; Duration: 90 days Active Atenolol 25 MG 1 tab(s) orally once a day; Duration: 90 days Active Meloxicam 7.5 MG 2 tablets Orally Onc e a day; Duration: 90 days Active Rytary 23.75-95 MG 1 cap(s) orally 3 ti mes a day Active Aldactone 50 MG 1 tablet Orally Once a day; Duration: 90 days Active Triamcinolone Acetonide 0.1 % 1 sima applied topically 2 times a day 06/10/2022 Active Vital Signs Blood pressure systolic 124 mm Hg 03/11/20 25 Blood pressure diastolic 78 mm Hg 025 Heart Rate 66 /min 03/11/2025 Height 68 in 03/11/2025 Weight 170.2 lbs 03/11/2025 BMI 25.88 kg/m2 03/11/2025 Encounters Encounter Location Date Provider Diagnosis [facility] [address] [facility] [address] [place] [id number] 03/11/2025 Arie Jennings Symptomatic hypotens ion I95.9 and BMI 25.0-25.9,adult Z68.25 Assessments Encounter Date Diagnosis (ICD Code) Assessment Notes Treatment Notes Treatment Clinical Notes Section Notes 03/11/2025 Symptomatic hypotension (ICD-10 - I95.9) Blood pressure journal 03/11/2025 BMI 25.0-25.9,adult (ICD-10 - Z68.25) Plan Of Treatment Medication Medication Name Sig Start Date Stop Date Notes amLODIPine Besylate 10 MG 1 tablet Orally Once a day Treatment Notes Assessment Notes Symptomatic hypotension Blood pressure j ournal Next Appt Details Follow Up: 3 Weeks, Reason: Progress Notes * Nico CHOEN DDOB: [birth year] (84 yo M)Acc No.[id number]:03/11/2025 Progress Notes Patient: Nico MCDONOUGH Provider: Gracy Jennings M.D. :1940 A ge:84 Y S ex:Male Date:03/11/2025 Address:[address] [place] [address] [address], [facility], [id number] Subjective: * Chief Complaints: * 1 . BP Issues. * HPI: C ardiology: 84 year old male presents with c/o Blood Pressure Elevated P t here for follow up on BP. Pt's feel like he may need to adjust his medicine. Pt and pt's states he still has no energy, weak and off balance at times. * Medical History: C oronary Artery Disease, Hypercholestrolemia, Benign Prostatic Hyperplasia, Impaired Fasting Glucose, Osteoarthritis, Parkinson's Disease, RT Leg DVT, post op December 2021, Lumbar Disc Disease, Lumbar facet arthropathy, Spinal Stenosis, L-spine MRI 2017. * Surgical History: T onsillectomy , 2 vessel CABG- [place] 1999, Cataract Removal 2015, Cataract Removal 05/2019, [...] orally 3 times a day , Taking Aldactone 50 [...] 1 tablet Orally Once a day , Discontinued Baclofen 10 MG Tablet 2 tablets with food or milk Orally 3 times a day , Discontinued Cephalexin 500 MG Capsule 1 capsule Orally Two times a day , Discontinued Cefdinir 300 MG Capsule 1 capsule Orally twice a day , Medication List reviewed and reconciled with the patient * Allergies: N .K.D.A. Objective: * Vitals: W t: 170.2, Temp: 98.2, BP: 124/78, HR: 66, Nurse: ROSETTE, Ht: 68, BMI:25.88. * Examination: G eneral Examination: General Appearance: N AD, pleasant. H eart: R SR.?Lungs: c lear to auscultation. Assessment: * Assessment: 1. S ymptomatic hypotension - I95.9 (Primary) 2 . B AL 25.0-25.9,adult - Z68.25 Plan: * Treatment: * Procedure Codes: G 2211 Complex e/m visit add on, 1036F TOBACCO NON-USER, G8420 BMI<30 AND >=22 CALC & DOCU, G7824 MOST RECENT SYSTOLIC BP < 140MM HG, G8754 MOST RECENT DIASTOLIC BP < 90MM HG, 3074F SYST BP LT 130 MM HG, 3078F DIAST BP < 80 MM HG * Follow Up: 3 Weeks * Images: Billing Information: * Visit Code: 34339 Office Visit, Est Pt., Level 3. * Procedure Codes: G2211 Complex e/m visit add on. 1036F TOBACCO NON-USER. G8420 BMI<30 AND >=22 CALC & DOCU. G8752 MOST RECENT SYSTOLIC BP < 140MM HG. G8754 MOST RECENT DIASTOLIC BP < 90MM HG. 3074F SYST BP LT 130 MM HG. 3078F DIAST BP < 80 MM HG. * Electronic signature of Dana Jennings MD on 04/10/2025 at 06:58 AM EDT Sign off status: Pending * Provider: Gracy Jennings M.D. Date: 0 03/11/2025 Generated for Evans wilder/Joey/Talonitting on: 06:58 AM EDT History and Physical Notes * HPI (History of Present Illness) Category Sub-Category Detail Notes Category Not es Cardiology Blood Pressure Elevated Pt here for follow up on BP. Pt's feel like he may need to adjust his medicine. Pt and pt's states he still has no energy, weak and off balance at times Examination Category Sub-Category Detail Notes Category Not es General Examination Heart: RSR Lungs: clear to auscultatio n General Appearance: NAD, pleasant
--- OUTSIDE RECORDS SUMMARY | 2025-03-28 08:56 | XMS_ITS | Encounter Summary ---
Author Organization [facility] Address [address] [place] [address] Care Team Providers Care Sausage Stuffer Name Role Phone Arie Jennings MD Primary Care Provider [phone] Reason for Referral * Imaging (Routine) - Closed Specialty Diagnoses / Procedures Referred By Александр harris Referred To Contact Radiology Diagnoses Mass of right kidney Procedures CT Renal Mass w and wo IV Contrast CT Renal Mass w and wo IV Contrast Mario Bolden MD [address] [address] Phone: tel: fax: Referral ID Status Reason Start Date Expiration Date Visits Re quested Visits Authorized [id number] Closed 09/13/2024 03/15/2026 1 1 Reason for Visit * Imaging (Routine) - Closed Specialty Diagnoses / Procedures Referred By Александр harris Referred To Contact Radiology Diagnoses Mass of right kidney Procedures CT Renal Mass w and wo IV Contrast CT Renal Mass w and wo IV Contrast Mario Bolden MD [address] [address] Phone: tel: fax: Referral ID Status Reason Start Date Expiration Date Visits Re quested Visits Authorized [id number] Closed 09/13/2024 03/15/2026 1 1 Encounter Details Date Type Department Care Team (Latest Contact Info) Description 03/28/2025 8:56 AM EDT - 03/28/2025 11:59 PM EDT Hospital Encounter [facility] CT [address] [place] [address] Mass of right kidney Discharge Disposition: Home [...] 12/23/2023 meloxicam (Mobic) 7.5 MG tablet 12/23/2023 multivitamin-yarn examiner als-folic acid-coenzyme q10 (Preservision AREDS 2) capsule Take 1 capsule by mouth daily. spironolactone (Aldactone) 50 MG tablet 02/17/2025 traMADol (Ultram) 50 MG tablet documented as of this encounter Miscellaneous Notes * aDrshan Blount L - 03/28/2025 8:57 AM EDT Images from the original note were not included. 1633 Caring for Yourself after Contrast Imaging If [...] Info) Description 03/27/2026 9:45 AM EDT Appointment [facility] Ultrasound [address] [place] [address] 03/27/2026 11:00 AM EDT Office Visit Medical Office Building Urology [address] [facility], [address] [place] [address] Mario Bolden MD [address] [place] [address] documented as of this encounter [...] documented as of this encounter Care Teams Sausage Stuffer Relationship Specialty Start Date End Date Arie Jennings MD [address] [place] [address] PCP - General 01/02/24 documented as of this encounter
--- OUTSIDE RECORDS SUMMARY | 2025-03-28 11:00 | XMS_ITS | Encounter Summary ---
Author Organization [facility] Address [address] [place] [address] Care Team Providers Care [employer] Repairer Name Role Phone Arie Jennings MD Primary Care Provider [phone] Reason for Referral * Imaging (Routine) - Authorized Specialty Diagnoses / Procedures Referred By Александр harris Referred To Contact Radiology Diagnoses Mass of right kidney Procedures US Renal Complete Mario Bolden MD [address] [address] Phone: tel: fax: Referral ID Status Reason Start Date Expiration Date V isits Requested Visits Authorized [id number] Authorized 03/28/2025 09/27/2026 1 1 Reason for Visit * Reason Comments Follow-up Encounter Details Date Type Department Care Team ([facility] Contact Info) Description 03/28/2025 11:00 AM EDT Office Visit Medical Office Building Urology [address] [facility], [address] [place] [address] Mario Bolden MD [address] [address] Mass of right kidney (Primary Dx) Social History Tobacco Use Types Packs/Day Years [...] Sign Reading Time Taken Comments Blood Pressure 131/70 03/28/2025 9:54 AM EDT Pulse 58 03/28/2025 9:54 AM EDT Temperature - - Respiratory Rate - - Oxygen Saturation 96% 03/28/2025 9:54 AM EDT Inhaled Oxygen Concentration - - Weight 86.2 kg (190 lb) 03/28/2025 9:54 AM EDT Height 175.3 cm (5' 9 ) 03/28/2025 9:54 AM EDT Body Mass Index 28.06 03/28/2025 9:54 AM EDT documented in this encounter Functional Status * Over the [...] Diana Courtney documented as of this encounter Miscellaneous Notes * Progress Notes - Dia Rivers MD - 03/28/2025 11:00 AM EDT [facility] Note 03/28/25 CC: Nephrolithiasis, small right renal mass HPI: Nico Cohen is a 84 y.o. male with a history of nephrolithiasis and a small 2 cm right renal mass who presents today for follow-up with surveillance imaging. The patient reports no overall changes to his health since he was last seen. He is having some backpain but he is seeing his primary care doctor about this. Physical Exam: Vitals: 03/28/25 0954 BP: 131/70 Pulse: 58 SpO2: 96% GEN: NAD HEENT: NCAT, EOMI RESP: Equal bilateral chest rise, normal work of breathing CV: RRR, appears well perfused ABD: Soft, nontender, nondistended : deferred EXT: No gross deformities MSK: Full ROM in BL UE NEURO: No focal deficits, AOx3 PSYCH: Normal mood and affect Labs: None Imaging: I personally reviewed this scan from a urologic perspective. CT renal mass protocol 03/28/25: Bilateral parapelvic cysts. Stable 2 cm right upper pole renal mass abutting the posterior liver compared to CT scan from 09/13/2024. Stable left lower pole stones. Assessment: Nico Cohen is a 84 y.o. M with a 2 mm nonobstructing left lower pole renal stone and a stable 2 cm small right renal mass on active surveillance. Plan: -RTC in 1 year with an ultrasound Dia Rivers MD Cosigned by Mario Bolden MD at 03/28/2025 11:08 AM EDT Associated attestation - Mario Bolden MD - 03/28/2025 11:08 AM EDT I saw and evaluated the patient with the resident/fellow. I discussed the case with the resident/fellow and agree with the findings and plan as documented. documented in this encounter Plan of Treatment Upcoming Encounters Date Type Department Care Team (Late st Contact Info) Description 03/27/2026 9:45 AM EDT Appointment [facility] Ultrasound [address] [place] [address] 03/27/2026 11:00 AM EDT Office Visit Medical Office Building Urology [address] [facility], [address] [place] [address] Mario Bolden MD [address] [place] [address] Scheduled Orders Name Type Priority Associated Diagnoses Orde r Schedule US Renal Complete Imaging Routine Mass of right kidney Expected: 03/28/2026 (Approximate), Expires: 09/29/2026 documented as of this encounter Visit Diagnoses Diagnosis Mass of right kidney- Primary documented in this encounter Additional Health Concerns Assessment Noted Time PHQ-9 Depression Total Score: 0 09/14/19 25 9:53 AM EDT A fall risk assessment has been complete d for the patient 03/28/2025 10:08 AM EDT A Body Mass Index follow-up plan has been documented for the patient 03/28/2025 11:08 AM EDT documented as of this encounter Care Teams [employer] Repairer Relationship Specialty Start Date End Date Arie Jennings MD [address] [place] [address] PCP - General 01/02/24 documented as of this encounter
--- OUTSIDE RECORDS SUMMARY | 2025-04-01 06:30 | XMS_ITS ---
[facility] [address] [place] [id number] Care Team Providers Care Tube Bender Name Role Phone Arie Jennings Primary Care Provider AQUINO, DON Unavailable Unavailable Allergies No Known Allergies Results Component Value Reference Range Notes KATHRYN Reviewed date:04/02/2025 12:34:59 PM Interpretation: Performing Lab: Notes/Report: REASON FOR VISIT 3 weeks Medications Medication SIG (Take, Route, Frequency, Duration) Notes Start Date End Date Status Rytary 23.75-95 MG 1 cap(s) orally 3 ti mes a day Active Triamcinolone Acetonide 0.1 % 1 sima applied topically 2 times a day 06/10/2022 Active Isosorbide Mononitrate ER 60 MG 1 tablet in the morning Orally Once a day; Duration: 90 days Active Meloxicam 7.5 MG 2 tablets Orally Onc e a day; Duration: 90 days Active Lovastatin 20 MG 1 tab(s) orally once a day; Duration: 90 days Active Aldactone 50 MG 1 tablet Orally Once a day Active Atenolol 25 MG 1 tab(s) orally once a day Active traMADol HCl 50 MG 1 tablet Orally every 8 hrs As needed 04/01/2025 Active Irbesartan 300 MG 1 tablet Orally Once a day Active Vital Signs Blood pressure systolic 132 mm Hg 04/01/20 25 Blood pressure diastolic 78 mm Hg 025 Heart Rate 65 /min 04/01/2025 Height 68 in 04/01/2025 Weight 191.0 lbs 04/01/2025 BMI 29.04 kg/m2 04/01/2025 Encounters Encounter Location Date Provider Diagnosis [facility] [address] [place] [id number] 04/01/2025 Arie Jennings Essential hypertensi on I10 ; Low back pain, unspecified M54.50 and Other chronic pain G89.29 Assessments Encounter Date Diagnosis (ICD Code) Assessment Notes Treatment Notes Treatment Clinical Notes Section Notes 04/01/2025 Essential hypertension (ICD-10 - I10) 04/01/2025 Low back pain, unspecified (ICD-10 - M54.50) Spoke to Annamarie Manuel APRN at [facility] pain management. DIscussed adding Tramadol today. She will order an MRI, last was done ion 2022, and will refer to a surgeon if needed. Objectives for treatment of Chronic pain: For patient to be without pain or for pain to be lessened. 04/01/2025 Other chronic pain (ICD-10 - G89.29) Plan Of Treatment Medication Medication Name Sig Start Date Stop Date Notes Aldactone 50 MG 1 tablet Orally Once a day Atenolol 25 MG 1 tab(s) orally once a day traMADol HCl 50 MG 1 tablet Orally every 8 hrs 04/01/2025 Irbesartan 300 MG 1 tablet Orally Once a day Treatment Notes Assessment Notes Low back pain, unspecified Spoke to Faiza Manuel APRN at [facility] pain management. DIscussed adding Tramadol today. She will order an MRI, last was done ion 2022, and will refer to a surgeon if needed. Objectives for treatment of Chronic pain: For patient to be without pain or for pain to be lessened. Next Appt Details Follow Up: via phone to scarlet levy progress,6 Months, Reason: Progress Notes * Nico COHEN DDOB: [birth year] (84 yo M)Acc No.[id number]:04/01/2025 Progress Notes Patient: Shantell Nico CASTRO Provider: Gracy Jennings M.D. :1940 A ge:84 Y S ex:Male Date:04/01/2025 Address:[facility] [address] [place], [id number] Subjective: * Chief Complaints: * 1 . 3 weeks. * HPI: C ardiology: Blood Pressure Elevated P t here for 3 week follow up. D ermatology: c/o rash P t states he has a rash or places on both arms. Pt's arms covered in places and bruises. Pt states he uses a cream everynight but it has gotten worse. * ROS: M USCULOSKELETAL: Back pain yes, g etting worse, wants to resume Tramadol. * Medical History: C oronary Artery Disease, Hypercholestrolemia, Benign Prostatic Hyperplasia, Impaired Fasting Glucose, Osteoarthritis, Parkinson's Disease, RT Leg DVT, post op December 2021, Lumbar Disc Disease, Lumbar facet arthropathy, Spinal Stenosis, L-spine MRI 2017. 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 Objective: * Vitals: W t: 191.0, Temp: 97.7, BP: 132/78, HR: 65, Nurse: SF, Ht: 68, BMI:29.04. * Examination: G eneral Examination: General Appearance: N AD, stands and moves slowly due to pain. H eart: R SR. L ungs: c lear to auscultation. S kin: n umerous ecchymoses on the forearms as well as rough, pink papules. Assessment: * Assessment: 1. E ssential hypertension - I10 (Primary) 2 . L ow back pain, unspecified - M54.50 3 . O ther chronic pain - G89.29 Plan: * Treatment: 2. L ow back pain, unspecified Start traMADol HCl Tablet, 50 MG, 1 tablet, Orally, every 8 hrs As needed, 30, Refills 1. ? Notes: Spoke to Annamarie Manuel APRN at [facility] pain management. DIscussed adding Tramadol today. She will order an MRI, last was done ion 2022, and will refer to a surgeon if needed. Objectives for treatment of Chronic pain: For patient to be without pain or for pain to be lessened. * Imaging: * I maging: KATHRYN (Performed Date - 04/02/2025) * Procedure Codes: G 2211 Complex e/m visit add on * Follow Up: v ia phone to report progress,6 Months * Images: Billing Information: * Visit Code: 49715 Office Visit, Est Pt., Level 4. * Procedure Codes: G2211 Complex e/m visit add on. * Electronic signature of Dana Jennings MD on 04/10/2025 at 06:56 AM EDT Sign off status: Pending * Provider: Gracy Jennings M.D. Date: Generated for Evans wilder/Joey/Alisia on: 06:56 AM EDT History and Physical Notes * HPI (History of Present Illness) Category Sub-Category Detail Notes Category Not es Dermatology rash Pt states he has a rash or places on both arms. Pt's arms covered in places and bruises. Pt states he uses a cream everynight but it has gotten worse Cardiology Blood Pressure Elevated Pt here for 3 wee k follow up Examination Category Sub-Category Detail Notes Category Not es General Examination Heart: RSR Lungs: clear to auscultatio n General Appearance: NAD, stands and move s slowly due to pain Skin: numerous ecchymoses on the forearms as well as rough, pink papules
--- OUTSIDE RECORDS SUMMARY | 2025-04-10 06:56 | XMS_ITS | Encounter Summary ---
Author Organization Healthcare Address [address] [place] [address] Care Team Providers Care Financial Institution Manager Name Role Phone Arie Jennings MD Primary Care Provider [phone] Encounter Details Date Type Department Care Team [...] Info) Description 03/27/2026 9:45 AM EDT Appointment [facility] Ultrasound [address] [place] [address] 03/27/2026 11:00 AM EDT Office Visit Medical Office Building Urology [address] [facility], [address] [place] [address] Mario Bolden MD [address] [place] [address] documented as of this encounter [...] documented as of this encounter Care Teams Financial Institution Manager Relationship Specialty Start Date End Date Arie Jennings MD [address] [facility] [address] [place] [address] PCP - General 01/02/24 documented as of this encounter
--- OUTSIDE RECORDS SUMMARY | 2025-04-10 06:56 | XMS_ITS | Clinical Summary ---
Author Organization [facility] Address [address] [place] [address] Care Team Providers Care Analytical Statistician Name Role Phone Arie Jennings MD Primary Care Provider [phone] Allergies Active Allergy Reactions Criticality Noted Date [...] Visit Medical Office Building Urology [address] [facility], [address] [place] [address] Mario Bolden MD Mass of right kidney (Primary Dx) 03/28/2025 8:56 AM EDT - 03/28/2025 11:59 PM EDT Hospital Encounter [facility] [address] [place] [address] Mass of right kidney Discharge [...] Info) Description 03/27/2026 9:45 AM EDT Appointment [facility] Ultrasound [address] [place] [address] 03/27/2026 11:00 AM EDT Office Visit Medical Office Building Urology [address] [facility], [address] [place] [address] Mario Bolden MD [address] [place] [address] Health Maintenance Due Date Last Done Comments [facility]-Medicare Annual Wellness (AWV) 1940 [facility]-/Child/Adol SDOH Screenings 1940 [facility]- SDOH Screenings 1957 [facility]-Adult SDOH Screenings 1957 [facility]-Zoster Vaccines (1 of 2) 1989 [facility]-RSV Vaccine: 60+ Years or (1 - 1-dose 75+ series) 2014 [id number] Vaccine ( - season) 2025 08/20/2020, 07/23/2020 [...] Result from Last 3 Months Insurance MEDICARE [facility] Care Teams Analytical Statistician Relationship Specialty Start Date End Date Arie Jennings MD [address] [facility] [address] [address] PCP - General 01/02/24
--- OUTSIDE RECORDS SUMMARY | 2025-04-10 06:57 | XMS_ITS | Encounter Summary ---
Author Organization Healthcare Address [address] [place] [address] Care Team Providers Care Supervisor Ski Production Name Role Phone Arie Jennings MD Primary Care Provider [phone] Encounter Details Date Type Department Care Team (Late Contact Info) Description 12/28/2023 Orders Only External Location [address] [place] [address] Sheldon Barrios MD [address] [facility] [address] [place] [address] Social History Tobacco Use Types [...] 03/27/2026 9:45 AM EDT Appointment [facility] Ultrasound [address] [place] [address] 03/27/2026 11:00 AM EDT Office Visit Medical Office Building Urology [address] [facility], [address] [place] [address] Mario Bolden MD [address] [place] [address] documented as of this encounter [...] on filedocumented in this encounter Care Teams Supervisor Ski Production Relationship Specialty Start Date End Date Arie Jennings MD [facility] [place] [address] PCP - General 01/02/24 documented as of this encounter
--- OUTSIDE RECORDS SUMMARY | 2025-04-10 06:57 | XMS_ITS | Data Portability ---
Author Organization [place] Address [address] [place] [address] Assessment Encounter Date Assessment Date Assessment LastModified by Organization Details LastModified Time 03/21/2025 03/21/2025 This patient had diagnostic right SI joint injection under fluoroscopy today. He is from our [place] office. Will have him follow-up in 2 weeks with Annamarie Colindres, nurse practitioner. If he does well with this diagnostic right SI joint injection pain may be a candidate for therapeutic SI joint injections in the future. [facility] Not available 03/21/2025 18:09:07 Plan of Treatment Reminders Order Date Submit Date Provider Last Modified By Organization Details Last Modified Time Details Appointments None record ed. Lab None record ed. Referral None record ed. Procedures None record ed. Surgeries None record ed. Imaging None record ed. Medication Orders None record ed. Patient TargetsNo targets recorded. Patient Instructions Encounter Date Encounter Id Patient Instructions Last Modified By Organization Details Last Modified Time 03/21/2025 [id number] back pain: care instructions [facility] Not available 03/21/2025 18:09:17 learning about relief for back pain [facility] Not available 03/21/2025 18:09:17 Reason for Referral None Reported. Procedures Surgical History Date Name Laterality Status Provider Name and Address Organization Details Recorded Time Diagnostic SI Joint Injection Under Fluoroscopy completed Orlando Goode MD [address], [address], [place] - [facility] 03/21/2025 18:08:41 extraction of cataract completed Doreen Medrano [place] - [facility] 03/12/2025 13:50:44 total knee replacement completed Doreen DAVID - [facility] 03/12/2025 13:51:04 operation on heart completed Doreen Medrano [place] - [facility] 03/12/2025 13:51:29 Imaging Results None recorded. Procedure Notes None recorded. Medical Equipment None Reported. Allergies No known drug allergies Medications Name Sig Start Date Stop Date Status Note LastModified by Organization Details LastModified Time tizanidine 4 mg tablet active Not Available Not Available Not Available atenolol 25 mg tablet active Not Available Not Available Not Available tramadol 50 mg tablet active Not Available Not Available Not Available triamcinolone acetonide 0.1 % topical cream active Not Available Not Availabl e Not Available meloxicam 7.5 mg tablet active Not Available Not Available No t Available isosorbide mononitrate ER 60 mg tablet,extended release 24 hr active Not Available Not Availabl e Not Available dexamethasone 2 mg tablet active Not Available Not Available No t Available gabapentin 300 mg capsule active Not Available Not Available N ot Available lovastatin 20 mg tablet active Not Available Not Available No t Available cefdinir 300 mg capsule active Not Available Not Available Not Available Xarelto 20 mg tablet 03/21 completed Not Available Not Available Not Available Vitals Date Recorded Body height Heart rate Respiratory rate Body mass index (BMI) Body weight Oxygen saturation Oxygen saturation in Arterial blood by Pulse oximetry Pain severity - 0-10 verbal numeric rating [Score] - Reported Systolic And Diastolic Provider Name and Address Organization Details Last Updated DateTime 175.26 cm 56 /min 18 /min 28.1 kg/m2 11386.5 5 g 96 % 96 % 3 130/63 mm[Hg] Doreen Medrano [place] [facility] 12:47:56 Social History Question Answer Notes LastModified by Organizat ion Details LastModified Time Tobacco Smoking Status Never Smoker Doreen Medrano null, [place] - [facility] 03/12/2025 12:26:03 In The 14 Days Before Symptom Onset, Have You Had Close Contact With A Laboratory-confirm ed COVID-19 While That Case Was Ill? No Information n ot available 03/12/2025 In The 14 Days Before Symptom Onset, Have You Had Close Contact With A Person Who Is Under Investigation For COVID-19 While That Person Was Ill? No Information not available 03/12/2025 Have You Been To An Area Known To Be High Risk For COVID-19? No Information not available 03/12/2025 Sex: Unknown Functional Status Question Answer Note LastModified by Organizat ion Details LastModified Time Do you use any illicit or recreational drugs? No Information not available 03/12/2025 Do you or have you ever used any other forms of tobacco or nicotine? No Information not available 03/12/2025 What is your level of alcohol consumption? Occasional Information not available 03/12/2025 Mental Status None recorded. Family History Nothing Reported. Medical History Condition Response Coronary Artery Disease N Gout N Head Trauma/Injury N Depression N COPD N Anxiety Disorder N Arthritis N Acid Reflux (GERD) N Cancer N Stroke N Headaches N Fibromyalgia N Kidney Disease N Ulcers N Bleeding Disorder N Tuberculosis N AIDS/HIV N Asthma N Substance Abuse N Hepatitis N Hernia N Back Injury N High Cholesterol N Liver Disease N Thyroid Problems N Anemia N Heart Attack (CO) N Diabetes N Heart Disease N Hypertension N Osteoporosis N Past Encounters Encounter ID Performer Location Encounter Start Date Encounter Closed Date Diagnosis/Indication Diagnosis SNOMED-CT Code Diagnosis ICD10 Code Diagnosis IMO Codes Diagnosis Note [id number] Orlando Goode MD [address] [place] [address] 03/21/2025 12:34:01 03/21/2025 13:44:37 Inflammation of sacroiliac joint 06587587 M46.1 1659 Health Concerns Section Related Observation LastModified by Organization Detai ls LastModified Time None Recorded Concern Status LastModified by Organization Details LastModified Time None Recorded Advance Directives Directive None Recorded Payers Insurance Date Sequence Insurance Name Policy Number Policy Jay Covered Member ID Jay Member ID Guarantor Name 03/18/2025 2 [employer] (MEDICARE SUPPLEMENT) Nico Cohen [id number] Nico Cohen 03/18/2025 1 [place] Nico Cohen [id number] Nico Cohen Notes Date Note Type Note Provider Name and Address Organization Details Recorded Time text/html Back PainReported by PatientHPIFor location, patient reportspain radiating to the legsbut reportslumbar. For quality, patient reportssharpandburning. For severity, patient reportspain level 3/10andmild (1-4). For duration, patient reportschronic. For context, patient reportsoveruseandprior back problems. For alleviating factors, patient reportsrest. For aggravating factors, patient reportsmovement/positioning ,twisting,flexing back,extending back,worse at night,lifting,housework,wal maliha,standing, andweather. For associated symptoms, patient reportsno fever,no weak limbs,no numbness of the legs/feet,no tingling,no incontinence,no shortness of breath,no unintentional weight loss,no chills,no night sweats,no gait instability,no bowel/bladder symptoms, andno recent increase in stress. Patient presents for an injection of INSERT TEXT HERE. Orlando Goode MD [address], [address], [place] [facility] 03/21/2025 18:09:33
--- OUTSIDE RECORDS SUMMARY | 2025-04-10 06:57 | XMS_ITS | Continuity of Care Document ---
Author Organization [facility] [place] Office New Address [address] [place] [address] Assessment Encounter Date Assessment Date Assessment LastModified by Organization Details LastModified Time 03/21/2025 03/21/2025 This patient had diagnostic right SI joint injection under fluoroscopy today. He is from our [place] office. Will have him follow-up in 2 [...] By Organization Details Last Modified Time 03/21/2025 [id number] back pain: care instructions abux Not available 03/21/2025 18:09:17 learning about relief for back pain abux Not available 03/21/2025 18:09:17 Reason for Referral None Reported. Procedures Surgical History Date Name Laterality Status Provider Name and Address Organization Details Recorded Time Diagnostic SI Joint Injection Under Fluoroscopy completed Orlando Goode MD [address], [address], [place] - [facility] 03/21/2025 18:08:41 [...] cm 56 /min 18 /min 28.1 kg/m2 58474.5 5 g 96 % 96 % 3 [...] Response Coronary Artery Disease N Gout N Hernia N Head Trauma/Injury N Thyroid Problems N Depression N COPD N Anemia N Ulcers N Heart Attack ([place]) N Anxiety Disorder N Diabetes N Bleeding Disorder N Arthritis N Tuberculosis N AIDS/HIV N Acid Reflux (GERD) N Cancer N Stroke N Asthma N Substance Abuse N Back Injury N High Cholesterol N Hepatitis N Liver Disease N Heart Disease N Headaches N Fibromyalgia N Hypertension N Osteoporosis N Kidney Disease N Past Encounters Encounter ID Performer Location Encounter Start Date Encounter Closed Date Diagnosis/Indication Diagnosis SNOMED-CT Code Diagnosis ICD10 Code Diagnosis IMO Codes Diagnosis Note [id number] Orlando Goode MD [address] [place] [address] [place] [id number] 03/21/2025 12:34:01 03/21/2025 13:44:37 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 M46.1 1659 Health Concerns Section Related Observation LastModified by Organization Detai ls LastModified Time None Recorded Concern Status LastModified by Organization Details LastModified Time None Recorded Payers Encounter Date Sequence Insurance Name Policy Number Policy Jay Covered Member ID Jay Member ID Guarantor Name 03/21/2025 2 [employer] (MEDICARE SUPPLEMENT) Nico Cohen [id number] Nico Cohen 03/21/2025 1 MED[place]ICARE[place] Nico Cohen [id number] Nico Cohen Notes Date Note Type Note Provider Name and Address Organization Details Recorded Time 5 text/html Back PainReported by PatientHPIFor location, patient [...] TEXT HERE. Orlando Goode MD [address], [address], [place] [facility] [facility] 03/21/2025 18:09:33
--- OUTSIDE RECORDS SUMMARY | 2025-04-10 06:58 | XMS_ITS | Patient Health Record ---
Author Organization [facility] [address] [place] [id number] Care Team Providers Care Bolt Sawyer Name Role Phone Dick Arie Primary Care Provider EMILIA AQUINO Unavailable Unavailable Allergies No Known Allergies Results Component Value Reference Range Notes P-Basic Metabolic Panel (BMP ) Reviewed date:08/03/2024 09:00:31 AM Interpretation:gluc 108, bun 27, gfr 58 Performing Lab: Notes/Report: Test performed by [facility] [employer] [address] [place] [address] , [address], [place] [address] Mina Seals MD, Production Line Technician CLIA: [id number] Sodium 143 135-145 mmol/L Potassium 5.0 3.5-5.3 [...] 59 Performing Lab: Notes/Report: Test performed by [facility] [address] [place], [place] [address] , [address], [place] [address] Mina Seals MD, Production Line Technician CLIA: [id number] Sodium 141 135-145 mmol/L Potassium 5.3 3.5-5.3 [...] 35 Performing Lab: Notes/Report: Test performed by [facility] [address] [place], [place] [address] , [address], [place] [address] Mina Seals MD, Production Line Technician CLIA: [id number] Cholesterol 142 <200 mg/dL Triglycerides 116 <150 [...] Interpretation:Normal Performing Lab: Notes/Report: Test performed by [facility], [address] , [address], [place] [address] Mina Seals MD, Production Line Technician CLIA: [id number] TSH reflex to FT4 1.54 0.43-5.25 mU/L P-Microalbumin/Creatinine, R andom Urine Sample Reviewed date:11/06/2024 11:56:24 AM Interpretation:Normal Performing Lab: Notes/Report: Test performed by [facility] [address] [place] [address] , [address], [place] [address] Mina Seals MD, Production Line Technician CLIA: [id number] Albumin/Creatinine Ratio, Urine 11 0-30 ug/mg Microalbumin, [...] Interpretation:Normal Performing Lab: Notes/Report: Test performed by [facility] [address] [place] [address] , [address], [place] [address] Mina Seals MD, Production Line Technician CLIA: [id number] Vitamin B12 8652 463-5951 pg/mL P-Comprehensive Metabolic Pa shari (CMP) Reviewed date:02/22/2025 10:30:36 AM Interpretation:Glu 138, BUN 49, Creat 1.52, eGFR 44 Performing Lab: Notes/Report: Test performed by [facility] [address] [place] [address] , [place] [address] Mina Seals MD, Production Line Technician CLIA: [id number] Sodium 141 135-145 mmol/L Potassium 5.3 3.5-5.3 [...] Interpretation:Normal Performing Lab: Notes/Report: Test performed by [facility] [address] [place] [address] , [facility] [place] [address] Mina Seals MD, Production Line Technician CLIA: [id number] TSH reflex to FT4 1.01 0.43-5.25 mU/L P-Vitamin D 25-Hydroxy Reviewed date:02/22/2025 10:30:36 AM Interpretation:Normal Performing Lab: Notes/Report: Test performed by [facility] [address] [place] [address] , [facility] [place] [id number] Mina Seals MD, Production Line Technician CLIA: [id number] Vitamin D 25-Hydroxy 51.0 30.0-100.0 ng/mL Interpretation of Vitamin D 25 [place]: < 20 ng/mL - Deficiency 20 - 29 ng/mL - Insufficiency 30 - 100 ng/mL - Sufficiency > 100 ng/mL - Super-therapeutic- toxicity may occur above this level. Clinical correlation required. KATHRYN Reviewed date:04/02/2025 12:34:59 PM Interpretation: Performing Lab: Notes/Report: Reason For Referral No Information Medications Medication SIG (Take, Route, Frequency, Duration) Notes Start Date End Date Status Aldactone 50 MG 1 tablet Orally Once a day Active Rytary 23.75-95 MG 1 cap(s) orally [...] once a day; Duration: 90 days Active Irbesartan 300 MG 1 tablet Orally Once a day Active Immunizations Vaccine Route Administration Date Status Comme [facility] xFluzone-trivalent -medicare pts. IM Intramuscular 07/23/2013 Administered Tetanus Tdap-Adacel (over 7yrs) IM Intramuscular 10/10/2017 Administered Prevnar (PCV20) IM Intramuscular 03/28/2023 Administered Prevnar (PCV13) IM Intramuscular 07/23/2013 Administered PNEUMOVAX 23 VACCINE IM Intramuscular 03/18/2016 Administered Hepatitis B (20 and more) Unknown 05/09/2001 Administered Hepatitis B (20 and more) Unknown 07/11/2001 Administered Hepatitis B (20 and more) Unknown 01/09/2002 Administered Fluzone High Dose (65yr and older) [...] (65yr and older) IM Intramuscular 03/07/2025 Administered COVID 19 Moderna Unknown 07/23/2020 Administered COVID 19 Moderna Unknown 08/20/2020 Administered Problems Problem Type SNOMED Code ICD Code Onset Dates Problem Status W/U Status Risk Notes Problem Essential hypertension (76319940) Essential hypertension (I10) Active confirmed Problem Arthropathy of lumba r facet joint (639632037) Lumbar facet arthropathy (M47.816) Active confirmed Problem Parkinson's disease (11849572) Parkinson's disease (G20) Active confirmed Problem Degeneration of lumbar intervertebral disc (15648455) Lumbar degenerative disc disease (M51.36) Active confirmed Problem Chronic pain (71150004) Other chronic pain (G89.29) Active confirmed Problem Atherosclerotic hear t disease of [place] coronary artery without angina pectoris (535231716550674) Coronary artery disease involving [place] coronary artery of [place] heart without angina pectoris (I25.10) Active confirmed Problem Derangement of knee (10244043) Internal derangement of knee, right (M23.91) Active confirmed Problem Disorder of neck (212846766) Disorder of neck (M53.82) Active confirmed Problem Benign prostatic hypertrophy without outflow obstruction (024320568) Benign prostatic hyperplasia, presence of lower urinary tract symptoms unspecified, unspecified morphology (N40.0) Active confirmed Problem Impaired fasting glycaemia (651301736) IFG (impaired fasting glucose) (R73.01) Active confirmed Problem Pharyngeal dysphagia (46627653562557) Pharyngeal dysphagia (R13.13) Active confirmed Problem Pure hypercholesterolemia (817573612) Pure hypercholesterolemia (E78.00) Active confirmed Problem Oropharyngeal dysphagia (70770631) Oropharyngeal dysphagia (R13.12) Active confirmed Problem Arthritis of right knee (4772143467961572) Arthritis of right knee (M17.11) Active confirmed Problem Mild cognitive disorder (063364186) MCI (mild cognitive impairment) (G31.84) Active confirmed Problem Primary hypertension (35733213) Primary hypertension (I10) Active confirmed Problem Disorder of urinary bladder (47824850) Bladder wall thickening (N32.89) Active confirmed Problem Parkinson's disease (disorder) (74912872) Parkinson disease, symptomatic (G20.A1) Active confirmed Vital Signs Heart Rate 65 /min 04/01/2025 Blood pressure diastolic 78 mm Hg 04/01/2025 Height 68 in 04/01/2025 Blood pressure systolic 132 mm Hg 04/01/2025 Weight 191.0 lbs 04/01/2025 BMI 29.04 kg/m2 04/01/2025 Encounters Encounter Location Date Provider Diagnosis [facility] [address] [place], [place] [id number] 04/27/2024 [place] [place] Essential hypertensi on I10 ; Parkinson disease, symptomatic G20.A1 and Encounter for immunization Z23 [facility] [address] [place], [place] [id number] 08/02/2024 [place] [place] Essential hypertensi on I10 [facility] [address] [place], [place] [id number] 11/02/2024 A[facility] [place] Essential hypertensi on I10 ; Pure hypercholesterolemia E78.00 ; IFG (impaired fasting glucose) R73.01 ; Folliculitis L73.9 ; Parkinson disease, symptomatic G20.A1 and BMI 28.0-28.9,adult Z68.28 [facility] [address] [place], [place] [id number] 02/21/2025 [place] [place] Acute delirium R41.0 [facility] [address] [place], [place] [id number] 03/07/2025 A[facility] [place] Encounter for immuni zation Z23 [facility] [address] [facility] [address] [place], [place] [id number] 03/11/2025 [place] [place] Symptomatic hypotens ion I95.9 and BMI 25.0-25.9,adult Z68.25 [facility] [address] [place], [place] [id number] 04/01/2025 A[facility] [place] Essential hypertensi on I10 ; Low back pain, unspecified M54.50 and Other chronic pain G89.29 [facility] [address] [place], [place] [id number] 06/28/2024 A[facility] [place] Essential hypertensi on I10 [facility] [address] [place], [place] [id number] 07/09/2024 [place] Essential hypertensi on I10 [facility] [address] [place] [id number] 07/10/2024 [place] [facility] [address] [place] [id number] 07/19/2024 [place] [facility] [address] [place] [id number] 08/03/2024 [place] [facility] [address] [place], [place] [id number] 08/25/2024 Arie [place] Essential hypertensi on I10 [facility] [address] [place] [id number] 11/06/2024 [place] [facility] [address] [place], [place] [id number] 11/23/2024 [place] [facility] [address] [place] [id number] 02/22/2025 [place] [facility] [address] [place], [place] [id number] 04/05/2025 A[facility] [place] Assessments Encounter Date Diagnosis (ICD Code) Assessment Notes Treatment Notes Treatment Clinical Notes Section Notes 06/28/2024 Essential hypertensi on (ICD-10 - I10) 04/01/2025 Low back pain, unspecified (ICD-10 - M54.50) Spoke to Annamarie Manuel APRN at [facility] pain management. DIscussed adding Tramadol today. She will order an MRI, last was done ion 2022, and will refer to a surgeon if needed. Objectives for treatment of Chronic pain: For patient to be without pain or for pain to be lessened. 03/11/2025 BMI 25.0-25.9,adult (ICD-10 - Z68.25) 03/11/2025 Symptomatic hypotens ion (ICD-10 - I95.9) Blood pressure journal 03/07/2025 Encounter for immunization (ICD-10 - Z23) 02/21/2025 Acute delirium (ICD- 10 - R41.0) Seems to be due to a side effect of Baclofen. Will stop it now. 11/02/2024 Essential hypertensi on (ICD-10 - I10) 04/01/2025 Essential hypertensi on (ICD-10 - I10) 11/02/2024 Pure hypercholesterolemia (ICD-10 - E78.00) 08/25/2024 Essential hypertensi on (ICD-10 - I10) 08/02/2024 Essential hypertensi on (ICD-10 - I10) 07/09/2024 Essential hypertensi on (ICD-10 - I10) 04/27/2024 Essential hypertensi on (ICD-10 - I10) 04/27/2024 Parkinson disease, symptomatic (ICD-10 - G20.A1) 11/02/2024 IFG (impaired fastin g glucose) (ICD-10 - R73.01) 04/27/2024 Encounter for immunization (ICD-10 - Z23) 04/01/2025 Other chronic pain (ICD-10 - G89.29) 11/02/2024 Folliculitis (ICD-10 - L73.9) 11/02/2024 Parkinson disease, symptomatic (ICD-10 - G20.A1) 11/02/2024 BMI 28.0-28.9,adult (ICD-10 - Z68.28) Plan Of Treatment No Information Insurance Providers Payer Name Payer Address Payer Phone Subscriber Number Group Number Insured Name Patient Relationship to Insured Coverage Start Date Coverage End Date MEDICARE PART B [address] [address] [place] [id number] [phone] [id number] Nico Cohen Self - patient is the insured [address] [place] [id number] Nico Cohen Self - patient is the [...] History Surgery Date(Month/Year) Tonsillectomy 2 vessel CABG- [place] 1999 Cataract Removal 2015 Cataract Removal 05/2019 TURP 09/2021 RT Knee Total Ostoplasty 12/2021 Hospitalization History Reason Date(Month/Year)
--- NOTE | 2025-04-10 07:15 | MR_ITS ---
FINAL REPORT CLINICAL HISTORY: low back pain COMPARISON: 12/24/2022 FINDINGS: Multiplanar MR imaging of the lumbar spine was performed without contrast. On the sagittal T2-weighted images, there is diffuse abnormal decreased signal throughout the lumbar discs. There is advanced disc space narrowing L2-3 through L5-S1. The vertebral alignment is normal. Previously noted synovial cyst at L3-4 now demonstrates more heterogeneous appearance than on the prior exam. There is a multitude of bilateral renal cysts measuring up to 3.7 cm in greatest dimension. T12-L1: There is no significant canal stenosis or neuroforaminal narrowing. L1-2: Mild diffuse disc bulge. Endplate hypertrophy. Mild bilateral neuroforaminal narrowing. L2-3: Moderate diffuse disc bulge. Endplate hypertrophy. Bilateral facet hypertrophy. Moderate to high-grade bilateral neuroforaminal narrowing. L3-4: Moderate diffuse disc bulge. Endplate hypertrophy. Facet hypertrophy. High-grade spinal canal compromise well-seen on image 17 of series 5. High-grade left and moderate to high-grade right neuroforaminal narrowing. L4-5: Mild endplate hypertrophy. Bilateral facet hypertrophy. Moderate bilateral neuroforaminal narrowing. L5-S1: Mild diffuse disc bulge. Endplate hypertrophy. Facet hypertrophy. Moderate to high-grade bilateral neuroforaminal narrowing. IMPRESSION: Multilevel changes of degenerative disc disease and facet hypertrophy with spinal canal compromise high-grade at L3-4, worse compared to the prior exam. Correlate with any specific radicular symptoms. No acute osseous abnormality. Reviewed, Interpreted and Dictated by Valentín Carr MD Transcribed by Monika Edwards Authenticated and [facility]
== END 2025-04-10 23:59 | disposition home or self-care (01) ==
LOC: RAD 06:54
PROVIDERS: PCP Family Medicine; Visit Provider Nurse Practitioner Family
DX: M47.816 Spondylosis without myelopathy or radiculopathy, lumbar region (principal); M48.061 Spinal stenosis, lumbar region without neurogenic claudication; M46.1 Sacroiliitis, not elsewhere classified
CPT/HCPCS: 72148

== ENCOUNTER 2025-04-23 08:28 | Day surgery (SDC) | payer MEDICARE, SELFPAY ==
[2025-04-23 08:37] VITALS: BP 146/70; PULSE 60; RESP 16; O2SAT 96; BMI 28.0
[2025-04-23 09:11] VITALS: BP 127/50; PULSE 73; RESP 18; O2SAT 95
[2025-04-23] MEDS: LIDOCAINE 1% 5ML PF VIAL 5 ML (09:16)
[2025-04-23] MEDS: BUPIVACAINE 0.25% 10ML INJ 25 MG IJ (09:16)
[2025-04-23 09:18] VITALS: BP 127/50; PULSE 70; RESP 18; O2SAT 95
--- NOTE | 2025-04-23 09:20 | EXP.PAIN.PRO ---
Procedure Date: 04/23/25 Time: 09:10 Anesthesiologist:: Mitul Espinal CRNA Complications:: None Pre-procedure Diagnosis:: Degenerative disc lumbar spine multilevels. Lumbar radiculopathy. Multilevel lumbar facet arthropathy. Lumbar spondylosis. Post-procedure Diagnosis:: Same. Indications for Procedure:: Patient is a very pleasant 84-year-old male who comes our clinic today for round 1 of branch blocks/facet injections the lumbar L3-4, L4-5 level. Patient describes low lumbar back pain as constant, dull, aching. He reports difficulty with lumbar flexion, extension, left and right rotation. He rates his pain 7/10. Procedure Details:: Informed consent was obtained and the risk and benefits of the procedure was explained to the patient. Patient was taken to the procedure room where noninvasive monitors were placed, including noninvasive blood pressure cuff as well as pulse oximeter. The area over the lumbar spine was cleansed using chlorhexidine as a cleansing solution. I anesthetized the skin and subcutaneous tissues with 1% Lidocaine. I placed 22-gauge spinal needles into the facet joint/ medial branches of L3-4, L4-5 bilaterally. Needle placement was confirmed with fluoroscopy. After confirmation of needle placement, each site was injected with 1 mL of 1% lidocaine and 0.25 % Marcaine 1 mL. Patient tolerated the procedure without difficulty. There were no complications. Plan and Disposition:: Patient was discharged without incident.
[2025-04-23 09:27] VITALS: BP 147/75; PULSE 63; RESP 16; O2SAT 96
== END 2025-04-23 09:27 | disposition home or self-care (01) ==
PROVIDERS: PCP Family Medicine; Visit Provider Nurse Anesthetist, Certified Registered
DX: M51.16 Intervertebral disc disorders with radiculopathy, lumbar region (principal); M47.26 Other spondylosis with radiculopathy, lumbar region; Z90.79 Acquired absence of other genital organ(s); Z96.651 Presence of right artificial knee joint; Z79.1 Long term (current) use of non-steroidal anti-inflammatories (NSAID)
CPT/HCPCS: 64493; 64494; J0665; J2003